=== PATIENT | female | born 1955 | race Hispanic/Latino ===

== ENCOUNTER 2017-12-31 03:55 | Emergency (ER) | payer BC, MEDICARE, OTHER ==
[2017-12-31] MEDS ORDERED: ACETAMINOPHEN 500 MG TAB ONE (04:31)
[2017-12-31] MEDS ORDERED: ONDANSETRON 4 MG/2 ML VIAL ONE (04:31)
[2017-12-31] MEDS ORDERED: KETOROLAC 30 MG/ML INJ ONE (04:31)
[2017-12-31 05:02] LABS: Absolute Lymphocytes (CBC) 2.5 K/uL (0.7-4.9); Absolute Monocytes 0.9 K/uL (0.1-1.3); Absolute Neutrophil 8.6 K/uL (1.8-8.0); Basophils % 0.5 % (0-1.3); Eosinophils % 2.2 % (0-4.4); Hematocrit 36.6 % (36.0-45.0); Lymphocytes % 20.1 % (15.3-44.8); MCH 28.3 pg (27.0-35.0); MPV 7.9 fL (7.6-11.3); Monocytes % 7.6 % (3.3-12.3); RBC Red Blood Cell Count 4.26 M/uL (3.86-4.86)
[2017-12-31 05:15] LABS: ALT/SGPT 27 U/L (12-78); AST/SGOT 23 U/L (15-37); Albumin 3.6 g/dL (3.4-5.0); Alkaline Phosphatase 90 U/L (45-117); BUN Blood Urea Nitrogen 17 mg/dL (7-18); Bicarbonate 24 mmol/L (21-32); Bilirubin Direct < 0.1 mg/dL (0-0.2); Bilirubin Total 0.4 mg/dL (0.2-1.0); Glucose Level 140 mg/dL (74-106); Lipase 91 U/L (73-393); Potassium 4.1 mmol/L (3.5-5.1); Protein, Total 8.1 g/dL (6.4-8.2); Sodium Level 137 mmol/L (136-145)
[2017-12-31 05:27] LABS: Urine Appearance CLEAR; Urine Bilirubin NEGATIVE (NEG); Urine Blood NEGATIVE (NEG); Urine Color YELLOW; Urine Glucose NEGATIVE (NEG); Urine Protein NEGATIVE (NEG); Urine Urobilinogen 0.2 mg/dL (0.2-1.0); Urine pH 5.5 (5.0-7.0)
[2017-12-31 05:28] LABS: Urine Bacteria <20 /HPF (<20); Urine Culture Reflex Order NOT NEEDED; Urine RBC NONE SEEN /HPF (NONE SEEN)
--- NOTE | 2017-12-31 06:49 | EDPHYS ---
Physician Documentation [facility] Name: Maria Esther Capone Age: 62 yrs Sex: Female : 1955 Arrival Date: 12/31/2017 Time: 03:55 Bed 6 Private MD: ED Physician Dpiak Hodges HPI: 12/31 05:01 This 62 yrs old Female presents to ER via EMS with complaints of left side low wa back pain. 05:01 The patient presents with pain that is acute, with no known mechanism of injury. The wa symptoms are located in the low back, L side. The pain does not radiate. The problem was sustained from unknown cause, states last she felt like this she had a kidney infection. Onset: The symptoms/episode began/occurred 4 day(s) ago. Modifying factors: The patient symptoms are alleviated by nothing, the patient symptoms are aggravated by movement, walking. Associated signs and symptoms: Pertinent positives: dysuria, urinary freq, Pertinent negatives: abdominal pain, chest pain, fever, headache, hematuria. Severity of symptoms: At their worst the symptoms were moderate, in the emergency department the symptoms are unchanged. The patient has experienced a previous episode. The patient has not recently seen a physician. Historical: - Allergies: 04:08 No Known Allergies; ea - PMHx: 04:08 Diabetes - IDDM; Hypertension; Hyperlipidemia; Heart attack in 2006; ea - PSHx: 04:08 Tubal ligation; ea - Immunization history:: Adult Immunizations up to date. - Social history:: Smoking status: Patient/guardian denies using tobacco. - Ebola Screening: : No symptoms or risks identified at this time. - Family history:: not pertinent. - Hospitalizations: : No recent hospitalization is reported. ROS: 05:03 Constitutional: Negative for fever, chills, and weight loss, Eyes: Negative for injury, wa pain, redness, and discharge, ENT: Negative for injury, pain, and discharge, Neck: Negative for injury, pain, and swelling, Cardiovascular: Negative for chest pain, palpitations, and edema, Respiratory: Negative for shortness of breath, cough, wheezing, and pleuritic chest pain, Abdomen/GI: Negative for abdominal pain, nausea, vomiting, diarrhea, and constipation, : Negative for injury, bleeding, discharge, and swelling, MS/Extremity: Negative for injury and deformity, Skin: Negative for injury, rash, and discoloration, Neuro: Negative for headache, weakness, numbness, tingling, and seizure. 05:03 Back: Positive for pain at rest, pain with movement, of the left low back and left mid back. 05:03 All other systems are negative. Exam: 05:04 Constitutional: This is a well developed, well nourished patient who is awake, alert, wa and in no acute distress. Head/Face: Normocephalic, atraumatic. Eyes: Pupils equal round and reactive to light, extra-ocular motions intact. Lids and lashes normal. Conjunctiva and sclera are non-icteric and not injected. Cornea within normal limits. Periorbital areas with no swelling, redness, or edema. ENT: Nares patent. No nasal discharge, no septal abnormalities noted. Tympanic membranes are normal and external auditory canals are clear. Oropharynx with no redness, swelling, or masses, exudates, or evidence of obstruction, uvula midline. Mucous membranes moist. Neck: Trachea midline, no thyromegaly or masses palpated, and no cervical lymphadenopathy. Supple, full range of motion without nuchal rigidity, or vertebral point tenderness. No Meningismus. Chest/axilla: Normal chest wall appearance and motion. Nontender with no deformity. No lesions are appreciated. Cardiovascular: Regular rate and rhythm with a normal S1 and S2. No gallops, murmurs, or rubs. Normal PMI, no JVD. No pulse deficits. Respiratory: Lungs have equal breath sounds bilaterally, clear to auscultation and percussion. No rales, rhonchi or wheezes noted. No increased work of breathing, no retractions or nasal flaring. Abdomen/GI: Soft, non-tender, with normal bowel sounds. No distension or tympany. No guarding or rebound. No evidence of tenderness throughout. Skin: Warm, dry with normal turgor. Normal color with no rashes, no lesions, and no evidence of cellulitis. MS/ Extremity: Pulses equal, no cyanosis. Neurovascular intact. Full, normal range of motion. Neuro: Awake and alert, GCS 15, oriented to person, place, time, and situation. Cranial nerves II-XII grossly intact. Motor strength 5/5 in all extremities. Sensory grossly intact. Cerebellar exam normal. Normal gait. Psych: Awake, alert, with orientation to person, place and time. Behavior, mood, and affect are within normal limits. 05:04 Back: pain, that is moderate, ROM is normal, normal spinal alignment noted, CVA tenderness, is absent, vertebral tenderness, is not appreciated, diffuse tenderness L lateral back to palpation. Vital Signs: 03:54 BP 122 / 76; Pulse 88; Resp 18; Temp 99.3(O); Pulse Ox 96% on R/A; Weight 53.07 kg; ea Height 4 ft. 11 in. (149.86 cm); Pain 10/10; 04:30 BP 158 / 70; Pulse 88; Resp 18 S; Pulse Ox 96% on R/A; ea 06:16 BP 114 / 71; Pulse 58; Resp 18; Pulse Ox 96% on R/A; ea 03:54 Body Mass Index 23.63 (53.07 kg, 149.86 cm) ea MDM: 04:07 Patient medically screened. nm 05:05 Differential diagnosis: strain, UTI, pyelo?. Data reviewed: vital signs, nurses notes, nm lab test result(s). 06:45 Test interpretation: by ED physician or midlevel provider: labs noted wnl. CT wa abd/pelvis: No acute process. Response to treatment: the patient's symptoms have markedly improved after treatment. 12/31 04:24 Order name: Basic Metabolic Panel; Complete Time: 06:12/31 04:24 Order name: CBC with Diff; Complete Time: 06:12/31 04:24 Order name: Creatinine for Radiology; Complete Time: 06:12/31 04:24 Order name: Hepatic Function; Complete Time: 06:12/31 04:24 Order name: Lipase; Complete Time: 06:01 12/31 04:24 Order name: IV Saline Lock; Complete Time: 05:22 12/31 04:24 Order name: Labs collected and sent; Complete Time: 05:22 12/31 04:24 Order name: Urine Dipstick-Ancillary (obtain specimen); Complete Time: 05:22 12/31 04:25 Order name: CT Abd/Pelvis - Without Cont 12/31 05:27 Order name: Urinalysis W/Microscopic; Complete Time: 06:00 EDMS Administered Medications: 04:30 Drug: TORadol 30 mg Route: IVP; Site: right forearm; ea 05:31 Follow up: Response: No adverse reaction; Pain is decreased ea 04:30 Drug: Zofran 2 mg Route: IVP; Site: right forearm; ea 05:32 Follow up: Response: No adverse reaction ea 05:32 Follow up: Response: Nausea is decreased ea 05:31 Drug: Tylenol 1000 mg Route: PO; ea 05:32 Follow up: Response: No adverse reaction ea Disposition: 12/31/17 06:48 Discharged to Home. Impression: Left low back pain. - Condition is Stable. - Discharge Instructions: Back Pain, Adult, [id number]. - Prescriptions for Valium 2 mg Oral Tablet - take 1 tablet by ORAL route At bedtime As needed; 5 tablet. - Medication Reconciliation Form, Thank You Letter, Antibiotic Education, Prescription Opioid Use form. - Follow up: Private Physician; When: 2 - 3 days; Reason: Recheck today's complaints. - Problem is new. - Symptoms have improved. - Notes: take tylenol for pain as needed. you may take valium at night for muscle relaxation as needed Signatures: Dispatcher [employer] EDME Marlene Romero RN RN Charity Ballesteros RN RN vanessa CallawayhDipak MD MD wa Corrections: (The following items were deleted from the chart) 05:27 04:25 UA MICROSCOPIC+U.LAB.BRZ ordered. [facility] EDMS 07:31 06:48 12/31/2017 06:48 Discharged to Home. Impression: Left low back pain. Condition is sv Stable. Forms are Medication Reconciliation Form, Thank You Letter, Antibiotic Education, Prescription Opioid Use. Follow up: Private Physician; When: 2 - 3 days; Reason: Recheck today's complaints. Problem is new. Symptoms have improved. wa
--- NOTE | 2017-12-31 06:49 | ER ---
Nurse's Notes [facility] Name: aMria Esther Capone Age: 62 yrs Sex: Female : 1955 Arrival Date: 12/31/2017 Time: 03:55 Bed 6 Private MD: Diagnosis: Left low back pain Presentation: 12/31 03:54 Presenting complaint: EMS states: Pt complaining of left lower back pain , patient ea reports pain started 4 days ago, and has progressively got worse. Transition of care: patient was not received from another setting of care. Onset of symptoms. Risk Assessment: Do you want to hurt yourself or someone else?. Initial Sepsis Screen: Does the patient meet any 2 criteria? No. Patient's initial sepsis screen is negative. Does the patient have a suspected source of infection? No. Patient's initial sepsis screen is negative. Care prior to arrival: None. 03:54 Method Of Arrival: EMS: [facility] ea 03:54 Acuity: ALTA 3 ea Triage Assessment: 03:54 General: Appears uncomfortable, Behavior is appropriate for age. Pain: Complains of ea pain in left low back and left mid back Pain does not radiate. Pain currently is 10 out of 10 on a pain scale. Quality of pain is described as aching, Pain began pain started 4 days ago and gradually got worse. EENT: No signs and/or symptoms were reported regarding the EENT system. Neuro: Level of Consciousness is awake, alert, obeys commands, Oriented to person, place, time, situation. Cardiovascular: Heart tones S1 S2 present Patient's skin is warm and dry. Respiratory: Airway is patent Respiratory effort is even, unlabored, Respiratory pattern is regular, symmetrical, Breath sounds are clear bilaterally. GI: Abdomen is non-distended, Bowel sounds present X 4 quads. : No signs and/or symptoms were reported regarding the genitourinary system. Derm: Skin is pink, warm \T\ dry. Historical: - Allergies: 04:08 No Known Allergies; ea - PMHx: 04:08 Diabetes - IDDM; Hypertension; Hyperlipidemia; Heart attack in 2006; ea - PSHx: 04:08 Tubal ligation; ea - Immunization history:: Adult Immunizations up to date. - Social history:: Smoking status: Patient/guardian denies using tobacco. - Ebola Screening: : No symptoms or risks identified at this time. - Family history:: not pertinent. - Hospitalizations: : No recent hospitalization is reported. Screenin:12 Abuse screen: Denies threats or abuse. Nutritional screening: No deficits noted. ea Tuberculosis screening: No symptoms or risk factors identified. Fall Risk None identified. Assessment: 04:30 Reassessment: Patient and/or family updated on plan of care and expected duration. Pain ea level reassessed. Patient is alert, oriented x 3, equal unlabored respirations, skin warm/dry/pink. 06:00 Reassessment: Pt resting with eyes closed respirations even and unlabored, chest ea expansions even and symmetrical. No s/s of pain or discomfort at this time. 06:57 Reassessment: Patient and/or family updated on plan of care and expected duration. Pain ea level reassessed. Patient is alert, oriented x 3, equal unlabored respirations, skin warm/dry/pink. Discharge instructions given to patient, verbalized the understanding of instruction. Vital Signs: 03:54 BP 122 / 76; Pulse 88; Resp 18; Temp 99.3(O); Pulse Ox 96% on R/A; Weight 53.07 kg; ea Height 4 ft. 11 in. (149.86 cm); Pain 10/10; 04:30 BP 158 / 70; Pulse 88; Resp 18 S; Pulse Ox 96% on R/A; ea 06:16 BP 114 / 71; Pulse 58; Resp 18; Pulse Ox 96% on R/A; ea 03:54 Body Mass Index 23.63 (53.07 kg, 149.86 cm) ea ED Course: 03:54 Patient has correct armband on for positive identification. Bed in low position. Call ea light in reach. Side rails up X2. 03:55 Patient arrived in ED. am2 03:58 Charity Kam, MIGUEL A is Primary Nurse. ea 04:06 Triage completed. ea 04:07 Dipak Hodges MD is Attending Physician. wa 04:13 Arm band placed on right wrist. ea 04:30 Inserted saline lock: 20 gauge in right forearm, using aseptic technique. Blood ea collected. 04:[address] via wheelchair. kw1 05:11 CT completed. Patient tolerated procedure well. Patient moved back from CT. kw1 05:14 CT Abd/Pelvis - Without Cont In Process Unspecified. EDIA 06:58 No provider procedures requiring assistance completed. IV discontinued, intact, ea bleeding controlled, No redness/swelling at site. Pressure dressing applied. Administered Medications: 04:30 Drug: TORadol 30 mg Route: IVP; Site: right forearm; ea 05:31 Follow up: Response: No adverse reaction; Pain is decreased ea 04:30 Drug: Zofran 2 mg Route: IVP; Site: right forearm; ea 05:32 Follow up: Response: No adverse reaction ea 05:32 Follow up: Response: Nausea is decreased ea 05:31 Drug: Tylenol 1000 mg Route: PO; ea 05:32 Follow up: Response: No adverse reaction ea Outcome: 06:48 Discharge ordered by . ok 06:58 Condition: improved 06:58 Discharge instructions given to patient, Instructed on discharge instructions, follow up and referral plans. medication usage, Demonstrated understanding of instructions, follow-up care, medications, Prescriptions given X 1. 07:31 Patient left the ED. sv Signatures: Dispatcher [employer] [facility] Marlene Romero, Heidy Roy RN, Elena, RN RN ea Appiah, William, MD MD wa Wilhelm, Kimberly kw1
[2017-12-31 07:35] VITALS: O2SAT 96
[2017-12-31 07:36] VITALS: BP 114/71
--- NOTE | 2017-12-31 10:20 | RAD REPORT ---
EXAM DESCRIPTION: CT - Abdomen Pelvis Wo Contrast - 12/31/2017 5:14 am CLINICAL HISTORY: Abdominal pain. L lower back pain COMPARISON: CTSTONE PROTOCOL dated 01/31/2015 TECHNIQUE: CT imaging of the abdomen and pelvis was performed without contrast. Solid organ, bowel a nd vascular assessment is limited due to lack of IV and oral contrast. All CT scans are performed using dose optimization technique as appropriate and may include automated exposure control or mA/KV adjustment according to patient size. FINDINGS: The lower lung khan are clear. The liver, spleen, pancreas, adrenal glands and left kidney are within normal limits for a limited no n-contrast examination.Punctate right renal calculus without hydronephrosis. No bowel obstruction, free air, free fluid or abscess. The appendix is normal. Prominent facet hypertrophy at L4-5 with anterolisthesis suspected. IMPRESSION: Punctate right renal calculus without hydronephrosis. Prominent facet hypertrophy with anterolisthesis in the lower lumbar spine. A limited non-contrast examination was performed as detailed.
== END 2017-12-31 07:31 | disposition home or self-care (01) ==
LOC: ER 03:55
DX: M54.5 Low back pain (principal); I10 Essential (primary) hypertension
CPT/HCPCS: 36415; 74176; 80048; 80076; 81001; 83690; 85025; 96374; 96375; 99284; J2405

== ENCOUNTER 2019-02-06 21:11 | Observation (INO) | payer MEDICARE ==
--- OUTSIDE RECORDS SUMMARY | 2019-02-06 21:13 | XMS REPORT ---
:1955 [facility] Address [address] [place] [address] [address] [place] [address] Care Team Providers Name Role Phone Unavailable Unavailable Unavailable Problems This patient has no known problems. Allergies, Adverse Reactions, Alerts This patient has no known allergies or adverse reactions. Medications This patient has no known medications.
[2019-02-06 23:10] LABS: Absolute Lymphocytes (CBC) 3.3 K/uL (0.7-4.9); Basophils % 1.1 % (0-1.3); Hematocrit 30.4 % (36.0-45.0); Lymphocytes % 43.3 % (15.3-44.8); MPV 8.8 fL (7.6-11.3); RBC Red Blood Cell Count 3.27 M/uL (3.86-4.86)
[2019-02-06 23:12] LABS: Protime INR 0.91
[2019-02-06 23:28] LABS: ALT/SGPT 26 U/L (12-78); AST/SGOT 20 U/L (15-37); Alkaline Phosphatase 68 U/L (45-117); BUN Blood Urea Nitrogen 28 mg/dL (7-18); Bicarbonate 27 mmol/L (21-32); Bilirubin Direct 0.1 mg/dL (0-0.2); Bilirubin Total 0.4 mg/dL (0.2-1.0); Glucose Level 102 mg/dL (74-106); Magnesium 2.4 mg/dL (1.8-2.4); NT PRO-BNP 492 pg/mL (<125); Potassium 4.2 mmol/L (3.5-5.1); Protein, Total 7.9 g/dL (6.4-8.2); Sodium Level 138 mmol/L (136-145); Troponin (Emerg Dept Use Only) < 0.02 ng/mL (0.0-0.045)
[2019-02-06] MEDS ORDERED: NITROGLYCERIN 0.4 MG/TAB SL ONE (23:48)
--- NOTE | 2019-02-07 00:03 | ER ---
Nurse's Notes [facility] Name: Maria Esther Capone Age: 63 yrs Sex: Female : 1955 Arrival Date: 02/06/2019 Time: 21:15 Bed 18 Private MD: Diagnosis: Hypertensive urgency;Chest pain Presentation: 02/06 21:44 Presenting complaint: Patient states: right shoulder pain, right shoulder blade pain ak1 with intermittent chest pressure for the past 5 days. pt denies N/V/D, pt denies SOB. Transition of care: patient was not received from another setting of care. Onset of symptoms is unknown. Risk Assessment: Do you want to hurt yourself or someone else? Patient reports no desire to harm self or others. Initial Sepsis Screen: Does the patient meet any 2 criteria? No. Patient's initial sepsis screen is negative. Does the patient have a suspected source of infection? No. Patient's initial sepsis screen is negative. Care prior to arrival: None. 21:44 Method Of Arrival: Ambulatory ak1 21:44 Acuity: ALTA 3 ak1 Triage Assessment: 21:46 General: Appears in no apparent distress. Behavior is calm, cooperative. ak1 Historical: - Allergies: 21:46 No Known Allergies; ak1 - Home Meds: 21:46 Metoprolol Tartrate Oral [Active]; Metformin Oral [Active]; pravastatin oral oral ak1 [Active]; aspirin 81 mg Oral TbEC 1 tab once daily [Active]; unknown Blood pressure pill [Active]; - PMHx: 21:46 Heart attack in 2006; Hyperlipidemia; Hypertension; Diabetes - NIDDM; ak1 - PSHx: 21:46 Tubal ligation; ak1 - Immunization history:: Adult Immunizations unknown. - Social history:: Smoking status: Patient/guardian denies using tobacco. - Ebola Screening: : No symptoms or risks identified at this time. Screenin:05 Abuse screen: Denies threats or abuse. Nutritional screening: No deficits noted. jb4 Tuberculosis screening: No symptoms or risk factors identified. Fall Risk IV access (20 points). Total Duffy Fall Scale indicates No Risk (0-24 pts). Assessment: 22:05 General: Appears in no apparent distress. comfortable, Behavior is calm, cooperative, jb4 appropriate for age. Pain: Complains of pain in chest Pain radiates to right scapular area Pain currently is 0 out of 10 on a pain scale. at worst was 8 out of 10 on a pain scale. Quality of pain is described as pressure, Pain began 5 days ago Is intermittent. Neuro: Level of Consciousness is awake, alert, obeys commands, Oriented to person, place, time, situation. Cardiovascular: Patient's skin is warm and dry. Rhythm is sinus rhythm. Respiratory: Airway is patent Respiratory effort is even, unlabored, Respiratory pattern is regular, symmetrical. GI: No deficits noted. No signs and/or symptoms were reported involving the gastrointestinal system. : No deficits noted. No signs and/or symptoms were reported regarding the genitourinary system. EENT: No deficits noted. No signs and/or symptoms were reported regarding the EENT system. Derm: Skin is intact, Skin is pink, warm \T\ dry. Musculoskeletal: Circulation, motion, and sensation intact. Range of motion: intact in all extremities. 23:00 Reassessment: Patient appears in no apparent distress at this time. Patient and/or jb4 family updated on plan of care and expected duration. Pain level reassessed. Patient is alert, oriented x 3, equal unlabored respirations, skin warm/dry/pink. 02/07 00:00 Reassessment: Patient appears in no apparent distress at this time. Patient and/or jb4 family updated on plan of care and expected duration. Pain level reassessed. Patient is alert, oriented x 3, equal unlabored respirations, skin warm/dry/pink. 00:20 Reassessment: Pt reports a decrease in chest discomfort after nitro administration. jb4 01:07 Reassessment: Called report to MIGUEL A Lanier. jb4 01:25 Reassessment: Patient appears in no apparent distress at this time. Patient and/or jb4 family updated on plan of care and expected duration. Pain level reassessed. Patient is alert, oriented x 3, equal unlabored respirations, skin warm/dry/pink. Pt transferred to room 412, via wheelchair. Vital Signs: 02/06 21:46 BP 219 / 66; Pulse 71; Resp 16; Temp 98.4; Pulse Ox 96% on R/A; Weight 52.16 kg (R); ak1 Height 4 ft. 11 in. (149.86 cm) (R); Pain 7/10; 22:45 BP 210 / 68; Pulse 56; Resp 18; Pulse Ox 98% on R/A; jb4 23:45 BP 161 / 73; Pulse 58; Resp 16; Pulse Ox 98% on R/A; jb4 08 00:45 BP 175 / 70; Pulse 60; Resp 18; Temp 98.9(O); Pulse Ox 98% on R/A; jb4 01:15 BP 160 / 76; Pulse 59; Resp 16; Pulse Ox 97% on R/A; jb4 08 21:46 Body Mass Index 23.23 (52.16 kg, 149.86 cm) ak1 ED Course: 02/06 21:15 Patient arrived in ED. ag3 21:45 Triage completed. ak1 21:46 Arm band placed on Patient placed in waiting room, Patient notified of wait time. ak1 22:05 Patient has correct armband on for positive identification. Placed in gown. Bed in low jb4 position. Call light in reach. Side rails up X 1. insurance claims adjuster on. Pulse ox on. NIBP on. 22:05 Initial lab(s) drawn, by or, sent to lab. Inserted saline lock: 20 gauge in right jb4 antecubital area, using aseptic technique. Blood collected. Patient maintains SpO2 saturation greater than 95% on room air. 22:12 Tigre Dorsey MD is Attending Physician. ps1 22:44 Tevin Patel, MIGUEL A is Primary Nurse. jb4 23:40 XRAY Chest (1 view) In Process Unspecified. EDMS 02/07 00:02 Chaitanya Lyle DO is Hospitalizing Provider. ps1 01:15 No provider procedures requiring assistance completed. Patient admitted, IV remains in jb4 place. Administered Medications: 02/06 23:54 Drug: Nitroglycerin 0.4 mg Route: Sublingual; jb4 02/07 00:15 Follow up: Response: Pain is decreased; Blood pressure is lowered jb4 Point of Care Testing: Blood Glucose: 02/06 22:05 Blood Glucose: 123 mg/dL; jb4 Ranges: Outcome: 08 00:02 Decision to Hospitalize by Provider. ps1 01:15 Admitted to Tele accompanied by nurse, via wheelchair, room 412, with chart, Report jb4 called to MIGUEL A Lanier 01:15 Condition: stable 01:15 Discharge instructions given to patient, family, Instructed on the need for admit, Demonstrated understanding of instructions. 01:40 Patient left the ED. jb4 Signatures: Dispatcher [employer] Nena Puente RN RN ak1 Tevin Patel RN RN jb4 Tigre Dorsey MD MD ps1 Darlene Tapia3
--- NOTE | 2019-02-07 00:04 | EDPHYS ---
Physician Documentation [facility] Name: Maria Esther Capone Age: 63 yrs Sex: Female : 1955 Arrival Date: 02/06/2019 Time: 21:15 Bed 18 Private MD: ED Physician Tigre Dorsey HPI: 02/06 23:56 This 63 yrs old Female presents to ER via Ambulatory with complaints of Chest ps1 Pressure, Shoulder Pain. 23:56 Patient states that her symptoms have gone on for 3-4 days. Hx of HTN, HLD, CHF, ps1 EF30-40, NIDDM with chest pressure tightness as well as right shoulder pain. Intermittent. No remitting factors. No diaphoresis. . Historical: - Allergies: 21:46 No Known Allergies; ak1 - Home Meds: 21:46 Metoprolol Tartrate Oral [Active]; Metformin Oral [Active]; pravastatin oral oral ak1 [Active]; aspirin 81 mg Oral TbEC 1 tab once daily [Active]; unknown Blood pressure pill [Active]; - PMHx: 21:46 Heart attack in 2006; Hyperlipidemia; Hypertension; Diabetes - NIDDM; ak1 - PSHx: 21:46 Tubal ligation; ak1 - Immunization history:: Adult Immunizations unknown. - Social history:: Smoking status: Patient/guardian denies using tobacco. - Ebola Screening: : No symptoms or risks identified at this time. ROS: 23:56 Constitutional: Negative for fever, chills, and weight loss, Eyes: Negative for injury, ps1 pain, redness, and discharge, ENT: Negative for injury, pain, and discharge, Respiratory: Negative for shortness of breath, cough, wheezing, and pleuritic chest pain, Abdomen/GI: Negative for abdominal pain, nausea, vomiting, diarrhea, and constipation, MS/Extremity: Negative for injury and deformity, Skin: Negative for injury, rash, and discoloration, Neuro: Negative for headache, weakness, numbness, tingling, and seizure. 23:56 Cardiovascular: Positive for chest pain. Exam: 23:56 Constitutional: This is a well developed, well nourished patient who is awake, alert, ps1 and in no acute distress. Head/Face: Normocephalic, atraumatic. Eyes: Pupils equal round and reactive to light, extra-ocular motions intact. Lids and lashes normal. Conjunctiva and sclera are non-icteric and not injected. Chest/axilla: Normal chest wall appearance and motion. Nontender with no deformity. No lesions are appreciated. Cardiovascular: Regular rate and rhythm. No gallops, murmurs, or rubs. Normal PMI, no JVD. No pulse deficits. Respiratory: Lungs have equal breath sounds bilaterally, clear to auscultation and percussion. No rales, rhonchi or wheezes noted. No increased work of breathing, no retractions or nasal flaring. Abdomen/GI: Soft, non-tender, with normal bowel sounds. No distension or tympany. No guarding or rebound. No evidence of tenderness throughout. Skin: Warm, dry with normal turgor. Normal color with no rashes, no lesions, and no evidence of cellulitis. MS/ Extremity: Pulses equal, no cyanosis. Neurovascular intact. Full, normal range of motion. Neuro: Awake and alert, GCS 15, oriented to person, place, time, and situation. Cranial nerves II-XII grossly intact. Sensory grossly intact. Vital Signs: 21:46 BP 219 / 66; Pulse 71; Resp 16; Temp 98.4; Pulse Ox 96% on R/A; Weight 52.16 kg (R); ak1 Height 4 ft. 11 in. (149.86 cm) (R); Pain 7/10; 22:45 BP 210 / 68; Pulse 56; Resp 18; Pulse Ox 98% on R/A; jb4 23:45 BP 161 / 73; Pulse 58; Resp 16; Pulse Ox 98% on R/A; jb4 02/07 00:45 BP 175 / 70; Pulse 60; Resp 18; Temp 98.9(O); Pulse Ox 98% on R/A; jb4 01:15 BP 160 / 76; Pulse 59; Resp 16; Pulse Ox 97% on R/A; jb4 02/06 21:46 Body Mass Index 23.23 (52.16 kg, 149.86 cm) ak MDM: 02/06 22:41 Patient medically screened. ps1 02/06 22:45 Order name: Basic Metabolic Panel jb4 02/06 22:45 Order name: CBC with Diff; Complete Time: 23:55 jb4 02/06 22:45 Order name: LFT's; Complete Time: 23:55 jb4 02/06 22:45 Order name: Magnesium; Complete Time: 23:55 jb4 02/06 22:45 Order name: NT PRO-BNP; Complete Time: 23:55 jb4 02/06 22:45 Order name: PT-INR; Complete Time: 23:55 jb4 02/06 22:45 Order name: Troponin (emerg Dept Use Only); Complete Time: 23:55 jb4 02/06 22:45 Order name: XRAY Chest (1 view) jb4 02/06 22:45 Order name: EKG; Complete Time: 22:46 jb4 02/06 22:45 Order name: Cardiac monitoring; Complete Time: 22:46 jb4 02/06 22:45 Order name: EKG - Nurse/Tech; Complete Time: 22:46 jb4 02/06 22:45 Order name: IV Saline Lock; Complete Time: 22:46 jb4 02/06 22:46 Order name: Basic Metabolic Panel; Complete Time: 23:55 EDNM 02/06 22:45 Order name: Labs collected and sent; Complete Time: 22:46 jb4 02/06 22:45 Order name: O2 Per Protocol; Complete Time: 22:47 jb4 02/06 22:45 Order name: O2 Sat Monitoring; Complete Time: 22:47 jb4 EC:54 Rate is 69 beats/min. Rhythm is regular. QRS [place] is Normal. [place] interval is normal. QRS ps1 interval is normal. QT interval is normal. Q waves are Old in leads II, III, aVF. T waves are Normal. No ST changes noted. Clinical impression: NSR w/ Non-specific ST/T Changes. Interpreted by me. Administered Medications: 23:54 Drug: Nitroglycerin 0.4 mg Route: Sublingual; 4 02/07 00:15 Follow up: Response: Pain is decreased; Blood pressure is lowered [facility] Point of Care Testing: Blood Glucose: 02/06 22:05 Blood Glucose: 123 mg/dL; [facility] Ranges: Critical Glucose Levels:Adult <50 mg/dl or >400 mg/dl <40 mg/dl or >180 mg/dl Disposition: 02/07/19 00:02 Hospitalization ordered by Chaitanya Lyle for Observation. Preliminary diagnosis are Hypertensive urgency, Chest pain. - Bed requested for Telemetry/MedSurg (observation). - Status is Observation. jb4 - Condition is Stable. - Problem is new. - Symptoms are unchanged. UTI on Admission? No Signatures: Dispatcher [employer] EDMS Theresa Werner, RN RN mw Nena Quintana, RN RN ak1 Tevin Patel, RN RN jb4 Tigre Dorsey MD MD ps1 Corrections: (The following items were deleted from the chart) 02/07 00:32 00:02 Hospitalization Ordered by Chaitanya Lyle DO for Observation. Preliminary mw diagnosis is Hypertensive urgency; Chest pain. Bed requested for Telemetry/MedSurg (observation). Status is Observation. Condition is Stable. Problem is new. Symptoms are unchanged. UTI on Admission? No. ps1 01:40 00:32 02/07/2019 00:02 Hospitalization Ordered by Chaitanya Lyle DO for Observation. jb4 Preliminary diagnosis is Hypertensive urgency; Chest pain. Bed requested for Telemetry/MedSurg (observation). Status is Observation. Condition is Stable. Problem is new. Symptoms are unchanged. UTI on Admission? No. mw
--- NOTE | 2019-02-07 00:38 | P.HP ---
Certification for Inpatient Patient admitted to: Observation With expected LOS: <2 Midnights Patient will require the following post-hospital care: None Practitioner: I am a practitioner with admitting privileges, knowledge of patient current condition, hospital course, and medical plan of care. Services: Services provided to patient in accordance with Admission requirements found in Title 42 Section 412.3 of the Code of Federal Regulations Patient History Date of Service: 02/07/19 Primary Care Provider: Dr. Gaspar; Cardiology-Dr. Berg Reason for admission: Chest pain History of Present Illness: 63-year-old female presented to the emergency room with chest pain. Patient with history of diabetes mellitus type 2 non insulin dependent, hypertension, hyperlipidemia and CAD with prior [place] in 2006 with 1 stent placed. Patient reported chest pain over the last 3 days. The chest pain was more of a pressure like sensation. It started between the shoulders and moved to the right shoulder blade. The pain would come and go. It would last for several min. It would occur at rest as well. It was associated with some palpitation. She denied any significant shortness of breath. No significant nausea or vomiting noted. She came to the ER for further evaluation. In the ER patient was hypertensive with a blood pressure of 219/66. Patient was given medication in the emergency room. This included nitroglycerin. Blood pressure improved. Blood pressure now in the 160 systolic. Patient without chest pain at this time. Initial cardiac enzymes unremarkable. BNP 492. White count 7.6, hemoglobin 10.2. Sodium 138, potassium 4.2, BUN of 28, creatinine 1.06 with a GFR 52. Glucose 102. Chest x-ray unremarkable. EKG showed no significant ST changes. Heart score calculated to 5. Patient was admitted for further evaluation and observation. In the ER when I evaluated the patient she appeared without any chest pain. Blood pressure improved. Daughter at bedside. She denies any tobacco or alcohol use. She reports seeing Cardiology-Dr. Berg in [place], [place], a couple months ago. She had a cardiac stress test which was unremarkable at that time. She also reported echocardiogram showing ejection fraction of around 40%. She also reports having Holter monitor which was unremarkable. Allergies Hydrocodone-Acetaminophen Allergy (Uncoded 02/01/15 02:32) vomiting No Known Allergies Allergy (Uncoded 12/31/17 07:35) Unknown Home medications list reviewed: Yes Home Medications: Gabapentin [Neurontin*] 600 mg PO TID 08/22/13 Glimepiride [Amaryl] 4 mg PO DAILY 08/22/13 Metoprolol Tartrate [Lopressor*] 50 mg PO BID 08/22/13 Pravastatin [Pravachol*] 40 mg PO BEDTIME 08/22/13 Amlodipine Besylate 10 mg PO DAILY 02/16/14 Ascorbic Acid [Vitamin C*] 1 tab PO DAILY 02/01/15 Aspirin [[place] Aspirin EC] 81 mg PO DAILY 02/01/15 Benzonatate [Tessalon Perle*] 200 mg PO TIDP PRN 02/01/15 Cholecalciferol (Vitamin D3) [Vitamin D 1000 Iu Tab*] 1 tab PO DAILY 02/01/15 Metformin HCl [Metformin ER Osmotic] 1 tab PO DAILY 02/01/15 Omeprazole [Prilosec] 20 mg PO DAILY 02/01/15 Tramadol HCl [Ultram] 1 tab PO Q6HP PRN 02/01/15 sulfaSALAzine [Sulfasalazine] 1 tab PO BID 02/01/15 Ciprofloxacin HCl [Cipro 500 MG Tablet] 500 mg PO BID #20 tablet 02/03/15 - Past Medical/Surgical History Diabetic: Yes -: CAD with prior stent 2006 -: Diabetes mellitus type 2, non insulin depended -: Hyperlipidemia -: Hypertension -: Tubal ligation Psychosocial/ Personal History: Patient is single. She lives at home. - Family History Family History: Reviewed- Non-Contributory - Social History Smoking Status: Never smoker Alcohol use: No CD- Drugs: No Caffeine use: No Place of Residence: Home Review of Systems General: As per HPI Eyes: Unremarkable ENT: Unremarkable Respiratory: Unremarkable Cardiovascular: Chest Pain, Palpitations, As per HPI Gastrointestinal: Unremarkable Genitourinary: Unremarkable Musculoskeletal: Unremarkable Integumentary: Unremarkable Neurological: Unremarkable Lymphatics: Unremarkable Physical Examination - Physical Exam General: Alert, In no apparent distress, Oriented x3, Cooperative HEENT: Atraumatic, Normocephalic, PERRLA, Mucous membr. moist/pink Neck: Supple, No Thyromegaly Respiratory: Clear to auscultation bilaterally, Normal air movement Cardiovascular: Normal pulses, Regular rate/rhythm Gastrointestinal: Normal bowel sounds, Soft and benign, Non-distended, No tenderness, No masses, No rebound, No guarding Musculoskeletal: No contractures, No erythema, No tenderness, No warmth Integumentary: No tenderness/swelling, No erythema, No warmth, No cyanosis Neurological: Normal speech, Normal strength at 5/5 x4 extr, Normal tone, Normal affect - Studies Laboratory Data (last 24 hrs) 02/06/19 22:05: PT 10.8, INR 0.91 02/06/19 22:05: WBC 7.6, Hgb 10.2 L, Hct 30.4 L, Plt Count 274 02/06/19 22:05: Sodium 138, Potassium 4.2, BUN 28 H, Creatinine 1.06, Glucose 102, Magnesium 2.4, Total Bilirubin 0.4, AST 20, ALT 26, Alkaline Phosphatase 68 Assessment and Plan - Plan Impression: Chest pain with history of CAD and prior stent in 2006 Hypertensive urgency Diabetes mellitus type 2, non insulin dependent Hyperlipidemia Anemia likely of chronic disease Plan: Chest pain with history of CAD and prior stent in 2006: Patient will be admitted for further evaluation and observation. Patient with multiple risk factors. Heart score calculated-5. Will monitor on telemetry. Will monitor cardiac enzymes. Will obtain echocardiogram to further assess. Patient started on DVT prophylaxis-Lovenox. Aspirin also initiated. Cardiology consulted for further recommendation. Will keep the patient NPO as the patient may require further cardiac evaluation. Will try to obtain records from her visor installer as she had a cardiac stress test and echocardiogram several months ago. She reported the cardiac stress test as unremarkable. Likely discharge within the next 24 hr if cleared by cardiology. Hypertensive urgency: Blood pressure improved. Will need to obtain home medication. Will start metoprolol and lisinopril at this time. Will provide IV medication if required. Diabetes mellitus type 2, non insulin dependent: Will continue with Accu-Cheks and sliding scale. Will hold metformin at this time. Hyperlipidemia: Will continue with statin medication. Will check fasting lipid panel in the morning. Anemia likely of chronic disease: Will obtain lab-iron and B12 levels in the morning. This can be further evaluated as an outpatient. Discharge Plan: Home Plan to discharge in: 24 Hours - Advance Directives Does patient have a Living Will: No Does patient have a Durable POA for Healthcare: No - Code Status/Comfort Care Code Status Assessed: Yes (Patient is full code) Time Spent Managing Pts Care (In Minutes): 55
[2019-02-07] MEDS ORDERED: HYDRALAZINE HCL 20 MG/ML VIAL IV PRN (01:31)
[2019-02-07] MEDS ORDERED: ONDANSETRON 4 MG/2 ML VIAL IV PRN (01:31)
[2019-02-07] MEDS ORDERED: ACETAMINOPHEN 500 MG TAB PO PRN (01:31)
[2019-02-07] MEDS ORDERED: NITROGLYCERIN 0.4 MG/TAB SL PRN (01:31)
[2019-02-07 01:46] VITALS: BMI 21.6
[2019-02-07] MEDS ORDERED: GABAPENTIN 100 MG CAP PO PRN (01:56)
[2019-02-07] MEDS ORDERED: HYDRALAZINE HCL 20 MG/ML VIAL ONE (01:57)
[2019-02-07] MEDS: TRAMADOL HCL 50 MG TAB PO PRN ×2 (02:28→08:19)
[2019-02-07] MEDS: HYDRALAZINE HCL 20 MG/ML VIAL IV PRN ×2 (02:28→12:11)
[2019-02-07 05:28] LABS: Urine Appearance CLEAR; Urine Bilirubin NEGATIVE (NEG); Urine Blood NEGATIVE (NEG); Urine Color YELLOW; Urine Glucose NEGATIVE (NEG); Urine Protein NEGATIVE (NEG); Urine Specific Gravity <=1.005 (1.005-1.030); Urine Urobilinogen 0.2 mg/dL (0.2-1.0); Urine pH 7.5 (5.0-7.0)
[2019-02-07 05:30] LABS: Urine Microscopic Reflex ORDER UMIC
[2019-02-07 05:56] LABS: Urine Culture Reflex Order REFLEXED
[2019-02-07 05:57] LABS: Urine Bacteria >50 /HPF (<20); Urine RBC <5 /HPF (NONE SEEN)
[2019-02-07] MEDS ORDERED: METOPROLOL TAR 25 MG TAB PO SCH ×2 (06:00)
[2019-02-07 06:33] LABS: CKMB Creatine Kinase MB 5.5 ng/mL (0.3-3.6); Creatine Phosphokinase 244 U/L (26-192); Ferritin 189.1 ng/mL (8-388); HDL Cholesterol 54 mg/dL (40-60); LDL Cholesterol, Calculated 138 (<130); Transferrin 242 mg/dL (200-360); Troponin I < 0.02 ng/mL (0.0-0.045)
[2019-02-07] MEDS: INSULIN -REGULAR HUMAN 50 UNIT/0.5 ML ML SQ SCH ×2 (07:30→11:30)
[2019-02-07] MEDS ORDERED: PNEUMOCOCCAL VACCINE 0.5 ML IMVAC ONE (08:00)
--- NOTE | 2019-02-07 08:44 | RAD REPORT ---
EXAM DESCRIPTION: Najma Single View02/06/2019 11:39 pm CLINICAL HISTORY: Chest pain COMPARISON: 2014 FINDINGS: The lungs appear clear of acute infiltrate. The heart is normal size IMPRESSION: No acute abnormalities displayed
[2019-02-07] MEDS ORDERED: LISINOPRIL 10 MG TAB PO SCH (09:00)
[2019-02-07] MEDS ORDERED: VITAMIN D 5,000 UNIT CAP PO SCH (09:00)
[2019-02-07] MEDS ORDERED: ASPIRIN EC 81 MG TAB PO SCH (09:00)
[2019-02-07] MEDS ORDERED: DOCOSAHEXANOIC AC/EPA 1000 MG PO SCH (09:00)
[2019-02-07] MEDS ORDERED: IRBESARTAN 150 MG TAB PO SCH (09:00)
[2019-02-07] MEDS ORDERED: HOME MED 1 EA UNK (Irbesartan [Avapro] 300 MG) PO SCH (09:00)
[2019-02-07] MEDS ORDERED: ENOXAPARIN 40 MG/0.4 ML SQ SCH (09:00)
[2019-02-07] MEDS ORDERED: MAGNESIUM OXIDE 400 MG TAB PO SCH (09:00)
[2019-02-07 12:03] VITALS: O2SAT 95
--- NOTE | 2019-02-07 12:26 | EKG ---
Test Date: 2019-02-06 Test Time: 21:54:08 Ground Intelligence Officer: MELISSA MEASUREMENT RESULTS: Intervals: Rate: 69 MI: 170 QRSD: 86 QT: 370 QTc: 396 [place]: P: 52 MI: 170 QRS: -9 T: 17 INTERPRETIVE STATEMENTS: Normal sinus rhythm Moderate voltage criteria for LVH, may be normal variant Inferior infarct, age undetermined Abnormal ECG Compared to ECG 01/31/2015 22:48:21 Left ventricular hypertrophy now present Ventricular premature complex(es) no longer present Myocardial infarct finding still present Electronically Signed On 02-07-19 12:25:07 CDT by Arturo Lynch
[2019-02-07 12:35] VITALS: BP 165/70; TEMP 97.7
--- NOTE | 2019-02-07 13:59 | CON ---
Date of Consultation: 02/07/[address] Sam's service on 02/07/2019. I saw the patient on 02/07/2019. Reason For Consultation: Atypical chest pain. History Of Present Illness: Ms. Capone is [address] Berg. She just recently had a negati ve stress test with him. She came in with mostly right shoulder pain and tightness that have been go ing on for about 3 to 4 days consistently. Denied any PND, orthopnea, pedal edema, palpitations, or syncope. She had some sharp chest pain and had palpitations in the past, but not recently. By the t kimi she came in, she has already ruled out for an AL. Her BNP was 492. Her hemoglobin was 10. Her troponin was negative. BNP was negative. She was hypertensive at 175/74. She is asymptomatic now. Echocardiogram is pending. Past Medical History: Includes hypertension, diabetes, dyslipidemia, coronary artery disease status post AL in 2006. Allergies: TO HYDROCODONE. Medications: Include aspirin, Avapro, metformin, metoprolol, and Pravachol. Review of Systems: Negative. Social History: Negative. Family History: Negative. Physical Examination: Vital Signs: Stable, afebrile, sinus rhythm. HEENT: Negative. Neck: Supple without any bruit, lymphadenopathy, JVD, or thyromegaly. Chest: Clear to auscultation and percussion. Cardiac: Revealed a regular rhythm and rate. No murmurs, gallops, or rubs. Abdomen: Benign. Extremities: Revealed no clubbing, cyanosis, or edema. Diagnostic Data: As stated earlier. Impression And Plan: 1.Hypertension. 2.Diabetes. 3.Dyslipidemia. 4.Coronary artery disease, status post AL in 2006. Negative recent stress test, negative troponin, and negative BNP. 5.Mild anemia. 6.Very atypical shoulder pain, definitely noncardiac in nature. I think this is musculoskeletal. I think if her echocardiogram is normal with her recent stress test by Dr. Berg, that was negative, we will feel comfortable with her going home and following up with Dr. Berg in the near future. HELEN/FRITZL Voice ID: [id number] Report ID: [id number]
[2019-02-07] MEDS ORDERED: ATORVASTATIN 40 MG TAB PO SCH (21:00)
== END 2019-02-07 12:55 | disposition home or self-care (01) ==
LOC: ER 21:11 → ERHOLD 02-07 00:36 → 4TH 02-07 01:08
PROVIDERS: ADMIT Family Medicine; ATTEND Family Medicine
DX: I10 Essential (primary) hypertension (principal); I25.10 Atherosclerotic heart disease of native coronary artery without angina pectoris; I25.2 Old myocardial infarction; E11.9 Type 2 diabetes mellitus without complications; E78.5 Hyperlipidemia, unspecified; D64.9 Anemia, unspecified; M25.519 Pain in unspecified shoulder; R94.31 Abnormal electrocardiogram [ECG] [EKG]; Z79.82 Long term (current) use of aspirin; Z79.84 Long term (current) use of oral hypoglycemic drugs; Z79.899 Other long term (current) drug therapy
CPT/HCPCS: 93005; 87088; 85025; 87086; 80048; 36415; 83735; 82550; 85610; 80061; 82962 ×3; 80076; 87077; 87186; 84484 ×2; 82553; 82728; 82607; 83540; 83880; 84466; 71045; 99285; J0360 ×2; J1650; J2405; G0378 ×2; 81003; 81015

== ENCOUNTER 2021-10-13 19:05 | Observation (INO) | payer OTHER ==
--- OUTSIDE RECORDS SUMMARY | 2021-10-13 19:08 | XMS REPORT | Continuity of Care Document ---
:1955 Author Organization [facility] t Address [address] [place] [address] Dr. Meng [address] [place] [address] Care Team Providers Name Role Phone Issac Olmstead DO Attending Clinician GALLO Attending Clinician Unavailable Gallo HERNANDEZ Attending Clinician Reji CASIANO Attending Clinician Unavailable George Gannon MD Attending Clinician George GANNON Attending Clinician Unavailable Cris LISA Attending Clinician Unavailable Doctor Unassigned, Name Attending Clinician Unavailable Payers Payer Name Policy Type Policy Number Effective Date Expiration Date Gabrielle cuello A[employer] MEDICARE [id number] 2018 2019 COMPLETE 00:00:00 00:00:00 Problems Condition Condition Condition Status Onset Resolution Last Treating Co mments Source Name Details Category Date Date Treatment Clinician Date 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-18 it y of eyes eyes 00:00: [place] 00 [facility] Long-term Long-term Disease Active Uni vers use of use of 2-18 ity of Plaquenil [place] [facility] 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[place] dry, [place], dry, 00 Medica l both eyes both eyes Bran ch Long-term Long-term Disease Active Uni vers use of use of 2-18 ity of Plaqu[place] Osteoarthr Osteoarthr Disease Active 2013-07 U nivers itis, itis, 1-20 ity of generalize generalize [place] 00 [facility] [place] 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 1-20 ity of 00:00: [place] 00 Medical Branch Aspirin Aspirin Disease Active 2013-07 Univers long-term long-term 1-20 ity of use use 00:00: [place] 00 Medical Branch Other Other Disease Active 2006-07 Univers acute and acute and 2-26 ity of subacute subacute 00:00: [place] form of form of 00 Medical ischemic ischemic Branch heart heart disease disease Essential Essential Disease Active 2006-07 Overview: Univers hypertensi hypertensi 2-26 ICD10 it y of on on 00:00: Diagnosis [place] 00 Term Medical [employer] Branch Utility Tobacco Tobacco Disease Active 2006-07 Univers use use 2-26 ity of disorder disorder 00:00: [place] 00 Medical [place] Allergies, Adverse Reactions, Alerts Allergy Allergy Status Severity Reaction(s) Onset Inactive Treating Comm ents Source Name Type Date Date Clinician HYDROCOD DRUG Active Rash Univers ONE INGREDI 1-13 ity of 00:00: [place] 00 Medical Branch Hydrocod Propensi Active Rash Univer s one ty to 1-13 ity of adverse 00:00: [place] reaction 00 Medical s Branch Social History Social Habit Start Date Stop Date Quantity Comments Source Exposure to Not sure [facility] SARS-CoV-2 (event) [facility] History of tobacco Cigarette Smoker University of use [facility] Cigarettes smoked 2015-01-07 2015-01-07 Univers ity of current (pack per 00:00:00 00:00:00 [facility] ) - Reported Branch Cigarette 2015-01-07 2015-01-07 University of pack-years 00:00:00 00:00:00 [facility] Alcohol intake 2015-01-07 2015-01-07 Current University of 00:00:00 00:00:00 non-drinker of [facility] alcohol Branch (finding) Alcohol Comment 2014-10-04 2014-10-04 quit 2006 Universit y of 00:00:00 00:00:00 [facility] Tobacco Comment 2014-10-04 2014-10-04 quit 2006 Universit y of 00:00:00 00:00:00 [facility] Sex [birth year] At [birth year] Universit y of 00:00:00 00:00:00 [facility] Smoking Status Start Date Stop Date Source Former smoker 2015-01-07 00:00:00 2015-01-07 00:00:00 [facility] Medications Ordered Filled Start Stop Current Ordering Indication Dosage Frequency Signature Comments Components Source Medication Medication Date Date Medication? Clinician (SIG) Name Name vitamin C Yes [id number] 1000mg Take 1,000 Univers with vanessa 1-04 mg by ity of hips 21:04: mouth [place] (VITAMIN C) 34 daily. Medica l 1,000 mg Branch tablet omega-3 Yes [id number] 1g Take 1 g Un alvaro fatty 1-04 by mouth 3 ity of acids-vitam 21:04: (three) [place] in E (FISH 34 times Medical OIL) 1,000 daily. Branch mg capsule vitamin C Yes [id number] 1000mg Take 1,000 Univers with vanessa 1-04 mg by ity of hips 21:04: mouth [place] (VITAMIN C) 34 daily. Medica l 1,000 mg Branch tablet omega-3 Yes [id number] 1g Take 1 g Un alvaro fatty 1-04 by mouth 3 ity of acids-vitam 21:04: (three) [place] E (FISH 34 times Medical OIL) 1,000 daily. Branch mg capsule vitamin C Yes [id number] 1000mg Take 1,000 Univers with vanessa 1-04 mg by ity of hips 21:04: mouth [place] (VITAMIN C) 34 daily. Medica l 1,000 mg Branch tablet omega-3 Yes [id number] 1g Take 1 g Un alvaro fatty 1-04 by mouth 3 ity of acids-vitam 21:04: (three) [place] E (FISH 34 times Medical OIL) 1,000 daily. Branch mg capsule vitamin C Yes [id number] 1000mg Take 1,000 Univers with vanessa 1-04 mg by ity of hips 21:04: mouth [place] (VITAMIN C) 34 daily. Medica l 1,000 mg Branch tablet omega-3 Yes [id number] 1g Take 1 g Un alvaro fatty 1-04 by mouth 3 ity of acids-vitam 21:04: (three) [place] E (FISH 34 times Medical OIL) 1,000 daily. Branch mg capsule vitamin C Yes [id number] 1000mg Take 1,000 Univers with vanessa 1-04 mg by ity of hips 21:04: mouth [place] (VITAMIN C) 34 daily. Medica l 1,000 mg Branch tablet omega-3 Yes [id number] 1g Take 1 g Un alvaro fatty 1-04 by mouth 3 ity of acids-vitam 21:04: (three) [place] E (FISH 34 times Medical OIL) 1,000 daily. Branch mg capsule AMLODIPINE Yes [id number] Take by Univers BESYLATE 1-04 mouth. ity of (AMLODIPINE 21:02: [place] ORAL) Medical Branch aspirin 81 Yes [id number] 81mg Take 81 mg Univers mg chewable 1-04 by mouth ity of tablet 21:02: daily. [address] Branch CALCIUM Yes [id number] 1000U Take 1,000 Univers CARBONATE/V 1-04 Units by ity of ITAMIN D3 21:02: mouth [place] (VITAMIN 36 daily. Medical D-3 ORAL) Branch AMLODIPINE Yes [id number] Take by Univers BESYLATE 1-04 mouth. ity of (AMLODIPINE 21:02: [place] ORAL) Medical Branch aspirin 81 Yes [id number] 81mg Take 81 mg Univers mg chewable 1-04 by mouth ity of tablet 21:02: daily. [place] [address] Medical Branch CALCIUM Yes [id number] 1000U Take 1,000 Univers CARBONATE/V 1-04 Units by ity of ITAMIN D3 21:02: mouth [place] (VITAMIN 36 daily. Medical D-3 ORAL) Branch AMLODIPINE Yes [id number] Take by Univers BESYLATE 1-04 mouth. ity of (AMLODIPINE 21:02: [place] ORAL) Medical Branch aspirin 81 Yes [id number] 81mg Take 81 mg Univers mg chewable 1-04 by mouth ity of tablet 21:02: daily. [address] CALCIUM Yes [id number] 1000U Take 1,000 Univers CARBONATE/V 1-04 Units by ity of ITAMIN D3 21:02: mouth [place] (VITAMIN 36 daily. Medical D-3 ORAL) Branch AMLODIPINE Yes [id number] Take by Univers BESYLATE 1-04 mouth. ity of (AMLODIPINE 21:02: [place] ORAL) Medical Branch aspirin 81 Yes [id number] 81mg Take 81 mg Univers mg chewable 1-04 by mouth ity of tablet 21:02: daily. [place] [address] Medical Branch CALCIUM Yes [id number] 1000U Take 1,000 Univers CARBONATE/V 1-04 Units by ity of ITAMIN D3 21:02: mouth [place] (VITAMIN 36 daily. Medical D-3 ORAL) Branch AMLODIPINE Yes [id number] Take by Univers BESYLATE 1-04 mouth. ity of (AMLODIPINE 21:02: [place] ORAL) Medical Branch aspirin 81 Yes [id number] 81mg Take 81 mg Univers mg chewable 1-04 by mouth ity of tablet 21:02: daily. [place] [address] Medical Branch CALCIUM Yes [id number] 1000U Take 1,000 Univers CARBONATE/V 1-04 Units by ity of ITAMIN D3 21:02: mouth [place] (VITAMIN 36 daily. Medical D-3 ORAL) Branch tiZANidine 2019-07 Yes Univers 4 mg 2-23 ity of capsule 00:00: [place] [address] Medical Branch tiZANidine 2019-07 Yes Univers 4 mg 2-23 ity of capsule 00:00: [place] [address] Medical Branch tiZANidine 2019-07 Yes Univers 4 mg 2-23 ity of capsule 00:00: [place] [address] Medical Branch tiZANidine 2019- Yes Univers 4 mg 2-23 ity of capsule 00:00: [place] [address] Medical Branch leflunomide 2018-07 Yes 1{tbl} Take 1 Un alvaro 20 mg 1-15 tablet by ity of tablet 00:00: mouth. [place] [address] Medical Branch leflunomide 2018-07 Yes 1{tbl} Take 1 Un alvaro 20 mg 1-15 tablet by ity of tablet 00:00: mouth. [place] [address] Medical [place] leflunomide 2018-07 Yes 1{tbl} Take 1 Un alvaro 20 mg 1-15 tablet by ity of tablet 00:00: mouth. [place] [address] Medical [place] leflunomide 2018-07 Yes 1{tbl} Take 1 Un alvaro 20 mg 1-15 tablet by ity of tablet 00:00: mouth. [place] 00 Medical Branch naproxen 2018-0 Yes [id number] 500mg Take 1 U nivers (NAPROSYN) 4-18 tablet by ity of 500 mg 00:00: mouth 2 [place] tablet 00 (two) Medical times Branch daily with meals. naproxen Yes [id number] 500mg Take 1 U nivers (NAPROSYN) 4-18 tablet by ity of 500 mg 00:00: mouth 2 [place] tablet 00 (two) Medical times Branch daily with meals. naproxen Yes [id number] 500mg Take 1 U nivers (NAPROSYN) 4-18 tablet by ity of 500 mg 00:00: mouth 2 [place] tablet 00 (two) Medical times Branch daily with meals. naproxen Yes [id number] 500mg Take 1 U nivers (NAPROSYN) 4-18 tablet by ity of 500 mg 00:00: mouth 2 [place] tablet 00 (two) Medical times Branch daily with meals. naproxen Yes [id number] 500mg Take 1 U nivers (NAPROSYN) 4-18 tablet by ity of 500 mg 00:00: mouth 2 [place] tablet 00 (two) Medical times Branch daily with meals. naproxen Yes [id number] 500mg Take 1 U nivers (NAPROSYN) 4-18 tablet by ity of 500 mg 00:00: mouth 2 [place] tablet 00 (two) Medical times Branch daily with meals. AMLODIPINE Yes [id number] Take by Univers BESYLATE 3-24 mouth. ity of (AMLODIPINE 16:39: [place] ORAL) 49 Medical Branch aspirin 81 2015-0 Yes [id number] 81mg Take 81 mg Univers mg chewable 3-24 by mouth ity of tablet 16:39: daily. [place] [address] Medical Branch CALCIUM 2015-0 Yes [id number] 1000U Take 1,000 Univers CARBONATE/V 3-24 Units by ity of ITAMIN D3 16:39: mouth [place] (VITAMIN 49 daily. Medical D-3 ORAL) Branch sulfaSALAzi Yes 500mg Take 1 Tab Univers ne 3-24 by mouth 2 ity of (AZULFIDINE 00:00: (two) [place] ) 500 mg EC 00 times Medical tablet daily. Branch traMADOL 2016-0 Yes 50mg Take 1 Tab Uni vers (ULTRAM) 50 3-24 by mouth ity of mg tablet 00:00: every 6 [place] 00 (six) Medical hours as Branch needed for Pain (scale 4-6). sulfaSALAzi 2016-0 Yes 500mg Take 1 Tab Univers ne 3-24 by mouth 2 ity of (AZULFIDINE 00:00: () ) 500 mg EC 00 times Medical tablet daily. Branch traMADOL 2016-0 Yes 50mg Take 1 Tab Uni vers (ULTRAM) 50 3-24 by mouth ity of mg tablet 00:00: every 6 [place] 00 (six) Medical hours as Branch needed for Pain (scale 4-6). sulfaSALAzi 2016-0 Yes 500mg Take 1 Tab Univers ne 3-24 by mouth 2 ity of (AZULFIDINE 00:00: () ) 500 mg EC 00 times Medical tablet daily. Branch traMADOL 2016-0 Yes 50mg Take 1 Tab Uni vers (ULTRAM) 50 3-24 by mouth ity of mg tablet 00:00: every 6 00 (six) Medical hours as Branch needed for Pain (scale 4-6). sulfaSALAzi 2016-0 Yes 500mg Take 1 Tab Univers ne 3-24 by mouth 2 ity of (AZULFIDINE 00:00: () ) 500 mg EC 00 times Medical tablet daily. Branch traMADOL 2016-0 Yes 50mg Take 1 Tab Uni vers (ULTRAM) 50 3-24 by mouth ity of mg tablet 00:00: every 6 00 (six) Medical hours as Branch needed for Pain (scale 4-6). sulfaSALAzi 2016-0 Yes 500mg Take 1 Tab Univers ne 3-24 by mouth 2 ity of (AZULFIDINE 00:00: () ) 500 mg EC 00 times Medical tablet daily. Branch traMADOL 2016-0 Yes 50mg Take 1 Tab Uni vers (ULTRAM) 50 3-24 by mouth ity of mg tablet 00:00: every 6 [place] 00 (six) Medical hours as Branch needed for Pain (scale 4-6). sulfaSALAzi 2016-0 Yes 500mg Take 1 Tab Univers ne 3-24 by mouth 2 ity of (AZULFIDINE 00:00: () ) 500 mg EC 00 times Medical tablet daily. Branch traMADOL Yes 50mg Take 1 Tab Uni vers (ULTRAM) 50 3-24 by mouth ity of mg tablet 00:00: every 6 [place] 00 (six) Medical hours as Branch needed for Pain (scale 4-6). acetaminoph Yes 1{tbl} Take 1 Tab Univers en-codeine 8-17 by mouth ity o f (TYLENOL-CO 00:00: every 6 [place] DEINE #3) 00 (six) Medical 300-30 mg hours as Branch tablet needed for Pain (scale 4-6) or Pain (scale 7-10). acetaminoph Yes 1{tbl} Take 1 Tab Univers en-codeine 8-17 by mouth ity o f (TYLENOL-CO 00:00: every 6 [place] DEINE #3) 00 (six) Medical 300-30 mg hours as Branch tablet needed for Pain (scale 4-6) or Pain (scale 7-10). acetaminoph Yes 1{tbl} Take 1 Tab Univers en-codeine 8-17 by mouth ity o f (TYLENOL-CO 00:00: every 6 [place] DEINE #3) 00 (six) Medical 300-30 mg hours as Branch tablet needed for Pain (scale 4-6) or Pain (scale 7-10). acetaminoph Yes 1{tbl} Take 1 Tab Univers en-codeine 8-17 by mouth ity o f (TYLENOL-CO 00:00: every 6 [place] DEINE #3) 00 (six) Medical 300-30 mg hours as Branch tablet needed for Pain (scale 4-6) or Pain (scale 7-10). acetaminoph Yes 1{tbl} Take 1 Tab Univers en-codeine 8-17 by mouth ity o f (TYLENOL-CO 00:00: every 6 [place] DEINE #3) 00 (six) Medical 300-30 mg hours as Branch tablet needed for Pain (scale 4-6) or Pain (scale 7-10). acetaminoph Yes 1{tbl} Take 1 Tab Univers en-codeine 8-17 by mouth ity o f (TYLENOL-CO 00:00: every 6 [place] DEINE #3) 00 (six) Medical 300-30 mg hours as Branch tablet needed for Pain (scale 4-6) or Pain (scale 7-10). glimepiride Yes [id number] 4mg Take 1 Tab Univers (AMARYL) 4 7-03 by mouth ity o f mg tablet 00:00: daily with [place] 00 breakfast. Medical Branch metoprolol Yes [id number] 50mg Take 1 Tab Univers tartrate 7-03 by mouth 2 ity o f (LOPRESSOR) 00:00: (two) [place] 50 mg 00 times Medical tablet daily. Branch glimepiride Yes [id number] 4mg Take 1 Tab Univers (AMARYL) 4 7-03 by mouth ity o f mg tablet 00:00: daily with [place] 00 breakfast. Medical Branch metoprolol Yes [id number] 50mg Take 1 Tab Univers tartrate 7-03 by mouth 2 ity o f (LOPRESSOR) 00:00: (two) [place] 50 mg 00 times Medical tablet daily. Branch glimepiride Yes [id number] 4mg Take 1 Tab Univers (AMARYL) 4 7-03 by mouth ity o f mg tablet 00:00: daily with [place] 00 breakfast. Medical Branch metoprolol Yes [id number] 50mg Take 1 Tab Univers tartrate 7-03 by mouth 2 ity o f (LOPRESSOR) 00:00: (two) [place] 50 mg 00 times Medical tablet daily. Branch glimepiride Yes [id number] 4mg Take 1 Tab Univers (AMARYL) 4 7-03 by mouth ity o f mg tablet 00:00: daily with [place] 00 breakfast. Medical Branch metoprolol Yes [id number] 50mg Take 1 Tab Univers tartrate 7-03 by mouth 2 ity o f (LOPRESSOR) 00:00: (two) [place] 50 mg 00 times Medical tablet daily. Branch glimepiride Yes [id number] 4mg Take 1 Tab Univers (AMARYL) 4 7-03 by mouth ity o f mg tablet 00:00: daily with [place] 00 breakfast. Medical Branch metoprolol Yes [id number] 50mg Take 1 Tab Univers tartrate 7-03 by mouth 2 ity o f (LOPRESSOR) 00:00: (two) [place] 50 mg 00 times Medical tablet daily. Branch glimepiride 2014- Yes [id number] 4mg Take 1 Tab Univers (AMARYL) 4 7-03 by mouth ity o f mg tablet 00:00: daily with [place] 00 breakfast. Medical Branch metoprolol Yes [id number] 50mg Take 1 Tab Univers tartrate 7-03 by mouth 2 ity o f (LOPRESSOR) 00:00: (two) [place] 50 mg 00 times Medical tablet daily. Branch gabapentin Yes 600mg Take 1 Tab Univers (NEURONTIN) 6-18 by mouth 3 it y of 600 mg 00:00: (three) [place] tablet 00 times Medical daily. Branch gabapentin Yes 600mg Take 1 Tab Univers (NEURONTIN) 6-18 by mouth 3 it y of 600 mg 00:00: (three) [place] tablet 00 times Medical daily. Branch gabapentin Yes 600mg Take 1 Tab Univers (NEURONTIN) 6-18 by mouth 3 it y of 600 mg 00:00: (three) [place] tablet 00 times Medical daily. Branch gabapentin Yes 600mg Take 1 Tab Univers (NEURONTIN) 6-18 by mouth 3 it y of 600 mg 00:00: (three) [place] tablet 00 times Medical daily. Branch gabapentin Yes 600mg Take 1 Tab Univers (NEURONTIN) 6-18 by mouth 3 it y of 600 mg 00:00: (three) [place] tablet 00 times Medical daily. Branch gabapentin Yes 600mg Take 1 Tab Univers (NEURONTIN) 6-18 by mouth 3 it y of 600 mg 00:00: (three) [place] tablet 00 times Medical daily. Branch predniSONE Yes 5mg Take 5 mg Un [place] (DELTASONE) 5-11 by mouth ity of 5 mg tablet 18:13: daily. [address] predniSONE 0 Yes 5mg Take 5 mg [place] (DELTASONE) 5-11 by mouth ity of 5 mg tablet 18:13: daily. [address] predniSONE 0 Yes 5mg Take 5 mg [place] (DELTASONE) 5-11 by mouth ity of 5 mg tablet 18:13: daily. [address] predniSONE 0 Yes 5mg Take 5 mg [place] (DELTASONE) 5-11 by mouth ity of 5 mg tablet 18:13: daily. [address] predniSONE Yes 5mg Take 5 mg [place] (DELTASONE) 5-11 by mouth ity of 5 mg tablet 18:13: daily. [address] predniSONE Yes 5mg Take 5 mg Un [place] (DELTASONE) 5-11 by mouth ity of 5 mg tablet 18:13: daily. [address] omega-3 Yes [id number] 1g Take 1 g Un [place] fatty 5-01 by mouth 3 ity of acids-vitam 17:17: (three) [place] E (FISH 22 times Medical OIL) 1,000 daily. Branch mg capsule vitamin C Yes [id number] 1000mg Take 1,000 Univers with vanessa 5-01 mg by ity of hips 17:17: mouth [place] (VITAMIN C) 10 daily. Medica l 1,000 mg Branch tablet metformin Yes 500mg Take 1 Tab U nivers ER 4-02 by mouth ity of (GLUCOPHAGE 00:00: daily with [place] -XR) 500 mg 00 breakfast. Me dical 24 hr Branch tablet metformin Yes 500mg Take 1 Tab U nivers ER 4-02 by mouth ity of (GLUCOPHAGE 00:00: daily with [place] -XR) 500 mg 00 breakfast. Me dical 24 hr Branch tablet metformin Yes 500mg Take 1 Tab U nivers ER 4-02 by mouth ity of (GLUCOPHAGE 00:00: daily with [place] -XR) 500 mg 00 breakfast. Me dical 24 hr Branch tablet metformin Yes 500mg Take 1 Tab U nivers ER 4-02 by mouth ity of (GLUCOPHAGE 00:00: daily with [place] -XR) 500 mg 00 breakfast. Me dical 24 hr Branch tablet metformin Yes 500mg Take 1 Tab U nivers ER 4-02 by mouth ity of (GLUCOPHAGE 00:00: daily with [place] -XR) 500 mg 00 breakfast. Me dical 24 hr Branch tablet metformin Yes 500mg Take 1 Tab U nivers ER 4-02 by mouth ity of (GLUCOPHAGE 00:00: daily with [place] -XR) 500 mg 00 breakfast. Me dical 24 hr Branch tablet foLIC acid 2013-07 Yes 1mg Take 1 Tab U nivers (FOLATE) 1 1-24 by mouth ity o f mg tablet 00:00: daily. [facility] foLIC acid 2013-07 Yes 1mg Take 1 Tab U nivers (FOLATE) 1 1-24 by mouth ity o f mg tablet 00:00: daily. [facility] foLIC acid 2013-07 Yes 1mg Take 1 Tab U nivers (FOLATE) 1 1-24 by mouth ity o f mg tablet 00:00: daily. [facility] foLIC acid 2013-07 Yes 1mg Take 1 Tab U nivers (FOLATE) 1 1-24 by mouth ity o f mg tablet 00:00: daily. [facility] foLIC acid 2013-07 Yes 1mg Take 1 Tab U nivers (FOLATE) 1 1-24 by mouth ity o f mg tablet 00:00: daily. [place] [facility] foLIC acid 2013-07 Yes 1mg Take 1 Tab U nivers (FOLATE) 1 1-24 by mouth ity o f mg tablet 00:00: daily. [place] [facility] PRAVASTATIN 2006-07 Yes 1 Tab Oral Univers 40 MG ORAL 2-28 DAILY ity of TAB 00:00: [facility] NITROGLYCER 2006-07 Yes 1 Tab SL [place] IN 0.4 MG 2-28 Q5MIN PRN ity o f SL SUBL 00:00: chest pain [place] 00 [facility] PRAVASTATIN 2006-07 Yes 1 Tab Oral Univers 40 MG ORAL 2-28 DAILY ity of TAB 00:00: [facility] NITROGLYCER 2006-07 Yes 1 Tab SL Un alvar[place] IN 0.4 MG 2-28 Q5MIN PRN ity o f SL SUBL 00:00: chest pain [place] 00 [facility] PRAVASTATIN 2006-07 Yes 1 Tab Oral Univers 40 MG ORAL 2-28 DAILY ity of TAB 00:00: [facility] NITROGLYCER 2006-07 Yes 1 Tab SL Un alvar[place] IN 0.4 MG 2-28 Q5MIN PRN ity o f SL SUBL 00:00: chest pain [place] 00 [facility] PRAVASTATIN 2006-07 Yes 1 Tab Oral Univers 40 MG ORAL 2-28 DAILY ity of TAB 00:00: [facility] NITROGLYCER 2006-07 Yes 1 Tab SL Un alvar[place] IN 0.4 MG 2-28 Q5MIN PRN ity o f SL SUBL 00:00: chest pain [place] 00 [place] PRAVASTATIN 2006-07 Yes 1 Tab Oral Univers 40 MG ORAL 2-28 DAILY ity of TAB 00:00: [place] 00 Medical Branch NITROGLYCER 2006-07 Yes 1 Tab SL Un alvaro IN 0.4 MG 2-28 Q5MIN PRN ity o f SL SUBL 00:00: chest pain [place] PRAVASTATIN 2006-07 Yes 1 Tab Oral Univers 40 MG ORAL 2-28 DAILY ity of TAB 00:00: [place] 00 Medical Branch NITROGLYCER 2006-07 Yes 1 Tab SL Un alvar[place] IN 0.4 MG 2-28 Q5MIN PRN ity o f SL SUBL 00:00: chest pain [place] 00 [place] Vital Signs Vital Name Observation Time Observation Value Comments Source Systolic blood 2020-07-08 21:07:00 164 mm[facility]Hg[facility] 2020-07-08 21:07:00 75 [facility] 2020-07-08 21:07:00 64 /min [facility] Body height 2020-07-08 21:00:00 149.9 cm [facility] Body weight 2020-07-08 21:00:00 54.976 kg [facility] BMI 2020-07-08 21:00:00 24.48 kg/m2 [facility] Procedures Procedure Date / Time Performing Clinician Source Performed AUTHORIZATION FOR 2019-02-06 05:01:00 Doctor Unassigned, No Univ [facility] RELEASE OF PHI Name [facility] Encounters Start End Encounter Admission Attending Care Care Encounter Source Date/Time Date/Time Type Type Clinicians Facility Department ID 2020-09-06 2020-09-06 Patient Ishan [facility] [id number] Univers 00:00:00 00:00:00 Outreach Iván PRIMARY [id number] i ty of Issac [facility] [id number] Jeffery ROSE [id number] Ut dical 388 Branch 2020-08-12 2020-08-12 Outpatient R GALLO [facility] [id number] Univers 13:10:00 13:10:00 NIRALI [id number] ity [facility] 2020-08-12 2020-08-12 Outpatient R GALLO [facility] [id number] Univers 13:10:00 13:10:00 NIRALI [facility] 2020-08-08 2020-08-08 [facility] [id number] Univers 00:00:00 00:00:00 Nirali SPECIALTY [id number] ity of CARE [id number] [facility] AT [phone] Ut dical VICTORY 198 [facility] 2020-07-16 2020-07-16 Outpatient Yany CASIANO [facility] [id number] Univers 14:15:00 14:15:00 LADY [id number] [facility] 2020-07-16 2020-07-16 [facility] [id number] Univers 14:15:00 14:15:00 LADY [facility] 2020-07-08 2020-07-08 Office [facility] [id number] Univers 14:49:14 15:40:00 Visit Manpreet Guadalupe [id number] it y of Surgical [id number] [place] Special [id number] Ut joanne es 198 [facility] 2020-07-08 2020-07-08 Out[facility] [id number] Univers 15:15:00 15:15:00 MANPREET [id number] [facility] 2020-07-08 2020-07-08 Outpatient R [facility] [id number] Univers 15:15:00 15:15:00 MANPREET [facility] 2020-06-24 2020-06-24 [facility]phone [facility] [id number] Univers 00:00:00 00:00:00 [facility] [id number] it y of [place] [id number] [place] [facility] [phone] [address] ([facility]) 2019-02-06 2019-02-06 Orders Doctor NIRALI [id number] Univers 00:00:00 00:00:00 Only Unassigned, [place] [id number] ity of [place] [facility] [id number] [place] as [phone] [facility] 009 Branch Results This patient has no known results.
--- NOTE | 2021-10-13 22:07 | RAD REPORT ---
EXAM DESCRIPTION: RAD - Chest Single View - 10/13/2021 10:01 pm CLINICAL HISTORY: Chest pain;SOB Chest pain. COMPARISON: Chest Single View dated 02/06/2019; CHEST SINGLE VIEW dated 01/31/2015; CHEST SINGLE VIEW d ated 02/16/2014; CHEST SINGLE VIEW dated 08/22/2013 FINDINGS: Portable technique limits examination quality. The lungs are grossly clear. The heart is normal in size. No displaced fractures. IMPRESSION: No acute intrathoracic process suspected.
[2021-10-13] MEDS ORDERED: ONDANSETRON 4 MG/2 ML VIAL ONE (22:26)
[2021-10-13] MEDS ORDERED: ASPIRIN EC 81 MG TAB PO ONE (22:26)
[2021-10-13] MEDS ORDERED: MORPHINE 2 MG/ML SYR ONE (22:26)
[2021-10-13] MEDS ORDERED: ASPIRIN 81 MG CHEWABLE TABLET ONE (22:27)
[2021-10-13 23:29] LABS: Absolute Lymphocytes (CBC) 3.2 K/uL (0.7-4.9); Hematocrit 34.7 % (36.0-45.0); Lymphocytes % 48.8 % (15.3-44.8); MPV 8.2 fL (7.6-11.3); RBC Red Blood Cell Count 3.85 M/uL (3.86-4.86)
[2021-10-13 23:32] LABS: Protime INR 0.91
[2021-10-13 23:51] LABS: ALT/SGPT 76 U/L (12-78); AST/SGOT 38 U/L (15-37); Albumin 3.9 g/dL (3.4-5.0); Alkaline Phosphatase 102 U/L (45-117); BUN Blood Urea Nitrogen 34 mg/dL (7-18); Bicarbonate 25 mmol/L (21-32); Bilirubin Total 0.6 mg/dL (0.2-1.0); Glucose Level 121 mg/dL (74-106); Magnesium 2.1 mg/dL (1.8-2.4); NT PRO-BNP 243 pg/mL (<125); Potassium 3.9 mmol/L (3.5-5.1); Protein, Total 7.3 g/dL (6.4-8.2); Sodium Level 139 mmol/L (136-145); Troponin High Sensitivity 7.9 pg/mL (<58.9)
[2021-10-13 23:52] LABS: Bilirubin Direct < 0.1 mg/dL (0-0.2)
--- NOTE | 2021-10-14 00:08 | ER ---
Nurse's Notes [facility] Name: Maria Esther Capone Age: 66 yrs Sex: Female : 1955 Arrival Date: 10/13/2021 Time: 19:09 Bed 6 Private MD: Diagnosis: Chest pain, unspecified Presentation: 10/13 19:46 Chief complaint: Patient states: C/O chest pressure and SOB since about noon, states it ll3 radiates towards her back. Coronavirus screen: At this time, the client does not indicate any symptoms associated with coronavirus-19. Ebola Screen: No symptoms or risks identified at this time. Initial Sepsis Screen: Does the patient meet any 2 criteria? No. Patient's initial sepsis screen is negative. Does the patient have a suspected source of infection? No. Patient's initial sepsis screen is negative. Risk Assessment: Do you want to hurt yourself or someone else? Patient reports no desire to harm self or others. Onset of symptoms was October 13, 2021 at 12:00. 19:46 Method Of Arrival: Ambulatory ll3 19:46 Acuity: ALTA 2 ll3 Triage Assessment: 19:48 General: Appears comfortable, Behavior is calm, cooperative. Pain: Complains of pain in ll3 mid-sternal area Pain radiates to back Pain currently is 8 out of 10 on a pain scale. Quality of pain is described as pressure, Pain began 1200 Is continuous. Cardiovascular: Reports chest pain. Respiratory: Reports shortness of breath Respiratory effort is even, unlabored, Respiratory pattern is regular, symmetrical, Onset: The symptoms/episode began/occurred 1200, the patient has moderate shortness of breath. Derm: Skin is pink, warm \\T\\ dry. Historical: - Allergies: 19:48 No Known Allergies; ll3 - Home Meds: 19:48 aspirin 81 mg Oral TbEC 1 tab once daily [Active]; Metformin Oral [Active]; Metoprolol ll3 Tartrate Oral [Active]; pravastatin Oral [Active]; - PMHx: 19:48 Diabetes - NIDDM; Heart attack in 2006; Hyperlipidemia; Hypertension; Rheumatoid ll3 arthritis; - PSHx: 19:48 None; ll3 - Immunization history:: Client reports receiving the 2nd dose of the Covid vaccine. - Social history:: Smoking status: Patient denies any tobacco usage or history of. Screenin:30 Abuse screen: Denies threats or abuse. Nutritional screening: No deficits noted. al4 Tuberculosis screening: No symptoms or risk factors identified. 23:00 Fall Risk No fall in past 12 months (0 pts). IV access (20 points). Ambulatory Aid- al4 None/Bed Rest/Nurse Assist (0 pts). Gait- Normal/Bed Rest/Wheelchair (0 pts) Mental Status- Oriented to own ability (0 pts). Total Duffy Fall Scale indicates No Risk (0-24 pts). Assessment: 22:27 General: Appears in no apparent distress. comfortable, Behavior is calm, cooperative, al4 patient c/o chest pressure. when asked what patients pain level is, patient states "its not pain, its pressure". Pain: Denies pain. Neuro: Level of Consciousness is awake, alert, obeys commands, Oriented to person, place, time, situation, Speech is normal. Cardiovascular: Capillary refill < 3 seconds Patient's skin is warm and dry. Rhythm is regular. Cardiovascular: Chest pain quality is pressure. Respiratory: Airway is patent Respiratory effort is unlabored, Respiratory pattern is regular, Breath sounds are clear bilaterally. 23:30 Reassessment: Patient and/or family updated on plan of care and expected duration. Pain al4 level reassessed. Patient is alert, oriented x 3, equal unlabored respirations, skin warm/dry/pink. 10/14 00:48 Reassessment: Patient and/or family updated on plan of care and expected duration. Pain al4 level reassessed. Patient is alert, oriented x 3, equal unlabored respirations, skin warm/dry/pink. 02:30 Reassessment: Patient and/or family updated on plan of care and expected duration. Pain al4 level reassessed. Patient is alert, oriented x 3, equal unlabored respirations, skin warm/dry/pink. Vital Signs: 10/13 19:46 BP 192 / 71; Pulse 69; Temp 98.2(TE); Pulse Ox 98% on R/A; Weight 57.61 kg (R); Height ll3 4 ft. 11 in. (149.86 cm) (R); Pain 8/10; 22:29 BP 192 / 62; Pulse 63; Resp 16 S; Pulse Ox 98% on R/A; Pain 0/10; al4 23:00 BP 183 / 63; Pulse 59; Resp 17 S; Pulse Ox 96% on R/A; al4 23:30 BP 173 / 61; Pulse 60; Resp 17; Pulse Ox 96% on R/A; al4 10/14 00:48 BP 190 / 68; Pulse 57; Resp 17 S; Pulse Ox 98% on R/A; al4 01:30 BP 186 / 62; Pulse 51; Resp 17 S; Pulse Ox 97% on R/A; al4 02:00 BP 166 / 59; Pulse 53; Resp 21 S; Pulse Ox 95% on R/A; al4 10/13 19:46 Body Mass Index 25.65 (57.61 kg, 149.86 cm) ll3 ED Course: 10/13 19:09 Patient arrived in ED. bp1 19:48 Triage completed. ll3 19:48 Arm band placed on left wrist. ll3 21:05 Devendra Villarreal MD is Attending Physician. 7 22:02 XRAY Chest (1 view) In Process Unspecified. EDMS 22:30 Patient has correct armband on for positive identification. Side rails up X2. al4 22:30 Missed attempt(s): 20 gauge in right forearm. Bleeding controlled, band aid applied, al4 catheter tip intact. 22:31 Azam Roe is Primary Nurse. al4 23:23 Inserted saline lock: 22 gauge in left forearm, using aseptic technique. Blood lp1 collected. 23:37 COVID-19 SARS RT PCR (Document "Date of Onset" if Symptomatic) Sent. al4 10/14 00:07 Nando Reid MD is Hospitalizing Provider. [facility] 02:30 No provider procedures requiring assistance completed. Patient admitted, IV remains in al4 place. Administered Medications: 10/13 22:27 Drug: Aspirin Chewable Tablet 324 mg Route: PO; al4 10/14 00:49 Follow up: Response: No adverse reaction al4 10/13 23:32 Drug: morphine 2 mg Route: IVP; Site: left forearm; al4 10/14 00:48 Follow up: Response: No adverse reaction; RASS: Alert and Calm (0) al4 10/13 23:32 Drug: Zofran (Ondansetron) 4 mg Route: IVP; Site: left forearm; al4 10/14 00:48 Follow up: Response: No adverse reaction al4 00:48 Drug: Metoprolol TARTRATE 50 mg Route: PO; al4 01:45 Follow up: Response: No adverse reaction al4 00:48 Drug: Atorvastatin 40 mg Route: PO; al4 01:45 Follow up: Response: No adverse reaction al4 Outcome: 00:07 Decision to Hospitalize by Provider. 7 02:30 Admitted to ER Hold. Please see [facility] for further documentation. al4 02:30 Condition: stable 02:30 Instructed on the need for admit, Demonstrated understanding of instructions. 10:46 Patient left the ED. ss Signatures: Dispatcher [employer] EDMS Lola Vanessa RN RN Vesta Meneses RN RN 1 Saundra Puri Maurice, MD MD 7 Deion Levy RN RN 3 Azam Roe al4 Corrections: (The following items were deleted from the chart) 10/13 22:30 22:30 Fall Risk al4 al4 23:32 23:31 Zofran (Ondansetron) 4 mg IVP in left antecubital al4 al4 23:32 23:31 morphine 2 mg IVP in left antecubital al4 al4 10/14 03:00 10/13 22:27 Respiratory: Airway is patent Respiratory effort is unlabored, Respiratory al4 pattern is regular, al4 10/14 05:45 10/13 22:27 General: Appears in no apparent distress. comfortable, Behavior is calm, al4 cooperative, al4
--- NOTE | 2021-10-14 00:08 | EDPHYS ---
Physician Documentation [facility] Name: Maria Esther Capone Age: 66 yrs Sex: Female : 1955 Arrival Date: 10/13/2021 Time: 19:09 Bed 6 Private MD: ED Physician Devendra Villarreal HPI: 10/13 21:22 This 66 yrs old Female presents to ER via Ambulatory with complaints of mh7 Breathing Difficulty, Chest Pressure. 21:22 The patient or guardian reports chest pain that is located primarily in the substernal mh7 area. Onset: today, at 12:00. The pain does not radiate. Associated signs and symptoms: Pertinent positives: shortness of breath, Pertinent negatives: abdominal pain, cough, diaphoresis, dizziness, headache, lower extremity pain, lower extremity swelling, lightheadedness, nausea, near syncope, palpitations, recent travel, syncope, vomiting. The chest pain is described as a pressure. Duration: The patient or guardian reports multiple episodes, that are intermittent, that wax and wane, with no pattern. Modifying factors: The symptoms are alleviated by nothing. the symptoms are aggravated by activity, exertion. Severity of pain: At its worst the pain was moderate today, in the emergency department the pain is unchanged. Historical: - Allergies: 19:48 No Known Allergies; ll3 - Home Meds: 19:48 aspirin 81 mg Oral TbEC 1 tab once daily [Active]; Metformin Oral [Active]; Metoprolol ll3 Tartrate Oral [Active]; pravastatin Oral [Active]; - PMHx: 19:48 Diabetes - NIDDM; Heart attack in 2006; Hyperlipidemia; Hypertension; Rheumatoid ll3 arthritis; - PSHx: 19:48 None; ll3 - Immunization history:: Client reports receiving the 2nd dose of the Covid vaccine. - Social history:: Smoking status: Patient denies any tobacco usage or history of. ROS: 21:22 Constitutional: Negative for fever, chills, and weight loss, Eyes: Negative for injury, mh7 pain, redness, and discharge, ENT: Negative for injury, pain, and discharge, Neck: Negative for injury, pain, and swelling, Abdomen/GI: Negative for abdominal pain, nausea, vomiting, diarrhea, and constipation, Back: Negative for injury and pain, : Negative for injury, bleeding, discharge, and swelling, MS/Extremity: Negative for injury and deformity, Skin: Negative for injury, rash, and discoloration, Neuro: Negative for headache, weakness, numbness, tingling, and seizure, Psych: Negative for depression, anxiety, suicide ideation, homicidal ideation, and hallucinations, Allergy/Immunology: Negative for hives, rash, and allergies, Endocrine: Negative for neck swelling, polydipsia, polyuria, polyphagia, and marked weight changes, Hematologic/Lymphatic: Negative for swollen nodes, abnormal bleeding, and unusual bruising. Exam: 21:22 Head/Face: Normocephalic, atraumatic. Eyes: Pupils equal round and reactive to light, mh7 extra-ocular motions intact. Lids and lashes normal. Conjunctiva and sclera are non-icteric and not injected. Cornea within normal limits. Periorbital areas with no swelling, redness, or edema. Neck: Trachea midline, no thyromegaly or masses palpated, and no cervical lymphadenopathy. Supple, full range of motion without nuchal rigidity, or vertebral point tenderness. No Meningismus. Chest/axilla: Normal chest wall appearance and motion. Nontender with no deformity. No lesions are appreciated. Cardiovascular: Regular rate and rhythm with a normal S1 and S2. No gallops, murmurs, or rubs. Normal PMI, no JVD. No pulse deficits. Respiratory: Lungs have equal breath sounds bilaterally, clear to auscultation and percussion. No rales, rhonchi or wheezes noted. No increased work of breathing, no retractions or nasal flaring. Abdomen/GI: Soft, non-tender, with normal bowel sounds. No distension or tympany. No guarding or rebound. No evidence of tenderness throughout. Back: No spinal tenderness. No costovertebral tenderness. Full range of motion. Skin: Warm, dry with normal turgor. Normal color with no rashes, no lesions, and no evidence of cellulitis. MS/ Extremity: Pulses equal, no cyanosis. Neurovascular intact. Full, normal range of motion. Neuro: Awake and alert, GCS 15, oriented to person, place, time, and situation. Cranial nerves II-XII grossly intact. Motor strength 5/5 in all extremities. Sensory grossly intact. Cerebellar exam normal. Normal gait. Psych: Awake, alert, with orientation to person, place and time. Behavior, mood, and affect are within normal limits. 21:22 Constitutional: The patient appears in no acute distress, alert, awake, uncomfortable. Vital Signs: 19:46 BP 192 / 71; Pulse 69; Temp 98.2(TE); Pulse Ox 98% on R/A; Weight 57.61 kg (R); Height ll3 4 ft. 11 in. (149.86 cm) (R); Pain 8/10; 22:29 BP 192 / 62; Pulse 63; Resp 16 S; Pulse Ox 98% on R/A; Pain 0/10; al4 23:00 BP 183 / 63; Pulse 59; Resp 17 S; Pulse Ox 96% on R/A; al4 23:30 BP 173 / 61; Pulse 60; Resp 17; Pulse Ox 96% on R/A; al4 10/14 00:48 BP 190 / 68; Pulse 57; Resp 17 S; Pulse Ox 98% on R/A; al4 01:30 BP 186 / 62; Pulse 51; Resp 17 S; Pulse Ox 97% on R/A; al4 02:00 BP 166 / 59; Pulse 53; Resp 21 S; Pulse Ox 95% on R/A; al4 10/13 19:46 Body Mass Index 25.65 (57.61 kg, 149.86 cm) ll3 MDM: 00:03 Differential diagnosis: abnormal EKG, acute myocardial infarction, acute pericarditis, mh7 anxiety, coronary artery disease chest wall pain, congestive heart failure costochondritis, esophagitis, gastritis, gastroesophageal reflux disease (GERD), pericarditis, pleurisy, pneumonia, pneumothorax. HEART Score: History: Moderately Suspicious (1), ECG: Non specific repolarization disturbance / LBTB / PM (1), Age: > or = 65 years (2), Risk Factors: > or = 3 Risk factors for atherosclerotic disease (2), [Hypercholesterolemia] [Hypertension] [DM] Troponin: < or = 1 x Normal Limit (0), Total Score = 6. The patient was given aspirin in the Emergency Department. Data reviewed: vital signs, nurses notes, old medical records, lab test result(s), cardiac enzymes, CBC, electrolytes, EKG, radiologic studies, plain films. Data interpreted: Pulse oximetry: on room air is 96 %. Interpretation: normal. Counseling: I had a detailed discussion with the patient and/or guardian regarding: the historical points, exam findings, and any diagnostic results supporting the discharge/admit diagnosis, the presence of at least one elevated blood pressure reading (>120/80) during this emergency department visit, lab results, radiology results, the need for further work-up and treatment in the hospital. Response to treatment: the patient's symptoms have mildly improved after treatment. 00:07 Patient medically screened. [facility] 10/13 21:15 Order name: Basic Metabolic Panel; Complete Time: 23:56 [facility] 10/13 21:15 Order name: CBC with Diff; Complete Time: 23:39 [facility] 10/13 21:15 Order name: LFT's; Complete Time: 23:56 [facility] 10/13 21:15 Order name: Magnesium; Complete Time: 23:56 [facility] 10/13 21:15 Order name: NT PRO-BNP; Complete Time: 23:56 [facility] 10/13 21:15 Order name: PT-INR; Complete Time: 23:39 [facility] 10/13 21:15 Order name: Troponin HS; Complete Time: 23:56 [facility] 10/13 22:59 Order name: COVID-19 SARS RT PCR (Document "Date of Onset" if Symptomatic) la1 10/14 04:05 Order name: CBC with Automated Diff [facility] 10/14 04:17 Order name: Comprehensive Metabolic Panel [facility] 10/14 04:17 Order name: Troponin High Sensitivity [facility] 10/14 04:17 Order name: Lipid Profile [facility] 10/14 04:17 Order name: T4 Free [facility] 10/14 04:17 Order name: Thyroid Stimulating Hormone [facility] 10/13 21:15 Order name: XRAY Chest (1 view); Complete Time: 22:27 [facility] 10/13 21:15 Order name: EKG; Complete Time: 21:16 [facility] 10/13 21:15 Order name: Cardiac monitoring; Complete Time: 22:20 [facility] 10/13 21:15 Order name: EKG - Nurse/Tech; Complete Time: 22:20 [facility] 10/13 21:15 Order name: IV Saline Lock; Complete Time: 23:37 [facility] 10/13 21:15 Order name: Labs collected and sent; Complete Time: 23:37 [facility] 10/13 21:15 Order name: O2 Per Protocol; Complete Time: 22:20 7 10/13 21:15 Order name: O2 Sat Monitoring; Complete Time: 22:20 7 10/14 08:00 Order name: Glucose, Ancillary Testing EDMS Administered Medications: 10/13 22:27 Drug: Aspirin Chewable Tablet 324 mg Route: PO; al4 10/14 00:49 Follow up: Response: No adverse reaction ky4 10/13 23:32 Drug: morphine 2 mg Route: IVP; Site: left forearm; al4 10/14 00:48 Follow up: Response: No adverse reaction; RASS: Alert and Calm (0) ky4 10/13 23:32 Drug: Zofran (Ondansetron) 4 mg Route: IVP; Site: left forearm; al4 10/14 00:48 Follow up: Response: No adverse reaction al4 00:48 Drug: Metoprolol TARTRATE 50 mg Route: PO; al4 01:45 Follow up: Response: No adverse reaction al4 00:48 Drug: Atorvastatin 40 mg Route: PO; al4 01:45 Follow up: Response: No adverse reaction al4 Disposition Summary: 10/14/21 00:07 Hospitalization Ordered Hospitalization Status: Observation [facility] Provider: Nando Reid [facility] Condition: Stable [facility] Problem: new [facility] Symptoms: have improved [facility] Bed/Room Type: Standard [facility] Location: [facility] ER HOLD(10/14/21 00:34) Room Assignment: ERHOLD-(10/14/21 00:34) Diagnosis - Chest pain, unspecified [facility] Forms: - Medication Reconciliation Form [facility] - SBAR form [facility] Signatures: Dispatcher [employer] EDMS Theresa Werner RN RN mw Phoenix Olivas, SEAM CHECKER-C SEAM CHECKER-Cla1 Devendra Villarreal MD MD 7 Deion Levy RN RN 3 Azam Roe al4 Corrections: (The following items were deleted from the chart) 00:34 00:07 Telemetry/MedSurg (observation) [facility] 00:34 00:07 [facility] mw
--- NOTE | 2021-10-14 00:27 | P.HP ---
Certification for Inpatient Patient admitted to: Observation With expected LOS: <2 Midnights Patient will require the following post-hospital care: None Practitioner: I am a practitioner with admitting privileges, knowledge of patient current condition, hospital course, and medical plan of care. Services: Services provided to patient in accordance with Admission requirements found in Title 42 Section 412.3 of the Code of Federal Regulations Patient History Date of Service: 10/14/21 Reason for admission: Chest pain History of Present Illness: 66-year-old female with history of CAD, hypertension, hyperlipidemia, diabetes mellitus type [id number] presents emergency department for chest pain. Patient reports pain began around noon today described as pressure- like associated with mild shortness of breath is worse with exertion. Last heart catheterization was 2006 with 1 stent placement reports she think she had a stress test approximately 2 years ago that was normal with her environmental remediation consultant but no further work-up since then. Initial troponin negative EKG without ST elevation chest x-ray unremarkable. ED provider wishes to admit her observation for ACS rule out. Allergies hydrocodone Allergy (Verified 02/07/19 01:47) Nausea/Vomiting Home Medications: Metoprolol Tartrate [Lopressor*] 50 mg PO BID 08/22/13 Pravastatin [Pravachol*] 40 mg PO BEDTIME 08/22/13 Aspirin [[place] Aspirin EC] 81 mg PO DAILY 02/01/15 Metformin HCl [Metformin ER Osmotic] 1 tab PO DAILY 02/01/15 Cholecalciferol (Vitamin D3) [Vitamin D3] 5,000 unit PO DAILY 02/07/19 Irbesartan [Avapro] 300 mg PO DAILY 02/07/19 Magnesium Oxide [Magnesium] 500 mg PO DAILY 02/07/19 [place]-3S/Dha/Epa/Fish Oil [Fish Oil 1,000 mg Softgel] 1 each PO DAILY 02/07/19 - Past Medical/Surgical History Diabetic: Yes -: CAD with prior stent 2006 -: Diabetes mellitus type 2, non insulin depended -: Hyperlipidemia -: Hypertension -: CAD -: Tubal ligation Psychosocial/ Personal History: Patient is single. She lives at home. - Family History Brother -: Cancer Mother -: Cancer - Social History Smoking Status: Never smoker Alcohol use: No CD- Drugs: No Caffeine use: No Place of Residence: Home Review of Systems 10-point ROS is otherwise unremarkable Respiratory: Shortness of Breath, SOB with Excertion Cardiovascular: Chest Pain Physical Examination - Physical Exam General: Alert, In no apparent distress, Oriented x3 HEENT: Atraumatic, PERRLA, Mucous membr. moist/pink, EOMI, Sclerae nonicteric Neck: Supple, 2+ carotid pulse no bruit, No LAD, Without JVD or thyroid abnormality Respiratory: Clear to auscultation bilaterally, Normal air movement Cardiovascular: Regular rate/rhythm, Normal S1 S2 Gastrointestinal: Normal bowel sounds, No tenderness Musculoskeletal: No tenderness Integumentary: No rashes Neurological: Normal gait, Normal speech, Normal strength at 5/5 x4 extr, Normal tone, Normal affect Lymphatics: No axilla or inguinal lymphadenopathy - Studies Laboratory Data (last 24 hrs) 10/13/21 23:19: PT 10.0, INR 0.91 10/13/21 23:19: WBC 6.6, Hgb 11.9 L, Hct 34.7 L, Plt Count 192 10/13/21 23:19: Sodium 139, Potassium 3.9, BUN 34 H, Creatinine 1.27, Glucose 121 H, Magnesium 2.1, Total Bilirubin 0.6, AST 38 H, ALT 76, Alkaline Phosphatase 102 Assessment and Plan - Plan Assessment: Chest pain rule out ACShistory of CAD diabetes mellitus type [id number] Hypertension hyperlipidemia Plan: Chest pain rule out ACShistory of CAD: Trend troponins, cardiology consult in place, monitor on tele. continue beta cyn,ASA, statin. diabetes mellitus type [id number]: ACHS accuchecks, RISS Hypertension: Continue home meds. hyperlipidemia: Continue home meds DVT PPX: Lovenox Code status: Full Discharge Plan: Home Plan to discharge in: 24 Hours - Advance Directives Does patient have a Living Will: No Does patient have a Durable POA for Healthcare: No - Code Status/Comfort Care Code Status Assessed: Yes (Full code) Critical Care: No Time Spent Managing Pts Care (In Minutes): 55
[2021-10-14] MEDS ORDERED: METOPROLOL TAR 50 MG TAB ONE ×2 (00:44→08:27)
[2021-10-14] MEDS ORDERED: ATORVASTATIN 20 MG TAB ONE ×2 (00:45→00:48)
[2021-10-14] MEDS ORDERED: D50W 25 GM/50 ML SYRINGE IV PRN (02:30)
[2021-10-14] MEDS ORDERED: GLUCAGON 1 MG/VIAL IM PRN (02:30)
[2021-10-14 03:27] VITALS: BMI 25.6
[2021-10-14 03:57] LABS: Absolute Lymphocytes (CBC) 3.3 K/uL (0.7-4.9); Hematocrit 33.4 % (36.0-45.0); Lymphocytes % 51.3 % (15.3-44.8); RBC Red Blood Cell Count 3.72 M/uL (3.86-4.86)
[2021-10-14 04:17] LABS: Albumin 3.8 g/dL (3.4-5.0); Bilirubin Total 0.6 mg/dL (0.2-1.0); Potassium 3.8 mmol/L (3.5-5.1); Protein, Total 7.2 g/dL (6.4-8.2); Thyroid Stimulating Hormone 1.73 uIU/mL (0.360-3.740); Troponin High Sensitivity 9.5 pg/mL (<58.9)
[2021-10-14] MEDS ORDERED: ONDANSETRON 4 MG/2 ML VIAL IV PRN (04:30)
[2021-10-14] MEDS ORDERED: MORPHINE 2 MG/ML SYR IV PRN (04:30)
[2021-10-14 06:25] VITALS: TEMP 98.6
[2021-10-14] MEDS ORDERED: INSULIN -REGULAR HUMAN 50 UNIT/0.5 ML ML SQ SCH (07:30)
[2021-10-14 08:13] VITALS: BP 137/56
[2021-10-14] MEDS ORDERED: ASPIRIN EC 81 MG TAB PO ONE (08:27)
[2021-10-14] MEDS ORDERED: ENOXAPARIN 30 MG/0.3 ML SQ ONE (08:27)
[2021-10-14] MEDS ORDERED: ASPIRIN EC 81 MG TAB PO SCH (09:00)
[2021-10-14] MEDS ORDERED: ENOXAPARIN 30 MG/0.3 ML SQ SCH (09:00)
[2021-10-14] MEDS ORDERED: METOPROLOL TAR 50 MG TAB PO SCH (09:00)
--- NOTE | 2021-10-14 09:36 | P.DS ---
Admission Date: 10/14/21 Discharge Date: 10/14/21 Disposition: ROUTINE DISCHARGE Discharge Condition: GOOD Reason for Admission: Chest pain Consultations: Cardiology Brief History of Present Illness: 66-year-old female with history of CAD, hypertension, hyperlipidemia, diabetes mellitus type [id number] presents emergency department for chest pain. Patient reports pain began around noon today described as pressure- like associated with mild shortness of breath is worse with exertion. Last heart catheterization was 2006 with 1 stent placement reports she think she had a stress test approximately 2 years ago that was normal with her beader tender but no further work-up since then. Initial troponin negative EKG without ST elevation chest x-ray unremarkable. ED provider wishes to admit her observation for ACS rule out. Hospital Course: She was evaluated for possible ACS with troponin trend that showed no significant normality. Imaging studies and labs also had no valvular concerning. Cardiology evaluated patient and was not concerned about any imminent issues. She will follow up with cardiology as scheduled outpatient for outpatient stress test. She is to continue aspirin therapy and continue statin therapy on outpatient. Vital Signs/Physical Exam: Temp Pulse Resp BP Pulse Ox 98.6 F 64 17 137/56 L 98 10/14/21 06:24 10/14/21 08:45 10/14/21 08:00 10/14/21 08:45 10/14/21 08:00 General: Alert, Oriented x3 HEENT: Atraumatic, Normocephalic Neck: Supple Respiratory: Normal air movement Cardiovascular: Regular rate/rhythm, Normal S1 S2 Gastrointestinal: Soft and benign Musculoskeletal: No swelling Integumentary: No significant lesion Neurological: Normal speech, Normal strength at 5/5 x4 extr Laboratory Data at Discharge: WBC 6.5 K/uL (4.3-10.9) 10/14/21 03:35 Hgb 11.4 g/dL (12.0-15.0) L 10/14/21 03:35 Hct 33.4 % (36.0-45.0) L 10/14/21 03:35 Plt Count 195 K/uL (152-406) 10/14/21 03:35 PT 10.0 SECONDS (9.5-12.5) 10/13/21 23:19 INR 0.91 10/13/21 23:19 Sodium 138 mmol/L (136-145) 10/14/21 03:25 Potassium 3.8 mmol/L (3.5-5.1) 10/14/21 03:25 BUN 31 mg/dL (7-18) H 10/14/21 03:25 Creatinine 1.16 mg/dL (0.55-1.3) 10/14/21 03:25 Glucose 125 mg/dL (74-106) H 10/14/21 03:25 Magnesium 2.1 mg/dL (1.8-2.4) 10/13/21 23:19 Total Bilirubin 0.6 mg/dL (0.2-1.0) 10/14/21 03:25 AST 31 U/L (15-37) 10/14/21 03:25 ALT 68 U/L (12-78) 10/14/21 03:25 Alkaline Phosphatase 79 U/L (45-117) 10/14/21 03:25 Triglycerides 278 mg/dL (<150) H 10/14/21 03:25 Cholesterol 248 mg/dL (<200) H 10/14/21 03:25 HDL Cholesterol 33 mg/dL (40-60) L 10/14/21 03:25 Cholesterol/HDL Ratio 7.52 10/14/21 03:25 Home Medications: Metoprolol Tartrate [Lopressor*] 50 mg PO BID 08/22/13 Pravastatin [Pravachol*] 40 mg PO BEDTIME 08/22/13 Metformin HCl [Metformin ER Osmotic] 1 tab PO DAILY 02/01/15 Irbesartan [Avapro] 300 mg PO DAILY 02/07/19 Doxazosin [Cardura*] 1 mg PO BEDTIME 10/14/21 Diet: AHA Followup: NONE,NONE [Primary Care Provider] -
--- NOTE | 2021-10-14 10:03 | CON ---
Date of Consultation: 10/14/2021 Reason For Consultation: Chest pressure and shortness of breath. History Of Present Illness: Ms. Capone is 66. Had a stent in 2006. Has diabetes, hypertension, dys lipidemia, rheumatoid arthritis. Normally sees Dr. Berg and Dr. Gaspar. She has not seen both o f them for a while. She has been taking her medication. She is supposed to develop chest pressure a nd shortness of breath yesterday that lasted all day long without any exertion, nausea, vomiting, honorio phoresis, PND, orthopnea, pedal edema, palpitation, or syncope. Her EKG was unremarkable. Chest x-r ay was negative. Troponin was negative. BNP was negative. She had a cholesterol of 248, triglyceri de was 278. Her LDL was 150. She is pain-free and is not short of breath anymore now. Past Medical History: As stated above. Allergies: SHE IS ALLERGIC TO HYDROCODONE. Review of Systems: Negative. Social History: Negative. Family History: Negative. Medications: Include irbesartan, Cardura, metformin, metoprolol, and Pravachol. Physical Examination: Vital Signs: Blood pressure was 159/73, sinus rhythm. General: No acute distress. HEENT: Negative. Neck: Supple with no bruit. Chest: Clear. Cardiac: Revealed a regular rhythm and rate. No murmurs, gallops, or rubs. Abdomen: Benign. Extremities: Revealed no clubbing, cyanosis, or edema. Diagnostic Data: As stated earlier. Impression And Plan: Shortness of breath and chest pressure that lasted all day and yet despite that she had a negative x-ray, negative troponin, negative EKG. Certainly, this could be cardiac, but it could also be gastroesophageal reflux disease. The patient unfortunately has coronary artery diseas e with stent, diabetes, hypertension, dyslipidemia, rheumatoid arthritis, and she is high risk for co ronary artery disease, but she is very noncompliant and has not seen Dr. Berg or Dr. Gaspar for q uite sometime. I am comfortable with her going home, consider adding a proton pump inhibitor. I randall l make arrangements for her to have an outpatient Lexiscan or MPI in the near future. HELEN/MODL Voice ID: [id number] Report ID: [id number]
[2021-10-14 15:05] VITALS: O2SAT 95
[2021-10-14] MEDS ORDERED: ATORVASTATIN 10 MG TAB PO SCH (21:00)
--- NOTE | 2021-10-15 07:13 | ECHO ---
HEIGHT: 4 ft 11 in WEIGHT: 127 lb 0 oz DATE OF STUDY: 10/14/[address]: Arturo Lynch MD 2-DIMENSIONAL: YES M.MODE: YES DOPPLER: YES COLOR FLOW: YES TDS: NO PORTABLE: YES DEFINITY: NO BUBBLE STUDY: NO DIAGNOSIS: CHEST PAIN CARDIAC HISTORY: CATHERIZATION:YES SURGERY: NO PROSTHETIC VALVE: NO PACEMAKER: NO MEASUREMENTS (cm) DIASTOLIC (NORMALS) SYSTOLIC (NORMALS) IVSd 0.9 (0.6-1.2) LA Diam 3.1 (1.9-4.0) LVEF 52% LVIDd 3.7 (3.5-5.7) LVIDs 2.7 (2.0-3.5) %FS 26% LVPWd 0.9 (0.6-1.2) Ao Diam 2.3 (2.0-3.7) 2 DIMENSIONAL ASSESSMENT: RIGHT ATRIUM: NORMAL LEFT ATRIUM: NORMAL RIGHT VENTRICLE: NORMAL LEFT VENTRICLE: NORMAL TRICUSPID VALVE: NORMAL MITRAL VALVE: NORMAL PULMONIC VALVE: NORMAL AORTIC VALVE: NORMAL PERICARDIAL EFFUSION: NONE AORTIC ROOT: NORMAL LEFT VENTRICULAR WALL MOTION: NORMAL DOPPLER/COLOR FLOW: NORMAL COMMENTS: NORMAL 2D ECHOCARDIOGRAM WITH DOPPLER. NO WALL MOTION ABNORMALITY. NO EFFUSION. 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
--- NOTE | 2021-10-15 11:03 | EKG ---
Test Date: 2021-10-13 Test Time: 19:56:59 Appliance Adjuster: LL MEASUREMENT RESULTS: Intervals: Rate: 74 TX: 172 QRSD: 88 QT: 372 QTc: 412 [place]: P: 45 TX: 172 QRS: -6 T: 26 INTERPRETIVE STATEMENTS: Normal sinus rhythm Minimal voltage criteria for LVH, may be normal variant Inferior infarct, age undetermined Abnormal ECG Compared to ECG 02/06/2019 21:54:08 No significant changes Electronically Signed On 10-15-21 10:57:58 CDT by Arturo Lynch
== END 2021-10-14 10:47 | disposition home or self-care (01) ==
LOC: ER 19:05 → ERHOLD 10-14 01:11
PROVIDERS: ADMIT Internal Medicine Nephrology; ATTEND Internal Medicine Nephrology
DX: R07.9 Chest pain, unspecified (principal); I25.10 Atherosclerotic heart disease of native coronary artery without angina pectoris; I10 Essential (primary) hypertension; E11.9 Type 2 diabetes mellitus without complications; R06.02 Shortness of breath; I25.2 Old myocardial infarction; E78.5 Hyperlipidemia, unspecified; M06.9 Rheumatoid arthritis, unspecified; Z91.19 Patient's noncompliance with other medical treatment and regimen; Z95.5 Presence of coronary angioplasty implant and graft; Z88.5 Allergy status to narcotic agent; Z79.82 Long term (current) use of aspirin; Z79.84 Long term (current) use of oral hypoglycemic drugs; Z79.899 Other long term (current) drug therapy; Z20.822 Contact with and (suspected) exposure to COVID-19; Z80.9 Family history of malignant neoplasm, unspecified
CPT/HCPCS: 93005; 93306; 85025 ×2; 80048; 36415; 83735; 85610; 80061; 82947; 80076; 84443; 84484 ×2; 84439; 80053; 83880; 71045; U0003; J1650; J2270; J2405; 96374; 96375; 99285; G0378

== ENCOUNTER 2022-12-04 10:38 | Emergency (ER) | payer OTHER ==
--- OUTSIDE RECORDS SUMMARY | 2022-12-04 10:43 | XMS REPORT | Continuity of Care Document ---
:1955 Author Organization [facility] t Address [address] [facility] [address] [place] [address] Care Team Providers Name Role Phone Cassidy Gloria Attending Clinician Unavailable Iván Olmstead DO Attending Clinician NIRALI SEWELL Attending Clinician Unavailable Nirali Sewell MD Attending Clinician LADY CASIANO Attending Clinician Unavailable Manpreet Gannon MD Attending Clinician MANPREET GANNON Attending Clinician Unavailable Wilder Lynch PT Attending Clinician Unavailable Doctor Unassigned, [place] Attending Clinician Unavailable Payers Payer Name Policy Type Policy Number Effective Date Expiration Date Gabrielle cuello AARP MEDICARE [id number] 2018 2019 COMPLETE 00:00:00 00:00:00 Problems Condition Condition Condition Status Onset Resolution Last Treating Co mments Source Name Details Category Date Date Treatment Clinician Date 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-18 it y of eyes eyes 00:00: [address] Long-term Long-term Disease Active Uni vers use of use of 2-18 ity of Plaquenil Plaquenil 00:00: [address] Age-relate Age-relate Disease Active U nivers d macular d macular 2-18 ity of [...] Branch 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 1-20 ity of 00:00: [place] [...] on 00:00: Diagnosis [place] 00 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 Tobacco Tobacco Disease Active 2006-07 Univers use use 2-26 ity of disorder disorder 00:00: [place] 00 Medical Branch Rheumatoid Rheumatoid Problem C ommon arthritis arthritis Spir it - [facility] Hypertensi HTN Problem Commo n on (hypertens Spirit ion) - [facility] [id number] Type 2 Problem Common diabetes Spirit mellitus - [facility] with other [facility] kidney Medical complicati Center on Coronary CAD Problem Common artery (coronary Spirit disease artery - [facility] disease) [facility] Mixed Hyperlipem Problem Commo n hyperlipid ia, mixed Spi rit emia - [facility] Stented Stented Problem Common coronary coronary Spirit artery artery - [facility] Allergies, Adverse Reactions, Alerts Allergy Allergy Status Severity Reaction(s) Onset Inactive Treating Comm ents Source Name Type Date Date Clinician HYDROCOD DRUG Active Rash Univers ONE INGREDI 1-13 ity of 00:00: [place] 00 Medical Branch Hydrocod Propensi Active Rash Univer s one ty to 1-13 ity of adverse 00:00: [place] reaction 00 Medical s Branch hydrocod hydrocod Active vomiting Comm on one one Spirit - [facility] Social History Social Habit Start Date Stop Date Quantity Comments Source History of Tobacco Common Spirit - Use [facility] Sex Assigned At Common Sp shawn - [facility] Exposure to Not sure University of SARS-CoV-2 (event) [facility] Cigarettes smoked 2015-01-07 2015-01-07 Univers ity of current (pack per 00:00:00 00:00:00 ) - Reported Branch Cigarette 2015-01-07 2015-01-07 University of pack-years 00:00:00 00:00:00 [facility] Alcohol intake 2015-01-07 2015-01-07 Current University of 00:00:00 00:00:00 non-drinker of [facility] alcohol [place] (finding) Alcohol Comment 2014-10-04 2014-10-04 quit 2007 Universit y of 00:00:00 00:00:00 [facility] Tobacco Comment 2014-10-04 2014-10-04 quit 2006 Universit y of 00:00:00 00:00:00 [facility] Smoking Status Start Date Stop Date Source Former Smoker 2022-06-30 00:00:00 2022-06-30 00:00:[facility] Medications Ordered Filled Start Stop Current Ordering Indication Dosage Frequency Signature Comments Components Source Medication Medication Date Date Medication? Clinician (SIG) Name Name Laxmi Hair 2021-07 No 40mg Common (Triamcinol (Triamcinol 2-27 S pirit one) one) 00:00: - [facility] metFORMIN metFORMIN No 1{table QD metFORMIN HCl ER 500 HCl ER 500 4-20 t_with_ HCl ER 500 MG MG 00:00: evening MG 00 _meal} vitamin C Yes [id number] 1000mg Take 1,000 Univers with vanessa 1-04 mg by ity of hips 21:04: mouth [place] (VITAMIN C) 34 daily. Medica l 1,000 mg Branch tablet omega-3 Yes [id number] 1g Take 1 g Un alvaro fatty 1-04 by mouth 3 ity of acids-vitam 21:04: (three) [place] in [place] (FISH 34 times Medical OIL) 1,000 daily. Branch mg capsule vitamin C Yes [id number] 1000mg Take 1,000 Univers with vanessa 1-04 mg by ity of hips 21:04: mouth [place] (VITAMIN C) 34 daily. Medica l 1,000 mg Branch tablet omega-3 Yes [id number] 1g Take 1 g Un [place]var[place] fatty 1-04 by mouth 3 ity of acids-vitam 21:04: (three) [place] (FISH 34 times Medical OIL) 1,000 daily. Branch mg capsule vitamin C Yes [id number] 1000mg Take 1,000 Univers with vanessa 1-04 mg by ity of hips 21:04: mouth [place] (VITAMIN C) 34 daily. Medica l 1,000 mg Branch tablet omega-3 Yes [id number] 1g Take 1 g Un [place]var[place] fatty 1-04 by mouth 3 ity of acids-vitam 21:04: (three) [place] (FISH 34 times Medical OIL) 1,000 daily. Branch mg capsule vitamin C Yes [id number] 1000mg Take 1,000 Univers with vanessa 1-04 mg by ity of hips 21:04: mouth [place] (VITAMIN C) 34 daily. Medica l 1,000 mg Branch tablet omega-3 Yes [id number] 1g Take 1 g Un alvaro fatty 1-04 by mouth 3 ity of acids-vitam 21:04: (three) [place] (FISH 34 times Medical OIL) 1,000 daily. Branch mg capsule vitamin C Yes [id number] 1000mg Take 1,000 Univers with vanessa 1-04 mg by ity of hips 21:04: mouth [place] (VITAMIN C) 34 daily. Medica l 1,000 mg Branch tablet omega-3 Yes [id number] 1g Take 1 g Un [place] fatty 1-04 by mouth 3 ity of acids-vitam 21:04: (three) [place] E (FISH 34 times Medical OIL) 1,000 daily. Branch mg capsule AMLODIPINE Yes [id number] Take by Univers BESYLATE 1-04 mouth. ity of (AMLODIPINE 21:02: [place] ORAL) 36 Medical Branch aspirin 81 0 Yes [id number] 81mg Take 81 mg Univers mg chewable 1-04 by mouth ity of tablet 21:02: daily. [place] [address] Medical Branch CALCIUM Yes [id number] 1000U Take 1,000 Univers CARBONATE/V 1-04 Units by ity of ITAMIN D3 21:02: mouth [place] (VITAMIN 36 daily. Medical D-3 ORAL) Branch AMLODIPINE 0 Yes [id number] Take by Univers BESYLATE 1-04 mouth. ity of (AMLODIPINE 21:02: [place] ORAL) Medical Branch aspirin 81 0 Yes [id number] 81mg Take 81 mg Univers mg chewable 1-04 by mouth ity of tablet 21:02: daily. [place] [address] Medical Branch CALCIUM Yes [id number] 1000U Take 1,000 Univers CARBONATE/V 1-04 Units by ity of ITAMIN D3 21:02: mouth [place] (VITAMIN 36 daily. Medical D-3 ORAL) Branch AMLODIPINE Yes [id number] Take by Univers BESYLATE 1-04 mouth. ity of (AMLODIPINE 21:02: [place] ORAL) Medical Branch aspirin 81 Yes [id number] 81mg Take 81 mg Univers mg chewable 1-04 by mouth ity of tablet 21:02: daily. [place] [address] Medical Branch CALCIUM Yes [id number] 1000U Take 1,000 Univers CARBONATE/V 1-04 Units by ity of ITAMIN D3 21:02: mouth [place] (VITAMIN 36 daily. Medical D-3 ORAL) Branch AMLODIPINE Yes [id number] Take by Univers BESYLATE 1-04 mouth. ity of (AMLODIPINE 21:02: [place] ORAL) Medical Branch aspirin 81 0 Yes [id number] 81mg Take 81 mg Univers mg chewable 1-04 by mouth ity of tablet 21:02: daily. [place] [address] Medical Branch CALCIUM Yes [id number] 1000U Take 1,000 Univers CARBONATE/V 1-04 Units by ity of ITAMIN D3 21:02: mouth [place] (VITAMIN 36 daily. Medical D-3 ORAL) Branch AMLODIPINE Yes [id number] Take by Univers BESYLATE 1-04 mouth. ity of (AMLODIPINE 21:02: [place] ORAL) Medical Branch aspirin 81 Yes [id number] 81mg Take 81 mg Univers mg chewable 1-04 by mouth ity of tablet 21:02: daily. [place] 36 [facility] Branch CALCIUM 2020-0 Yes [id number] 1000U Take 1,000 Univers CARBONATE/V 1-04 Units by ity of ITAMIN D3 21:02: mouth [place] (VITAMIN 36 daily. Medical D-3 ORAL) Branch tiZANidine 2019-07 Yes Univers 4 mg 2-23 ity of capsule 00:00: [place] Medical Branch tiZANidine 2019-07 Yes Univers 4 mg 2-23 ity of capsule 00:00: [place] Medical Branch tiZANidine 2019-07 Yes Univers 4 mg 2-23 ity of capsule 00:00: [place] Medical Branch tiZANidine 2019-07 Yes Univers 4 mg 2-23 ity of capsule 00:00: [address] Branch leflunomide 2018-07 Yes 1{tbl} Take 1 Un alvaro 20 mg 1-15 tablet by ity of tablet 00:00: mouth. [place] [facility] Branch leflunomide 2018-07 Yes 1{tbl} Take 1 Un [place]var[place] 20 mg 1-15 tablet by ity of tablet 00:00: mouth. [place] [facility] Branch leflunomide 2018-07 Yes 1{tbl} Take 1 Un [place] 20 mg 1-15 tablet by ity of tablet 00:00: mouth. [place] [facility] Branch leflunomide 2018-07 Yes 1{tbl} Take 1 Un [place] 20 mg 1-15 tablet by ity of tablet 00:00: mouth. [address] Branch naproxen Yes [id number] 500mg Take 1 U nivers (NAPROSYN) 4-18 tablet by ity of 500 mg 00:00: mouth 2 [place] tablet 00 (two) Medical times Branch daily with meals. naproxen Yes [id number] 500mg Take 1 U nivers (NAPROSYN) 4-18 tablet by ity of 500 mg 00:00: mouth 2 [place] tablet 00 (two) Medical times Branch daily with meals. naproxen Yes [id number] 500mg Take 1 U nivers (NAPROSYN) 4-18 tablet by ity of 500 mg 00:00: mouth 2 [place] tablet 00 (two) Medical times Branch daily with meals. naproxen Yes [id number] 500mg Take 1 U nivers (NAPROSYN) 4-18 tablet by ity of 500 mg 00:00: mouth 2 [place] tablet 00 (two) Medical times Branch daily with meals. naproxen Yes [id number] 500mg Take 1 U nivers (NAPROSYN) 4-18 tablet by ity of 500 mg 00:00: mouth 2 [place] tablet 00 (two) Medical times Branch daily with meals. naproxen Yes [id number] 500mg Take 1 U nivers (NAPROSYN) 4-18 tablet by ity of 500 mg 00:00: mouth 2 [place] tablet 00 (two) Medical times Branch daily with meals. AMLODIPINE Yes [id number] Take by Univers BESYLATE 3-24 mouth. ity of (AMLODIPINE 16:39: [place] ORAL) 49 Medical Branch aspirin 81 Yes [id number] 81mg Take 81 mg Univers mg chewable 3-24 by mouth ity of tablet 16:39: daily. [place] [address] Medical Branch CALCIUM 0 Yes [id number] 1000U Take 1,000 Univers CARBONATE/V 3-24 Units by ity of ITAMIN D3 16:39: mouth [place] (VITAMIN 49 daily. Medical D-3 ORAL) Branch sulfaSALAzi Yes 500mg Take 1 Tab Univers ne 3-24 by mouth 2 ity of (AZULFIDINE 00:00: () ) 500 mg EC 00 times Medical tablet daily. Branch traMADOL 0 Yes 50mg Take 1 Tab Uni vers (ULTRAM) 50 3-24 by mouth ity of mg tablet 00:00: every 6 [place] 00 (six) Medical hours as Branch needed for Pain (scale 4-6). sulfaSALAzi 0 Yes 500mg Take 1 Tab Univers ne 3-24 by mouth 2 ity of (AZULFIDINE 00:00: () ) 500 mg EC 00 times Medical tablet daily. Branch traMADOL 0 Yes 50mg Take 1 Tab Uni vers (ULTRAM) 50 3-24 by mouth ity of mg tablet 00:00: every 6 [place] 00 (six) Medical hours as Branch needed for Pain (scale 4-6). sulfaSALAzi 0 Yes 500mg Take 1 Tab Univers ne [...] ity of mg tablet 00:00: every 6 [place] 00 (six) Medical hours as Branch needed for Pain (scale 4-6). acetaminoph 2014-0 Yes 1{tbl} Take 1 Tab Univers en-codeine 8-17 by mouth ity o f (TYLENOL-CO 00:00: every 6 [place] as DEINE #3) 00 (six) Medical 300-30 mg hours as Branch tablet needed for Pain (scale 4-6) or Pain (scale 7-10). acetaminoph 2015-0 Yes 1{tbl} Take 1 Tab Univers en-codeine [...] 4-6) or Pain (scale 7-10). glimepiride Yes [id number] 4mg Take 1 Tab Univers (AMARYL) 4 7-03 by mouth ity o f mg tablet 00:00: daily with [place] 00 breakfast. Medical Branch metoprolol Yes [id number] 50mg Take 1 Tab Univers tartrate 7-03 by mouth 2 ity o f (LOPRESSOR) 00:00: (two) [place] 50 mg 00 times Medical tablet daily. Branch glimepiride Yes [id number] 4mg Take 1 Tab Univers (AMARYL) 4 7-03 by mouth ity o f mg tablet 00:00: daily with [place] 00 breakfast. Medical Branch metoprolol Yes [id number] 50mg Take 1 Tab Univers tartrate 7-03 by mouth 2 ity o f (LOPRESSOR) 00:00: (two) [place] 50 mg 00 times Medical tablet daily. Branch glimepiride Yes [id number] 4mg Take 1 Tab Univers (AMARYL) 4 7-03 by mouth ity o f mg tablet 00:00: daily with [place] 00 breakfast. Medical Branch metoprolol Yes [id number] 50mg Take 1 Tab Univers tartrate 7-03 by mouth 2 ity o f (LOPRESSOR) 00:00: (two) [place] 50 mg 00 times Medical tablet daily. Branch glimepiride Yes [id number] 4mg Take 1 Tab Univers (AMARYL) 4 7-03 by mouth ity o f mg tablet 00:00: daily with [place] 00 breakfast. Medical Branch metoprolol Yes [id number] 50mg Take 1 Tab Univers tartrate 7-03 by mouth 2 ity o f (LOPRESSOR) 00:00: (two) [place] 50 mg 00 times Medical tablet daily. Branch glimepiride Yes [id number] 4mg Take 1 Tab Univers (AMARYL) 4 7-03 by mouth ity o f mg tablet 00:00: daily with [place] 00 breakfast. Medical Branch metoprolol Yes [id number] 50mg Take 1 Tab Univers tartrate 7-03 by mouth 2 ity o f (LOPRESSOR) 00:00: (two) [place] 50 mg 00 times Medical tablet daily. Branch glimepiride Yes [id number] 4mg Take 1 Tab Univers (AMARYL) 4 7-03 by mouth ity o f mg tablet 00:00: daily with [place] 00 breakfast. Medical Branch metoprolol Yes [id number] 50mg Take 1 Tab Univers tartrate 7-03 [...] (three) [place] tablet 00 times Medical daily. [place] gabapentin Yes 600mg Take 1 Tab Univers (NEURONTIN) 6-18 by mouth 3 it y of 600 mg 00:00: (three) [place] tablet 00 times Medical daily. [place] gabapentin Yes 600mg Take 1 Tab Univers (NEURONTIN) 6-18 by mouth 3 it y of 600 mg 00:00: (three) [place] tablet 00 times Medical daily. [place] gabapentin Yes 600mg Take 1 Tab Univers (NEURONTIN) 6-18 by mouth 3 it y of 600 mg 00:00: (three) [place] tablet 00 times Medical daily. [place] predniSONE Yes 5mg Take 5 mg [place] (DELTASONE) 5-11 by mouth ity of 5 mg tablet 18:13: daily. [address] predniSONE Yes 5mg Take 5 mg [place] (DELTASONE) 5-11 by mouth ity of 5 mg tablet 18:13: daily. [address] predniSONE Yes 5mg Take 5 mg [place] (DELTASONE) 5-11 by mouth ity of 5 mg tablet 18:13: daily. [address] predniSONE Yes 5mg Take 5 mg [place] (DELTASONE) 5-11 by mouth ity of 5 mg tablet 18:13: daily. [address] predniSONE Yes 5mg Take 5 mg [place] (DELTASONE) 5-11 by mouth ity of 5 mg tablet 18:13: daily. [address] predniSONE Yes 5mg Take 5 mg [place] (DELTASONE) 5-11 by mouth ity of 5 mg tablet 18:13: daily. [address] omega-3 Yes [id number] 1g Take 1 g [place] fatty 5-01 by mouth 3 ity of acids-vitam 17:17: (three) [place] in E (FISH 22 times Medical OIL) 1,000 daily. [place] mg capsule vitamin C Yes [id number] 1000mg Take 1,000 Univers with vanessa 5-01 [...] ity o f mg tablet 00:00: daily. [facility] foLIC acid 2013-07 Yes 1mg Take 1 Tab U nivers (FOLATE) 1 1-24 by mouth ity o f mg tablet 00:00: daily. [facility] foLIC acid 2013-07 Yes 1mg Take 1 Tab U nivers (FOLATE) 1 1-24 by mouth ity o f mg tablet 00:00: daily. [facility] foLIC acid 2013-07 Yes 1mg Take 1 Tab U nivers (FOLATE) 1 1-24 by mouth ity o f mg tablet 00:00: daily. [facility] foLIC acid 2013-07 Yes 1mg Take 1 Tab U nivers (FOLATE) 1 1-24 by mouth ity o f mg tablet 00:00: daily. [facility] foLIC acid 2013-07 Yes 1mg Take 1 Tab U nivers (FOLATE) 1 1-24 by mouth ity o f mg tablet 00:00: daily. [facility] PRAVASTATIN 2006-07 Yes 1 Tab Oral Univers 40 MG ORAL 2-28 DAILY ity of TAB 00:00: 00 [facility] Branch NITROGLYCER 2006-07 Yes 1 Tab SL [place] IN 0.4 MG 2-28 Q5MIN PRN ity o f SL SUBL 00:00: chest pain [place] [facility] PRAVASTATIN 2006-07 Yes 1 Tab Oral Univers 40 MG ORAL 2-28 DAILY ity of TAB 00:00: [place] [facility] Branch NITROGLYCER 2006-07 Yes 1 Tab SL [place] IN 0.4 MG 2-28 Q5MIN PRN ity o f SL SUBL 00:00: chest pain [place] 00 [facility] PRAVASTATIN 2006-07 Yes 1 Tab Oral Univers 40 MG ORAL 2-28 DAILY ity of TAB 00:00: [facility] Branch NITROGLYCER 2006-07 Yes 1 Tab SL [place] IN 0.4 MG 2-28 Q5MIN PRN ity o f SL SUBL 00:00: chest pain [place] 00 [facility] PRAVASTATIN 2006-07 Yes 1 Tab Oral Univers 40 MG ORAL 2-28 DAILY ity of TAB 00:00: [facility] Branch NITROGLYCER 2006-07 Yes 1 Tab SL [place] IN 0.4 MG 2-28 Q5MIN PRN ity o f SL SUBL 00:00: chest pain [place] 00 Medical Branch PRAVASTATIN 2006-07 Yes 1 Tab Oral Univers 40 MG ORAL 2-28 DAILY ity of TAB 00:00: [facility] Branch NITROGLYCER 2006-07 Yes 1 Tab SL [place] IN 0.4 MG 2-28 Q5MIN PRN ity o f SL SUBL 00:00: chest pain [place] 00 Medical Branch PRAVASTATIN 2006-07 Yes 1 Tab Oral Univers 40 MG ORAL 2-28 DAILY ity of TAB 00:00: [facility] Branch NITROGLYCER 2006-07 Yes 1 Tab SL [place] IN 0.4 MG 2-28 Q5MIN PRN ity o f SL SUBL 00:00: chest pain [place] 00 Medical Branch Metoprolol Metoprolol No 1{table BID Metoprolol Tartrate 50 Tartrate 50 t_with_ Tartrate MG MG food} 50 MG metFORMIN metFORMIN No BID metFORMIN HCl ER 750 HCl ER 750 HCl ER 750 MG MG MG Doxazosin Doxazosin No QD Doxazosin Mesylate 2 Mesylate 2 Mesylate 2 MG MG MG Irbesartan Irbesartan No 1{table QD Irbesartan 300 MG 300 MG t} 300 MG metFORMIN metFORMIN No 1{table QD metFORMIN HCl ER 500 HCl ER 500 t_with_ HCl ER 500 MG MG evening MG _meal} Pravastatin Pravastatin No 1{table QD Pravastati Sodium 40 Sodium 40 t} n Sodium MG MG 40 MG tiZANidine tiZANidine No 1{table TID tiZANidine HCl 4 MG HCl 4 MG t_as_ne HCl 4 MG eded} Fish Oil Fish Oil No Fish Oil [place] 200 [place] 200 No [place] MG/1.14ML MG/1.14ML 200 MG/1.14ML Metoprolol Metoprolol No 1{table BID Metoprolol Tartrate 50 Tartrate 50 t_with_ Tartrate MG MG food} 50 MG metFORMIN metFORMIN No BID metFORMIN HCl ER 750 HCl ER 750 HCl ER 750 MG MG MG Doxazosin Doxazosin No QD Doxazosin Mesylate 2 Mesylate 2 Mesylate 2 MG MG MG Irbesartan Irbesartan No 1{table QD Irbesartan 300 MG 300 MG t} 300 MG metFORMIN metFORMIN No 1{table QD metFORMIN HCl ER 500 HCl ER 500 t_with_ HCl ER 500 MG MG evening MG _meal} Pravastatin Pravastatin No 1{table QD Pravastati Sodium 40 Sodium 40 t} n Sodium MG MG 40 MG tiZANidine tiZANidine No 1{table TID tiZANidine HCl 4 MG HCl 4 MG t_as_ne HCl 4 MG eded} Fish Oil Fish Oil No Fish Oil tiZANidine tiZANidine No 1{table TID tiZANidine HCl 4 MG HCl 4 MG t_as_ne HCl 4 MG eded} [place] 200 [place] 200 No [place] MG/1.14ML MG/1.14ML 200 MG/1.14ML Irbesartan Irbesartan No 1{table QD Irbesartan 300 MG 300 MG t} 300 MG metFORMIN metFORMIN No 1{table QD metFORMIN HCl ER 500 HCl ER 500 t_with_ HCl ER 500 MG MG evening MG _meal} Doxazosin Doxazosin No QD Doxazosin Mesylate 2 Mesylate 2 Mesylate 2 MG MG MG metFORMIN metFORMIN No BID metFORMIN HCl ER 750 HCl ER 750 HCl ER 750 MG MG MG metFORMIN metFORMIN No BID metFORMIN HCl ER 750 HCl ER 750 HCl ER 750 MG MG MG Pravastatin Pravastatin No 1{table QD Pravastati Sodium 40 Sodium 40 t} n Sodium MG MG 40 MG Fish Oil Fish Oil No Fish Oil Metoprolol Metoprolol No 1{table BID Metoprolol Tartrate 50 Tartrate 50 t_with_ Tartrate MG MG food} 50 MG tiZANidine tiZANidine No 1{table TID tiZANidine HCl 4 MG HCl 4 MG t_as_ne HCl 4 MG eded} [place] 200 [place] 200 No [place] MG/1.14ML MG/1.14ML 200 MG/1.14ML Irbesartan Irbesartan No 1{table QD Irbesartan 300 MG 300 MG t} 300 MG metFORMIN metFORMIN No 1{table QD metFORMIN HCl ER 500 HCl ER 500 t_with_ HCl ER 500 MG MG evening MG _meal} Doxazosin Doxazosin No QD Doxazosin Mesylate 2 Mesylate 2 Mesylate 2 MG MG MG metFORMIN metFORMIN No BID metFORMIN HCl ER 750 HCl ER 750 HCl ER 750 MG MG MG metFORMIN metFORMIN No BID metFORMIN HCl ER 750 HCl ER 750 HCl ER 750 MG MG MG Pravastatin Pravastatin No 1{table QD Pravastati Sodium 40 Sodium 40 t} n Sodium MG MG 40 MG Fish Oil Fish Oil No Fish Oil Metoprolol Metoprolol No 1{table BID Metoprolol Tartrate 50 Tartrate 50 t_with_ Tartrate MG MG food} 50 MG Fish Oil Fish Oil No Fish Oil Irbesartan Irbesartan No 1{table QD Irbesartan 300 MG 300 MG t} 300 MG Doxazosin Doxazosin No QD Doxazosin Mesylate 2 Mesylate 2 Mesylate 2 MG MG MG tiZANidine tiZANidine No 1{table TID tiZANidine HCl 4 MG HCl 4 MG t_as_ne HCl 4 MG eded} Pravastatin Pravastatin No 1{table QD Pravastati Sodium 40 Sodium 40 t} n Sodium MG MG 40 MG [place] 200 [place] 200 No [place] MG/1.14ML MG/1.14ML 200 MG/1.14ML metFORMIN metFORMIN No metFORMIN HCl ER 750 HCl ER 750 HCl ER 750 MG MG MG Aspirin 81 Aspirin 81 No 1{table QD Aspirin 81 MG MG t} MG Vitamin D Vitamin D No Vitamin D Metoprolol Metoprolol No 1{table BID Metoprolol Tartrate Tartrate t_with_ Tartrate 100 MG 100 MG food} 100 MG metFORMIN metFORMIN No metFORMIN HCl ER 750 HCl ER 750 HCl ER 750 MG MG MG Vitamin D Vitamin D No Vitamin D Aspirin 81 Aspirin 81 No 1{table QD Aspirin 81 MG MG t} MG Pravastatin Pravastatin No 1{table QD Pravastati Sodium 40 Sodium 40 t} n Sodium MG MG 40 MG Metoprolol Metoprolol No 1{table BID Metoprolol Tartrate Tartrate t_with_ Tartrate 100 MG 100 MG food} 100 MG tiZANidine tiZANidine No 1{table TID tiZANidine HCl 4 MG HCl 4 MG t_as_ne HCl 4 MG eded} Doxazosin Doxazosin No QD Doxazosin Mesylate 2 Mesylate 2 Mesylate 2 MG MG MG Fish Oil Fish Oil No Fish Oil [place] 200 [place] 200 No [place] MG/1.14ML MG/1.14ML 200 MG/1.14ML Irbesartan Irbesartan No 1{table QD Irbesartan 300 MG 300 MG t} 300 MG tiZANidine tiZANidine No 1{table TID tiZANidine HCl 4 MG HCl 4 MG t_as_ne HCl 4 MG eded} [place] 200 [place] 200 No [place] MG/1.14ML MG/1.14ML 200 MG/1.14ML Irbesartan Irbesartan No 1{table QD Irbesartan 300 MG 300 MG t} 300 MG metFORMIN metFORMIN No 1{table QD metFORMIN HCl ER 500 HCl ER 500 t_with_ HCl ER 500 MG MG evening MG _meal} Doxazosin Doxazosin No QD Doxazosin Mesylate 2 Mesylate 2 Mesylate 2 MG MG MG metFORMIN metFORMIN No BID metFORMIN HCl ER 750 HCl ER 750 HCl ER 750 MG MG MG metFORMIN metFORMIN No BID metFORMIN HCl ER 750 HCl ER 750 HCl ER 750 MG MG MG Pravastatin Pravastatin No 1{table QD Pravastati Sodium 40 Sodium 40 t} n Sodium MG MG 40 MG Fish Oil Fish Oil No Fish Oil Metoprolol Metoprolol No 1{table BID Metoprolol Tartrate 50 Tartrate 50 t_with_ Tartrate MG MG food} 50 MG Metoprolol Metoprolol No 1{table BID Metoprolol Tartrate 50 Tartrate 50 t_with_ Tartrate MG MG food} 50 MG Fish Oil Fish Oil No Fish Oil [place] 200 [place] 200 No [place] MG/1.14ML MG/1.14ML 200 MG/1.14ML Doxazosin Doxazosin No QD Doxazosin Mesylate 2 Mesylate 2 Mesylate 2 MG MG MG Pravastatin Pravastatin No 1{table QD Pravastati Sodium 40 Sodium 40 t} n Sodium MG MG 40 MG tiZANidine tiZANidine No 1{table TID tiZANidine HCl 4 MG HCl 4 MG t_as_ne HCl 4 MG eded} metFORMIN metFORMIN No 1{table QD metFORMIN HCl ER 500 HCl ER 500 t_with_ HCl ER 500 MG MG evening MG _meal} Irbesartan Irbesartan No 1{table QD Irbesartan 300 MG 300 MG t} 300 MG metFORMIN metFORMIN No 1{table QD metFORMIN HCl ER 500 HCl ER 500 t_with_ HCl ER 500 MG MG evening MG _meal} Metoprolol Metoprolol No 1{table BID Metoprolol Tartrate 50 Tartrate 50 t_with_ Tartrate MG MG food} 50 MG Fish Oil Fish Oil No Fish Oil metFORMIN metFORMIN No BID metFORMIN HCl ER 750 HCl ER 750 HCl ER 750 MG MG MG Pravastatin Pravastatin No 1{table QD Pravastati Sodium 40 Sodium 40 t} n Sodium MG MG 40 MG Doxazosin Doxazosin No QD Doxazosin Mesylate 2 Mesylate 2 Mesylate 2 MG MG MG tiZANidine tiZANidine No 1{table TID tiZANidine HCl 4 MG HCl 4 MG t_as_ne HCl 4 MG eded} Irbesartan Irbesartan No 1{table QD Irbesartan 300 MG 300 MG t} 300 MG [place] 200 [place] 200 No [place] MG/1.14ML MG/1.14ML 200 MG/1.14ML [place] 200 [place] 200 No [place] MG/1.14ML MG/1.14ML 200 MG/1.14ML Irbesartan Irbesartan No 1{table QD Irbesartan 300 MG 300 MG t} 300 MG metFORMIN metFORMIN No BID metFORMIN HCl ER 750 HCl ER 750 HCl ER 750 MG MG MG Doxazosin Doxazosin No QD Doxazosin Mesylate 2 Mesylate 2 Mesylate 2 MG MG MG Metoprolol Metoprolol No 1{table BID Metoprolol Tartrate 50 Tartrate 50 t_with_ Tartrate MG MG food} 50 MG metFORMIN metFORMIN No 1{table QD metFORMIN HCl ER 500 HCl ER 500 t_with_ HCl ER 500 MG MG evening MG _meal} Pravastatin Pravastatin No 1{table QD Pravastati Sodium 40 Sodium 40 t} n Sodium MG MG 40 MG tiZANidine tiZANidine No 1{table TID tiZANidine HCl 4 MG HCl 4 MG t_as_ne HCl 4 MG eded} Fish Oil Fish Oil No Fish Oil Kevzara 200 Kevzara 200 No Kevzara MG/1.14ML MG/1.14ML 200 MG/1.14ML Irbesartan Irbesartan No 1{table QD Irbesartan 300 MG 300 MG t} 300 MG metFORMIN metFORMIN No BID metFORMIN HCl ER 750 HCl ER 750 HCl ER 750 MG MG MG Doxazosin Doxazosin No QD Doxazosin Mesylate 2 Mesylate 2 Mesylate 2 MG MG MG Metoprolol Metoprolol No 1{table BID Metoprolol Tartrate 50 Tartrate 50 t_with_ Tartrate MG MG food} 50 MG metFORMIN metFORMIN No 1{table QD metFORMIN HCl ER 500 HCl ER 500 t_with_ HCl ER 500 MG MG evening MG _meal} Pravastatin Pravastatin No 1{table QD Pravastati Sodium 40 Sodium 40 t} n Sodium MG MG 40 MG tiZANidine tiZANidine No 1{table TID tiZANidine HCl 4 MG HCl 4 MG t_as_ne HCl 4 MG eded} Fish Oil Fish Oil No Fish Oil Kevzara 200 Kevzara 200 No Kevzara MG/1.14ML MG/1.14ML 200 MG/1.14ML Immunizations Ordered Immunization Filled Immunization Date Status Commen ts Source Name Name FLUZONE HIGH DOSE FLUZONE HIGH DOSE 2022-06-16 Completed [facility] OVER 65 OVER 65 14:05:00 [facility] FLUZONE HIGH DOSE FLUZONE HIGH DOSE 2022-06-16 Completed [facility] OVER 65 OVER 65 14:05:00 [facility] Vital Signs Vital Name Observation Time Observation Value Comments Source height 2022-06-30 13:00:00 59.00 [in_i] [facility] 2022-[facility]-30 13:00:00 124.7 [lb_av] Common [facility] temperature 2022-06-30 13:00:00 98.1 [degF] Common [facility] bmi 2022-06-30 13:00:00 25.18 kg/m2 [facility] 2022-06-30 13:00:00 98 % Common [facility] respiratory rate 2022-06-30 13:00:00 16 /min Comm on [facility] blood pressure 2022-06-30 13:00:00 140 mm[Hg] Common [facility] - systolic [facility] blood pressure 2022-06-30 13:00:00 75 mm[Hg] [facility] - diastolic [facility] height 2022-06-16 13:00:00 59.00 [in_i] Common S [facility] weight 2022-06-16 13:00:00 124.5 [lb_av] [facility] temperature 2022-06-16 13:00:00 98.2 [degF] Common S [facility] bmi 2022-06-16 13:00:00 25.14 kg/m2 Common [facility] oximetry 2022-06-16 13:00:00 99 % Common [facility] respiratory rate 2022-06-16 13:00:00 16 /min Comm on [facility] blood pressure 2022-06-16 13:00:00 147 mm[Hg] [facility] - systolic [facility] blood pressure 2022-06-16 13:00:00 75 mm[Hg] [facility] - diastolic [facility] height 2021-11-12 11:30:00 59.00 [in_i] Common S pirit [facility] weight 2021-11-12 11:30:00 139.7 [lb_av] Common [facility] - [facility] temperature 2021-11-12 11:30:00 98.7 [degF] Common S pirit [facility] bmi 2021-11-12 11:30:00 28.21 kg/m2 Common [facility] oximetry 2021-11-12 11:30:00 96 % Common S pirit [facility] respiratory rate 2021-11-12 11:30:00 16 /min Comm on [facility] blood pressure 2021-11-12 11:30:00 140 mm[Hg] Common [facility] - systolic [facility] blood pressure 2021-11-12 11:30:00 72 mm[Hg] [facility] - [facility] height 2021-11-12 11:00:00 59.00 [in_i] Common [facility] weight 2021-11-12 11:00:00 139.7 [lb_av] [facility] temperature 2021-11-12 11:00:00 98.7 [degF] Common S [facility] bmi 2021-11-12 11:00:00 28.21 kg/m2 Common [facility] oximetry 2021-11-12 11:00:00 96 % Common [facility] respiratory rate 2021-11-12 11:00:00 16 /min Comm on [facility] blood pressure 2021-11-12 11:00:00 140 mm[Hg] Common [facility] - systolic [facility] blood pressure 2021-11-12 11:00:00 72 mm[Hg] [facility] height 2021-10-22 10:00:00 59.00 [in_i] Common [facility] weight 2021-10-22 10:00:00 127.1 [lb_av] [facility] temperature 2021-10-22 10:00:00 97.0 [degF] Common S pirit [facility] bmi 2021-10-22 10:00:00 25.67 kg/m2 Common [facility] - [facility] oximetry 2021-10-22 10:00:00 95 % Common S [facility] respiratory rate 2021-10-22 10:00:00 16 /min Comm on [facility] blood pressure 2021-10-22 10:00:00 141 mm[Hg] Common [facility] - systolic [facility] blood pressure 2021-10-22 10:00:00 79 mm[Hg] Common [facility] - diastolic [facility] Systolic blood 2020-07-08 21:07:00 164 mm[Hg] [email or web address] Diastolic blood 2020-07-08 21:07:00 75 mm[Hg] [email or web address] Heart rate 2020-07-08 21:07:00 64 /min [facility] Body height 2020-07-08 21:00:00 149.9 cm [facility] Body weight 2020-07-08 21:00:00 54.976 kg [facility] BMI 2020-07-08 21:00:00 24.48 kg/m2 [facility] Procedures Procedure Date / Time Performing Clinician Source Performed AUTHORIZATION FOR 2019-02-06 05:01:00 Doctor Unassigned, No [facility] RELEASE OF PHI Name [facility] Branch Encounters Start End Encounter Admission Attending Care Care Encounter Source Date/Time Date/Time Type Type Clinicians Facility Department ID 2022-06-30 Outpatient BenjaminARI [facility] [id number] Common 07:26:00 Av[facility] 2022-06-18 Outpatient [facility] [id number] Common 14:57:01 [facility]nee [facility] 2022-06-12 Outpatient Benjamin [facility] [id number] Common 10:16:03 Avnee [facility] 2022-01-06 Outpatient [facility] [id number] Common 16:40:01 Avnee [facility] 2021-12-05 Outpatient Benjamin, STLMLC STLMLC [id number] Common 15:02:02 Avnee [facility] 2021-11-17 Outpatient Benjamin, STLMLC STLMLC [id number] Common 09:25:09 Avnee [facility] 2021-11-11 Outpatient Benjamin, STLMLC STLMLC [id number] Common 13:25:02 Avnee [facility] 2021-11-06 Outpatient Benjamin, STLMLC STLMLC [id number] Common 10:00:03 Avnee [facility] 2021-10-22 Outpatient Benjamin, STLMLC STLMLC [id number] Common 16:34:02 Avnee [facility] 2022-06-30 2022-06-30 OFFICE STLMLC STLMLC [id number] Co mmon 00:00:00 00:00:00 VISIT [facility] PT - CHI LEVEL 4 [facility] 2022-06-16 2022-06-16 OFFICE STLMLC STLMLC [id number] Co mmon 00:00:00 00:00:00 VISIT [facility] PT - CHI LEVEL 4 [facility] 2022-02-26 2022-02-26 (TEL) STLMLC STLMLC [id number] Co mmon 00:00:00 00:00:00 [facility] 2022-02-20 2022-02-20 OL DIG E/M STLMLC STLMLC [id number] Common 00:00:00 00:00:00 [facility] 11-20 Spir it MIN [facility] 2022-01-06 2022-01-06 (TEL) STLMLC STLMLC [id number] Co mmon 00:00:00 00:00:00 [facility] 2021-11-25 2021-11-25 (TEL) STLMLC STLMLC [id number] Co mmon 00:00:00 00:00:00 [facility] 2021-11-12 2021-11-12 OFFICE STLC STLC [id number] Co mmon 00:00:00 00:00:00 [facility] PT - CHI LEVEL 4 [facility] 2021-11-12 2021-11-12 SUB ANNUAL STLMLC STLC [id number] Common 00:00:00 00:00:00 [facility] WELLNESS - CHI VISIT [facility] 2021-11-06 2021-11-06 (TEL) STLMLC STLC [id number] Co mmon 00:00:00 00:00:00 Spirit - CHI [facility] 2021-10-22 2021-10-22 OFFICE STLC STLC [id number] Co mmon 00:00:00 00:00:00 VISIT LITTLE Saucedo it PT LEVEL 4 - CHI [facility] 2020-09-06 2020-09-06 Patient IshanRUST [id number] Univers 00:00:00 00:00:00 [facility] [id number] i ty [facility] [id number] [facility] [place] [phone] [place] [address] [place] [address] 2020-08-12 2020-08-12 Outpatient Yany SEWELL [facility] [id number] Univers 13:10:00 13:10:00 NIRALI gilliam [facility] 2020-08-08 2020-08-08 Rojas SewellRUST [id number] Univers 00:00:00 00:00:00 Nirali MCDONALD [id number] ity of CARE [id number] [facility] CENTER AT [phone] [place] [address] 2020-07-16 2020-07-16 Outpatient Yany CASIANO [facility] [id number] Univers 14:15:00 14:15:00 LADY gilliam [facility] 2020-07-08 2020-07-08 Office VirginiaRUST [id number] Univers 14:49:14 15:40:00 Visit Manpreet Guadalupe [id number] it y of Surgical [id number] Filipe as Specialti [phone] [place] dical es [address] [place] 2020-07-08 2020-07-08 Outpatient R [place], [facility] [id number] Univers 15:15:00 15:15:00 MANPREET ity of [facility] 2020-06-24 2020-06-24 Telephone Cris [facility] [id number] Univers 00:00:00 00:00:00 [facility] [id number] it y of [place] [id number] [place] [facility] [phone] [address] ([facility]) 2019-02-06 2019-02-06 Orders Doctor NIRALI [id number] Univers 00:00:00 00:00:00 Only Unassigned, ADELAIDE [id number] ity of [place] [facility] [id number] Filipe as [phone] [facility] [address] Results This patient has no known results.
[2022-12-04 11:10] LABS: Absolute Lymphocytes (CBC) 0.8 K/uL (0.7-4.9); Lymphocytes % 5.4 % (15.3-44.8); MPV 7.6 fL (7.6-11.3); RBC Red Blood Cell Count 3.41 M/uL (3.86-4.86)
[2022-12-04] MEDS ORDERED: NA CHLORIDE 0.9% 500 ML ONE (11:13)
[2022-12-04] MEDS ORDERED: CYCLOBENZAPRINE 10 MG TAB ONE (11:13)
[2022-12-04] MEDS ORDERED: METHYLPREDNISOLONE 125 MG INJ ONE (11:13)
[2022-12-04 11:28] LABS: Albumin 3.3 g/dL (3.4-5.0); Bilirubin Total 0.5 mg/dL (0.2-1.0); Protein, Total 7.2 g/dL (6.4-8.2)
--- NOTE | 2022-12-04 12:28 | ER ---
Nurse's Notes [facility] Name: Maria Esther Capone Age: 67 yrs Sex: Female : 1955 Arrival Date: 12/04/2022 Time: 10:38 Bed 17 Private MD: Diagnosis: Pain in joint Presentation: 12/04 10:54 Chief complaint: Patient states: RA flare up that began last week. Saw dater assembler ss yesterday and was prescribed tramadol, but that is not helping. Pain became worse yesterday. Coronavirus screen: Client denies travel out of the [place] in the last 14 days. Ebola Screen: Patient denies exposure to infectious person. Patient denies travel to an Ebola-affected area in the 21 days before illness onset. Initial Sepsis Screen: Does the patient meet any 2 criteria? No. Patient's initial sepsis screen is negative. Does the patient have a suspected source of infection? No. Patient's initial sepsis screen is negative. Risk Assessment: Do you want to hurt yourself or someone else? Patient reports no desire to harm self or others. Onset of symptoms was November 27, 2022. 10:54 Method Of Arrival: Wheelchair ss 10:54 Acuity: ALTA 3 ss Triage Assessment: 12:59 General: Appears in no apparent distress. comfortable, Behavior is calm, cooperative. db Historical: - Allergies: 10:55 Codeine; ss - PMHx: 10:55 Heart attack in 2006; Hyperlipidemia; Hypertension; Rheumatoid Arthritis; Diabetes ss mellitus; - Immunization history:: Adult Immunizations unknown. - Social history:: Smoking status: Patient reports the use of cigarette tobacco products, Patient denies any tobacco usage or history of. Screenin:13 [facility] ED Fall Risk Assessment (Adult) History of falling in the last 3 months, db including since admission No falls in past 3 months (0 pts) Confusion or Disorientation No (0 pts) Intoxicated or Sedated No (0 pts) Impaired Gait Yes (1 pt) Mobility Assist Device Used Yes (1 pt) Altered Elimination No (0 pt) Score/Fall Risk Level 0 - 2 = Low Risk Oriented to surroundings, Maintained a safe environment. Abuse screen: Denies threats or abuse. Denies injuries from another. Nutritional screening: No deficits noted. Tuberculosis screening: No symptoms or risk factors identified. Assessment: 11:05 Reassessment: Patient appears in no apparent distress at this time. Patient and/or db family updated on plan of care and expected duration. Pain level reassessed. Patient is alert, oriented x 3, equal unlabored respirations, skin warm/dry/pink. patient with pain in fingers from rheumatoid arthitis x 3 days. States went to doctor and pain not better. General: Appears in no apparent distress. comfortable, Behavior is calm, cooperative. Pain: Complains of pain in right hand and left hand. Neuro: Level of Consciousness is awake, alert, obeys commands, Oriented to person, place, time, situation. 12:30 Reassessment: Patient appears in no apparent distress at this time. Patient and/or db family updated on plan of care and expected duration. Pain level reassessed. Patient is alert, oriented x 3, equal unlabored respirations, skin warm/dry/pink. General: Appears in no apparent distress. comfortable, Behavior is calm, cooperative. Vital Signs: 10:54 BP 133 / 65; Pulse 103; Resp 16; Temp 98.8(O); Pulse Ox 97% on R/A; ss 10:56 Weight 53.98 kg; Height 4 ft. 11 in. ; Pain 9/10; ss 12:30 BP 132 / 68; Pulse 86; Resp 18; Pulse Ox 96% ; db 10:56 Body Mass Index 24.03 (53.98 kg, 149.86 cm) ss 10:56 Pain Scale: Adult ss ED Course: 10:41 Patient arrived in ED. im 10:41 Jose Angel Trivedi MD is Attending Physician. bs3 10:55 Triage completed. ss 10:55 Arm band placed on right wrist. ss 10:56 Delores Nguyen, MIGUEL A is Primary Nurse. db 11:02 Inserted saline lock: 20 gauge in right antecubital area, using aseptic technique. db Blood collected. 12:59 Patient has correct armband on for positive identification. Bed in low position. Call db light in reach. Side rails up X 1. Pulse ox on. NIBP on. 12:59 No provider procedures requiring assistance completed. IV discontinued, intact, db bleeding controlled, No redness/swelling at site. Administered Medications: 11:08 Drug: Cyclobenzaprine PO 10 mg Route: PO; db 12:58 Follow up: Response: No adverse reaction db 11:08 Drug: NS 0.9% IV 500 ml Route: IV; Rate: bolus; Site: right antecubital; db 12:58 Follow up: Response: No adverse reaction; IV Status: Completed infusion; IV Intake: db 1000ml 11:10 Drug: MethylPrednisoLONE IVP 125 mg Route: IVP; Site: right antecubital; db 12:58 Follow up: Response: No adverse reaction db Medication: 12:59 VIS not applicable for this client. db Intake: 12:58 IV: 1000ml; Total: 1000ml. db Outcome: 12:27 Discharge ordered by bs3 12:59 Discharged to home ambulatory. db 12:59 Condition: stable 12:59 Discharge instructions given to patient, Instructed on discharge instructions, follow up and referral plans. Prescriptions given X 1. 13:01 Patient left the ED. db Signatures: Lola Vanessa, RN RN ss Jose Angel Trivedi MD MD bs3 Delores Nguyen RN RN db Deedee Castillo Corrections: (The following items were deleted from the chart) 10:56 10:55 PMHx: Diabetes - IDDM; ss ss
--- NOTE | 2022-12-04 12:28 | EDPHYS ---
Physician Documentation [facility] Name: Maria Esther Capone Age: 67 yrs Sex: Female : 1955 Arrival Date: 12/04/2022 Time: 10:38 Bed 17 Private MD: ED Physician Jose Angel Trivedi HPI: 12/04 10:55 This 67 yrs old Female presents to ER via Wheelchair with complaints of Pain bs3 All Over. 10:55 67-year-old female history of diabetes, RA . bs3 12:05 Patient with hypertension hyperlipidemia rheumatoid arthritis previously on bs3 immunosuppressive now only on prednisone due to abnormal LFTs presents with pain all over started several days ago saw her rheumatology group yesterday who increased her prednisone dose but she presents with persistent pain denies fevers chills chest pain shortness of breath or anything else bothering her pain worse with movement better with rest. Historical: - Allergies: 10:55 Codeine; ss - PMHx: 10:55 Heart attack in 2006; Hyperlipidemia; Hypertension; Rheumatoid Arthritis; Diabetes ss mellitus; - Immunization history:: Adult Immunizations unknown. - Social history:: Smoking status: Patient reports the use of cigarette tobacco products, Patient denies any tobacco usage or history of. ROS: 12:05 Constitutional: Negative for fever, chills bs3 12:05 All other systems are negative. Exam: 12:05 Constitutional: This is a well developed, well nourished patient who is awake, alert, bs3 and in no acute distress. Head/Face: Normocephalic, atraumatic. Eyes: Pupils equal round and reactive to light, extra-ocular motions intact. Lids and lashes normal. ENT: mmm, no posterior phyarngeal erythema Neck: Trachea midline, no thyromegaly, no neck stiffness Chest/axilla: Normal chest wall appearance and motion. Nontender with no deformity. No lesions are appreciated. Cardiovascular: Regular rate and rhythm with a normal S1 and S2. symmetric pulses in upper extremities Respiratory: Lungs have equal breath sounds bilaterally, clear to auscultation, no respiratory distress MS/ Extremity: Pulses equal, no cyanosis. Neurovascular intact. Full, normal range of motion. Multiple joints have multiple nodules, no fiocal swelling or tenderness Neuro: Awake and alert, GCS 15, oriented to person, place, time, and situation. Cranial nerves II-XII grossly intact. Motor strength 5/5 in all extremities. Sensory grossly intact. Psych: Awake, alert, with orientation to person, place and time. Behavior, mood, and affect are within normal limits. Vital Signs: 10:54 BP 133 / 65; Pulse 103; Resp 16; Temp 98.8(O); Pulse Ox 97% on R/A; ss 10:56 Weight 53.98 kg; Height 4 ft. 11 in. ; Pain 9/10; ss 12:30 BP 132 / 68; Pulse 86; Resp 18; Pulse Ox 96% ; db 10:56 Body Mass Index 24.03 (53.98 kg, 149.86 cm) ss 10:56 Pain Scale: Adult ss MDM: 10:41 Patient medically screened. bs3 12:05 Data reviewed: vital signs, nurses notes, EMS record. ED course: Patient with diffuse bs3 pain related to her rheumatoid arthritis we will check LFTs will evaluate for electrolyte abnormality as she feels like she has cramping will reassess I paged her doctor and I am waiting a callback advised outpatient follow-up for further management her LFTs are normal she could likely benefit from some immunomodulators. 12:26 ED course: pt reassessed, feeling better, labs notable for normal cmp, advised bs3 outpatient f/u with rheum to discuss further tx. 12/04 10:52 Order name: CBC with Diff; Complete Time: 11:46 bs3 12/04 10:52 Order name: Comprehensive Metabolic Panel; Complete Time: 11:46 bs3 Administered Medications: 11:08 Drug: Cyclobenzaprine PO 10 mg Route: PO; db 12:58 Follow up: Response: No adverse reaction db 11:08 Drug: NS 0.9% IV 500 ml Route: IV; Rate: bolus; Site: right antecubital; db 12:58 Follow up: Response: No adverse reaction; IV Status: Completed infusion; IV Intake: db 1000ml 11:10 Drug: MethylPrednisoLONE IVP 125 mg Route: IVP; Site: right antecubital; db 12:58 Follow up: Response: No adverse reaction db Disposition Summary: 12/04/22 12:27 Discharge Ordered Location: Home bs3 Problem: new bs3 Symptoms: have improved bs3 Condition: Stable bs3 Diagnosis - Pain in joint bs3 Followup: bs3 - With: Private Physician - When: 2 - 3 days - Reason: Re-evaluation by your physician Discharge Instructions: - Discharge Summary Sheet bs3 - Joint Pain, [id number] bs3 Forms: - Medication Reconciliation Form bs3 - Thank You Letter bs3 - Antibiotic Education bs3 - Prescription Opioid Use bs3 - Family Work Release mb9 Prescriptions: - Cyclobenzaprine 10 mg Oral Tablet - take 1 tablet by ORAL route every 8 hours As needed; 15 tablet; Refills: 0, bs3 Product Selection Permitted Signatures: Dispatcher [employer] EDLola Lane RN RN ss Jose Angel Trivedi MD MD bs3 Delores Nguyen RN RN db Corrections: (The following items were deleted from the chart) 10:56 10:55 PMHx: Diabetes - IDDM; ss
[2022-12-04 13:17] VITALS: TEMP 98.8
[2022-12-04 13:20] VITALS: BP 132/68; O2SAT 96
== END 2022-12-04 13:01 | disposition home or self-care (01) ==
LOC: ER 10:38
DX: M25.50 Pain in unspecified joint (principal); M06.9 Rheumatoid arthritis, unspecified; I10 Essential (primary) hypertension; Z88.5 Allergy status to narcotic agent; Z72.0 Tobacco use
CPT/HCPCS: 96361; 85025; 36415; 80053; 96374; 99284; J2930; J7040

== ENCOUNTER 2023-05-04 21:39 | Inpatient (IN) | payer OTHER ==
--- OUTSIDE RECORDS SUMMARY | 2023-05-04 21:43 | XMS REPORT | Continuity of Care Document ---
:1955 Author Organization [facility] t Address [address] [facility] [address] [place] [address] Care Team Providers Name Role Phone Cassidy Gloria Attending Clinician Unavailable Iván Olmstead DO Attending Clinician NIRALI HOLDER Attending Clinician Unavailable Nirali Holder MD Attending Clinician LADY CASIANO Attending Clinician Unavailable Manpreet Coleman MD Attending Clinician MANPREET COLEMAN Attending Clinician Unavailable Wilder Lynch PT Attending Clinician Unavailable Doctor Unassigned, [place] Attending Clinician Unavailable Payers Payer Name Policy Type Policy Number Effective Date Expiration Date Gabrielle cuello AARP MEDICARE [id number] 2018 2019 COMPLETE 00:00:00 00:00:00 Problems Condition Condition Condition Status Onset Resolution Last Treating Co mments Source Name Details Category Date Date Treatment Clinician Date 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-18 it y of eyes eyes 00:00: [address] Long-term Long-term Disease Active Uni vers use of use of 2-18 ity of Plaquenil Plaquenil 00:00: [address] Age-relate Age-relate Disease Active U nivers [...] on 00:00: Diagnosis [place] 00 Term 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 with other [facility] kidney Medical complicati Center on Coronary CAD Problem Common artery (coronary Spirit disease artery - CHI disease) [facility] Mixed Hyperlipem Problem Commo n hyperlipid ia, mixed Spi rit emia - [facility] Stented Stented Problem Common coronary coronary Spirit artery artery - [facility] Allergies, Adverse Reactions, Alerts Allergy Allergy Status Severity Reaction(s) Onset Inactive Treating Comm ents Source Name Type Date Date Clinician HYDROCOD DRUG Active Rash Univers ONE INGREDI 1-13 ity of 00:00: [place] 00 Medical Branch Hydrocod Propensi Active Rash Univer s one ty to -13 ity of adverse 00:00: [place] reaction 00 Medical s Branch hydrocod hydrocod Active vomiting Comm on one one Spirit - [facility] Social History Social Habit Start Date Stop Date Quantity Comments Source Exposure to Not sure University of SARS-CoV-2 (event) [facility] History of Tobacco Common Spirit - Use [facility] Sex Assigned At Common Sp shawn - [facility] Cigarettes smoked 2015-01-07 2015-01-07 Univers ity of current (pack per 00:00:00 00:00:00 ) - Reported Branch Cigarette 2015-01-07 2015-01-07 University of pack-years 00:00:00 00:00:00 [facility] Alcohol intake 2015-01-07 2015-01-07 Current University of 00:00:00 00:00:00 non-drinker of [facility] alcohol [place] (finding) Alcohol Comment 2014-10-04 2014-10-04 quit 2007 Universit y of 00:00:00 00:00:00 [facility] Tobacco Comment 2014-10-04 2014-10-04 quit 2007 Universit y of 00:00:00 00:00:00 [facility] Smoking Status Start Date Stop Date Source Former Smoker 2022-06-30 00:00:00 2022-06-30 00:00:00 [facility] pirit [facility] Medications Ordered Filled Start Stop Current Ordering Indication Dosage Frequency Signature Comments Components Source Medication Medication Date Date Medication? Clinician (SIG) Name Name Laxmi Hair 2021-07 No 40mg Common (Triamcinol (Triamcinol 2-27 S pirit one) one) 00:00: - [facility] metFORMIN metFORMIN No 1{table QD metFORMIN HCl ER 500 HCl ER 500 4-20 t_with_ HCl ER 500 MG MG 00:00: evening MG 00 _meal} vitamin C Yes [id number] 1000mg Take 1,000 Univers with vanessa 1-04 mg by ity of hips 21:04: mouth [place] (VITAMIN C) 34 daily. Medica l 1,000 mg Branch tablet omega-3 Yes [id number] 1g Take 1 g Un alvaro fatty 1-04 by mouth 3 ity of acids-vitam 21:04: (three) [place] in E (FISH 34 times Medical OIL) 1,000 daily. Branch mg capsule vitamin C Yes [id number] 1000mg Take 1,000 Univers with vanessa 1-04 mg by ity of hips 21:04: mouth [place] (VITAMIN C) 34 daily. Medica l 1,000 mg Branch tablet omega-3 Yes [id number] 1g Take 1 g Un alvaro fatty 1-04 by mouth 3 ity of acids-vitam 21:04: (three) [place] in E (FISH 34 times Medical OIL) 1,000 daily. Branch mg capsule vitamin C Yes [id number] 1000mg Take 1,000 Univers with vanessa 1-04 mg by ity of hips 21:04: mouth [place] (VITAMIN C) 34 daily. Medica l 1,000 mg Branch tablet omega-3 Yes [id number] 1g Take 1 g Un alvaro fatty 1-04 by mouth 3 ity of acids-vitam 21:04: (three) [place] in E (FISH 34 times Medical OIL) 1,000 daily. Branch mg capsule vitamin C Yes [id number] 1000mg Take 1,000 Univers with vanessa 1-04 mg by ity of hips 21:04: mouth [place] (VITAMIN C) 34 daily. Medica l 1,000 mg Branch tablet omega-3 Yes [id number] 1g Take 1 g Un alvaro fatty 1-04 by mouth 3 ity of acids-vitam 21:04: (three) [place] in E (FISH 34 times Medical OIL) 1,000 daily. Branch mg capsule vitamin C Yes [id number] 1000mg Take 1,000 Univers with vanessa 1-04 mg by ity of hips 21:04: mouth [place] (VITAMIN C) 34 daily. Medica l 1,000 mg Branch tablet omega-3 Yes [id number] 1g Take 1 g Un alvaro fatty 1-04 by mouth 3 ity of acids-vitam 21:04: (three) [place] in E (FISH 34 times Medical OIL) 1,000 daily. Branch mg capsule AMLODIPINE Yes [id number] Take by Univers BESYLATE 1-04 mouth. ity of (AMLODIPINE 21:02: [place] ORAL) 36 Medical Branch aspirin 81 Yes [id number] 81mg Take 81 mg Univers mg chewable 1-04 by mouth ity of tablet 21:02: daily. [place] [address] Medical Branch CALCIUM Yes [id number] 1000U Take 1,000 Univers CARBONATE/V 1-04 Units by ity of ITAMIN D3 21:02: mouth [place] (VITAMIN 36 daily. Medical D-3 ORAL) Branch AMLODIPINE Yes [id number] Take by Univers BESYLATE 1-04 mouth. ity of (AMLODIPINE 21:02: [place] ORAL) Medical Branch aspirin 81 0 Yes [id number] 81mg Take 81 mg Univers mg chewable 1-04 by mouth ity of tablet 21:02: daily. [place] [address] Medical Branch CALCIUM Yes [id number] 1000U Take 1,000 Univers CARBONATE/V 1-04 Units by ity of ITAMIN D3 21:02: mouth [place] (VITAMIN 36 daily. Medical D-3 ORAL) Branch AMLODIPINE Yes [id number] Take by Univers BESYLATE 1-04 mouth. ity of (AMLODIPINE 21:02: [place] ORAL) Medical Branch aspirin 81 Yes [id number] 81mg Take 81 mg Univers mg chewable 1-04 by mouth ity of tablet 21:02: daily. [place] [address] Medical Branch CALCIUM Yes [id number] 1000U Take 1,000 Univers CARBONATE/V 1-04 Units by ity of ITAMIN D3 21:02: mouth [place] (VITAMIN 36 daily. Medical D-3 ORAL) Branch AMLODIPINE Yes [id number] Take by Univers BESYLATE 1-04 mouth. ity of (AMLODIPINE 21:02: [place] ORAL) Medical Branch aspirin 81 0 Yes [id number] 81mg Take 81 mg Univers mg chewable 1-04 by mouth ity of tablet 21:02: daily. [place] [address] Medical Branch CALCIUM Yes [id number] 1000U Take 1,000 Univers CARBONATE/V 1-04 Units by ity of ITAMIN D3 21:02: mouth [place] (VITAMIN 36 daily. Medical D-3 ORAL) Branch AMLODIPINE Yes [id number] Take by Univers BESYLATE 1-04 mouth. ity of (AMLODIPINE 21:02: [place] ORAL) Medical Branch aspirin 81 0 Yes [id number] 81mg Take 81 mg Univers mg chewable 1-04 by mouth ity of tablet 21:02: daily. [address] Branch CALCIUM 2020-0 Yes [id number] 1000U Take 1,000 Univers CARBONATE/V 1-04 Units by ity of ITAMIN D3 21:02: mouth [place] (VITAMIN 36 daily. Medical D-3 ORAL) Branch tiZANidine 2019-07 Yes Univers 4 mg 2-23 ity of capsule 00:00: [place] [facility] tiZANidine 2019-07 Yes Univers 4 mg 2-23 ity of capsule 00:00: [place] [facility] tiZANidine 2019-07 Yes Univers 4 mg 2-23 ity of capsule 00:00: [place] [facility] tiZANidine 2019-07 Yes Univers 4 mg 2-23 ity of capsule 00:00: [address] Branch leflunomide 2018-07 Yes 1{tbl} Take 1 Un alvaro 20 mg 1-15 tablet by ity of tablet 00:00: mouth. [place] [facility] Branch leflunomide 2018-07 Yes 1{tbl} Take 1 Un alvaro 20 mg 1-15 tablet by ity of tablet 00:00: mouth. [place] [facility] leflunomide 2018-07 Yes 1{tbl} Take 1 Un alvaro 20 mg 1-15 tablet by ity of tablet 00:00: mouth. [place] [facility] Branch leflunomide 2018-07 Yes 1{tbl} Take 1 Un alvaro 20 mg 1-15 tablet by ity of tablet 00:00: mouth. [address] Branch naproxen Yes [id number] 500mg Take 1 U nivers (NAPROSYN) 4-18 tablet by ity of 500 mg 00:00: mouth 2 [place] tablet 00 (two) Medical times Branch daily with meals. naproxen Yes [id number] 500mg Take 1 U nivers (NAPROSYN) 4-18 tablet by ity of 500 mg 00:00: mouth 2 [place] tablet 00 ([facility]) Medical times Branch daily with meals. naproxen Yes [id number] 500mg Take 1 U nivers (NAPROSYN) 4-18 tablet by ity of 500 mg 00:00: mouth 2 [place] tablet 00 (two) Medical times Branch daily with meals. naproxen Yes [id number] 500mg Take 1 U nivers (NAPROSYN) 4-18 tablet by ity of 500 mg 00:00: mouth 2 [place] tablet 00 (two) Medical times Branch daily with meals. naproxen Yes [id number] 500mg Take 1 U nivers (NAPROSYN) 4-18 tablet by ity of 500 mg 00:00: mouth 2 [place] tablet 00 (two) Medical times Branch daily with meals. naproxen Yes [id number] 500mg Take 1 U nivers (NAPROSYN) 4-18 tablet by ity of 500 mg 00:00: mouth 2 [place] tablet 00 (two) Medical times Branch daily with meals. AMLODIPINE Yes [id number] Take by Univers BESYLATE 3-24 mouth. ity of (AMLODIPINE 16:39: [place] ORAL) 49 Medical Branch aspirin 81 Yes [id number] 81mg Take 81 mg Univers mg chewable 3-24 by mouth ity of tablet 16:39: daily. [place] [address] Medical Branch CALCIUM 0 Yes [id number] 1000U Take 1,000 Univers CARBONATE/V 3-24 Units [...] ity of mg tablet 00:00: every 6 [place] 00 (six) Medical hours as Branch needed for Pain (scale 4-6). sulfaSALAzi 0 Yes 500mg Take 1 Tab Univers ne 3-24 by mouth 2 ity of (AZULFIDINE 00:00: () [place] ) 500 mg EC 00 times Medical tablet daily. Branch traMADOL 0 Yes 50mg Take 1 Tab Uni vers (ULTRAM) 50 3-24 by mouth ity of mg tablet 00:00: every 6 [place] 00 (six) Medical hours as Branch needed for Pain (scale 4-6). sulfaSALAzi 0 Yes 500mg Take 1 Tab Univers ne 3-24 by mouth 2 ity of (AZULFIDINE 00:00: () [place] ) 500 mg EC 00 times Medical [...] ity of mg tablet 00:00: every 6 [place] 00 (six) Medical hours as Branch needed for Pain (scale 4-6). acetaminoph 2015-0 Yes 1{tbl} Take 1 Tab [...] 4-6) or Pain (scale 7-10). glimepiride Yes [id number] 4mg Take 1 Tab Univers (AMARYL) 4 7-03 by mouth ity o f mg tablet 00:00: daily with [place] 00 breakfast. Medical Branch metoprolol Yes [id number] 50mg Take 1 Tab Univers tartrate 7-03 by mouth 2 ity o f (LOPRESSOR) 00:00: (two) [place] 50 mg 00 times Medical tablet daily. Branch glimepiride Yes [id number] 4mg Take 1 Tab Univers (AMARYL) 4 7-03 by mouth ity o f mg tablet 00:00: daily with [place] 00 breakfast. Medical Branch metoprolol Yes [id number] 50mg Take 1 Tab Univers tartrate 7-03 by mouth 2 ity o f (LOPRESSOR) 00:00: (two) [place] 50 mg 00 times Medical tablet daily. Branch glimepiride Yes [id number] 4mg Take 1 Tab Univers (AMARYL) 4 7-03 by mouth ity o f mg tablet 00:00: daily with [place] 00 breakfast. Medical Branch metoprolol Yes [id number] 50mg Take 1 Tab Univers tartrate 7-03 by mouth 2 ity o f (LOPRESSOR) 00:00: (two) [place] 50 mg 00 times Medical tablet daily. Branch glimepiride Yes [id number] 4mg Take 1 Tab Univers (AMARYL) 4 7-03 by mouth ity o f mg tablet 00:00: daily with [place] 00 breakfast. Medical Branch metoprolol Yes [id number] 50mg Take 1 Tab Univers tartrate 7-03 by mouth 2 ity o f (LOPRESSOR) 00:00: (two) [place] 50 mg 00 times Medical tablet daily. Branch glimepiride Yes [id number] 4mg Take 1 Tab Univers (AMARYL) 4 7-03 by mouth ity o f mg tablet 00:00: daily with [place] 00 breakfast. Medical Branch metoprolol Yes [id number] 50mg Take 1 Tab Univers tartrate 7-03 by mouth 2 ity o f (LOPRESSOR) 00:00: (two) [place] 50 mg 00 times Medical tablet daily. Branch glimepiride Yes [id number] 4mg Take 1 Tab Univers (AMARYL) 4 7-03 by mouth ity o f mg tablet 00:00: daily with [place] 00 breakfast. Medical Branch metoprolol Yes [id number] 50mg Take 1 Tab Univers tartrate 7-03 [...] (three) [place] tablet 00 times Medical daily. [place] gabapentin Yes 600mg Take 1 Tab Univers (NEURONTIN) 6-18 by mouth 3 it y of 600 mg 00:00: (three) [place] tablet 00 times Medical daily. [place] gabapentin Yes 600mg Take 1 Tab Univers (NEURONTIN) 6-18 by mouth 3 it y of 600 mg 00:00: (three) [place] tablet 00 times Medical daily. [place] gabapentin Yes 600mg Take 1 Tab Univers (NEURONTIN) 6-18 by mouth 3 it y of 600 mg 00:00: (three) [place] tablet 00 times Medical daily. [place] predniSONE Yes 5mg Take 5 mg Un alvaro (DELTASONE) 5-11 by mouth ity of 5 mg tablet 18:13: daily. [address] predniSONE Yes 5mg Take 5 mg Un alvaro (DELTASONE) 5-11 by mouth ity of 5 mg tablet 18:13: daily. [address] predniSONE Yes 5mg Take 5 mg Un alvaro (DELTASONE) 5-11 by mouth ity of 5 mg tablet 18:13: daily. [address] predniSONE Yes 5mg Take 5 mg Un alvaro (DELTASONE) 5-11 by mouth ity of 5 mg tablet 18:13: daily. [address] predniSONE Yes 5mg Take 5 mg Un alvaro (DELTASONE) 5-11 by mouth ity of 5 mg tablet 18:13: daily. [address] predniSONE Yes 5mg Take 5 mg Un alvaro (DELTASONE) 5-11 by mouth ity of 5 mg tablet 18:13: daily. [address] omega-3 Yes [id number] 1g Take 1 g Un alvaro fatty 5-01 by mouth 3 ity of acids-vitam 17:17: (three) [place] in E (FISH 22 times Medical OIL) 1,000 daily. [place] mg capsule vitamin C Yes [id number] 1000mg Take 1,000 Univers with vanessa 5-01 [...] ity o f mg tablet 00:00: daily. [place] [facility] foLIC acid 2013-07 Yes 1mg Take 1 Tab U nivers (FOLATE) 1 1-24 by mouth ity o f mg tablet 00:00: daily. [facility] foLIC acid 2013-07 Yes 1mg Take 1 Tab U nivers (FOLATE) 1 1-24 by mouth ity o f mg tablet 00:00: daily. [facility] foLIC acid 2013-07 Yes 1mg Take 1 Tab U nivers (FOLATE) 1 1-24 by mouth ity o f mg tablet 00:00: daily. [place] [facility] foLIC acid 2013-07 Yes 1mg Take 1 Tab U nivers (FOLATE) 1 1-24 by mouth ity o f mg tablet 00:00: daily. [facility] foLIC acid 2013-07 Yes 1mg Take 1 Tab U nivers (FOLATE) 1 1-24 by mouth ity o f mg tablet 00:00: daily. [facility] PRAVASTATIN 2006-07 Yes 1 Tab Oral Univers 40 MG ORAL 2-28 DAILY ity of TAB 00:00: 00 [facility] NITROGLYCER 2006-07 Yes 1 Tab SL Un alvaro IN 0.4 MG 2-28 Q5MIN PRN ity o f SL SUBL 00:00: chest pain [place] [facility] PRAVASTATIN 2006-07 Yes 1 Tab Oral Univers 40 MG ORAL 2-28 DAILY ity of TAB 00:00: [place] [facility] NITROGLYCER 2006-07 Yes 1 Tab SL Un alvaro IN 0.4 MG 2-28 Q5MIN PRN ity o f SL SUBL 00:00: chest pain [place] 00 [facility] PRAVASTATIN 2006-07 Yes 1 Tab Oral Univers 40 MG ORAL 2-28 DAILY ity of TAB 00:00: [facility] NITROGLYCER 2006-07 Yes 1 Tab SL Un alvaro IN 0.4 MG 2-28 Q5MIN PRN ity o f SL SUBL 00:00: chest pain [place] 00 [facility] PRAVASTATIN 2006-07 Yes 1 Tab Oral Univers 40 MG ORAL 2-28 DAILY ity of TAB 00:00: [facility] NITROGLYCER 2006-07 Yes 1 Tab SL Un alvaro IN 0.4 MG 2-28 Q5MIN PRN ity o f SL SUBL 00:00: chest [place] 00 [place] PRAVASTATIN 2006-07 Yes 1 Tab Oral Univers 40 MG ORAL 2-28 DAILY ity of TAB 00:00: [facility] NITROGLYCER 2006-07 Yes 1 Tab SL Un alvaro IN 0.4 MG 2-28 Q5MIN PRN ity o f SL SUBL 00:00: chest [place] PRAVASTATIN 2006-07 Yes 1 Tab Oral Univers 40 MG ORAL 2-28 DAILY ity of TAB 00:00: [facility] NITROGLYCER 2006-07 Yes 1 Tab SL Un alvar[place] IN 0.4 MG 2-28 Q5MIN PRN ity o f SL SUBL 00:00: chest pain [place] 00 [place] Irbesartan Irbesartan No 1{table QD Irbesartan 300 [...] 200 No [place] MG/1.14ML MG/1.14ML 200 MG/1.14ML Vital Signs Vital Name Observation Time Observation Value Comments Source height 2022-06-30 13:00:00 59.00 [in_i] [facility] weight 2022-06-30 13:00:00 124.7 [lb_av] [facility] temperature 2022-06-30 13:00:00 98.1 [degF] [facility] bmi 2022-06-30 13:00:00 25.18 kg/m2 Common S pirit [facility] oximetry 2022-06-30 13:00:00 98 % Common S pirit [facility] respiratory rate 2022-06-30 13:00:00 16 /min Comm on [facility] blood pressure 2022-06-30 13:00:00 140 mm[Hg] [facility] - systolic [facility] blood pressure 2022-06-30 13:00:00 75 mm[Hg] [facility] Spirit - diastolic [facility] height 2022-06-16 13:00:00 59.00 [in_i] [facility] weight 2022-06-16 13:00:00 124.5 [lb_av] [facility] temperature 2022-06-16 13:00:00 98.2 [degF] [facility] bmi 2022-06-16 13:00:00 25.14 kg/m2 Common S pirit [facility] oximetry 2022-06-16 13:00:00 99 % Common S [facility] respiratory rate 2022-06-16 13:00:00 16 /min Comm on [facility] blood pressure 2022-06-16 13:00:00 147 mm[Hg] [facility] - systolic [facility] blood pressure 2022-06-16 13:00:00 75 mm[Hg] Common Spirit - diastolic [facility] height 2021-11-12 11:30:00 59.00 [in_i] Common S pirit [facility] weight 2021-11-12 11:30:00 139.7 [lb_av] [facility] temperature 2021-11-12 11:30:00 98.7 [degF] Common S pirit [facility] bmi 2021-11-12 11:30:00 28.21 kg/m2 Common S pirit [facility] oximetry 2021-11-12 11:30:00 96 % Common S [facility] respiratory rate 2021-11-12 11:30:00 16 /min Comm on [facility] blood pressure 2021-11-12 11:30:00 140 mm[Hg] [facility] - systolic [facility] blood pressure 2021-11-12 11:30:00 72 mm[Hg] [facility] - diastolic [facility] height 2021-11-12 11:00:00 59.00 [in_i] Common [facility] weight 2021-11-12 11:00:00 139.7 [lb_av] [facility] temperature 2021-11-12 11:00:00 98.7 [degF] Common [facility] bmi 2021-11-12 11:00:00 28.21 kg/m2 [facility] oximetry 2021-11-12 11:00:00 96 % Common [facility] respiratory rate 2021-11-12 11:00:00 16 /min Comm on [facility] blood pressure 2021-11-12 11:00:00 140 mm[Hg] [facility] - systolic [facility] blood pressure 2021-11-12 11:00:00 72 mm[Hg] [facility] - diastolic [facility] height 2021-10-22 10:00:00 59.00 [in_i] Common [facility] weight 2021-10-22 10:00:00 127.1 [lb_av] Common [facility] temperature 2021-10-22 10:00:00 97.0 [degF] Common [facility] bmi 2021-10-22 10:00:00 25.67 kg/m2 [facility] oximetry 2021-10-22 10:00:00 95 % [facility] respiratory rate 2021-10-22 10:00:00 16 /min Comm on [facility] blood pressure 2021-10-22 10:00:00 141 mm[Hg] [facility] - systolic [facility] blood pressure 2021-10-22 10:00:00 79 mm[Hg] [facility] - diastolic [facility] Systolic blood 2020-07-08 21:07:00 164 mm[Hg] Univer sity of pressure [facility] Diastolic blood 2020-07-08 21:07:00 75 mm[Hg] Unive rsity of [facility] Heart rate 2020-07-08 21:07:00 64 /min [facility] Body height 2020-07-08 21:00:00 149.9 cm [facility] Body weight 2020-07-08 21:00:00 54.976 kg [facility] BMI 2020-07-08 21:00:00 24.48 kg/m2 [facility] Procedures Procedure Date / Time Performing Clinician Source Performed AUTHORIZATION FOR 2019-02-06 05:01:00 Doctor Unassigned, No Univ [facility] RELEASE OF PHI [facility] Branch Encounters Start End Encounter Admission Attending Care Care Encounter Source Date/Time Date/Time Type Type Clinicians Facility Department ID 2022-12-24 Outpatient Benjamin, STLMLC STLC [id number] Common 08:14:01 [place] 10[address] [facility] 2022-12-15 Outpatient Benjamin, STLMLC STLC [id number] Common 15:58:01 Avnee 39822 [facility] 2022-06-30 Outpatient Benjamin, STLMLC STLMLC [id number] Common 07:26:00 [place] 70995 [facility] 2022-06-18 Outpatient Benjamin, STLMLC STLMLC [id number] Common 14:57:01 [place] 47518 [facility] 2022-06-12 Outpatient Benjamin, STLMLC STLMLC [id number] Common 10:16:03 Avnee 61468 [facility] 2022-01-06 Outpatient Benjamin, STLMLC STLMLC [id number] Common 16:40:01 Avnee [facility] 2021-12-05 Outpatient Benjamin, STLMLC STLMLC [id number] Common 15:02:02 Avnee [facility] 2021-11-17 Outpatient Benjamin, STLMLC STLMLC [id number] Common 09:25:09 Avnee [facility] 2021-11-11 Outpatient Benjamin, STLMLC STLMLC [id number] Common 13:25:02 Avnee [facility] 2021-11-06 Outpatient Benjamin, STLMLC STLMLC [id number] Common 10:00:03 Avnee [facility] 2021-10-22 Outpatient Benjamin, STLMLC STLMLC [id number] Common 16:34:02 Avnee [facility] 2022-06-30 2022-06-30 OFFICE STLMLC STLMLC [id number] Co mmon 00:00:00 00:00:00 VISIT [facility] PT - CHI LEVEL 4 [facility] 2022-06-16 2022-06-16 OFFICE STLMLC STLMLC [id number] Co mmon 00:00:00 00:00:00 VISIT [facility] PT - CHI LEVEL 4 [facility] 2022-02-26 2022-02-26 (TEL) STLMLC STLMLC [id number] Co mmon 00:00:00 00:00:00 [facility] 2022-02-20 2022-02-20 OL DIG E/M STLMLC STLMLC [id number] Common 00:00:00 00:00:00 C 11-20 Spir it MIN [facility] 2022-01-06 2022-01-06 (TEL) STLMLC STLMLC [id number] Co mmon 00:00:00 00:00:00 [facility] 2021-11-25 2021-11-25 (TEL) STLMLC STLMLC [id number] Co mmon 00:00:00 00:00:00 [facility] 2021-11-12 2021-11-12 [facility] [id number] Co mmon 00:00:00 00:00:00 VISIT Spirit ESTAB PT - CHI LEVEL 4 [facility] 2021-11-12 2021-11-12 SUB [facility]AL [facility] [id number] Common 00:00:00 00:00:00 MCR Spirit WELLNESS - CHI VISIT [facility] 2021-11-06 2021-11-06 (TEL) [facility] ST[facility] [id number] Co mmon 00:00:00 00:00:00 Spirit - CHI [facility] 2021-10-22 2021-10-22 [facility] [id number] Co mmon 00:00:00 00:00:00 VISIT LITTLE Saucedo it PT LEVEL 4 - [facility] 2020-09-06 2020-09-06 [facility] [id number] Univers 00:00:00 00:00:00 [facility] [id number] i rehana [facility] [id number] Jeffery hanson [place] [phone] Ok dical [facility] Branch 2020-08-12 2020-08-12 Outpatient Yany HOLDER [facility] [id number] Univers 13:10:00 13:10:00 NIRALI gilliam [facility] 2020-08-08 2020-08-08 [facility] [id number] Univers 00:00:00 00:00:00 Nirali MCDONALD [id number] ity of CARE [id number] [place] [id number] Ok dical [address] 2020-07-16 2020-07-16 Outpatient R [place] [facility] [id number] Univers 14:15:00 14:15:00 LADY gilliam [facility] 2020-07-08 2020-07-08 [facility] [id number] Univers 14:49:14 15:40:00 Visit Manpreet Vazquez [facility] [id number] it y of Surgical [id number] Filipe as Specialti [id number] Ok dical es [address] [place] 2020-07-08 2020-07-08 Outpatient R [place], [facility] [id number] Univers 15:15:00 15:15:00 MANPREET ity of [facility] 2020-06-24 2020-06-24 Telephone Cris [facility] [id number] Univers 00:00:00 00:00:00 [facility] [id number] it y of [facility] [id number] [place] [facility] [phone] [address] ([facility]) 2019-02-06 2019-02-06 Orders Doctor NIRALI [id number] Univers 00:00:00 00:00:00 Only Unassigned, [place] [id number] ity of [place] [facility] [id number] Filipe as [phone] [facility] [address] Results This patient has no known results.
[2023-05-05] LABS: Protime INR 0.86
[2023-05-05 00:02] LABS: Absolute Lymphocytes (CBC) 2.7 K/uL (0.7-4.9); Hematocrit 34.9 % (36.0-45.0); Lymphocytes % 29.8 % (15.3-44.8); MCV 89.9 fL (80-100); MPV 7.5 fL (7.6-11.3); Platelets 259 thou/uL (152-406); RBC Red Blood Cell Count 3.88 M/uL (3.86-4.86)
[2023-05-05 00:25] LABS: Albumin 3.9 g/dL (3.4-5.0); Bilirubin Direct 0.1 mg/dL (0-0.2); Bilirubin Indirect, Calculated 0.4 mg/dL (0.2-0.8); Bilirubin Total 0.5 mg/dL (0.2-1.0); Magnesium 1.8 mg/dL (1.6-2.4); Potassium 4.3 mEq/L (3.5-5.1); Protein, Total 7.5 g/dL (6.4-8.2); Troponin High Sensitivity 7.6 pg/mL (<58.9)
--- NOTE | 2023-05-05 02:18 | EDPHYS ---
Physician Documentation [facility] Name: Maria Esther Capone Age: 67 yrs Sex: Female : 1955 Arrival Date: 05/04/2023 Time: 21:39 Bed 6 Private MD: ED Physician Yoni Jin HPI: 05/04 22:45 This 67 yrs old Female presents to ER via Ambulatory with complaints of Chest cp Pressure, Shortness Of Breath. 22:45 The patient or guardian reports chest pain that is located primarily in the anterior cp chest wall. 22:45 Onset: 1 week(s) ago. cp 22:45 The pain does not radiate. Associated signs and symptoms: Pertinent positives: cp intermittent numbness of right arm, Pertinent negatives: abdominal pain, diaphoresis, dizziness, lower extremity pain, lower extremity swelling, syncope. The chest pain is described as a pressure. Duration: The patient or guardian reports multiple episodes, that are intermittent. Modifying factors: the symptoms are aggravated by activity. Severity of pain: in the emergency department the pain has improved markedly. Patient reports recently being evaluated by DR Hall and being told to go to ED if pain returns. Was scheduled for stress test by DR Hall. Historical: - Allergies: 22:26 Codeine; jj7 - PMHx: 22:26 Diabetes - NIDDM; Heart attack in 2006; diabetes mellitus; Hyperlipidemia; jj7 Hypertension; Rheumatoid Arthritis; - PSHx: 22:26 None; jj7 - Immunization history:: Adult Immunizations Client reports receiving the 2nd dose of the Covid vaccine, Flu vaccine is not up to date. - Social history:: Smoking status: Patient denies any tobacco usage or history of. Patient/guardian denies using alcohol, street drugs. ROS: 22:50 Constitutional: Negative for body aches, chills, fever, poor PO intake, cp 22:50 Cardiovascular: Positive for chest pain, Negative for edema, palpitations, cp 22:50 Respiratory: Positive for shortness of breath, on exertion. Negative for cough, wheezing, 22:50 Eyes: Negative for injury, pain, redness, and discharge, cp 22:50 Neck: Negative for pain with movement, pain at rest, stiffness, tenderness, cp 22:50 Abdomen/GI: Negative for abdominal pain, nausea, vomiting, and diarrhea, 22:50 Neuro: Negative for altered mental status, dizziness, headache, weakness, 22:50 All other systems are negative, Exam: 22:55 Constitutional: The patient appears in no acute distress, alert, awake, cp non-diaphoretic, non-toxic, well developed, well nourished, 22:55 Head/Face: Normocephalic, atraumatic. cp 22:55 Eyes: Periorbital structures: appear normal, Conjunctiva: normal, no exudate, no injection, Sclera: no appreciated abnormality, Lids and lashes: appear normal, bilaterally, 22:55 ENT: External ear(s): are unremarkable, Nose: is normal, Mouth: Lips: moist, Oral mucosa: pink and intact, moist, Posterior pharynx: is normal, airway is patent, no erythema, no exudate, 22:55 Neck: ROM/movement: is normal, is supple, without pain, no range of motions limitations, 22:55 Chest/axilla: Inspection: normal, 22:55 Cardiovascular: Rate: normal, Rhythm: regular, Edema: is not appreciated, JVD: is not appreciated, 22:55 Respiratory: the patient does not display signs of respiratory distress, Respirations: normal, no use of accessory muscles, no retractions, labored breathing, is not present, Breath sounds: are clear throughout, no decreased breath sounds, no stridor, no wheezing, 22:55 Abdomen/GI: Inspection: abdomen appears normal, Palpation: abdomen is soft and non-tender, in all quadrants, 22:55 Back: pain, is absent, ROM is normal, 22:55 Skin: no rash present. 22:55 Neuro: Orientation: to person, place \T\ time. Mentation: is normal, Motor: moves all fours, strength is normal, Sensation: no obvious gross deficits, Gait: is steady, 23:37 ECG was reviewed by the Attending Physician. cp Vital Signs: 22:23 BP 173 / 71; Pulse 75; Resp 16; Temp 98.2; Pulse Ox 96% ; Weight 56.25 kg; Height 4 ft. jj7 11 in. ; Pain 0/10; 11 00:00 BP 178 / 56; Pulse 73; Resp 19; Pulse Ox 100% on R/A; pf1 00:20 BP 166 / 70; Pulse 69; Resp 17; Pulse Ox 98% on R/A; pf1 00:40 BP 175 / 72; Pulse 70; Resp 20; Pulse Ox 98% on R/A; pf1 01:24 BP 155 / 122; Pulse 71; Resp 20; Pulse Ox 98% on R/A; Pain 0/10; pf1 01:55 BP 196 / 72; Pulse 67; Resp 17 S; Pulse Ox 98% on R/A; ha1 04:50 BP 163 / 60; Pulse 61; Resp 18 S; Pulse Ox 98% on R/A; ha1 05/04 22:23 Body Mass Index 25.04 (56.25 kg, 149.86 cm) jj7 05/04 22:23 Pain Scale: Adult jj7 01:24 Pain Scale: Adult pf1 MDM: 05/04 22:30 Patient medically screened. cp 05/05 02:20 Data reviewed: vital signs, nurses notes, lab test result(s), EKG, radiologic studies, cp CT scan, plain films. 02:20 Differential diagnosis: abnormal EKG, acute myocardial infarction, cholecystitis, cp Cholelithiasis esophagitis, pericarditis, pneumonia, pneumothorax, stable angina, thoracic aortic disection, unstable angina. The patient was given aspirin in the Emergency Department. Consideration of Admission/Observation Patient was admitted/placed on observation. Management of patient was discussed with the following: Hospitalist: DR Reid will admit after discussion. I considered the following discharge prescriptions or medication management in the emergency department Medications were administered in the Emergency Department. See MAR. Care significantly affected by the following chronic conditions: Diabetes, Hypertension. Counseling: I had a detailed discussion with the patient and/or guardian regarding the historical points, exam findings, and any diagnostic results supporting the discharge/admit diagnosis, lab results, radiology results, the need for further work-up and treatment in the hospital. 05/04 22:37 Order name: Basic Metabolic Panel; Complete Time: 00:42 cp 05/04 22:37 Order name: CBC with Diff; Complete Time: 00:42 cp 05/04 22:37 Order name: LFT's; Complete Time: 00:42 cp 05/04 22:37 Order name: Magnesium; Complete Time: 00:42 cp 05/04 22:37 Order name: NT PRO-BNP; Complete Time: 00:42 cp 05/04 22:37 Order name: PT-INR; Complete Time: 00:42 cp 05/04 22:37 Order name: Troponin HS; Complete Time: 00:42 cp 05/05 02:28 Order name: Lipid Profile EDFL 05/05 02:28 Order name: Lipid Profile EDFL 05/05 02:29 Order name: Troponin High Sensitivity EDFL 05/05 02:29 Order name: Troponin High Sensitivity EDFL 05/05 02:29 Order name: Troponin High Sensitivity EDFL 05/05 02:29 Order name: Troponin High Sensitivity EDFL 05/05 08:16 Order name: Glucose, Ancillary Testing EDFL 05/05 12:33 Order name: Glucose, Ancillary Testing EDFL 05/05 16:11 Order name: Glucose, Ancillary Testing EDFL 05/05 17:46 Order name: Glucose, Ancillary Testing EDFL 05/04 22:37 Order name: XRAY Chest (1 view) cp 05/05 00:43 Order name: CT Aorta for Dissection cp 05/04 22:37 Order name: EKG; Complete Time: 22:37 cp 05/04 22:37 Order name: Cardiac monitoring; Complete Time: 23:50 cp 05/04 22:37 Order name: EKG - Nurse/Tech; Complete Time: 23:42 cp 05/04 22:37 Order name: IV Saline Lock; Complete Time: 23:43 cp 05/04 22:37 Order name: Labs collected and sent; Complete Time: 23:43 cp 05/04 22:37 Order name: O2 Per Protocol; Complete Time: 23:50 cp 05/04 22:37 Order name: O2 Sat Monitoring; Complete Time: 23:50 cp EC/31 23:37 Rate is 69 beats/min. Rhythm is regular. AK interval is normal. QRS interval is normal. cp QT interval is normal. T waves are Inverted in leads III, aVR. Interpreted by me. Reviewed by me. Administered Medications: 05/05 02:24 Drug: Metoprolol PO 25 mg PO once Route: PO; pf1 03:20 Follow up: Response: No adverse reaction; Marked relief of symptoms; Blood pressure is pf1 lowered 02:24 Drug: Aspirin PO Chewable Tablet 324 mg PO once; 81 mg tablets x 4 Route: PO; pf1 03:20 Follow up: Response: No adverse reaction; Marked relief of symptoms; Pain is decreased pf1 Disposition: 03:18 Co-signature as Attending Physician, Yoni Jin MD I agree with the assessment sp4 and plan of care. I reviewed the patient's care provided by the Advanced Practice Provider and agree with the diagnosis and treatment plan. Disposition Summary: 05/05/23 02:18 Hospitalization Ordered Notes: Hospitalization Status: Observation cp Provider: Nando Reid cp Condition: Stable cp Problem: new cp Symptoms: have improved cp Bed/Room Type: Standard cp Location: Telemetry/MedSurg (observation)(05/05/23 18:33) bd Room Assignment: 404(05/05/23 18:33) bd Diagnosis - Angina pectoris, unspecified cp Forms: - Medication Reconciliation Form cp - SBAR form cp - Leadership Thank You Letter cp Signatures: Dispatcher [employer] EDKsenia Aquino Corey, PA PA cp Basinger, Emily RN RN eb1 Anup Theodore RN RN Evelin Saravia RN RN pf1 Yoni Jin MD MD sp4 Corrections: (The following items were deleted from the chart) 02:32 02:18 Telemetry/MedSurg (observation) cp eb1 02:32 02:18 cp eb1 18:33 02:32 [facility] ER HOLD eb1 bd 18:33 02:32 ERHOLD- eb1 bd
--- NOTE | 2023-05-05 02:18 | ER ---
Nurse's Notes [facility] Name: Maria Esther Capone Age: 67 yrs Sex: Female : 1955 Arrival Date: 05/04/2023 Time: 21:39 Bed 6 Private MD: Diagnosis: Angina pectoris, unspecified Presentation: 05/04 22:23 Chief complaint: Patient states: HAVING PRESSURE ON HER CHEST X1 WK. WAS SEEN BY HER DR jordan YESTERDAY AND HE TOLD HER IF IT HAPPENS AGAIN COME TO THE ER. Coronavirus screen: At this time, the client does not indicate any symptoms associated with coronavirus-19. Ebola Screen: No symptoms or risks identified at this time. Initial Sepsis Screen: Does the patient meet any 2 criteria? No. Patient's initial sepsis screen is negative. Does the patient have a suspected source of infection? No. Patient's initial sepsis screen is negative. Risk Assessment: Do you want to hurt yourself or someone else? Patient reports no desire to harm self or others. Onset of symptoms was April 26, 2023. 22:23 Method Of Arrival: Ambulatory [facility] 22:23 Acuity: ALTA 3 jj7 Triage Assessment: 22:26 General: Appears in no apparent distress. comfortable, Behavior is calm, cooperative, jj7 appropriate for age. Pain: Denies pain. Cardiovascular: Reports CHEST PRESSURE. Respiratory: No deficits noted. Historical: - Allergies: 22:26 Codeine; jj7 - PMHx: 22:26 Diabetes - NIDDM; Heart attack in 2006; diabetes mellitus; Hyperlipidemia; jj7 Hypertension; Rheumatoid Arthritis; - PSHx: 22:26 None; jj7 - Immunization history:: Adult Immunizations Client reports receiving the 2nd dose of the Covid vaccine, Flu vaccine is not up to date. - Social history:: Smoking status: Patient denies any tobacco usage or history of. Patient/guardian denies using alcohol, street drugs. Screenin/01 01:05 [facility] ED Fall Risk Assessment (Adult) History of falling in the last 3 months, pf1 including since admission No falls in past 3 months (0 pts) Confusion or Disorientation No (0 pts) Intoxicated or Sedated No (0 pts) Impaired Gait No (0 pts) Mobility Assist Device Used No (0 pt) Altered Elimination No (0 pt) Score/Fall Risk Level 0 - 2 = Low Risk Oriented to surroundings, Maintained a safe environment, Educated pt \T\ family on fall prevention, incl call for assistance when getting out of bed, Assessed \T\ reinforced patient's understanding of fall precautions, Provided non-skid footwear, Hourly rounding (assess needs \T\ fall precautionary measures) done, Used ambulatory aids as needed (educated on \T\ assisted with), Used gait belt as appropriate. Abuse screen: Denies threats or abuse. Nutritional screening: No deficits noted. Tuberculosis screening: No symptoms or risk factors identified. Assessment: 05/04 23:30 General: Appears comfortable, Behavior is calm, cooperative. Pain: Complains of pain in ha1 chest Pain does not radiate. Pain currently is 1 out of 10 on a pain scale. Quality of pain is described as pressure, Pain began suddenly. Neuro: Level of Consciousness is awake, alert, obeys commands, Oriented to person, place, time, situation. Cardiovascular: Reports chest pain, Heart tones S1 S2 present Patient's skin is warm and dry. Respiratory: Airway is patent Respiratory effort is even, unlabored, Respiratory pattern is regular, symmetrical. GI: No signs and/or symptoms were reported involving the gastrointestinal system. Abdomen is round non-distended. Musculoskeletal: Circulation, motion, and sensation intact. Range of motion:. 05/05 00:30 Reassessment: Patient and/or family updated on plan of care and expected duration. Pain ha1 level reassessed. Patient is alert, oriented x 3, equal unlabored respirations, skin warm/dry/pink. Patient denies pain at this time. Patient states feeling better. Patient states symptoms have improved. 01:33 Reassessment: Patient appears in no apparent distress at this time. Patient and/or pf1 family updated on plan of care and expected duration. Pain level reassessed. Patient is alert, oriented x 3, equal unlabored respirations, skin warm/dry/pink. Patient denies pain at this time. Patient states feeling better. Patient states symptoms have improved. Vital Signs: 05/04 22:23 BP 173 / 71; Pulse 75; Resp 16; Temp 98.2; Pulse Ox 96% ; Weight 56.25 kg; Height 4 ft. jj7 11 in. ; Pain 0/10; 05/05 00:00 BP 178 / 56; Pulse 73; Resp 19; Pulse Ox 100% on R/A; pf1 00:20 BP 166 / 70; Pulse 69; Resp 17; Pulse Ox 98% on R/A; pf1 00:40 BP 175 / 72; Pulse 70; Resp 20; Pulse Ox 98% on R/A; pf1 01:24 BP 155 / 122; Pulse 71; Resp 20; Pulse Ox 98% on R/A; Pain 0/10; pf1 01:55 BP 196 / 72; Pulse 67; Resp 17 S; Pulse Ox 98% on R/A; ha1 04:50 BP 163 / 60; Pulse 61; Resp 18 S; Pulse Ox 98% on R/A; ha1 05/04 22:23 Body Mass Index 25.04 (56.25 kg, 149.86 cm) 7 05/04 22:23 Pain Scale: Adult j7 01:24 Pain Scale: Adult pf1 ED Course: 05/04 21:40 Patient arrived in ED. jj6 21:52 Jeffrey Jacobs PA is PHCP. cp 21:52 Yoni Jin MD is Attending Physician. cp 22:26 Triage completed. jj7 22:26 Arm band placed on left wrist. jj7 22:28 Patient has correct armband on for positive identification. Placed in gown. Bed in low ha1 position. Call light in reach. Side rails up X 1. Adult w/ patient. 22:33 Client placed on continuous cardiac and pulse oximetry monitoring. NIBP monitoring ha1 applied. 22:56 XRAY Chest (1 view) In Process Unspecified. EDMS 23:43 Basic Metabolic Panel Sent. cg3 23:43 CBC with Diff Sent. cg3 23:43 Troponin HS Sent. cg3 23:43 PT-INR Sent. cg3 23:43 NT PRO-BNP Sent. cg3 23:43 Magnesium Sent. cg3 23:43 LFT's Sent. cg3 23:45 Inserted saline lock: 20 gauge in right antecubital area, using aseptic technique. cg3 Blood collected. 05/05 01:15 CT Aorta for Dissection In Process Unspecified. EDMS 02:17 Nando Reid MD is Hospitalizing Provider. cp 03:00 Provided Education on: need for admit . ha1 04:05 No provider procedures requiring assistance completed. Patient admitted, IV remains in ha1 place. Patient maintains SpO2 saturation greater than 95% on room air. Administered Medications: 02:24 Drug: Metoprolol PO 25 mg PO once Route: PO; pf1 03:20 Follow up: Response: No adverse reaction; Marked relief of symptoms; Blood pressure is pf1 lowered 02:24 Drug: Aspirin PO Chewable Tablet 324 mg PO once; 81 mg tablets x 4 Route: PO; pf1 03:20 Follow up: Response: No adverse reaction; Marked relief of symptoms; Pain is decreased pf1 Medication: 03:00 VIS not applicable for this client. ha1 Outcome: 02:18 Decision to Hospitalize by Provider. cp 03:00 Admitted to ER Hold. Please see [facility] for further documentation. ha1 03:00 Condition: stable 03:00 Discharge instructions given to patient, family, Instructed on the need for admit, Demonstrated understanding of instructions, 19:26 Patient left the ED. cm10 Signatures: Dispatcher [employer] EDMS Jeffrey Jacobs PA PA cp Lisa Jones jj6 Ragini Mayen, RN RN ha1 Anup Theodore RN RN jj7 Evelin Leon RN RN pf1 Audrey Angelo RN RN cm10 Kendra Dasilva 3
[2023-05-05] MEDS ORDERED: ONDANSETRON 4 MG/2 ML VIAL IV PRN (02:23)
--- NOTE | 2023-05-05 02:28 | P.HP ---
Certification for Inpatient Patient admitted to: Observation With expected LOS: <2 Midnights Patient will require the following post-hospital care: None Practitioner: I am a practitioner with admitting privileges, knowledge of patient current condition, hospital course, and medical plan of care. Services: Services provided to patient in accordance with Admission requirements found in Title 42 Section 412.3 of the Code of Federal Regulations Patient History Date of Service: 05/05/23 Reason for admission: Chest pressure, rule out ACS. History of Present Illness: 67-year-old female patient with past medical history significant for hypertension, hyperlipidemia, diabetes type 2, history of status post stent placement in coronary artery who came to the emergency room for episode of chest pressure. She has been diabetic for more than 10 years and she began to feel chest pressure. She related discomfort of 6 out of 10 in intensity and she does not have pain in the neck/left arm area. She was evaluated in the emergency room with a CT of the chest to rule out dissection and this was negative. She was asked to be evaluated for ACS work-up. She denies overt episode of nausea, vomiting, dizzy spells, lightheadedness. Allergies hydrocodone Allergy (Verified 02/07/19 01:47) Nausea/Vomiting Home Medications: Metoprolol Tartrate [Lopressor*] 50 mg PO BID 08/22/13 Pravastatin [Pravachol*] 40 mg PO BEDTIME 08/22/13 Metformin HCl [Metformin ER Osmotic] 1 tab PO DAILY 02/01/15 Irbesartan [Avapro] 300 mg PO DAILY 02/07/19 Doxazosin [Cardura*] 1 mg PO BEDTIME 10/14/21 - Past Medical/Surgical History Diabetic: Yes -: CAD with prior stent 2006 -: Diabetes mellitus type 2, non insulin depended -: Hyperlipidemia -: Hypertension -: rheumatoid arthritis -: HTN -: CAD -: Tubal ligation Psychosocial/ Personal History: Patient is single. She lives at home. - Family History Brother -: Cancer Mother -: Cancer Notes: patient states unknown Sister -: Cancer - Social History Alcohol use: No CD- Drugs: No Caffeine use: No Review of Systems General: Unremarkable Eyes: Unremarkable ENT: Unremarkable Respiratory: SOB with Excertion Cardiovascular: As per HPI Gastrointestinal: Unremarkable Genitourinary: Unremarkable Musculoskeletal: Unremarkable Neurological: Unremarkable Physical Examination - Physical Exam General: Alert, Oriented x3 HEENT: Atraumatic Neck: Supple Respiratory: Normal air movement Gastrointestinal: Soft and benign Musculoskeletal: No swelling Neurological: Normal speech - Studies Laboratory Data (last 24 hrs) 05/04/23 05/04/23 05/04/23 23:40 23:40 23:40 WBC 9.10 Hgb 12.1 Hct 34.9 L Plt Count 259 PT 9.5 INR 0.86 Sodium 137 Potassium 4.3 BUN 18 Creatinine 1.06 H Glucose 159 H Magnesium 1.8 Total Bilirubin 0.5 AST 16 ALT 42 Alkaline Phosphatase 80 Assessment and Plan - Plan Chest pain: Presentation is concerning. We will rule out ACS by trending troponin, continue statin therapy) telemetry. As needed morphine to be used for pain management. Aspirin therapy to be continued. We will obtain echocardiogram. Cardiology to evaluate as needed. Hypertension: We will monitor vital signs per unit protocol and continue outpatient antihypertensive medications. Diabetes type 2: We will continue patient on sliding scale insulin for glucose control and carb restricted diet. Hyperlipidemia: We will continue statin therapy. Coronary artery disease: Patient is status post stent placement x1 in year 2006. We will continue statin therapy and aspirin. We will have evaluation as above. Prophylaxis: Lovenox for DVT prophylaxis CODE STATUS: Full code Disposition: We will work-up her chest pain and she will be discharged when she is cleared by cardiology. Discharge Plan: Home - Advance Directives Does patient have a Living Will: No Does patient have a Durable POA for Healthcare: No
[2023-05-05] MEDS ORDERED: ASPIRIN 81 MG CHEWABLE TABLET ONE (02:35)
[2023-05-05] MEDS ORDERED: METOPROLOL TAR 25 MG TAB ONE (02:35)
[2023-05-05] MEDS ORDERED: ACETAMINOPHEN 325 MG TABLET ONE (04:31)
[2023-05-05] MEDS: ACETAMINOPHEN 325 MG TABLET PO PRN ×2 (04:33→20:07)
[2023-05-05] MEDS: INSULIN REGULAR (HUMAN) 100 UNIT/ML SQ SCH ×4 (07:30→20:07)
[2023-05-05] MEDS ORDERED: PNEUMOCOCCAL VACCINE 0.5 ML IMVAC ONE (08:00)
[2023-05-05] MEDS ORDERED: INFLUENZA VACCINE (for 6+ mo) 0.5 ML DOSE IMVAC ONE (08:00)
[2023-05-05] MEDS: ENOXAPARIN 40 MG/0.4 ML SQ SCH (09:00)
[2023-05-05] MEDS ORDERED: ENOXAPARIN 40 MG/0.4 ML SQ ONE (09:02)
[2023-05-05] MEDS ORDERED: METHYLPREDNISOLONE 40 MG INJ IV ONE (14:07)
[2023-05-05] MEDS ORDERED: MORPHINE 2 MG/ML SYR IV ONE (14:07)
--- NOTE | 2023-05-05 14:41 | RAD REPORT ---
EXAM DESCRIPTION: Angio Aorta For Dissection CLINICAL HISTORY: Chest pressure TECHNIQUE: Contiguous axial images obtained through the chest, abdomen and pelvis during angiographi c phase following the uneventful administration of IV contrast. Sagittal and coronal reformatted imag es were provided. 3-D MIP reformatted images were provided. This exam was performed according to our departmental dose-optimization program, which includes autom ated exposure control, adjustment of the mA and/or kV according to patient size and/or use of iterati ve reconstruction technique. COMPARISON: No prior exams provided for comparison. FINDINGS: Thoracic aorta: No thoracic aortic dissection or aneurysmal dilatation. Soft plaque along the ascending segment of the thoracic aorta. Lungs: No focal consolidation. Airways are patent. Pleura: No effusion. No pneumothorax. Heart and pericardium: The heart is normal in size. No pericardial effusion. Mediastinum and rodrick: No pathologically enlarged lymph nodes. Lower neck and chest wall: Unremarkable Vessels: No pulmonary arterial filling defects. No thoracic aortic aneurysm. Bones: Unremarkable Abdominal aorta: No aneurysm. No dissection. Celiac trunk: No significant stenosis or occlusion. SMA: No significant stenosis or occlusion. TODD: Not visualized. Renal arteries: No significant stenosis or occlusion. Iliac arteries: No significant stenosis or occlusion. ACUPRESSURIST: No significant stenosis or occlusion. Liver: Unremarkable Gallbladder and biliary system: Small gallstone. Pancreas: Unremarkable Spleen: Unremarkable Adrenal: Unremarkable Kidneys: Normal renal cortical enhancement. No calculi. No hydronephrosis. GI: No obstruction. No appreciable mucosal thickening. Scattered colonic diverticula with no evidence of diverticulitis. Appendix: No findings to suggest acute appendicitis. Urinary bladder: Air in the urinary bladder likely secondary to recent catheterization.. Reproductive: 2.4 cm right adnexal cyst, for which no follow-up imaging is recommended. Lymph nodes: No pathologically enlarged lymph nodes. Peritoneum: No focal fluid collection. No free air. Abdominal wall: Unremarkable Bones: Grade 1 spondylolisthesis of L4 on L5 with no evidence of spondylolysis. IMPRESSION: 1. No thoracic or abdominal aortic dissection or aneurysmal dilatation. 2. Cholelithiasis without CT evidence of acute cholecystitis. 3. Air in the urinary bladder likely secondary to recent catheterization. 4. Scattered colonic diverticula with no evidence of diverticulitis. 5. Grade 1 spondylolisthesis of L4 on L5 with no evidence of spondylolysis. Electronically signed by: Sumeet Shukla MD 05/05/2023 1:43 AM CDT Due to temporary technical issues with the PACS/Fluency reporting system, reports are being signed by the in house radiologists without review as a courtesy to insure prompt reporting. The interpreting radiologist is fully responsible for the content of the report.
--- NOTE | 2023-05-05 14:42 | RAD REPORT ---
EXAM DESCRIPTION: Chest Single View CLINICAL HISTORY: 67-year-old female with chest pain. TECHNIQUE: Single view, AP portable chest was obtained. COMPARISON: None. FINDINGS: Unremarkable cardiac and mediastinal silhouette. Heart size is normal. Low lung volumes grossly clear without focal opacity, pneumothorax or pleural effusions. The visual ized bones are within normal limits. IMPRESSION: No acute cardiopulmonary abnormalities. Electronically signed by: Tanisha Irwin MD 05/04/2023 11:08 PM CDT Due to temporary technical issues with the PACS/Fluency reporting system, reports are being signed by the in house radiologists without review as a courtesy to insure prompt reporting. The interpreting radiologist is fully responsible for the content of the report.
[2023-05-05] MEDS ORDERED: MORPHINE 2 MG/ML SYR ONE (14:45)
[2023-05-05] MEDS ORDERED: METHYLPREDNISOLONE 40 MG INJ ONE (14:46)
[2023-05-05] MEDS ORDERED: INSULIN REGULAR (HUMAN) 100 UNIT/ML ONE (16:50)
--- NOTE | 2023-05-06 07:14 | ECHO ---
HEIGHT: 4 ft 11 in WEIGHT: 124 lb 0 oz DATE OF STUDY: 05/05/[address]: Nando Reid MD 2-DIMENSIONAL: YES M.MODE: YES DOPPLER: YES COLOR FLOW: YES TDS: PORTABLE: YES DEFINITY: BUBBLE STUDY: DIAGNOSIS: EVALUATION OF CHEST PAIN CARDIAC HISTORY: CATHERIZATION: YES SURGERY: NO PROSTHETIC VALVE: NO PACEMAKER: NO MEASUREMENTS (cm) DIASTOLIC (NORMALS) SYSTOLIC (NORMALS) IVSd 1.1 (0.6-1.2) LA Diam 2.2 (1.9-4.0) LVEF 68% LVIDd 4.0 (3.5-5.7) LVIDs 25 (2.0-3.5) %FS 37% LVPWd 1.2 (0.6-1.2) Ao Diam 2.4 (2.0-3.7) 2 DIMENSIONAL ASSESSMENT: RIGHT ATRIUM: NORMAL LEFT ATRIUM: NORMAL RIGHT VENTRICLE: NORMAL LEFT VENTRICLE: NORMAL TRICUSPID VALVE: NORMAL MITRAL VALVE: MILD MITRAL REGURGITATION WITH MITRAL ANNULAR CALCIFICATION PULMONIC VALVE: NORMAL AORTIC VALVE: MILD AORTIC INSUFFICIENCY PERICARDIAL EFFUSION: NONE AORTIC ROOT: NORMAL LEFT VENTRICULAR WALL MOTION: NORMAL DOPPLER/COLOR FLOW: SEE BELOW COMMENTS: 1. NORMAL LEFT VENTRICULAR EJECTION FRACTION 60-65% WITH NORMAL WALL MOTION 2. GRADE I DIASTOLIC DYSFUNCTION 3. MILD MITRAL REGURGITATION 4. MILD AORTIC INSUFFICIENCY TECHNOLOGIST: ANDREW HERR
[2023-05-06] MEDS: INSULIN REGULAR (HUMAN) 100 UNIT/ML SQ SCH ×4 (07:30→19:36)
[2023-05-06] MEDS: ENOXAPARIN 40 MG/0.4 ML SQ SCH (07:56)
--- NOTE | 2023-05-06 09:48 | EKG ---
Test Date: 2023-05-05 Test Time: 14:23:31 Marketing Sales Supervisor: CARLIE MEASUREMENT RESULTS: Intervals: Rate: 75 [place]: 172 QRSD: 80 QT: 356 QTc: 397 [place]: P: 62 [place]: 172 QRS: 34 T: 45 INTERPRETIVE STATEMENTS: Normal sinus rhythm Normal ECG Compared to ECG 05/04/2023 23:31:33 Left ventricular hypertrophy no longer present Electronically Signed On 05-06-23 09:46:07 CDT by Tony Hall
--- NOTE | 2023-05-06 09:51 | EKG ---
Test Date: 2023-05-04 Test Time: 23:31:33 Polygraph Operator: SIMONA MEASUREMENT RESULTS: Intervals: Rate: 69 [place]: 164 QRSD: 82 QT: 362 QTc: 387 [place]: P: 56 [place]: 164 QRS: 11 T: 28 INTERPRETIVE STATEMENTS: Normal sinus rhythm Minimal voltage criteria for LVH, may be normal variant Borderline ECG Compared to ECG 10/13/2021 19:56:59 Myocardial infarct finding no longer present Electronically Signed On 05-06-23 09:46:48 CDT by Tony Hall
--- NOTE | 2023-05-06 15:01 | RAD REPORT ---
EXAM DESCRIPTION: - CP - 05/06/2023 2:09 pm CLINICAL HISTORY: carotid artery stenosis COMPARISON: No comparisons TECHNIQUE: Real-time sonographic grayscale, color duplex, and spectral wave Doppler evaluation of amanda th carotid systems was performed. FINDINGS: Normal high resistance waveforms are noted in both external carotid arteries. The common c arotid arteries and internal carotid arteries show normal low resistance waveforms. Irregular calcified plaque at the right carotid bulb. Smooth echogenic noncalcified plaque along the left carotid bulb. Peak systolic velocity less than 125 cm/ sec bilaterally. ICA/CCA peak systolic r atios less than 2.0 bilaterally. Antegrade flow seen in both vertebral arteries. IMPRESSION: Bilateral atherosclerotic changes noted at the carotid bulbs, more pronounced on the rig ht. Less than 50% ICA stenosis bilaterally. Evaluation of carotid artery stenosis, if any, is reported based on consensus recommendations of the Society of Radiologists in Ultrasound (Nate et al., Radiology, 2003)
[2023-05-06] MEDS: DOXAZOSIN 2 MG TAB PO SCH (19:33)
[2023-05-06] MEDS: METOPROLOL TAR 50 MG TAB PO SCH (19:34)
[2023-05-06] MEDS: ATORVASTATIN 10 MG TAB PO SCH (19:35)
[2023-05-06] MEDS: ACETAMINOPHEN 325 MG TABLET PO PRN (19:36)
[2023-05-06] MEDS ORDERED: DOXAZOSIN 1 MG TAB PO SCH (21:00)
[2023-05-06] MEDS ORDERED: HOME MED 1 EA UNK (Pravastatin [Pravachol*] 40 MG/TAB Tab) PO SCH (21:00)
[2023-05-07 04:44] VITALS: BMI 25.0
[2023-05-07] MEDS: INSULIN REGULAR (HUMAN) 100 UNIT/ML SQ SCH ×4 (07:30→21:13)
[2023-05-07] MEDS ORDERED: REGADENOSON 0.4 MG/5 ML SYR IV ONE (07:42)
[2023-05-07] MEDS: ENOXAPARIN 40 MG/0.4 ML SQ SCH (07:51)
[2023-05-07] MEDS: VALSARTAN 160 MG TAB PO SCH (07:51)
[2023-05-07] MEDS: predniSONE 5 MG TAB PO SCH (07:51)
[2023-05-07] MEDS: METOPROLOL TAR 50 MG TAB PO SCH ×2 (07:56→21:12)
[2023-05-07] MEDS ORDERED: HOME MED 1 EA UNK (Irbesartan [Avapro] 300 MG Tablet) PO SCH (09:00)
--- NOTE | 2023-05-07 13:04 | RAD REPORT ---
EXAM DESCRIPTION: NM - Rest Stress Cardiac Imaging - 05/07/2023 10:02 am CLINICAL HISTORY: Chest pain. COMPARISON: 2013 TECHNIQUE: The patient was administered 10. mCi of Tc 99m Sestamibi prior to resting SPECT imaging o f the heart. The patient was then administered 30. MCi of Tc 99m Sestamibi following exercise or pha rmacologic stress. Multiplanar SPECT images were reviewed. FINDINGS: Small to moderate area of diminished radiotracer activity involves the lateral left ventri cular myocardium on stress images. This demonstrates normal radiotracer uptake on rest images. Remainder of the left ventricular myocardium demonstrates normal radiotracer uptake on rest and stres s sequences The left ventricular ejection fraction equals 52% IMPRESSION: Small to moderate reversible perfusion defect lateral left ventricle myocardium presumab ly stress induced ischemia
--- NOTE | 2023-05-07 13:12 | P.PN ---
Subjective Date of Service: 05/06/23 Patient was admitted with chest discomfort. Mainly pressure. But it has been much better since she was admitted. She actually has not felt any chest discomfort today. Patient has a history of coronary artery disease with stent placement. She has risk factors including hypertension, diabetes, anemia, and rheumatoid arthritis. Echocardiogram pending. Carotid Doppler pending. She stated she was post to see cardiology in the office. I will call the cardiology office and see when she was scheduled to get today. We will try to get this done here at the hospital if it is a stress test. We will place a cardiology consultation as well if any abnormal findings. Review of Systems 10-point ROS is otherwise unremarkable Physical Examination - Vital Signs Temperature: 98.2 F Blood Pressure: 129/62 Pulse: 78 Respirations: 16 Pulse Ox (%): 99 - Physical Exam General: Alert, In no apparent distress, Oriented x3 HEENT: Atraumatic, PERRLA, EOMI Neck: Supple, JVD not distended Respiratory: Clear to auscultation bilaterally, Normal air movement Cardiovascular: Regular rate/rhythm, Normal S1 S2, No murmurs Gastrointestinal: Normal bowel sounds, Soft and benign, Non-distended, No tenderness Musculoskeletal: No clubbing, No swelling, No tenderness Integumentary: No rashes Neurological: Sensation intact, Cranial nerves 3-12 intact - Studies Medications List Reviewed: Yes Assessment & Plan - Problems (Diagnosis) (1) Chest pain Current Visit: No Status: Acute (2) Coronary arteriosclerosis Current Visit: No Status: Acute (3) Diabetes mellitus Onset Date: 02/01/15 Current Visit: No Status: Acute (4) Hyperlipidemia Current Visit: No Status: Acute (5) Hypertensive disorder, systemic arterial Current Visit: No Status: Acute (6) Rheumatoid arthritis Onset Date: 02/01/15 Current Visit: No Status: Acute - Plan -High-sensitivity troponin -Cardiology consultation -Echocardiogram and stress test per cardiology recommendation -Repeat EKG -Lipid profile -Electrical Intern regarding modifying risk for cardiac disease Discharge Plan: Home Plan to discharge in: Greater than 2 days - Advance Directives Does patient have a Living Will: No Does patient have a Durable POA for Healthcare: No - Code Status/Comfort Care Code Status Assessed: Yes Code Status: Full Code Critical Care: No Time Spent Managing PTS Care (In Minutes): 45
[2023-05-07] MEDS: ATORVASTATIN 10 MG TAB PO SCH (21:12)
[2023-05-07] MEDS: DOXAZOSIN 2 MG TAB PO SCH (21:13)
[2023-05-08] MEDS: INSULIN REGULAR (HUMAN) 100 UNIT/ML SQ SCH ×6 (07:30→20:19)
--- NOTE | 2023-05-08 08:29 | P.PN ---
Subjective Date of Service: 05/08/23 Chief Complaint: Chest pressure, rule out ACS. Subjective: No new changes, No C/O voiced (No reported chest pain today.) Review of Systems 10-point ROS is otherwise unremarkable Physical Examination - Vital Signs Temperature: 97.4 F Blood Pressure: 97/48 Pulse: 77 Respirations: 14 Pulse Ox (%): 97 - Physical Exam General: Alert, In no apparent distress, Oriented x3 HEENT: Atraumatic, Normocephalic, PERRLA Neck: Supple, 2+ carotid pulse no bruit Respiratory: Clear to auscultation bilaterally, Normal air movement Cardiovascular: No edema, Normal pulses Capillary refill: <2 Seconds Gastrointestinal: Normal bowel sounds, Soft and benign Musculoskeletal: No clubbing, No swelling Neurological: Normal speech, Normal strength at 5/5 x4 extr - Studies Medications List Reviewed: Yes Assessment And Plan - Plan Assessment & Plan - Problems (Diagnosis) (1) Chest pain Current Visit: No Status: Acute -High-sensitivity troponin -Cardiology consultation -Repeat EKG -Lipid profile Plan for cardiac testing, possible left heart cath on Wednesday per Dr. Hall (2) Coronary arteriosclerosis Current Visit: No Status: Acute -Echocardiogram and stress test per cardiology recommendation -Roller Hand regarding modifying risk for cardiac disease Carstid US IMPRESSION: Bilateral atherosclerotic changes noted at the carotid bulbs, more pronounced on the right.Less than 50% ICA stenosis bilaterally Stress test FINDINGS: Small to moderate area of diminished radiotracer activity involves the lateral left ventricular myocardium on stress images. The left ventricular ejection fraction equals 52% IMPRESSION: Small to moderate reversible perfusion defect lateral left ventricle myocardium presumably stress induced ischemia 05/05 ECHO 1. NORMAL LEFT VENTRICULAR EJECTION FRACTION 60-65% WITH NORMAL WALL MOTION 2. GRADE I DIASTOLIC DYSFUNCTION, 3. MILD MITRAL REGURGITATION 4. MILD AORTIC INSUFFICIENCY (3) Diabetes mellitus Onset Date: 02/01/15 Current Visit: No Status: Acute Started on Accu-Cheks with sliding scale insulin (4) Hyperlipidemia Current Visit: No Status: Acute (5) Hypertensive disorder, systemic arterial Current Visit: No Status: Acute (6) Rheumatoid arthritis Onset Date: 02/01/15 Current Visit: No Status: Acute - Plan Discharge Plan: Home Plan to discharge in: Greater than 2 days Discharge Plan: Home - Code Status/Comfort Care Code Status: Full Code Physician Review: Patient Assessed, Agree with Above Assessment and Plan Critical Care: No Time Spent Managing PTS Care (In Minutes): 35
--- NOTE | 2023-05-08 08:32 | P.DS ---
Admission Date: 05/08/23 Discharge Date: 05/08/23 Reason for Admission: Chest pressure, rule out ACS. Brief History of Present Illness: 67-year-old female patient with past medical history significant for hypertension, hyperlipidemia, diabetes type 2, history of status post stent plac ement in coronary artery who came to the emergency room for episode of chest pressure. She has been diabetic for more than 10 years and she began to feel chest pressure. She related discomfort of 6 out of 10 in intensity and she does not have pain in the neck/left arm area. She was evaluated in the emergency room with a CT of the chest to rule out dissection and this was negative. She was asked to be evaluated for ACS work-up. She denies overt episode of nausea, vomiting, dizzy spells, lightheadedness. Hospital Course: -Quick Print Operator regarding modifying risk for cardiac disease Carstid US IMPRESSION: Bilateral atherosclerotic changes noted at the carotid bulbs, more pronounced on the right.Less than 50% ICA stenosis bilaterally Stress test FINDINGS: Small to moderate area of diminished radiotracer activity involves the lateral left ventricular myocardium on stress images. The left ventricular ejection fraction equals 52% IMPRESSION: Small to moderate reversible perfusion defect lateral left ventricle myocardium presumably stress induced ischemia 05/05 ECHO 1. NORMAL LEFT VENTRICULAR EJECTION FRACTION 60-65% WITH NORMAL WALL MOTION 2. GRADE I DIASTOLIC DYSFUNCTION, 3. MILD MITRAL REGURGITATION 4. MILD AORTIC INSUFFICIENCY Chest pain work up by cardiology, Discharge plan per cardiolgy Quick Print Operator regarding modifying risk for cardiac disease discharge on cardiac diet, Follow up with PCP, Cardiolgy in 7-10 days after discharge,Return to ER for worsening of symptoms. <Luann Aponte - Last Filed: 05/08/23 13:09> Admission Date: 05/08/23 Discharge Date: 05/09/23 Consultations: Music Library Assistant Procedures: Cardiac catheterization - Problems (1) Chest pain Current Visit: No Status: Acute (2) Coronary arteriosclerosis Current Visit: No Status: Acute (3) Diabetes mellitus Onset Date: 02/01/15 Current Visit: No Status: Acute (4) Hyperlipidemia Current Visit: No Status: Acute (5) Hypertensive disorder, systemic arterial Current Visit: No Status: Acute (6) Rheumatoid arthritis Onset Date: 02/01/15 Current Visit: No Status: Acute <Serena Chinchilla - Last Filed: 05/09/23 21:56> Discharge Condition: GOOD Vital Signs/Physical Exam: Temp Pulse Resp BP Pulse Ox 97.4 F 77 14 97/48 L 97 05/08/23 08:32 05/08/23 08:32 05/08/23 08:32 05/08/23 08:32 05/08/23 08:32 Laboratory Data at Discharge: WBC 9.10 thou/uL (4.3-10.9) 05/04/23 23:40 Hgb 12.1 g/dL (12.0-15.0) 05/04/23 23:40 Hct 34.9 % (36.0-45.0) L 05/04/23 23:40 Plt Count 259 thou/uL (152-406) 05/04/23 23:40 PT 9.5 SECONDS (9.5-12.5) 05/04/23 23:40 INR 0.86 05/04/23 23:40 Sodium 137 mEq/L (136-145) 05/04/23 23:40 Potassium 4.3 mEq/L (3.5-5.1) 05/04/23 23:40 BUN 18 mg/dL (7-18) 05/04/23 23:40 Creatinine 1.06 mg/dL (0.55-1.02) H 05/04/23 23:40 Glucose 159 mg/dL (74-106) H 05/04/23 23:40 Magnesium 1.8 mg/dL (1.6-2.4) 05/04/23 23:40 Total Bilirubin 0.5 mg/dL (0.2-1.0) 05/04/23 23:40 AST 16 U/L (15-37) 05/04/23 23:40 ALT 42 U/L (13-56) 05/04/23 23:40 Alkaline Phosphatase 80 U/L (45-117) 05/04/23 23:40 Triglycerides 125 mg/dL (<150) 05/05/23 05:30 Cholesterol 190 mg/dL (<200) 05/05/23 05:30 HDL Cholesterol 54 mg/dL (40-60) 05/05/23 05:30 Cholesterol/HDL Ratio 3.52 05/05/23 05:30 <Luann Aponte - Last Filed: 05/08/23 13:09> Vital Signs/Physical Exam: Temp Pulse Resp BP Pulse Ox 98 F 73 18 149/69 H 97 05/09/23 19:49 05/09/23 19:49 05/09/23 19:49 05/09/23 19:49 05/09/23 19:49 General: Alert, In no apparent distress, Oriented x3 Laboratory Data at Discharge: WBC 10.00 thou/uL (4.3-10.9) 05/09/23 06:15 Hgb 11.5 g/dL (12.0-15.0) L 05/09/23 06:15 Hct 33.5 % (36.0-45.0) L 05/09/23 06:15 Plt Count 234 thou/uL (152-406) 05/09/23 06:15 PT 9.5 SECONDS (9.5-12.5) 05/04/23 23:40 INR 0.86 05/04/23 23:40 Sodium 138 mEq/L (136-145) 05/09/23 06:15 Potassium 4.2 mEq/L (3.5-5.1) 05/09/23 06:15 BUN 34 mg/dL (7-18) H 05/09/23 06:15 Creatinine 1.28 mg/dL (0.55-1.02) H 05/09/23 06:15 Glucose 107 mg/dL (74-106) H 05/09/23 06:15 Magnesium 1.9 mg/dL (1.6-2.4) 05/09/23 06:15 Total Bilirubin 0.8 mg/dL (0.2-1.0) 05/09/23 06:15 AST 28 U/L (15-37) 05/09/23 06:15 ALT 66 U/L (13-56) H 05/09/23 06:15 Alkaline Phosphatase 48 U/L (45-117) 05/09/23 06:15 Triglycerides 125 mg/dL (<150) 05/05/23 05:30 Cholesterol 190 mg/dL (<200) 05/05/23 05:30 HDL Cholesterol 54 mg/dL (40-60) 05/05/23 05:30 Cholesterol/HDL Ratio 3.52 05/05/23 05:30 <Serena Chinchilla - Last Filed: 05/09/23 21:56> <Luann Aponte - Last Filed: 05/08/23 13:09> Diet: AHA Activity: Fall precautions Time spent managing pt's care (in minutes): 35 <Serena Chinchilla - Last Filed: 05/09/23 21:56> Home Medications: Metoprolol Tartrate [Lopressor*] 50 mg PO BID 08/22/13 Pravastatin [Pravachol*] 40 mg PO BEDTIME 08/22/13 Irbesartan [Avapro] 300 mg PO DAILY 02/07/19 Doxazosin [Cardura*] 2 mg PO BEDTIME 10/14/21 Metformin HCl [Metformin HCl ER] 750 mg PO DAILY 05/05/23 Tocilizumab [Actemra Actpen] 162 mg SQ EVERY 7TH DAY 05/05/23 predniSONE [Prednisone] 5 mg PO DAILY 05/05/23 Physician Discharge Instructions: OK TO DC IV AND DC HOME FOLLOW-UP WITH PRIMARY CARE PROVIDER IN 1-2 WEEKS FOLLOW-UP WITH CARDIOLOGY IN 1-2 WEEKS RETURN TO THE ER IF Symptoms worsen CALL DR. CHINCHILLA AT [phone] IF ANY QUESTIONS REGARDING HOSPITAL STAY. PLEASE CALL THE FLOOR AT [phone] IF ANY MEDICATION OR NURSING QUESTIONS. Followup: Gloria Benjamin NP [Primary Care Provider] -
[2023-05-08] MEDS: METOPROLOL TAR 50 MG TAB PO SCH ×2 (08:39→20:18)
[2023-05-08] MEDS: VALSARTAN 160 MG TAB PO SCH (08:40)
[2023-05-08] MEDS: ENOXAPARIN 40 MG/0.4 ML SQ SCH (08:40)
[2023-05-08] MEDS: predniSONE 5 MG TAB PO SCH (08:40)
[2023-05-08] MEDS ORDERED: D50W 25 GM/50 ML SYRINGE IV PRN (11:44)
[2023-05-08] MEDS ORDERED: GLUCAGON 1 MG/VIAL IM PRN (11:44)
[2023-05-08 11:58] LABS: Absolute Lymphocytes (CBC) 3.2 K/uL (0.7-4.9); Hematocrit 36.1 % (36.0-45.0); Lymphocytes % 23.2 % (15.3-44.8); MCV 90.5 fL (80-100); MPV 7.8 fL (7.6-11.3); Platelets 284 thou/uL (152-406)
[2023-05-08 12:27] LABS: Magnesium 2.1 mg/dL (1.6-2.4); Potassium 3.9 mEq/L (3.5-5.1)
[2023-05-08] MEDS ORDERED: NA CHLORIDE 0.9% 250 ML IV ONE (13:20)
[2023-05-08] MEDS: NA CHLORIDE 0.9% 1,000 ML IV SCH (14:42)
[2023-05-08 15:31] LABS: Urine Bacteria <20 /HPF (<20); Urine Mucus Slight /HPF (None Seen); Urine RBC <5 /HPF (None Seen); Urine WBC Clump Rare /HPF (None Seen)
[2023-05-08 15:40] LABS: Specific Gravity 1.019 (1.005-1.030); Urine Bilirubin NEGATIVE (Negative); Urine Blood Negative (Negative); Urine Clarity Turbid (Clear); Urine Color Light-Yellow (Yellow); Urine Glucose 1+ (Negative); Urine Protein NEGATIVE (Negative); Urine Urobilinogen Normal (Normal)
[2023-05-08] MEDS: DOXAZOSIN 2 MG TAB PO SCH (20:17)
[2023-05-08] MEDS: ATORVASTATIN 10 MG TAB PO SCH (20:18)
[2023-05-09 06:55] LABS: Absolute Lymphocytes (CBC) 3.1 K/uL (0.7-4.9); Hematocrit 33.5 % (36.0-45.0); Lymphocytes % 31.1 % (15.3-44.8); MPV 7.7 fL (7.6-11.3); Platelets 234 thou/uL (152-406); RBC Red Blood Cell Count 3.73 M/uL (3.86-4.86)
[2023-05-09 07:07] LABS: Albumin 3.4 g/dL (3.4-5.0); Bilirubin Total 0.8 mg/dL (0.2-1.0); Magnesium 1.9 mg/dL (1.6-2.4); Potassium 4.2 mEq/L (3.5-5.1); Protein, Total 6.4 g/dL (6.4-8.2)
[2023-05-09] MEDS: INSULIN REGULAR (HUMAN) 100 UNIT/ML SQ SCH ×8 (07:30→21:00)
--- NOTE | 2023-05-09 08:09 | P.PN ---
Subjective Date of Service: 05/09/23 Chief Complaint: Chest pressure, rule out ACS. Subjective: No new changes, No C/O voiced No reported chest pain Review of Systems 10-point ROS is otherwise unremarkable Physical Examination - Vital Signs Temperature: 97.1 F Blood Pressure: 127/54 Pulse: 78 Respirations: 16 Pulse Ox (%): 94 - Physical Exam General: Alert, In no apparent distress, Oriented x3 HEENT: Atraumatic, Normocephalic Neck: Supple, 2+ carotid pulse no bruit Respiratory: Clear to auscultation bilaterally, Normal air movement Cardiovascular: No edema, Normal pulses, Regular rate/rhythm Capillary refill: <2 Seconds Gastrointestinal: Normal bowel sounds, Soft and benign Musculoskeletal: No clubbing, No swelling Neurological: Normal gait, Normal speech, Normal strength at 5/5 x4 extr - Studies Medications List Reviewed: Yes Assessment And Plan - Current Problems (Diagnosis) (1) Elevated troponin Current Visit: Yes Status: Acute Plan: Cardiologhy following, anticoagulation per cardiology + stress test, schedule for L)HC Wednesday, NPO after MN resume home metoprolol, antilipid, aspirin - Plan Assessment & Plan - Problems (Diagnosis) (1) Chest pain Current Visit: No Status: Acute -High-sensitivity troponin -Cardiology consultation -Repeat EKG -Lipid profile Plan left heart cath on Wednesday per Dr. Hall Stress test FINDINGS: Small to moderate area of diminished radiotracer activity involves the lateral left ventricular myocardium on stress images. The left ventricular ejection fraction equals 52% IMPRESSION: Small to moderate reversible perfusion defect lateral left ventricle myocardium presumably stress induced ischemia L)HC sheduled Thursday 05/10 NPO after MN (2) Coronary arteriosclerosis Current Visit: No Status: Acute -Echocardiogram and stress test per cardiology recommendation -Online Trader regarding modifying risk for cardiac disease Carotid US IMPRESSION: Bilateral atherosclerotic changes noted at the carotid bulbs, more pronounced on the right.Less than 50% ICA stenosis bilaterally ECHO 1. NORMAL LEFT VENTRICULAR EJECTION FRACTION 60-65% WITH NORMAL WALL MOTION 2. GRADE I DIASTOLIC DYSFUNCTION, 3. MILD MITRAL REGURGITATION 4. MILD AORTIC INSUFFICIENCY (3) Diabetes mellitus Onset Date: 02/01/15 Current Visit: No Status: Acute Started on Accu-Cheks with sliding scale insulin (4) Hyperlipidemia Current Visit: No Status: Acute (5) Hypertensive disorder, systemic arterial Current Visit: No Status: Acute (6) Rheumatoid arthritis Onset Date: 02/01/15 Current Visit: No Status: Acute - Plan Discharge Plan: Home Plan to discharge in: Greater than 2 days Discharge Plan: Home - Code Status/Comfort Care Code Status: Full Code Physician Review: Patient Assessed, Agree with Above Assessment and Plan Critical Care: No Time Spent Managing PTS Care (In Minutes): 35
[2023-05-09] MEDS: ENOXAPARIN 30 MG/0.3 ML SQ SCH (09:22)
[2023-05-09] MEDS: METOPROLOL TAR 50 MG TAB PO SCH ×2 (09:23→20:13)
[2023-05-09] MEDS: predniSONE 5 MG TAB PO SCH (09:23)
[2023-05-09] MEDS: NA CHLORIDE 0.9% 1,000 ML IV SCH ×2 (16:31→20:14)
[2023-05-09] MEDS: DOXAZOSIN 2 MG TAB PO SCH (20:13)
[2023-05-09] MEDS: ATORVASTATIN 10 MG TAB PO SCH (20:14)
--- NOTE | 2023-05-09 21:54 | P.PN ---
Date of Service: 05/07/23 Subjective Patient's stress test came back positive. Spoke with cardiology and they want to go ahead and arrange for cardiac catheterization for Wednesday. We will continue with medical therapy over the weekend. Physical Examination - Vital Signs Reviewed - Physical Exam General: Alert, In no apparent distress, Oriented x3 Neck: Supple, JVD not distended Respiratory: Clear to auscultation bilaterally, Normal air movement Cardiovascular: Regular rate/rhythm, Normal S1 S2, No murmurs Gastrointestinal: Normal bowel sounds, Soft and benign, Non-distended, No tenderness Musculoskeletal: No clubbing, No swelling, No tenderness Neurological: no focal deficits Assessment & Plan - Problems (Diagnosis) (1) Chest pain Current Visit: No Status: Acute (2) Coronary arteriosclerosis Current Visit: No Status: Acute (3) Diabetes mellitus Onset Date: 02/01/15 Current Visit: No Status: Acute (4) Hyperlipidemia Current Visit: No Status: Acute (5) Hypertensive disorder, systemic arterial Current Visit: No Status: Acute (6) Rheumatoid arthritis Onset Date: 02/01/15 Current Visit: No Status: Acute - Plan -High-sensitivity troponin -Cardiology consultation appreciated -Stress test that showed reversible ischemia which will require cardiac catheterization -Lipid profile reviewed -Reading Instructor regarding modifying risk for cardiac disease -Outpatient follow-up with brazer helper induction Discharge Plan: Home Plan to discharge in: Greater than 2 days - Advance Directives Does patient have a Living Will: No Does patient have a Durable POA for Healthcare: No - Code Status/Comfort Care Code Status Assessed: Yes Code Status: Full Code Critical Care: No Time Spent Managing PTS Care (In Minutes): 25
[2023-05-10] MEDS: NA CHLORIDE 0.9% 1,000 ML IV SCH (05:45)
[2023-05-10] MEDS ORDERED: LIDOCAINE 1% 20 ML MDV ONE ×2 (06:08→06:39)
[2023-05-10] MEDS ORDERED: HEPA 1000U/500MLS 2,000 UNIT/1,000 ML BAG IV ONE ×2 (06:08→06:39)
[2023-05-10] MEDS: METOPROLOL TAR 50 MG TAB PO SCH (06:13)
[2023-05-10] MEDS ORDERED: FENTANYL CITR 100 MCG/2 ML ONE (06:40)
[2023-05-10] MEDS ORDERED: HEPARIN 5000 UNIT/ML 1 ML VIAL ONE (06:40)
[2023-05-10] MEDS ORDERED: MIDAZOLAM HCL 2 MG/2 ML INJ ONE (06:40)
[2023-05-10] MEDS ORDERED: CLOPIDOGREL 75 MG TABLET ONE (06:41)
[2023-05-10] MEDS ORDERED: VERAPAMIL HCL 10 MG/4 ML VIAL IV ONE (06:41)
[2023-05-10] MEDS ORDERED: ASPIRIN 325 MG TAB ONE (06:41)
[2023-05-10] MEDS ORDERED: HEPARIN 10,000 UNIT/10 ML VIAL IV ONE (06:42)
[2023-05-10] MEDS ORDERED: NITROGLYCERIN/D5W 50 MG/250 ML BTL IV ONE (06:42)
[2023-05-10] MEDS ORDERED: TICAGRELOR 90 MG TABLET PO ONE (06:42)
[2023-05-10] MEDS ORDERED: ATROPINE SULF 1 MG/10 ML SYR IV ONE ×2 (06:42→07:35)
[2023-05-10] MEDS: INSULIN REGULAR (HUMAN) 100 UNIT/ML SQ SCH (07:30)
[2023-05-10] MEDS ORDERED: ONDANSETRON 4 MG/2 ML VIAL ONE ×2 (07:45→10:24)
--- NOTE | 2023-05-10 08:46 | TREADPHA ---
DX: CHEST PAIN Date of Study: 05/07/2023 Ht: 4' 11 " Wt: 124 lb 0 oz Consulting Physician: LEANDRA MEDICATIONS: TYLENOL, LIPITOR, CARDURA, LOVENOX, NOVOLIN-R, LOPRESSOR, ZOFRAN, DELTASONE, DIOVAN HISTORY: DIABETES MELLITUS, HIGH CHOLESTEROL, RHUMATOID ARTHRITIS, FORMER SMOKER, NO ALCOHOL ABUSE, NO DRUGS PHYSICIAL EXAMINATION: RESTING B.P.: 183/72 RESTING H.R.: 69 RESTING EKG: SINUS RHYTHM, WITHIN NORMAL LIMITS PROTOCOL: PHARMACOLOGIC EXERCISE TIME: 3:30 B.P. AT [place] STRESS: 124/56 IMPRESSION: LEXISCAN INJECTED. CARDIOLITE INJECTED - SEE NUCLEAR MEDICINE REPORT. NO SUPRAVENTRICULAR TACHYCARDIA, VENTRICULAR TACHYCARDIA, PREMATURE ATRIAL COMPLEXES, PREMATURE VENTRICULAR TACHYCARDIA NOTED. PATIENT DENIES CHEST PAIN. PATIENT STATES NAUSEA/ VOMITING - 4 mg ZOFRAN INTRAVENOUS GIVEN. NO ELECTROCARDIOGRAM CHANGES OF ISCHEMIA.
[2023-05-10] MEDS: predniSONE 5 MG TAB PO SCH (09:00)
[2023-05-10] MEDS: ENOXAPARIN 30 MG/0.3 ML SQ SCH (09:00)
[2023-05-10] MEDS ORDERED: ASPIRIN 325 MG TAB PO SCH (09:00)
[2023-05-10 09:07] VITALS: TEMP 98
[2023-05-10 09:08] VITALS: O2SAT 100
[2023-05-10 12:08] VITALS: BP 114/65
[2023-05-13] MEDS ORDERED: TOCILIZUMAB 162 MG/0.9 ML SQ SCH (09:00)
== END 2023-05-10 11:02 | disposition short-term general hospital (02) | DRG 322 ==
LOC: ER 21:39 → ERHOLD 05-05 02:23 → 4TH 05-05 18:52 → OBSVTOIN 05-08 09:41
PROVIDERS: ADMIT Internal Medicine Nephrology; ATTEND Hospitalist
PROC: 027034Z Dilation of Coronary Artery, One Artery with Drug-eluting Intraluminal Device, Percutaneous Approach (ICD-10-PCS; principal; 2023-05-10)
PROC: 4A023N7 Measurement of Cardiac Sampling and Pressure, Left Heart, Percutaneous Approach (ICD-10-PCS; 2023-05-10)
PROC: B2111ZZ Fluoroscopy of Multiple Coronary Arteries using Low Osmolar Contrast (ICD-10-PCS; 2023-05-10)
DX: R07.9 Chest pain, unspecified (principal); E11.9 Type 2 diabetes mellitus without complications; I10 Essential (primary) hypertension; E78.5 Hyperlipidemia, unspecified; I08.0 Rheumatic disorders of both mitral and aortic valves; M06.9 Rheumatoid arthritis, unspecified; I99.8 Other disorder of circulatory system; I25.10 Atherosclerotic heart disease of native coronary artery without angina pectoris; I25.2 Old myocardial infarction; R77.8 Other specified abnormalities of plasma proteins; Z88.5 Allergy status to narcotic agent; Z95.5 Presence of coronary angioplasty implant and graft; Z98.51 Tubal ligation status; Z79.52 Long term (current) use of systemic steroids; Z79.84 Long term (current) use of oral hypoglycemic drugs; Z79.899 Other long term (current) drug therapy
CPT/HCPCS: 33210; 36415; 71045; 71275; 74175; 76937; 78452; 80048; 80053; 80061; 80076; 81001; 82947; 83735; 83880; 84484; 85025; 85347; 85610; 87077; 87086; 87088; 87186; 92928; 93005; 93017; 93306; 93454; 93880; 99285; A9500; C1725; C1893; G0378; J0461; J1644; J1650; J1815; J2001; J2250; J2270; J2405; J2785; J2920; J3010; J7030; J7512; Q9966; Q9967

== ENCOUNTER 2023-05-17 01:47 | Emergency (ER) | payer OTHER ==
--- OUTSIDE RECORDS SUMMARY | 2023-05-17 01:52 | XMS REPORT | Continuity of Care Document ---
:1955 Author Organization [facility] t Address [address] [facility] [address] [place] [address] Care Team Providers Name Role Phone BenjaminCarlosdieudonnepavithra Attending Clinician Unavailable Sudarshan Cleaning Attending Clinician Unavailable Iván Olmstead DO Attending Clinician NIRALI HOLDER Attending Clinician Unavailable Nirali Holder MD Attending Clinician LADY CASIANO Attending Clinician Unavailable Manpreet Coleman MD Attending Clinician MANPREET COLEMAN Attending Clinician Unavailable Wilder Lynch PT Attending Clinician Unavailable Doctor Unassigned, [facility] Attending Clinician Unavailable Sudarshan Cleaning Admitting Clinician Unavailable Payers Payer Name Policy Type Policy Number Effective Date Expiration Date Gabrielle cuello [facility] MEDICARE [id number] 2018 2019 COMPLETE 00:00:00 00:00:00 Problems Condition Condition Condition Status Onset Resolution Last Treating Co mments Source Name Details Category Date Date Treatment Clinician Date 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 2-18 it y of eyes eyes 00:00: [place] 00 Medical Branch Long-term Long-term Disease Active Uni vers use of use of 2-18 ity of Plaqu[place] Age-relate Age-relate Disease Active U nivers d [...] Branch 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 1-20 ity of 00:00: [place] [facility] Aspirin Aspirin Disease Active 2013-07 Univers long-term long-term 1-20 ity of use use 00:00: [place] [facility] Other Other Disease Active 2006-07 Univers acute and acute and 2-26 ity of subacute subacute 00:00: [place] form of form of 00 Medical ischemic ischemic Branch heart heart disease disease Essential Essential Disease Active 2006-07 Overview: Univers hypertensi hypertensi 2-26 ICD10 it y of on on 00:00: Diagnosis [place] Term 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 creatinine creatinine Me dical ratio ratio [place] 30-299 30-299 mg/g mg/g Rheumatoid Rheumatoid Problem C ommon arthritis arthritis Spir it - [facility] Hypertensi HTN Problem Commo n on (hypertens Spirit ion) - [facility] [id number] Type 2 Problem Common diabetes Spirit mellitus - [facility] with other diabetic [facility] kidney Medical complicati Center on Coronary CAD Problem Common artery (coronary Spirit disease artery - [facility] disease) [facility] Mixed Hyperlipem Problem Commo n hyperlipid ia, mixed Spi rit emia - [facility] Stented Stented Problem Common coronary coronary Spirit artery artery - [facility] Allergies, Adverse Reactions, Alerts Allergy Allergy Status Severity Reaction(s) Onset Inactive Treating Comm ents Source Name Type Date Date Clinician hydrocod DA Active [place] ITCHING 2022-07 [facility] one 07-10 Clear 00:00: [place] 00 [facility] HYDROCOD DRUG Active Rash Univers ONE INGREDI 07-17 ity of 00:00: [place] 00 Medical Branch Hydrocod Propensi Active Rash Univer s one ty to 07-17 ity of adverse 00:00: [place] reaction 00 [facility] hydrocod hydrocod Active vomiting Comm on one [facility] Social History Social Habit Start Date Stop Date Quantity Comments Source Exposure to Not sure [facility] SARS-CoV-2 (event) [facility] History of Tobacco Common Spirit - Use [facility] Sex Assigned At Common Sp shawn - [facility] Cigarettes smoked 2015-01-07 2015-01-07 Univers ity of current (pack per 00:00:00 00:00:00 [facility] ) - Reported Branch Cigarette 2015-01-07 2015-01-07 University of pack-years 00:00:00 00:00:00 [facility] Alcohol intake 2015-01-07 2015-01-07 Current University of 00:00:00 00:00:00 non-drinker of [facility] alcohol Branch (finding) Alcohol Comment 2014-10-04 2014-10-[address] [facility] Universit y of 00:00:00 00:00:00 [facility] Tobacco Comment 2014-10-04 2014-10-[address] [facility] Universit y of 00:00:00 00:00:00 [facility] Smoking Status Start Date Stop Date Source Former Smoker 2023-01-22 00:00:00 2023-01-22 00:00:00 [facility] S pirit [facility] Medications Ordered Filled Start Stop Current Ordering Indication Dosage Frequency Signature Comments Components Source Medication Medication Date Date Medication? Clinician (SIG) Name Name Laxmi Hair 2021-07 No 40mg Common (Triamcinol (Triamcinol 2-27 [facility]) one) 00:00: - [facility] 00 [facility] Laxmi Hair 2021-07 No 40mg Common (Triamcinol (Triamcinol 2-27 S pirit one) one) 00:00: - [facility] 00 [facility] Kenalog Abundioalog 2021-07 No 40mg Common (Triamcinol (Triamcinol 2-27 S pirit one) one) 00:00: - [facility] 00 [facility] metFORMIN metFORMIN No 1{table QD metFORMIN HCl ER 500 HCl ER 500 4-20 t_with_ HCl ER 500 MG MG 00:00: evening MG 00 _meal} vitamin C Yes [id number] 1000mg Take 1,000 Univers with vanessa 1-04 mg by ity of hips 21:04: mouth [place] (VITAMIN C) 34 daily. Medica l 1,000 mg Branch tablet omega-3 Yes [id number] 1g Take 1 g Un alvaro fatty 1-04 by mouth 3 ity of acids-vitam 21:04: (three) [place] as in E (FISH 34 times Medical OIL) 1,000 daily. Branch mg capsule vitamin C Yes [id number] 1000mg Take 1,000 Univers with vanessa 1-04 mg by ity of hips 21:04: mouth [place] (VITAMIN C) 34 daily. Medica l 1,000 mg Branch tablet omega-3 Yes [id number] 1g Take 1 g Un alvaro fatty 1-04 by mouth 3 ity of acids-vitam 21:04: (three) [place] as in E (FISH 34 times Medical OIL) 1,000 daily. Branch mg capsule vitamin C Yes [id number] 1000mg Take 1,000 Univers with vanessa 1-04 mg by ity of hips 21:04: mouth [place] (VITAMIN C) 34 daily. Medica l 1,000 mg Branch tablet omega-3 Yes [id number] 1g Take 1 g Un alvaro fatty 1-04 by mouth 3 ity of acids-vitam 21:04: (three) [place] in E (FISH 34 times Medical OIL) 1,000 daily. Branch mg capsule vitamin C Yes [id number] 1000mg Take 1,000 Univers with vanessa 1-04 mg by ity of hips 21:04: mouth [place] (VITAMIN C) 34 daily. Medica l 1,000 mg Branch tablet omega-3 Yes [id number] 1g Take 1 g Un alvaro fatty 1-04 by mouth 3 ity of acids-vitam 21:04: (three) [place] in E (FISH 34 times Medical OIL) 1,000 daily. Branch mg capsule vitamin C Yes [id number] 1000mg Take 1,000 Univers with vanessa 1-04 mg by ity of hips 21:04: mouth [place] (VITAMIN C) 34 daily. Medica l 1,000 mg Branch tablet omega-3 Yes [id number] 1g Take 1 g Un alvaro fatty 1-04 by mouth 3 ity of acids-vitam 21:04: (three) [place] in E (FISH 34 times Medical OIL) 1,000 daily. Branch mg capsule AMLODIPINE Yes [id number] Take by Univers BESYLATE 1-04 mouth. ity of (AMLODIPINE 21:02: [place] ORAL) Medical [place] aspirin 81 Yes [id number] 81mg Take 81 mg Univers mg chewable 1-04 by mouth ity of tablet 21:02: daily. [address] Branch CALCIUM Yes [id number] 1000U Take 1,000 Univers CARBONATE/V 1-04 Units by ity of ITAMIN D3 21:02: mouth [place] (VITAMIN 36 daily. Medical D-3 ORAL) Branch AMLODIPINE Yes [id number] Take by Univers BESYLATE 1-04 mouth. ity of (AMLODIPINE 21:02: [place] ORAL) Medical [place] aspirin 81 Yes [id number] 81mg Take 81 mg Univers mg chewable 1-04 by mouth ity of tablet 21:02: daily. [address] CALCIUM Yes [id number] 1000U Take 1,000 Univers CARBONATE/V 1-04 Units by ity of ITAMIN D3 21:02: mouth [place] (VITAMIN 36 daily. Medical D-3 ORAL) Branch AMLODIPINE Yes [id number] Take by Univers BESYLATE 1-04 mouth. ity of (AMLODIPINE 21:02: [place] ORAL) Medical [place] aspirin 81 Yes [id number] 81mg Take 81 mg Univers mg chewable 1-04 by mouth ity of tablet 21:02: daily. [address] Branch CALCIUM Yes [id number] 1000U Take 1,000 Univers CARBONATE/V 1-04 Units by ity of ITAMIN D3 21:02: mouth [place] (VITAMIN 36 daily. Medical D-3 ORAL) Branch AMLODIPINE Yes [id number] Take by Univers BESYLATE 1-04 mouth. ity of (AMLODIPINE 21:02: [place] ORAL) Medical Branch aspirin 81 Yes [id number] 81mg Take 81 mg Univers mg chewable 1-04 by mouth ity of tablet 21:02: daily. [place] [address] Medical Branch CALCIUM Yes [id number] 1000U Take 1,000 Univers CARBONATE/V 1-04 Units by ity of ITAMIN D3 21:02: mouth [place] (VITAMIN 36 daily. Medical D-3 ORAL) Branch AMLODIPINE Yes [id number] Take by Univers BESYLATE 1-04 mouth. ity of (AMLODIPINE 21:02: [place] ORAL) Medical Branch aspirin 81 Yes [id number] 81mg Take 81 mg Univers mg chewable 1-04 by mouth ity of tablet 21:02: daily. [place] [address] Medical [place] CALCIUM Yes [id number] 1000U Take 1,000 Univers CARBONATE/V 1-04 Units by ity of ITAMIN D3 21:02: mouth [place] (VITAMIN 36 daily. Medical D-3 ORAL) Branch tiZANidine 2019-07 Yes Univers 4 mg 2-23 ity of capsule 00:00: [place] [address] Medical Branch tiZANidine 2019-07 Yes Univers 4 mg 2-23 ity of capsule 00:00: [place] [address] Medical Branch tiZANidine 2019-07 Yes Univers 4 mg 2-23 ity of capsule 00:00: [place] [address] Medical Branch tiZANidine 2019-07 Yes Univers 4 mg 2-23 ity of capsule 00:00: [place] [address] Medical Branch leflunomide 2018-07 Yes 1{tbl} Take 1 Un alvaro 20 mg 1-15 tablet by ity of tablet 00:00: mouth. [place] [address] Medical Branch leflunomide 2018-07 Yes 1{tbl} Take 1 Un alvaro 20 mg 1-15 tablet by ity of tablet 00:00: mouth. [place] [address] Medical [place] leflunomide 2018-07 Yes 1{tbl} Take 1 Un alvaro 20 mg 1-15 tablet by ity of tablet 00:00: mouth. [place] [address] Medical Branch leflunomide 2018- Yes 1{tbl} Take 1 Un [place] 20 mg 1-15 tablet by ity of tablet 00:00: mouth. [place] [address] Medical Branch naproxen 2018-0 Yes [id number] 500mg Take 1 U nivers (NAPROSYN) 4-18 tablet by ity of 500 mg 00:00: mouth 2 [place] tablet 00 (two) Medical times Branch daily with meals. naproxen Yes [id number] 500mg Take 1 U nivers (NAPROSYN) 4-18 tablet by ity of 500 mg 00:00: mouth 2 [place] tablet 00 (two) Medical times Branch daily with meals. naproxen Yes [id number] 500mg Take 1 U nivers (NAPROSYN) 4-18 tablet by ity of 500 mg 00:00: mouth 2 [place] tablet 00 (two) Medical times Branch daily with meals. naproxen Yes [id number] 500mg Take 1 U nivers (NAPROSYN) 4-18 tablet by ity of 500 mg 00:00: mouth 2 [place] tablet 00 (two) Medical times Branch daily with meals. naproxen Yes [id number] 500mg Take 1 U nivers (NAPROSYN) 4-18 tablet by ity of 500 mg 00:00: mouth 2 [place] tablet 00 (two) Medical times Branch daily with meals. naproxen Yes [id number] 500mg Take 1 U nivers (NAPROSYN) 4-18 tablet by ity of 500 mg 00:00: mouth 2 [place] tablet 00 (two) Medical times Branch daily with meals. AMLODIPINE 2015- Yes [id number] Take by Univers BESYLATE 3-24 mouth. ity of (AMLODIPINE 16:39: [place] ORAL) 49 Medical Branch aspirin 81 2015- Yes [id number] 81mg Take 81 mg Univers mg chewable 3-24 by mouth ity of tablet 16:39: daily. [place] [address] Medical Branch CALCIUM 2015-0 Yes [id number] 1000U Take 1,000 Univers CARBONATE/V 3-24 Units by ity of ITAMIN D3 16:39: mouth [place] (VITAMIN 49 daily. Medical D-3 ORAL) Branch sulfaSALAzi 2015- Yes 500mg Take 1 Tab Univers ne [...] mouth 2 ity of (AZULFIDINE 00:00: (two) [place] ) 500 mg EC 00 times [...] 4-6) or Pain (scale 7-10). glimepiride Yes [id number] 4mg Take 1 Tab Univers (AMARYL) 4 7-03 by mouth ity o f mg tablet 00:00: daily with [place] 00 breakfast. Medical Branch metoprolol Yes [id number] 50mg Take 1 Tab Univers tartrate 7-03 by mouth 2 ity o f (LOPRESSOR) 00:00: (two) [place] 50 mg 00 times Medical tablet daily. Branch glimepiride Yes [id number] 4mg Take 1 Tab Univers (AMARYL) 4 7-03 by mouth ity o f mg tablet 00:00: daily with [place] 00 breakfast. Medical Branch metoprolol Yes [id number] 50mg Take 1 Tab Univers tartrate 7-03 by mouth 2 ity o f (LOPRESSOR) 00:00: (two) [place] 50 mg 00 times Medical tablet daily. Branch glimepiride Yes [id number] 4mg Take 1 Tab Univers (AMARYL) 4 7-03 by mouth ity o f mg tablet 00:00: daily with [place] 00 breakfast. Medical Branch metoprolol Yes [id number] 50mg Take 1 Tab Univers tartrate 7-03 by mouth 2 ity o f (LOPRESSOR) 00:00: (two) [place] 50 mg 00 times Medical tablet daily. Branch glimepiride Yes [id number] 4mg Take 1 Tab Univers (AMARYL) 4 7-03 by mouth ity o f mg tablet 00:00: daily with [place] 00 breakfast. Medical Branch metoprolol Yes [id number] 50mg Take 1 Tab Univers tartrate 7-03 by mouth 2 ity o f (LOPRESSOR) 00:00: (two) [place] 50 mg 00 times Medical tablet daily. Branch glimepiride Yes [id number] 4mg Take 1 Tab Univers (AMARYL) 4 7-03 by mouth ity o f mg tablet 00:00: daily with [place] 00 breakfast. Medical Branch metoprolol Yes [id number] 50mg Take 1 Tab Univers tartrate 7-03 by mouth 2 ity o f (LOPRESSOR) 00:00: (two) [place] 50 mg 00 times Medical tablet daily. Branch glimepiride Yes [id number] 4mg Take 1 Tab Univers (AMARYL) 4 7-03 by mouth ity o f mg tablet 00:00: daily with [place] 00 breakfast. Medical Branch metoprolol Yes [id number] 50mg Take 1 Tab Univers tartrate 7-03 [...] ity of 5 mg tablet 18:13: daily. [address] predniSONE 0 Yes 5mg Take 5 mg Un [place] (DELTASONE) 5-11 by mouth ity of 5 mg tablet 18:13: daily. [address] predniSONE 0 Yes 5mg Take 5 mg Un [place] (DELTASONE) 5-11 by mouth ity of 5 mg tablet 18:13: daily. [address] predniSONE Yes 5mg Take 5 mg Un [place] (DELTASONE) 5-11 by mouth ity of 5 mg tablet 18:13: daily. [address] predniSONE Yes 5mg Take 5 mg Un [place] (DELTASONE) 5-11 by mouth ity of 5 mg tablet 18:13: daily. [address] predniSONE Yes 5mg Take 5 mg Un [place] (DELTASONE) 5-11 by mouth ity of 5 mg tablet 18:13: daily. [address] omega-3 Yes [id number] 1g Take 1 g Un [place]varo fatty 5-01 by mouth 3 ity of acids-vitam 17:17: (three) [place] E (FISH 22 times Medical OIL) 1,000 daily. Branch mg capsule vitamin C Yes [id number] 1000mg Take 1,000 Univers with vanessa 5-01 [...] o f mg tablet 00:00: daily. [facility] foLIC acid 2013-07 Yes 1mg Take 1 Tab U nivers (FOLATE) 1 1-24 by mouth ity o f mg tablet 00:00: daily. [facility] foLIC acid 2013-07 Yes 1mg Take 1 Tab U nivers (FOLATE) 1 1-24 by mouth ity o f mg tablet 00:00: daily. [place] [facility] foLIC acid 2013-07 Yes 1mg Take 1 Tab U nivers (FOLATE) 1 1-24 by mouth ity o f mg tablet 00:00: daily. [place] [facility] foLIC acid 2013-07 Yes 1mg Take 1 Tab U nivers (FOLATE) 1 1-24 by mouth ity o f mg tablet 00:00: daily. [place] [facility] foLIC acid 2013-07 Yes 1mg Take 1 Tab U nivers (FOLATE) 1 1-24 by mouth ity o f mg tablet 00:00: daily. [place] [facility] PRAVASTATIN 2006-07 Yes 1 Tab Oral Univers 40 MG ORAL 2-28 DAILY ity of TAB 00:00: [place] [facility] NITROGLYCER 2006-07 Yes 1 Tab SL Un alvaro IN 0.4 MG 2-28 Q5MIN PRN ity o f SL SUBL 00:00: chest pain [place] 00 [facility] PRAVASTATIN 2006-07 Yes 1 Tab Oral Univers 40 MG ORAL 2-28 DAILY ity of TAB 00:00: [place] [facility] NITROGLYCER 2006-07 Yes 1 Tab SL Un alvaro IN 0.4 MG 2-28 Q5MIN PRN ity o f SL SUBL 00:00: chest pain [place] [facility] PRAVASTATIN 2006-07 Yes 1 Tab Oral Univers 40 MG ORAL 2-28 DAILY ity of TAB 00:00: [place] [facility] NITROGLYCER 2006-07 Yes 1 Tab SL Un alvaro IN 0.4 MG 2-28 Q5MIN PRN ity o f SL SUBL 00:00: chest pain [place] [facility] PRAVASTATIN 2006-07 Yes 1 Tab Oral Univers 40 MG ORAL 2-28 DAILY ity of TAB 00:00: Medical Branch NITROGLYCER 2006-07 Yes 1 Tab SL Un alvaro IN 0.4 MG 2-28 Q5MIN PRN ity o f SL SUBL 00:00: chest [place] PRAVASTATIN 2006-07 Yes 1 Tab Oral Univers 40 MG ORAL 2-28 DAILY ity of TAB 00:00: [facility] NITROGLYCER 2006-07 Yes 1 Tab SL Un alvaro IN 0.4 MG 2-28 Q5MIN PRN ity o f SL SUBL 00:00: chest pain [place] [facility] PRAVASTATIN 2006-07 Yes 1 Tab Oral Univers 40 MG ORAL 2-28 DAILY ity of TAB 00:00: [place] [facility] NITROGLYCER 2006-07 Yes 1 Tab SL Un alvaro IN 0.4 MG 2-28 Q5MIN PRN ity o f SL SUBL 00:00: chest pain [place] [facility] Irbesartan Irbesartan No 1{table QD Irbesartan [...] 300 MG 300 MG t} 300 MG Metoprolol Metoprolol No 1{table BID Metoprolol Tartrate Tartrate t_with_ Tartrate 100 MG 100 MG food} 100 MG Irbesartan Irbesartan No 1{table QD Irbesartan 300 MG 300 MG t} 300 MG Pravastatin Pravastatin No 1{table QD Pravastati Sodium 40 Sodium 40 t} n Sodium MG MG 40 MG Aspirin 81 Aspirin 81 No 1{table QD Aspirin 81 MG MG t} MG predniSONE predniSONE No 1{table QD predniSONE 5 MG 5 MG t} 5 MG Actemra 162 Actemra 162 No .9{ml} Actemra MG/0.9ML MG/0.9ML 162 MG/0.9ML Vitamin D Vitamin D No Vitamin D Doxazosin Doxazosin No QD Doxazosin Mesylate 2 Mesylate 2 Mesylate 2 MG MG MG Fish Oil Fish Oil No Fish Oil metFORMIN metFORMIN No metFORMIN HCl ER 750 HCl ER 750 HCl ER 750 MG MG MG Metoprolol Metoprolol No 1{table BID Metoprolol Tartrate Tartrate t_with_ Tartrate 100 MG 100 MG food} 100 MG Irbesartan Irbesartan No 1{table QD Irbesartan 300 MG 300 MG t} 300 MG Pravastatin Pravastatin No 1{table QD Pravastati Sodium 40 Sodium 40 t} n Sodium MG MG 40 MG Aspirin 81 Aspirin 81 No 1{table QD Aspirin 81 MG MG t} MG predniSONE predniSONE No 1{table QD predniSONE 5 MG 5 MG t} 5 MG Actemra 162 Actemra 162 No .9{ml} Actemra MG/0.9ML MG/0.9ML 162 MG/0.9ML Vitamin D Vitamin D No Vitamin D Doxazosin Doxazosin No QD Doxazosin Mesylate 2 Mesylate 2 Mesylate 2 MG MG MG Fish Oil Fish Oil No Fish Oil metFORMIN metFORMIN No metFORMIN HCl ER 750 HCl ER 750 HCl ER 750 MG MG MG tiZANidine tiZANidine No 1{table [...] [place] MG/1.14ML MG/1.14ML 200 MG/1.14ML Immunizations Ordered Filled Immunization Date Status Comments [facility] e Immunization Name Name FLUZONE HIGH DOSE FLUZONE HIGH DOSE 2022-06-16 Completed [facility] OVER 65 OVER 65 14:05:00 - [facility] FLUZONE HIGH DOSE FLUZONE HIGH DOSE 2022-06-16 Completed [facility] OVER 65 OVER 65 14:05:00 - [facility] FLUZONE HIGH DOSE FLUZONE HIGH DOSE Unknown Completed [facility] OVER 65 OVER 65 - [facility] FLUZONE HIGH DOSE FLUZONE HIGH DOSE Unknown Completed [facility] OVER 65 OVER 65 - [facility] Vital Signs Vital Name Observation Time Observation Value Comments Source height 2022-10-01 11:40:00 59.00 [in_i] [facility] weight 2022-10-01 11:40:00 120.4 [lb_av] [facility] temperature 2022-10-01 11:40:00 97.9 [degF] [facility] bmi 2022-10-01 11:40:00 24.32 kg/m2 [facility] oximetry 2022-10-01 11:40:00 99 % [facility] respiratory rate 2022-10-01 11:40:00 17 /min Comm on [facility] blood pressure 2022-10-01 11:40:00 139 mm[Hg] [facility] - systolic [facility] blood pressure 2022-10-01 11:40:00 67 mm[Hg] [facility] - diastolic [facility] height 2022-06-30 13:00:00 59.00 [in_i] [facility] weight 2022-06-30 13:00:00 124.7 [lb_av] [facility] temperature 2022-06-30 13:00:00 98.1 [degF] [facility] bmi 2022-06-30 13:00:00 25.18 kg/m2 Common [facility] oximetry 2022-06-30 13:00:00 98 % Common [facility] respiratory rate 2022-06-30 13:00:00 16 /min Comm on [facility] blood pressure 2022-06-30 13:00:00 140 mm[Hg] [facility] - systolic [facility] blood pressure 2022-06-30 13:00:00 75 mm[Hg] [facility] - diastolic [facility] height 2022-06-16 13:00:00 59.00 [in_i] Common [facility] weight 2022-06-16 13:00:00 124.5 [lb_av] [facility] temperature 2022-06-16 13:00:00 98.2 [degF] Common [facility] bmi 2022-06-16 13:00:00 25.14 kg/m2 [facility] oximetry 2022-06-16 13:00:00 99 % Common [facility] respiratory rate 2022-06-16 13:00:00 16 /min Comm on [facility] blood pressure 2022-06-16 13:00:00 147 mm[Hg] [facility] - systolic [facility] blood pressure 2022-06-16 13:00:00 75 mm[Hg] [facility] - diastolic [facility] height 2021-11-12 11:30:00 59.00 [in_i] Common [facility] weight 2021-11-12 11:30:00 139.7 [lb_av] [facility] temperature 2021-11-12 11:30:00 98.7 [degF] Common [facility] bmi 2021-11-12 11:30:00 28.21 kg/m2 Common [facility] oximetry 2021-11-12 11:30:00 96 % Common [facility] respiratory rate 2021-11-12 11:30:00 16 /min Comm on [facility] blood pressure 2021-11-12 11:30:00 140 mm[Hg] [facility] - systolic [facility] blood pressure 2021-11-12 11:30:00 72 mm[Hg] [facility] - diastolic [facility] height 2021-11-12 11:00:00 59.00 [in_i] Common S [facility] weight 2021-11-12 11:00:00 139.7 [lb_av] Common [facility] temperature 2021-11-12 11:00:00 98.7 [degF] Common [facility] bmi 2021-11-12 11:00:00 28.21 kg/m2 [facility] oximetry 2021-11-12 11:00:00 96 % Common [facility] respiratory rate 2021-11-12 11:00:00 16 /min Comm on [facility] blood pressure 2021-11-12 11:00:00 140 mm[Hg] [facility] - systolic [facility] blood pressure 2021-11-12 11:00:00 72 mm[Hg] [facility] - diastolic [facility] height 2021-10-22 10:00:00 59.00 [in_i] Common [facility] weight 2021-10-22 10:00:00 127.1 [lb_av] Common [facility] temperature 2021-10-22 10:00:00 97.0 [degF] [facility] bmi 2021-10-22 10:00:00 25.67 kg/m2 Common [facility] oximetry 2021-10-22 10:00:00 95 % Common [facility] respiratory rate 2021-10-22 10:00:00 16 /min Comm on [facility] blood pressure 2021-10-22 10:00:00 141 mm[Hg] [facility] - systolic [facility] blood pressure 2021-10-22 10:00:00 79 mm[Hg] [facility] - diastolic [facility] Systolic blood 2020-07-08 21:07:00 164 mm[Hg] Univer sity of pressure [facility] Diastolic blood 2020-07-08 21:07:00 75 mm[Hg] Unive rsity of [facility] Heart rate 2020-07-08 21:07:00 64 /min [facility] Body height 2020-07-08 21:00:00 149.9 cm [facility] Body weight 2020-07-08 21:00:00 54.976 kg [facility] BMI 2020-07-08 21:00:00 24.48 kg/m2 [facility] Procedures Procedure Date / Time Performing Clinician Source Performed AUTHORIZATION FOR 2019-02-06 05:01:00 Doctor Unassigned, No [facility] RELEASE OF PHI Name [facility] Encounters Start End Encounter Admission Attending Care Care Encounter Source Date/Time Date/Time Type Type Clinicians Facility Department ID 2022-12-24 Outpatient Benjamin, STLMLC STLC [id number] Common 08:14:01 [place] [id number] [facility] 2022-12-15 Outpatient Benjamin, STLMLC STLC [id number] Common 15:58:01 [place] [id number] [facility] 2022-06-30 Outpatient Benjamin, STLMLC STLC [id number] Common 07:26:00 [place] [id number] [facility] 2022-06-18 Outpatient Benjamin, STLMLC STLC [id number] Common 14:57:01 [place] [id number] [facility] 2022-06-12 Outpatient Benjamin, STLMLC STLC [id number] Common 10:16:03 Avnee [facility] 2022-01-06 Outpatient Benjamin, STLMLC STLC [id number] Common 16:40:01 [facility] 2021-12-05 Outpatient Benjamin, STLMLC STLMLC [id number] Common 15:02:02 [facility] 2021-11-17 Outpatient Benjamin, STLMLC STLMLC [id number] Common 09:25:09 [facility] 2021-11-11 Outpatient Benjamin, STLMLC STLMLC [id number] Common 13:25:02 [facility] 2021-11-06 Outpatient Benjamin, STLMLC STLMLC [id number] Common 10:00:03 [facility] 2021-10-22 Outpatient Benjamin, STLMLC STLMLC [id number] Common 16:34:02 [facility] 2023-05-10 2023-05-13 Inpatient KIESHA Escobedoterry, HCACL INTE [id number] [facility] 12:51:00 14:38:[address] [place] [address] 2022-10-01 2022-10-01 OFFICE STLMLC STLMLC [id number] Co mmon 00:00:00 00:00:00 VISIT [facility] PT - CHI LEVEL [address] [place] [address] 2022-09-22 2022-09-22 (TEL) STLMLC STLMLC [id number] Co mmon 00:00:00 00:00:00 [facility] 2022-06-30 2022-06-30 OFFICE STLMLC STLMLC [id number] Co mmon 00:00:00 00:00:00 VISIT [facility] PT - CHI LEVEL 4 [facility] 2022-06-16 2022-06-16 OFFICE STLMLC STLMLC [id number] Co mmon 00:00:00 00:00:00 VISIT [facility] PT - CHI LEVEL [address] [place] [address] 2022-02-26 2022-02-26 (TEL) STLMLC STLMLC [id number] Co mmon 00:00:00 00:00:00 [facility] 2022-02-20 2022-02-20 OL DIG E/M STLMLC STLMLC [id number] Common 00:00:00 00:00:00 C 11-20 Spir it MIN - [facility] 2022-01-06 2022-01-06 (TEL) STLMLC STLMLC [id number] Co mmon 00:00:00 00:00:00 [facility] 2021-11-25 2021-11-25 (TEL) STLMLC STLMLC [id number] Co mmon 00:00:00 00:00:00 Spirit [facility] 2021-11-12 2021-11-12 OFFICE STLMLC STLMLC [id number] Co mmon 00:00:00 00:00:00 VISIT Spirit ESTAB PT - CHI LEVEL 4 [facility] 2021-11-12 2021-11-12 SUB ANNUAL STLMLC STLMLC [id number] Common 00:00:00 00:00:00 MCR [facility] WELLNESS - CHI VISIT [facility] 2021-11-06 2021-11-06 (TEL) STLMLC STLMLC [id number] Co mmon 00:00:00 00:00:00 [facility] 2021-10-22 2021-10-22 OFFICE STLMLC STLMLC [id number] Co mmon 00:00:00 00:00:00 VISIT NEW Spir it PT LEVEL 4 - [facility] 2020-09-06 2020-09-06 [facility] [id number] Univers 00:00:00 00:00:00 [facility] [id number] i ty of [facility] [id number] Jeffery ROSE [phone] Ks dical [facility] 2020-08-12 2020-08-12 Outpatient R DONATO [facility] [id number] Univers 13:10:00 13:10:00 NIRALI gilliam [facility] 2020-08-08 2020-08-08 [facility] [id number] Univers 00:00:00 00:00:00 Nirali MCDONALD [id number] ity of CARE 4.2.7.2.686 [facility] AT [phone] Ks dical VICTORY 198 [facility] 2020-07-16 2020-07-16 Outpatient Yany MIDDLETONCASIANO [facility] [id number] Univers 14:15:00 14:15:00 LADY mane [facility] 2020-07-08 2020-07-08 Office [facility] [id number] Univers 14:49:14 15:40:00 Visit Manpreet [facility] [id number] it y of Surgical 4.2.7.2.686 Filipe as Specialti [phone] Ks dical es 198 [facility] 2020-07-08 2020-07-08 [facility] [id number] Univers 15:15:00 15:15:00 MANPREET gilliam [facility] 2020-06-24 2020-06-24 Telephone [facility] [id number] Univers 00:00:00 00:00:00 [facility] [id number] it y of League 4.2.7.2.686 [facility] [phone] [address] ([facility]) 2019-02-06 2019-02-06 Orders Doctor NIRALI [id number] Univers 00:00:00 00:00:00 Only Unassigned, ADELAIDE 350.1.13.10 ity of [place] [facility] 4.2.7.2.686 Filipe as [phone] [address] Results Test Description Test Time Test Comments Results Result Comments Source GLUCOSE BEDSIDE 2023-05-13 11:59:00 Test Item Value Reference Range Interpretation Comme nts GLUCOSE BEDSIDE (test code = 237 MG/DL 70-110 H Performed by certified printing sign machine operator at [facility]) [facility] GLUCOSE [id number] 07:39:00 Test Item Value Reference Range Interpretation Comments GLUCOSE BEDSIDE (test 162 MG/DL 70-110 H Perfor med by certified code = GLUBED) printing sign machine operator at [facility] BASIC METABOLIC [id number] 04:55:00 Test Item Value Reference Range Interpretation Comments SODIUM (test code = 135 mEq/L 134-147 N NA) POTASSIUM (test code 4.3 mEq/L 3.4-5.0 N = K) CHLORIDE (test code 102 mEq/L 100-108 N = CL) CARBON DIOXIDE (test 24 mEq/l 21-33 N code = CO2) ANION GAP (test code 13 0-20 N = GAP) GLUCOSE (test code = 150 mg/dL 77-141 H NOTE: N EW NORMAL RANGE GLU) BLOOD UREA NITROGEN 21 mg/dL 7-25 N NOTE: NE W NORMAL RANGE (test code = BUN) GLOMERULAR 54.4 80-90 L The Glomerular FILTRATION RATE Filtration R ate is a (test code = GFR) calculated parameterbased on serum Creatinine, pat ient age and sex. GFR va luesless than 60 mL/min/ 1.73 square meters a re indicative ofCh ronic Kidney Disease. Values less than 15 mL/min/1.73squa re meters indicate Kidney failure. The calculation forGFR is based on the CKD-EPI (2020) calculat ion. This formulais race indifferent and is the recommended for brianne for GFRby the formerly [facility] on for Adults.The GFR will not calculate if th e sex is unknown or if thepatient's ag e is <18 years. CREATININE (test 1.1 mg/dL 0.6-1.3 N code = CREAT) CALCIUM (test code = 8.3 mg/dL 8.0-10.5 N CA) [id number] 04:55:00 Test Item Value Reference Range Interpretation Comments PHOSPHOROUS (test code = PHOS) 3.9 MG/DL 2.5-4.9 N [id number] 04:55:00 Test Item Value Reference Range Interpretation Comments MAGNESIUM (test code = 1.87 mg/dL 1.6-2.6 N NOTE: NEW NORMAL MAG) RANGE CALCIUM [id number] 04:55:00 Test Item Value Reference Range Interpretation Comments CALCIUM IONIZED (test code = RAGHU) 1.15 MMOL/L 1.09-1.30 N CBC W/AUTO [id number] 04:32:00 Test Item Value Reference Range Interpretation Comments WHITE BLOOD CELL (test code = 11.3 x10 3/uL 4.5-11.0 H WBC) RED BLOOD CELL (test code = 3.26 x10 6/uL 3.54-5.02 L RBC) HEMOGLOBIN (test code = HGB) 9.9 g/dL 11.0-15.0 L HEMATOCRIT (test code = HCT) 29.8 % 33.0-45.0 L MEAN CELL VOLUME (test code = 91.4 fL 81.0-99.0 N MCV) MEAN CELL HGB (test code = MCH) 30.4 pg 27.0-33.0 N MEAN CELL HGB CONCETRATION 33.2 g/dL 33.0-37.0 N (test code = MCHC) RED CELL DISTRIBUTION WIDTH CV 12.4 % 11.5-14.5 N (test code = RDW) RED CELL DISTRIBUTION WIDTH SD 41.6 fL 37.0-54.0 N (test code = RDW-SD) PLATELET COUNT (test code = 225 x10 3/uL 150-400 N PLT) MEAN PLATELET VOLUME (test code 10.3 fL 7.0-9.0 H = MPV) NEUTROPHIL % (test code = NT%) 63.3 % 56.0-77.0 N IMMATURE GRANULOCYTE % (test 0.5 % 0.0-2.0 N code = IG%) LYMPHOCYTE % (test code = LY%) 24.3 % 14.0-32.0 N MONOCYTE % (test code = MO%) 9.7 % 4.8-9.0 H EOSINOPHIL % (test code = EO%) 1.8 % 0.3-3.7 N BASOPHIL % (test code = BA%) 0.4 % 0.0-2.0 N NUCLEATED RBC % (test code = 0.0 % 0-0 N NRBC%) NEUTROPHIL # (test code = NT#) 7.18 x10 3/uL 2.0-7.6 N IMMATURE GRANULOCYTE # (test 0.06 x10 3/uL 0.00-0.03 H code = IG#) LYMPHOCYTE # (test code = LY#) 2.75 x10 3/uL 1.0-3.8 N MONOCYTE # (test code = MO#) 1.10 x10 3/uL 0.1-0.8 H EOSINOPHIL # (test code = EO#) 0.20 x10 3/uL 0.0-0.2 N BASOPHIL # (test code = BA#) 0.05 x10 3/uL 0.0-0.2 N NUCLEATED RBC # (test code = 0.00 x10 3/uL 0.0-0.1 N NRBC#) GLUCOSE [id number] 21:23:00 Test Item Value Reference Range Interpretation Comments GLUCOSE BEDSIDE (test 152 MG/DL 70-110 H Perfor med by certified code = GLUBED) printing sign machine operator at [facility] GLUCOSE [id number] 17:14:00 Test Item Value Reference Range Interpretation Comments GLUCOSE BEDSIDE (test 164 MG/DL 70-110 H Perfor med by certified code = GLUBED) printing sign machine operator at [facility] GLUCOSE [id number] 11:56:00 Test Item Value Reference Range Interpretation Comments GLUCOSE BEDSIDE (test 257 MG/DL 70-110 H Perfor med by certified code = GLUBED) printing sign machine operator at [facility] BASIC METABOLIC [id number] 07:11:00 Test Item Value Reference Range Interpretation Comments SODIUM (test code = 137 mEq/L 134-147 N NA) POTASSIUM (test code 4.4 mEq/L 3.4-5.0 N = K) CHLORIDE (test code 107 mEq/L 100-108 N = CL) CARBON DIOXIDE (test 21 mEq/l 21-33 N code = CO2) ANION GAP (test code 13 0-20 N = GAP) GLUCOSE (test code = 143 mg/dL 77-141 H NOTE: N EW NORMAL RANGE GLU) BLOOD UREA NITROGEN 22 mg/dL 7-25 N NOTE: NE W NORMAL RANGE (test code = BUN) GLOMERULAR 49.0 80-90 L The Glomerular FILTRATION RATE Filtration R ate is a (test code = GFR) calculated parameterbased on serum Creatinine, pat ient age and sex. GFR va luesless than 60 mL/min/ 1.73 square meters a re indicative ofCh ronic Kidney Disease. Values less than 15 mL/min/1.73squa re meters indicate Kidney failure. The calculation forGFR is based on the CKD-EPI (2020) calculat ion. This formulais race indifferent and is the recommended for brianne for GFRby the formerly [facility] Foundati on for Adults.The GFR will not calculate if th e sex is unknown or if thepatient's ag e is <18 years. CREATININE (test 1.2 mg/dL 0.6-1.3 N code = CREAT) CALCIUM (test code = 9.2 mg/dL 8.0-10.5 N CA) [id number] 07:11:00 Test Item Value Reference Range Interpretation Comments PHOSPHOROUS (test code = PHOS) 4.8 MG/DL 2.5-4.9 N [id number] 07:11:00 Test Item Value Reference Range Interpretation Comments MAGNESIUM (test code = 1.99 mg/dL 1.6-2.6 N NOTE: NEW NORMAL MAG) RANGE CALCIUM [id number] 07:11:00 Test Item Value Reference Range Interpretation Comments CALCIUM IONIZED (test code = RAGHU) 1.11 MMOL/L 1.09-1.30 N CBC W/AUTO [id number] 05:16:00 Test Item Value Reference Range Interpretation Comments WHITE BLOOD CELL (test code = 11.4 x10 3/uL 4.5-11.0 H WBC) RED BLOOD CELL (test code = 3.35 x10 6/uL 3.54-5.02 L RBC) HEMOGLOBIN (test code = HGB) 10.1 g/dL 11.0-15.0 L HEMATOCRIT (test code = HCT) 31.4 % 33.0-45.0 L MEAN CELL VOLUME (test code = 93.7 fL 81.0-99.0 N MCV) MEAN CELL HGB (test code = MCH) 30.1 pg 27.0-33.0 N MEAN CELL HGB CONCETRATION 32.2 g/dL 33.0-37.0 L (test code = MCHC) RED CELL DISTRIBUTION WIDTH CV 12.5 % 11.5-14.5 N (test code = RDW) RED CELL DISTRIBUTION WIDTH SD 43.2 fL 37.0-54.0 N (test code = RDW-SD) PLATELET COUNT (test code = 209 x10 3/uL 150-400 N PLT) MEAN PLATELET VOLUME (test code 10.3 fL 7.0-9.0 H = MPV) NEUTROPHIL % (test code = NT%) 67.6 % 56.0-77.0 N IMMATURE GRANULOCYTE % (test 0.6 % 0.0-2.0 N code = IG%) LYMPHOCYTE % (test code = LY%) 20.1 % 14.0-32.0 N MONOCYTE % (test code = MO%) 9.6 % 4.8-9.0 H EOSINOPHIL % (test code = EO%) 1.7 % 0.3-3.7 N BASOPHIL % (test code = BA%) 0.4 % 0.0-2.0 N NUCLEATED RBC % (test code = 0.0 % 0-0 N NRBC%) NEUTROPHIL # (test code = NT#) 7.71 x10 3/uL 2.0-7.6 H IMMATURE GRANULOCYTE # (test 0.07 x10 3/uL 0.00-0.03 H code = IG#) LYMPHOCYTE # (test code = LY#) 2.29 x10 3/uL 1.0-3.8 N MONOCYTE # (test code = MO#) 1.10 x10 3/uL 0.1-0.8 H EOSINOPHIL # (test code = EO#) 0.19 x10 3/uL 0.0-0.2 N BASOPHIL # (test code = BA#) 0.05 x10 3/uL 0.0-0.2 N NUCLEATED RBC # (test code = 0.00 x10 3/uL 0.0-0.1 N NRBC#) GLUCOSE [id number] 21:17:00 Test Item Value Reference Range Interpretation Comments GLUCOSE BEDSIDE (test 251 MG/DL 70-110 H Perfor med by certified code = GLUBED) printing sign machine operator at [facility] GLUCOSE [id number] 17:26:00 Test Item Value Reference Range Interpretation Comments GLUCOSE BEDSIDE (test 160 MG/DL 70-110 H Perfor med by certified code = GLUBED) printing sign machine operator at [facility] GLUCOSE [id number] 11:43:00 Test Item Value Reference Range Interpretation Comments GLUCOSE BEDSIDE (test 168 MG/DL 70-110 H Perfor med by certified code = GLUBED) printing sign machine operator at [facility] GLUCOSE [id number] 08:25:00 Test Item Value Reference Range Interpretation Comments GLUCOSE BEDSIDE (test 143 MG/DL 70-110 H Perfor med by certified code = GLUBED) printing sign machine operator at [facility] BASIC METABOLIC [id number] 05:06:00 Test Item Value Reference Range Interpretation Comments SODIUM (test code = 140 mEq/L 134-147 N NA) POTASSIUM (test code 4.1 mEq/L 3.4-5.0 N = K) CHLORIDE (test code 107 mEq/L 100-108 N = CL) CARBON DIOXIDE (test 23 mEq/l 21-33 N code = CO2) ANION GAP (test code 14 0-20 N = GAP) GLUCOSE (test code = 124 mg/dL 77-141 N NOTE: N EW NORMAL RANGE GLU) BLOOD UREA NITROGEN 25 mg/dL 7-25 N NOTE: NE W NORMAL RANGE (test code = BUN) GLOMERULAR 49.0 80-90 L The Glomerular FILTRATION RATE Filtration R ate is a (test code = GFR) calculated parameterbased on serum Creatinine, pat ient age and sex. GFR v aluesless than 60 mL/min/ 1.73 square meters a re indicative ofCh ronic Kidney Disease. Values less than 15 mL/min/1.73squa re meters indicate Kidney failure. The calculation forGFR is based on the CKD-EPI (2020) calculat ion. This formulais race indifferent and is the recommended for brianne for GFRby the [facility] on for Adults.The GFR will not calculate if th e sex is unknown or if thepatient's ag e is <18 years. CREATININE (test 1.2 mg/dL 0.6-1.3 N code = CREAT) CALCIUM (test code = 8.2 mg/dL 8.0-10.5 N CA) THYROID STIMULATING [id number] 05:06:00 Test Item Value Reference Range Interpretation Comments THYROID STIMULATING 1.43 0.42-5.47 N Results in HORMONE (test code = TSH) mi lli-International Units/mL [id number] 04:52:00 Test Item Value Reference Range Interpretation Comments HGBA1C% (test code = HGBA1C%) 6.2 %A1C 4.8-6.0 H CBC W/AUTO [id number] 04:43:00 Test Item Value Reference Range Interpretation Comments WHITE BLOOD CELL (test code = 11.8 x10 3/uL 4.5-11.0 H WBC) RED BLOOD CELL (test code = 3.27 x10 6/uL 3.54-5.02 L RBC) HEMOGLOBIN (test code = HGB) 9.8 g/dL 11.0-15.0 L HEMATOCRIT (test code = HCT) 30.4 % 33.0-45.0 L MEAN CELL VOLUME (test code = 93.0 fL 81.0-99.0 N MCV) MEAN CELL HGB (test code = MCH) 30.0 pg 27.0-33.0 N MEAN CELL HGB CONCETRATION 32.2 g/dL 33.0-37.0 L (test code = MCHC) RED CELL DISTRIBUTION WIDTH CV 12.5 % 11.5-14.5 N (test code = RDW) RED CELL DISTRIBUTION WIDTH SD 43.1 fL 37.0-54.0 N (test code = RDW-SD) PLATELET COUNT (test code = 198 x10 3/uL 150-400 N PLT) MEAN PLATELET VOLUME (test code 10.2 fL 7.0-9.0 H = MPV) NEUTROPHIL % (test code = NT%) 65.6 % 56.0-77.0 N IMMATURE GRANULOCYTE % (test 0.4 % 0.0-2.0 N code = IG%) LYMPHOCYTE % (test code = LY%) 23.2 % 14.0-32.0 N MONOCYTE % (test code = MO%) 8.6 % 4.8-9.0 N EOSINOPHIL % (test code = EO%) 1.7 % 0.3-3.7 N BASOPHIL % (test code = BA%) 0.5 % 0.0-2.0 N NUCLEATED RBC % (test code = 0.0 % 0-0 N NRBC%) NEUTROPHIL # (test code = NT#) 7.76 x10 3/uL 2.0-7.6 H IMMATURE GRANULOCYTE # (test 0.05 x10 3/uL 0.00-0.03 H code = IG#) LYMPHOCYTE # (test code = LY#) 2.74 x10 3/uL 1.0-3.8 N MONOCYTE # (test code = MO#) 1.02 x10 3/uL 0.1-0.8 H EOSINOPHIL # (test code = EO#) 0.20 x10 3/uL 0.0-0.2 N BASOPHIL # (test code = BA#) 0.06 x10 3/uL 0.0-0.2 N NUCLEATED RBC # (test code = 0.00 x10 3/uL 0.0-0.1 N NRBC#) POC ARTERIAL BLOOD [id number] 04:34:00 Test Item Value Reference Range Interpretation Comments POC ARTERIAL BLOOD GAS PH (test 7.457 7.35-7.45 H code = POCPHA) POC ARTERIAL BLOOD GAS PCO2 30.7 mmHg 35.0-45 L (test code = ERYWCK4R) POC TCO2 ARTERIAL (test code = 22.6 POCTCO2) POC ARTERIAL BLOOD GAS PO2 (test 75.5 mmHg 80-100.0 L code = PQWKF1S) POC HCO3 ARTERIAL (test code = 21.7 MMOL/L 22.0-26.0 L [id number]) POC BASE EXCESS (test code = -2.2 MMOL/L -4.0-4.0 N POCBEA) POC O2 SATURATION (test code = 95.9 % 90-100 N POCO2S) FIO2 (test code = FIO2A) 21.0 % PaO2/FiO2 (test code = OSC1QRO7) 359.50 mm/Hg ABG DELIVERY (test code = HUMBERTO) room air ABG SITE (test code = SITEA) R Radial JAMISON'S TEST (test code = Positive ALLENS) BASIC METABOLIC [id number] 04:34:00 Test Item Value Reference Range Interpretation Comments SODIUM (test code = NA/ABG) 139 mmol/L 134-147 N POTASSIUM (test code = K/ABG) 4.1 mmol/L 3.4-5.0 N CHLORIDE (test code = CL/ABG) 109 mmol/L 100-108 H CREATININE ABG (test code = 1.2 mg/dL 0.6-1.0 H CREAABG) POC IONIZED CALCIUM (test code = 1.20 MMOL/L 1.12-1.32 N POCCA) POC GLUCOSE (test code = POCGLU) 134 MG/DL 70-110 H HEMOGLOBIN [id number] 04:34:00 Test Item Value Reference Range Interpretation Comments HEMOGLOBIN ABG (test code = 10.9 G/DL 11.0-15.0 L HGB/ABG) [id number] 04:34:00 Test Item Value Reference Range Interpretation Comments HEMATOCRIT (test code = HCT/ABG) 32 % 33.0-45.0 L POC LACTIC [id number] 04:34:00 Test Item Value Reference Range Interpretation Comments POC LACTIC ACID (test code = 0.7 mmol/l 0.9-1.7 L POCLAC) [id number] 20:50:00 Test Item Value Reference Range Interpretation Comments AMMONIA (test code = AMM) < 10 umol/L 11-35 L GLUCOSE [id number] 20:43:00 Test Item Value Reference Range Interpretation Comments GLUCOSE BEDSIDE (test 170 MG/DL 70-110 H Perfor med by certified code = GLUBED) printing sign machine operator at [facility] UA RFLX MICR CULT IF [id number] 20:31:00 Test Item Value Reference Range Interpretation Comments UA COLOR (test code = COLU) YELLOW YEL/STRAW UA APPEARANCE (test code = CLEAR CLEAR APPU) UA GLUCOSE DIPSTICK (test code 1+ NEGATIVE A = DGLUU) UA BILIRUBIN DIPSTICK (test NEGATIVE NEGATIVE code = BILU) UA KETONE DIPSTICK (test code = NEGATIVE NEGATIVE KETU) UA SPECIFIC GRAVITY (test code 1.049 1.005-1.030 H = SGU) UA BLOOD DIPSTICK (test code = 3+ NEGATIVE A LESLIE) UA PH DIPSTICK (test code = 5.0 5.0-7.0 N BIPIN) UA PROTEIN DIPSTICK (test code NEGATIVE NEGATIVE = PROU) UA UROBILINIOGEN DIPSTICK (test 0.2 mg/dL 0.2-1.0 code = URO) UA NITRITE DIPSTICK (test code POSITIVE NEGATIVE A = BEBE) UA LEUKOCYTE ESTERASE DIPSTICK 2+ NEGATIVE A (test code = LEUU) UA WBC (test code = WBCU) 10-20 WBC/HPF 0-3 A UA RBC (test code = RBCU) 4-10 RBC/HPF 0-3 UA WBC NO REFLEX (test code = 10-20 WBC/HPF 0-3 A WBCUCL) UA BACTERIA (test code = BACU) TRACE /HPF NONE SEEN UA SQUAMOUS CELLS (test code = 0-5 /HPF NONE SEEN SQU) UA MUCUS (test code = MUCU) TRACE /LPF NONE SEEN Indication for culture: RiskForSepsis-no oth srcSpecimen Description: STRAIGHT CATH- CT HEAD/BRAIN W/O [id number] 18:02:00 [facility] L[facility]EN[facility] SAFIA CAPONE : 1955 Sex: F Name:SAFIA CAPONE [facility] [place] : 1955 Age/S: 67 / F [address] [place] [address] Blvd Unit #: [id number] Loc: [place] [address] Phys: Tammy Chamberlain 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 TECHNIQUE: Routine non contrast enhanced axial images wereobtained for the skull base to the vertex. Sagittal and coronal reformats were obtained and reviewed. One or more of the following radiation dose reduction techniques was used: automated exposure control, adjustment of mA and/or KV according to patient size, and/or utilization of iterative reconstruction technique. FINDINGS: The ventricles and cortical sulci demonstrate mild diffuse prominence, with generalized parenchymal volume loss. There is no midline shift or mass-effect. No acute intra-axial hemorrhage is present. There are nonspecific focal and confluent areas of abnormal low attenuation in the periventricular and subcortical white matter. Duke-white matter differentiation is maintained. Noevidence of acute cortical infarct is present. No extra-axial masses or collections are present. Thebony calvarium is intact. The paranasal sinuses are clear. Mastoid air cells are patent. IMPRESSION:1. No CT evidence of intracranial hemorrhage or acute cortical infarct. 2. Nonspecific white matter changes which may represent chronic small vessel ischemia. 3. Generalized parenchymal volume loss. at 1802 Reported and signed by: Jorgito Chairez M.D. PAGE 1 Signed Report (CONTINUED) Name: SAFIA CAPONE [facility] [place] : 1955 Age/S: 67/ F [address] [place] [address] Unit #: [id number] Loc: [place] [address] Phys: Tammy Chamberlain NP Acct: [id number] Dis Date: Status: ADM IN PHONE #: [phone] Exam Date: 05/10/2023 174 FAX #: [phone] Reason: altered mental status EXAMS: CPT CODE: [id number] CT HEAD/BRAIN W/O CONT 17325 (Continued) CC: Joaquin Lemon MD; Tammy Chamberlain NP Technologist:Miguelangel Minaya Jr, RT(R)(CT) CTDI: DLP: Trnscb Date/Time: 05/10/2023 (1801) [email or web address] Orig Print D/T: S: 05/10/2023 (1804) PAGE 2 Signed Report- XR CHEST 1 [id number] 15:57:00 [facility] : 1955 Sex: F FAX: Carmen Heaton MD [phone] [place]: St: [facility] FAX: Joaquin Givens [phone] Name: SAFIA CAPONE [facility] [place] : 1955 Age/S: 67/F [address] [place] [address] Blvd Unit #: [id number] Loc: G.3313 [place] [address] Phys: Carmen Mckeon MD Acct: [id number] Dis Date: Status: ADM IN PHONE #: [phone] ExamDate: 05/10/2023 1526 FAX #: [phone] Reason: PRE OP EXAMS: CPT CODE: [id number] XR CHEST 1 V 86803 LOCATION: B2 EXAM: - XR CHEST 1 V HISTORY: PRE OP COMPARISON: None FINDINGS: The lungs are clear.No pleural effusion or pneumothorax. The cardiac silhouette is within normal limits. No acute osseous abnormalities. IMPRESSION: No acute cardiopulmonary disease. at 1557 Reported and signed by: Armando Knight M.D. CC: Carmen Mckeon MD; Joaquin Lemon MD Technologist: RT Bonita(R) Trnscrd Date/Time/By: 05/10/2023 (4477) : By: [email or web address] Orig Print D/T: S: 05/10/2023 (4802) PAGE 1 Signed ReportLIPOPROTEIN [id number] 14:49:00 Test Item Value Reference Range Interpretation Comments LIPOPROTEIN LDL 123.0 mg/dL 0-100 H <100 OPTIMAL 100-129 (test code = LDL) NEAR OPTIM AL/ABOVE [id number] HIGH>BK=253 LUIZ Y HIGH*Guidelines provided by the National Choles terol EducationProgra Adult Treatment Panel III COMPREHENSIVE METABOLIC [id number] 14:27:00 Test Item Value Reference Range Interpretation Comments SODIUM (test code = 138 mEq/L 134-147 N NA) POTASSIUM (test code 4.4 mEq/L 3.4-5.0 N = K) CHLORIDE (test code 106 mEq/L 100-108 N = CL) CARBON DIOXIDE (test 25 mEq/l 21-33 N code = CO2) ANION GAP (test code 11 0-20 N = GAP) GLUCOSE (test code = 140 mg/dL 77-141 N NOTE: N EW NORMAL RANGE GLU) BLOOD UREA NITROGEN 26 mg/dL 7-25 H NOTE: NE W NORMAL RANGE (test code = BUN) GLOMERULAR 54.4 80-90 L The Glomerular FILTRATION RATE Filtration R ate is a (test code = GFR) calculated parameterbased on serum Creatinin e, patient age and sex. GFR valuesless than 60 mL/min/1.73 squ are meters are jm cative ofChronic Kidne y Disease. Values less than 15 mL/min/1.73squa re meters indicate Kidney failure. The calculation for GFR is based on the CK D-EPI (2020) calculat ion. This formulais race indifferent and is the recommended for brianne for GFRby the N ational Kidney Foundati on for Adults.The GFR will not calculate i f the sex is unknown or if thepatient's ag e is <18 years. CREATININE (test 1.1 mg/dL 0.6-1.3 N code = CREAT) TOTAL PROTEIN (test 6.6 g/dL 6.4-8.2 N code = PROT) ALBUMIN (test code = 3.70 g/dL 3.4-5.0 N ALB) CALCIUM (test code = 9.0 mg/dL 8.0-10.5 N CA) BILIRUBIN TOTAL 1.00 mg/dL 0.0-1.0 N (test code = BILT) SGOT/AST (test code 54 IUnit/L 8-34 H NOTE: NE W NORMAL RANGE = AST) SGPT/ALT (test code 120 IUnit/L 10-49 H NOTE: NE W NORMAL RANGE = ALT) ALKALINE PHOSPHATASE 57 IUnit/L 20-125 N TOTAL (test code = ALKP) TROP-I HIGH [id number] 14:27:00 Test Item Value Reference Range Interpretation Comments TROP-I HIGH 250 ng/L 0-34 HH Critical result called to SENSITIVITY (test CARTER PAULA VILLAGOMEZ, RNby code = TROPIHS) Anuja.[email or web address] a t 1425 05/10/23Nurse r ead back result and tech confirmed it's correct? Y ESCAUTION: Units of the cu rrent test methodology (ng /L) differfrom the prior test methodology (ng /mL) by a factor of 1000. 99t h Percentile Uppe r Reference Limit (URL): Fe males: 34 ng/LMales: 54 n g/L In order to distin [facility] acute elevations of h igh sensitivitytrop onin from other clinical conditions, the FourthUnive rsal Definition of M yocardial Infarction stressesclinica l assessment and the demonstration o f a rise and/orfall in s erial troponin result s above the URL. These resu lts were obtained using [email or web address] IM TnI Hreagent. Results from di fferent methodologies s hould not becompared to o ne another as quantitative results and URLs mayvar y by method. PROTHROMBIN [id number] 14:15:00 Test Item Value Reference Range Interpretation Comments PROTHROMBIN TIME 10.9 SECONDS 9.3-12.9 N PATIENT (test code = PTP) INTERNATIONAL NORMAL 1.0 0.8-1.2 N TARGET INR BY RATIO (test code = INDICATIO N Indication INR) INR1. Prophylax is of venous thrombos is 2.0 - 3.0 (orthoped ic surgery), Proph ylaxis of venous throm bosis (other than hig h-risk surgery), Treat ment of Deep Vein Thrombosis/Pulm onary Embolism, Preve ntion of systemic emb olism - Tissue heart va lves, Acute Myocardia l Infarction (to prevent systemic emboli sm), Valvular heart disease, Atrial Fibrillation, Bileaflet mecha nical valve in aortic position.2. Mec hanical prosthetic valv es (high risk), 2. 5 - 3.5 Presence of Lup us Anticoagulant o r Antiphospholipi d Antibodies, Pre vention of systemic emb olism - Acute Myocardia l Infarction (to prevent recurrent infar ct). CBC W/AUTO [id number] 14:04:00 Test Item Value Reference Range Interpretation Comments WHITE BLOOD CELL (test code = 12.1 x10 3/uL 4.5-11.0 H WBC) RED BLOOD CELL (test code = 3.51 x10 6/uL 3.54-5.02 L RBC) HEMOGLOBIN (test code = HGB) 10.7 g/dL 11.0-15.0 L HEMATOCRIT (test code = HCT) 32.5 % 33.0-45.0 L MEAN CELL VOLUME (test code = 92.6 fL 81.0-99.0 N MCV) MEAN CELL HGB (test code = MCH) 30.5 pg 27.0-33.0 N MEAN CELL HGB CONCETRATION 32.9 g/dL 33.0-37.0 L (test code = MCHC) RED CELL DISTRIBUTION WIDTH CV 12.5 % 11.5-14.5 N (test code = RDW) RED CELL DISTRIBUTION WIDTH SD 42.4 fL 37.0-54.0 N (test code = RDW-SD) PLATELET COUNT (test code = 218 x10 3/uL 150-400 N PLT) MEAN PLATELET VOLUME (test code 10.3 fL 7.0-9.0 H = MPV) NEUTROPHIL % (test code = NT%) 77.4 % 56.0-77.0 H IMMATURE GRANULOCYTE % (test 0.6 % 0.0-2.0 N code = IG%) LYMPHOCYTE % (test code = LY%) 14.1 % 14.0-32.0 N MONOCYTE % (test code = MO%) 7.3 % 4.8-9.0 N EOSINOPHIL % (test code = EO%) 0.3 % 0.3-3.7 N BASOPHIL % (test code = BA%) 0.3 % 0.0-2.0 N NUCLEATED RBC % (test code = 0.0 % 0-0 N NRBC%) NEUTROPHIL # (test code = NT#) 9.35 x10 3/uL 2.0-7.6 H IMMATURE GRANULOCYTE # (test 0.07 x10 3/uL 0.00-0.03 H code = IG#) LYMPHOCYTE # (test code = LY#) 1.70 x10 3/uL 1.0-3.8 N MONOCYTE # (test code = MO#) 0.88 x10 3/uL 0.1-0.8 H EOSINOPHIL # (test code = EO#) 0.04 x10 3/uL 0.0-0.2 N BASOPHIL # (test code = BA#) 0.04 x10 3/uL 0.0-0.2 N NUCLEATED RBC # (test code = 0.00 x10 3/uL 0.0-0.1 N NRBC#) CBC W/AUTO [id number] 00:00:00 Test Item Value Reference Range Interpretation Comments NUCLEATED RBCS (test 0.0 /100 WBC'S See_Comment [Aut omated message] code = 79348-7) The system [employer] generated this result transmit socorro reference range : 0.0 /100 WBC'S. The reference range was not used to interpret this result as normal/abnormal . ABSOLUTE EOSINOPHILS 0.20 K/UL See_Comment [Autom ated message] (test code = The system [employer] 78636-2) generated this result transmit socorro reference range : 0.00-0.50 K/UL. The reference range was not used to interpret this result as normal/abnormal . ABSOLUTE LYMPHOCYTES 3.03 K/UL See_Comment [Autom ated message] (test code = The system [employer] 71508-7) generated this result transmit socorro reference range : 1.00-4.00 K/UL. The reference range was not used to interpret this result as normal/abnormal . ABSOLUTE MONOCYTES 0.51 K/UL See_Comment [Automat ed message] (test code = The system [employer] 90051-7) generated this result transmit socorro reference range : 0.20-1.00 K/UL. The reference range was not used to interpret this result as normal/abnormal . ABSOLUTE NEUTROPHILS 3.81 K/UL See_Comment [Autom ated message] (test code = The system [employer] 72031-1) generated this result transmit socorro reference range : 1.50-7.50 K/UL. The reference range was not used to interpret this result as normal/abnormal . BASOPHILS (test code 0.7 % = 33985-8) EOSINOPHILS (test 2.6 % code = 71328-2) HEMATOCRIT (test 35.0 % See_Comment [Automated message] code = 18784-0) The system [employer] generated this result transmit socorro reference range : 34.0-45.0 %. Th e reference range was not used to interpret this result as normal/abnormal . HEMOGLOBIN (test 11.0 G/DL See_Comment L [Automated message] code = 718-7) The system [facility] generated this result transmit socorro reference range : 11.5-15.5 G/DL. The reference range was not used to interpret this result as normal/abnormal . LYMPHOCYTES (test 39.7 % code = 51605-9) MCH (test code = 28.4 PG See_Comment [Automated message] 23848-9) The system [facility] generated this result transmit socorro reference range : 25.0-33.0 PG. T he reference range was not used to interpret this result as normal/abnormal . MCHC (test code = 31.4 G/DL See_Comment [Automate d message] 93780-6) The system [facility] generated this result transmit socorro reference range : 31.0-36.0 G/DL. The reference range was not used to interpret this result as normal/abnormal . MCV (test code = 90.2 fL See_Comment [Automated message] 97320-9) The system [facility] generated this result transmit socorro reference range : 80.0-99.0 fL. T he reference range was not used to interpret this result as normal/abnormal . MONOCYTES (test code 6.7 % = 89352-3) NEUTROPHILS (test 49.9 % code = 62758-3) PLATELET COUNT (test 307 K/UL See_Comment [Autom ated message] code = 39437-0) The system [facility] generated this result transmit socorro reference range : 130-400 K/UL. T he reference range was not used to interpret this result as normal/abnormal . RBC (test code = 3.88 M/UL See_Comment [Automated message] 64966-3) The system [facility] generated this result transmit socorro reference range : 3.80-5.40 M/UL. The reference range was not used to interpret this result as normal/abnormal . RDW (test code = 13.0 % See_Comment [Automated message] 46298-0) The system [facility] generated this result transmit socorro reference range : 11.5-15.0 %. Th e reference range was not used to interpret this result as normal/abnormal . WBC (test code = 7.6 K/UL See_Comment [Automated message] 58888-8) The system [facility] generated this result transmit socorro reference range : 3.5-11.0 K/UL. The reference range was not used to interpret this result as normal/abnormal . HEMOGLOBIN [id number] 00:00:00 Test Item Value Reference Range Interpretation Comments HEMOGLOBIN A1c (test 6.9 % See_Comment H [Autom ated message] The code = 4548-4) system which generated this result tra nsmitted reference range : 4.2-5.6 %. The referenc e range was not used to interpret this result as normal/abnormal . TSH REFLEX TO FREE [id number] 00:00:00 Test Item Value Reference Range Interpretation Comments TSH REFLEX TO FREE 0.991 UIU/ML See_Comment [Automat ed message] T4 (test code = The system [facility] 53811-0) generated this result transmitted ref erence range: 0.400-4. 100 UIU/ML. The ref erence range was not u sed to interpret this result as normal/abnor mal. VITAMIN D,1,38-[id number] 00:00:00 Test Item Value Reference Range Interpretation Comments VITAMIN 40.5 PG/ML See_Comment [Automated mes see] D,1,25-DIHYDROXY The system which (test code = 1649-3) generat ed this result transmitted ref erence range: 20.0-82. 0 PG/ML. The reference r carmen was not used to int erpret this result as normal/abnormal . LIPID PANEL WITH REFLEX DIRECT [id number] 00:00:00 Test Item Value Reference Range Interpretation Comments CALC LDL CHOL (test 112 MG/DL See_Comment H [Automa socorro message] code = 39984-4) The system [facility] generated this result transmit socorro reference range : <100 MG/DL. The reference range was not used to interpret this result as normal/abnormal . CHOLESTEROL (test code 200 MG/DL See_Comment H [Aut omated message] = 2093-3) The system [facility] generated this result transmit socorro reference range : <200 MG/DL. The reference range was not used to interpret this result as normal/abnormal . HDL CHOLESTEROL (test 56 MG/DL See_Comment [Auto mated message] code = 2085-9) The system [facility] generated this result transmit socorro reference range : >39 MG/DL. The refe rence range was not u sed to interpret th is result as normal/abnormal . RISK RATIO LDL/HDL 2.00 RATIO See_Comment [Automat ed message] (test code = 73374-4) The sy stem which generated this result transmit socorro reference range : <3.22 RATIO. Th e reference range was not used to interpret this result as normal/abnormal . TRIGLYCERIDES (test 201 MG/DL See_Comment H [Automa socorro message] code = 2571-8) The system [facility] generated this result transmit socorro reference range : <150 MG/DL. The reference range was not used to interpret this result as normal/abnormal . ALBUMIN/CREATININE RATIO, RANDOM [id number] 00:00:00 Test Item Value Reference Range Interpretation Comments ALBUMIN, URINE, 1.3 MG/DL NOT ESTAB MG/DL RANDOM (test code = 44939-2) CALC ALBUMIN/CREAT, 16 MG/G See_Comment [Automa socorro message] The RND (test code = system [employer] generated 42603-6) this result tra nsmitted reference range : <30 MG/G. The refer ence range was not u sed to interpret this result as normal/abnormal . CREATININE, URINE, 83.2 MG/DL NOT ESTAB MG/DL CONC. (test code = 2161-8) COMPREHENSIVE METABOLIC [id number] 00:00:00 Test Item Value Reference Range Interpretation Comments ALBUMIN (test code = 4.3 G/DL See_Comment [Autom ated message] 1751-7) The system [employer] generated this result transmit socorro reference range : 3.5-5.2 G/DL. T he reference range was not used to interpret this result as normal/abnormal . ALKALINE PHOSPHATASE 66 U/L See_Comment [Autom ated message] (test code = 6768-6) The sys tem which generated this result transmit socorro reference range : 40-142 U/L. The reference range was not used to interpret this result as normal/abnormal . BILIRUBIN, TOTAL 0.3 MG/DL See_Comment [Automated message] (test code = 1975-2) The sys tem which generated this result transmit socorro reference range : <=1.2 MG/DL. Th e reference range was not used to interpret this result as normal/abnormal . BUN (test code = 24 MG/DL See_Comment H [Automated message] 3094-0) The system [facility] generated this result transmit socorro reference range : 8-23 MG/DL. The reference range was not used to interpret this result as normal/abnormal . CALCIUM (test code = 9.9 MG/DL See_Comment [Autom ated message] 20348-7) The system [facility] generated this result transmit socorro reference range : 8.5-10.5 MG/DL. The reference range was not used to interpret this result as normal/abnormal . CALC A/G RATIO (test 1.7 RATIO See_Comment [Autom ated message] code = 1759-0) The system [facility] generated this result transmit socorro reference range : 1.0-2.6 RATIO. The reference range was not used to interpret this result as normal/abnormal . CALC BUN/CREAT (test 21 RATIO See_Comment [Autom ated message] code = 3097-3) The system [facility] generated this result transmit socorro reference range : 6-28 RATIO. The reference range was not used to interpret this result as normal/abnormal . CALC GLOBULIN (test 2.6 G/DL See_Comment [Automa socorro message] code = 77213-1) The system [facility] generated this result transmit socorro reference range : 1.9-3.7 G/DL. T he reference range was not used to interpret this result as normal/abnormal . CARBON DIOXIDE (test 25 MEQ/L See_Comment [Autom ated message] code = 1963-8) The system [facility] generated this result transmit socorro reference range : 19-31 MEQ/L. Th e reference range was not used to interpret this result as normal/abnormal . CHLORIDE (test code 107 MEQ/L See_Comment [Automa socorro message] = 2074-0) The system [facility] generated this result transmit socorro reference range : 95-107 MEQ/L. T he reference range was not used to interpret this result as normal/abnormal . CREATININE (test 1.15 MG/DL See_Comment [Automated message] code = 2160-0) The system [facility] generated this result transmit socorro reference range : 0.60-1.30 MG/DL . The reference range was not used to interpret this result as normal/abnormal . eGFR (2020 CKD-EPI) 52 ML/MIN/1.73 See_Comment L [Auto mated message] (test code = The system [facility] 02787-9) generated this result transmit socorro reference range : >60 ML/MIN/1.73. Th e reference range was not used to interpret this result as normal/abnormal . GLUCOSE (test code = 125 MG/DL See_Comment H [Autom ated message] 1558-6) The system [employer] generated this result transmit socorro reference range : 70-99 MG/DL. Th e reference range was not used to interpret this result as normal/abnormal . POTASSIUM (test code 4.3 MEQ/L See_Comment [Autom ated message] = 2823-3) The system [employer] generated this result transmit socorro reference range : 3.5-5.4 MEQ/L. The reference range was not used to interpret this result as normal/abnormal . PROTEIN, TOTAL (test 6.9 G/DL See_Comment [Autom ated message] code = 2885-2) The system [facility] generated this result transmit socorro reference range : 6.1-8.3 G/DL. T he reference range was not used to interpret this result as normal/abnormal . AST (test code = 18 U/L See_Comment [Automated message] 1920-8) The system [employer] generated this result transmit socorro reference range : 9-40 U/L. The reference range was not used to interpret this result as normal/abnormal . ALT (test code = 28 U/L See_Comment [Automated message] 1742-6) The system [employer] generated this result transmit socorro reference range : 5-40 U/L. The reference range was not used to interpret this result as normal/abnormal . SODIUM (test code = 144 MEQ/L See_Comment [Automa socorro message] 2071-2) The system [employer] generated this result transmit socorro reference range : 133-146 MEQ/L. The reference range was not used to interpret this result as normal/abnormal .
[2023-05-17] MEDS ORDERED: METOPROLOL TARTRATE 5 MG/5 ML INJ IV ONE (02:14)
[2023-05-17 02:44] LABS: Protime INR 0.94
[2023-05-17 02:50] LABS: Hematocrit 24.4 % (36.0-45.0); Lymphocytes % 21.2 % (15.3-44.8); MCV 91.6 fL (80-100); MPV 8.4 fL (7.6-11.3); Platelets 353 thou/uL (152-406); RBC Red Blood Cell Count 2.67 M/uL (3.86-4.86)
[2023-05-17 02:51] LABS: Bilirubin Direct 0.1 mg/dL (0-0.2); Bilirubin Indirect, Calculated 0.4 mg/dL (0.2-0.8); Bilirubin Total 0.5 mg/dL (0.2-1.0); Protein, Total 7.2 g/dL (6.4-8.2)
[2023-05-17 03:09] LABS: Magnesium 2.3 mg/dL (1.6-2.4); Potassium 4.8 mEq/L (3.5-5.1)
[2023-05-17 03:10] LABS: Troponin High Sensitivity 753.5 pg/mL (<58.9)
[2023-05-17] MEDS ORDERED: HEPARIN/D5W 25,000 UNIT/500 ML BAG IV ONE (03:21)
[2023-05-17] MEDS ORDERED: HEPARIN 5000 UNIT/ML 1 ML VIAL ONE (03:21)
--- NOTE | 2023-05-17 03:23 | EDPHYS ---
Physician Documentation [facility] Name: Maria Esther Capone Age: 67 yrs Sex: Female : 1955 Arrival Date: 05/17/2023 Time: 01:47 Bed 4 Private MD: ED Physician Theron Sam HPI: 05/17 02:19 This 67 yrs old Female presents to ER via EMS with complaints of AFIB. sp3 02:19 67-year-old female with a history of prior IA, diabetes, hypertension, rheumatoid sp3 arthritis, CAD who was recently admitted here and subsequently transferred to [facility] on May 10 for unstable angina and possible pacemaker placement now returns to the ED via EMS for chief complaint palpitations and new onset atrial fibrillation with RVR. Patient has an external cardiac monitoring device hooked up to a phone as given to her by her clearly speed operator. We are trying to ascertain who the speed operator is. Unknown exact duration of the atrial fibrillation though she states that when she went to bed she was not feeling this way. Presumably it has been within the last 12 hours. Patient also has mild dyspnea that is accompanied with the palpitations. She denies chest pain, back pain, epigastric pain, nausea, vomiting, diarrhea, fever, URI symptoms, syncope, near syncope, focal neurological deficit, headache, or any other signs or symptoms on ROS at this time. She does states she is on "a blood thinner" and we are trying to ascertain her medication list as well.. Historical: - Allergies: 01:52 Codeine; bp - Home Meds: 01:53 pravastatin 40 mg oral tablet 1 tab daily [Active]; irbesartan 300 mg oral tablet 1 tab bp daily [Active]; aspirin 81 mg Oral TbEC 1 tab once daily [Active]; clopidogrel 75 mg oral tablet 1 tab daily [Active]; doxazosin 2 mg oral tablet 1 tab daily [Active]; metformin 500 mg Oral Tablet, Extended Release 24 hr 1 tab daily [Active]; - PMHx: 01:52 Diabetes - NIDDM; diabetes mellitus; Heart attack in 2006; Hypertension; Rheumatoid bp Arthritis; Hyperlipidemia; - Immunization history:: Adult Immunizations up to date. - Social history:: Smoking status: Patient denies any tobacco usage or history of. ROS: 02:21 Constitutional: Negative for fever, chills, and weight loss, Eyes: Negative for injury, sp3 pain, redness, and discharge, ENT: Negative for injury, pain, and discharge, Neck: Negative for injury, pain, and swelling, Respiratory: Negative for shortness of breath, cough, wheezing, and pleuritic chest pain, Abdomen/GI: Negative for abdominal pain, nausea, vomiting, diarrhea, and constipation, Back: Negative for injury and pain, MS/Extremity: Negative for injury and deformity, Skin: Negative for injury, rash, and discoloration, Neuro: Negative for headache, weakness, numbness, tingling, and seizure, Psych: Negative for depression, anxiety, suicide ideation, homicidal ideation, and hallucinations, Allergy/Immunology: Negative for hives, rash, and allergies, Endocrine: Negative for neck swelling, polydipsia, polyuria, polyphagia, and marked weight changes, Hematologic/Lymphatic: Negative for swollen nodes, abnormal bleeding, and unusual bruising, 02:21 All other systems are negative, Exam: 02:21 Constitutional: This is a well developed, well nourished patient who is awake, alert, sp3 and in no acute distress. Head/Face: Normocephalic, atraumatic. Eyes: Pupils equal round and reactive to light, extra-ocular motions intact. Lids and lashes normal. Conjunctiva and sclera are non-icteric and not injected. Cornea within normal limits. Periorbital areas with no swelling, redness, or edema. ENT: Nares patent. No nasal discharge, no septal abnormalities noted. External auditory canals are clear. Oropharynx with no redness, swelling, or masses, exudates, or evidence of obstruction, uvula midline. Mucous membranes moist. Neck: Trachea midline, no thyromegaly or masses palpated, and no cervical lymphadenopathy. Supple, full range of motion without nuchal rigidity, or vertebral point tenderness. No Meningismus. Chest/axilla: Normal chest wall appearance and motion. Nontender with no deformity. No lesions are appreciated. Abdomen/GI: Soft, non-tender, with normal bowel sounds. No distension or tympany. No guarding or rebound. No evidence of tenderness throughout. Back: No spinal tenderness. No costovertebral tenderness. Full range of motion. Skin: Warm, dry with normal turgor. Normal color with no rashes, no lesions, and no evidence of cellulitis. MS/ Extremity: Pulses equal, no cyanosis. Neurovascular intact. Full, normal range of motion. Neuro: Awake and alert, GCS 15, oriented to person, place, time, and situation. Cranial nerves II-XII grossly intact. Motor strength 5/5 in all extremities. Sensory grossly intact. Cerebellar exam normal. Normal gait. Psych: Awake, alert, with orientation to person, place and time. Behavior, mood, and affect are within normal limits. 02:21 ECG was reviewed by the Attending Physician. EKG demonstrates atrial fibrillation with rapid ventricular response at 120 bpm with old Q waves in lead III and no change in axis compared to EKG dated 05/05/2023. Vital Signs: 01:51 BP 129 / 86; Pulse 157; Resp 18; Temp 98; Pulse Ox 96% ; bp 02:08 BP 108 / 85; Pulse 128; Resp 20; Pulse Ox 97% ; Weight 60.78 kg; bp 02:44 BP 113 / 63; Pulse 89; Resp 19; Pulse Ox 97% ; bp 03:16 BP 119 / 42; Pulse 45; Resp 23; Pulse Ox 99% ; bp 03:35 BP 125 / 41; Pulse 43; Resp 22; Pulse Ox 97% ; bp 03:59 BP 123 / 41; Pulse 44; Resp 29; Pulse Ox 99% ; bp 04:16 BP 118 / 50; Pulse 44; Resp 25; Pulse Ox 98% ; bp MDM: 01:51 Patient medically screened. sp3 02:24 Data reviewed: vital signs, nurses notes, lab test result(s), EKG, radiologic studies. sp3 ED course: 67-year-old female with PMH above now presents in [facility] for the first time. Patient does have an external cardiac monitoring device on and after consultation with family she was being seen by Dr. Santacruz at [place] and Dr. Mckeon who is linotype machinist apprentice who is the one who placed the device. EMS gave 25 mg of Cardizem and have given 10 mg of Lopressor total and patient's rate is in the 100-110 range still in atrial fibrillation. Given the unknown plan of what may or may not happen after the transfer, we will start heparin as opposed to Lovenox to easily allow cessation. Chest x-ray and laboratory values pending and probable disposition is transfer to [facility] to allow her primary care team to continue her care.. 03:09 ED course: Patient received 5 mg of Lopressor after which her atrial fibrillation broke sp3 and she is now in a sinus bradycardia with a heart rate in the 45-50 range. I discussed this case with Dr. Chinchilla who had admitted her last week and filled me in on her cardiac catheterization and subsequent transfer secondary to bradycardia. There is no Market Research Analyst note recorded so full details are not visible to me currently. After the Lopressor and now that she is in sinus bradycardia, she is having no symptoms. Her troponin did come in over 700 with remainder of her labs pending. After assessing these, we will initiate transfer to [facility] to continue her prior treatment and to also query her external wood heel back liner.. 03:12 ED course: Creatinine is at 1.8 and hemoglobin slightly low as well. No intervention sp3 required at this time and we will communicate these values to the receiving hospital.. 03:47 ED course: Discussed with Dr. Adair at [facility] who is excepted the patient.. 3 05/17 01:51 Order name: Basic Metabolic Panel; Complete Time: 03: 3 05/17 01:51 Order name: CBC with Diff; Complete Time: 03: 3 05/17 01:51 Order name: LFT's; Complete Time: 03: 3 05/17 01:51 Order name: Magnesium; Complete Time: 03: 3 05/17 01:51 Order name: NT PRO-BNP; Complete Time: 03: 3 05/17 01:51 Order name: PT-INR; Complete Time: 03: 3 05/17 01:51 Order name: Troponin HS; Complete Time: 03: 3 05/17 01:51 Order name: XRAY Chest (1 view) 3 05/17 01:51 Order name: EKG; Complete Time: 01:52 3 05/17 01:51 Order name: Cardiac monitoring; Complete Time: :58 3 05/17 01:51 Order name: EKG - Nurse/Tech; Complete Time: 01:56 3 05/17 01:51 Order name: IV Saline Lock; Complete Time: 01:58 3 05/17 01:51 Order name: Labs collected and sent; Complete Time: 02:08 3 05/17 01:51 Order name: O2 Per Protocol; Complete Time: :57 sp3 05/17 01:51 Order name: O2 Sat Monitoring; Complete Time: 57 sp3 Administered Medications: 02:03 Drug: Metoprolol IVP 5 mg IVP once; Hold for SBP <100 or HR <60. Route: IVP; Site: bp right antecubital; 04:00 Follow up: Response: No adverse reaction bp 02:45 Drug: Heparin (IA-Bolus No thrombolytic) - HEParin IVP 5000 units/kg IVP once; Max 5000 bp units {Co-Signature: pf1 (Evelin Leon RN).} Route: IVP; Site: right antecubital; 04:00 Follow up: Response: No adverse reaction bp 02:45 Drug: Heparin (IA Drip) 12 units/kg/hr - ([place] [address] units, D5W IV 500 ml) IV at bp calculated rate Per protocol; Max initial rate 1000 units/hr {Co-Signature: pf1 (Evelin Leon RN).} Route: IV; Rate: calculated rate; Site: right antecubital; 04:00 Follow up: IV Status: Infusion continued upon transfer bp Disposition Summary: 05/17/23 03:23 Transfer Ordered Notes: Transfer Location: Other Acute Care Facility sp3 Reason: Higher level of care sp3 Condition: Stable sp3 Problem: an acute exacerbation sp3 Symptoms: have worsened sp3 Accepting Physician: PARKER LOCKHART(05/17/23 04:18) bp Diagnosis - Atrial fibrillation with RVR, subsequent bradycardia, NSTEMI sp3 Forms: - Medication Reconciliation Form sp3 - SBAR form sp3 Signatures: Dispatcher [employer] Chuy Funez, RN RN bp Theron Sam MD MD sp3 Evelin Leon RN pf1 Corrections: (The following items were deleted from the chart) 04:18 03:23 PARKER LOCKHART sp3 bp
--- NOTE | 2023-05-17 03:23 | ER ---
Nurse's Notes [facility] Name: Maria Esther Capone Age: 67 yrs Sex: Female : 1955 Arrival Date: 05/17/2023 Time: 01:47 Bed 4 Private MD: Diagnosis: Atrial fibrillation with RVR, subsequent bradycardia, NSTEMI Presentation: 05/17 01:51 Chief complaint: EMS states: CALLED OUT FOR SOB, FOUND IN AFIB/RVR. RECENT H/O STENT bp AND PACER, NO H/O AFIB. Coronavirus screen: At this time, the client does not indicate any symptoms associated with coronavirus-19. Ebola Screen: No symptoms or risks identified at this time. Initial Sepsis Screen: Does the patient meet any 2 criteria? No. Patient's initial sepsis screen is negative. Does the patient have a suspected source of infection? No. Patient's initial sepsis screen is negative. Risk Assessment: Do you want to hurt yourself or someone else? Patient reports no desire to harm self or others. Onset of symptoms was May 17, 2023. Care prior to arrival: Medication(s) given: CARDIZEM 25MG IV initiated. 20 GA, in the left antecubital area. 01:51 Method Of Arrival: EMS: [facility] bp 01:51 Acuity: ALTA 3 bp Triage Assessment: 01:52 General: Appears in no apparent distress. Behavior is calm, cooperative, appropriate bp for age. Pain: Denies pain. Historical: - Allergies: 01:52 Codeine; bp - Home Meds: 01:53 pravastatin 40 mg oral tablet 1 tab daily [Active]; irbesartan 300 mg oral tablet 1 tab bp daily [Active]; aspirin 81 mg Oral TbEC 1 tab once daily [Active]; clopidogrel 75 mg oral tablet 1 tab daily [Active]; doxazosin 2 mg oral tablet 1 tab daily [Active]; metformin 500 mg Oral Tablet, Extended Release 24 hr 1 tab daily [Active]; - PMHx: 01:52 Diabetes - NIDDM; diabetes mellitus; Heart attack in 2006; Hypertension; Rheumatoid bp Arthritis; Hyperlipidemia; - Immunization history:: Adult Immunizations up to date. - Social history:: Smoking status: Patient denies any tobacco usage or history of. Screenin:57 [facility] ED Fall Risk Assessment (Adult) History of falling in the last 3 months, bp including since admission No falls in past 3 months (0 pts). Abuse screen: Denies threats or abuse. Denies injuries from another. Nutritional screening: No deficits noted. Tuberculosis screening: No symptoms or risk factors identified. Assessment: 01:50 General: SEE TRIAGE NOTE. bp 03:16 Reassessment: SIGNIFICANT BRADYCARDIA NOTED, PT PLACED ON PADS. REPEAT EKG. MD AT [facility]. bp 03:59 Reassessment: REPORT TO SACHIN GRADY AT [facility]. TRANSPORT PENDING. bp 04:16 Reassessment: EMS AT / FOR TRANSPORT. bp Vital Signs: 01:51 BP 129 / 86; Pulse 157; Resp 18; Temp 98; Pulse Ox 96% ; bp 02:08 BP 108 / 85; Pulse 128; Resp 20; Pulse Ox 97% ; Weight 60.78 kg; bp 02:44 BP 113 / 63; Pulse 89; Resp 19; Pulse Ox 97% ; bp 03:16 BP 119 / 42; Pulse 45; Resp 23; Pulse Ox 99% ; bp 03:35 BP 125 / 41; Pulse 43; Resp 22; Pulse Ox 97% ; bp 03:59 BP 123 / 41; Pulse 44; Resp 29; Pulse Ox 99% ; bp 04:16 BP 118 / 50; Pulse 44; Resp 25; Pulse Ox 98% ; bp ED Course: 01:51 Patient arrived in ED. wm 01:51 Chuy Rizvi, MIGUEL A is Primary Nurse. bp 01:51 Theron Sam MD is Attending Physician. sp3 01:52 Triage completed. bp 01:52 Arm band placed on. bp 01:53 Maintain EMS IV. Dressing intact. Good blood return noted. Site clean \T\ dry. Gauge \T\ bp site: 20 GA LEFT AC. 01:57 Patient has correct armband on for positive identification. Bed in low position. Call bp light in reach. Side rails up X2. Client placed on continuous cardiac and pulse oximetry monitoring. NIBP monitoring applied. 02:02 Inserted saline lock: 20 gauge in right antecubital area, using aseptic technique. oe Blood collected. 02:14 XRAY Chest (1 view) In Process Unspecified. EDMS 03:21 Initiated transfer to [facility], spoke with Zenon. wm 03:30 Pt accepted for transfer to [facility] ER by Mana Plasencia per Buddy Michaels. wm 03:51 EMS accepted for transport with ETA \T\ 0400 per Jhony. wm 04:17 No provider procedures requiring assistance completed. Patient transferred, IV remains bp in place. Administered Medications: 02:03 Drug: Metoprolol IVP 5 mg IVP once; Hold for SBP <100 or HR <60. Route: IVP; Site: bp right antecubital; 04:00 Follow up: Response: No adverse reaction bp 02:45 Drug: Heparin (PR-Bolus No thrombolytic) - HEParin IVP 5000 units/kg IVP once; Max 5000 bp units {Co-Signature: pf1 (Evelin Leon RN).} Route: IVP; Site: right antecubital; 04:00 Follow up: Response: No adverse reaction bp 02:45 Drug: Heparin (PR Drip) 12 units/kg/[place] - ([place] [address] units, D5W IV 500 ml) IV at bp calculated rate Per protocol; Max initial rate 1000 units/hr {Co-Signature: pf1 (Evelin Leon RN).} Route: IV; Rate: calculated rate; Site: right antecubital; 04:00 Follow up: IV Status: Infusion continued upon transfer bp Outcome: 03:23 ER care complete, transfer ordered by sp3 04:17 Transferred by ground EMS Transfer form completed. bp 04:17 Condition: stable 04:17 Instructed on the need for transfer, 04:18 Patient left the ED. bp Signatures: Dispatcher [employer] EDMS Paresh Ashley Brian, RN RN bp Angela Johansen Theron Sam MD MD sp3 Evelin Leon RN pf1 Corrections: (The following items were deleted from the chart) 02:44 02:08 BP 108 / 85; Pulse 128bpm; Resp 20bpm; Pulse Ox 97%; bp bp
[2023-05-17 04:52] VITALS: TEMP 98
[2023-05-17 05:08] VITALS: BP 118/50; O2SAT 98
--- NOTE | 2023-05-18 13:27 | RAD REPORT ---
EXAM DESCRIPTION: RAD - Chest Single View - 05/17/2023 2:12 am CLINICAL HISTORY: 67 years, Female, DYSPNEA COMPARISON: 05/04/2023. FINDINGS: 1 views of the chest was obtained. Prior films were compared. The lung volume is decreas ed. The cardiomediastinal silhouette demonstrate to be within normal limits. The heart is not enlarge d. The thoracic aorta is unremarkable. The pulmonary vasculature is normal in distribution. The costo phrenic angles demonstrate to be sharp. Minimal linear densities left lung base correspond to atele ctasis and/or early infiltrate. External EKG leads within the [id number] limits diagnosis. There i s a elongated density within the left side lung parenchyma perhaps corresponding to a color grinder. The re st of the soft tissue and bony structures are unremarkable. IMPRESSION: Minimal linear densities left lung base correspond to atelectasis and/or early infiltrat e. Electronically signed by: Merrill Donovan MD 05/17/2023 02:32 AM NURSING HOME ASSISTANT Due to temporary technical issues with the PACS/Fluency reporting system, reports are being signed by the in house radiologist without review as a courtesy to ensure prompt reporting. The interpreting r adiologist is fully responsible for the content of the report.
--- NOTE | 2023-05-19 17:31 | EKG ---
Test Date: 2023-05-17 Test Time: 03:18:27 Farm Equipment Mechanic: LAVERNE MEASUREMENT RESULTS: Intervals: Rate: 45 ND: 126 QRSD: 84 QT: 442 QTc: 382 Blain: P: 30 ND: 126 QRS: -6 T: 3 INTERPRETIVE STATEMENTS: Sinus bradycardia Minimal voltage criteria for LVH, may be normal variant Inferior infarct, possibly acute ACUTE ME / STEMI Abnormal ECG Compared to ECG 05/17/2023 01:51:32 Left ventricular hypertrophy now present Atrial fibrillation no longer present Myocardial infarct finding still present Electronically Signed On 05-19-23 17:24:03 PLAN CHECKER by Tony Hall
--- NOTE | 2023-05-19 17:31 | EKG ---
Test Date: 2023-05-17 Test Time: 01:51:32 Yarn Finisher: DILEEP MEASUREMENT RESULTS: Intervals: Rate: 120 GA: QRSD: 78 QT: 312 QTc: 440 [place]: P: GA: QRS: 14 T: -29 INTERPRETIVE STATEMENTS: Atrial fibrillation with rapid ventricular response Inferior infarct, age undetermined Abnormal ECG Compared to ECG 05/05/2023 14:23:31 Myocardial infarct finding now present Sinus rhythm no longer present Electronically Signed On 05-19-23 17:24:07 REFINERY OPERATOR HELPER by Tony Hall
== END 2023-05-17 04:18 ==
LOC: ER 01:47
DX: I21.4 Non-ST elevation (NSTEMI) myocardial infarction (principal); I48.19 Other persistent atrial fibrillation; R00.1 Bradycardia, unspecified; I10 Essential (primary) hypertension; E11.9 Type 2 diabetes mellitus without complications; I25.2 Old myocardial infarction; Z79.82 Long term (current) use of aspirin; Z88.5 Allergy status to narcotic agent
CPT/HCPCS: 96365; 93005 ×2; 85025; 80048; 36415; 83735; 85610; 80076; 84484; 83880; 71045; 96375; 99285; J1644

== ENCOUNTER 2023-12-22 07:40 | Emergency (ER) | payer OTHER ==
--- OUTSIDE RECORDS SUMMARY | 2023-12-22 07:46 | XMS REPORT | Continuity of Care Document ---
Author Name Unknown Address [address] [facility] [address] [place] [address] [facility] thconnect Address [address] [facility] [place] [address] Care Team Providers Care Mailer Name Role Phone Kwan Macias Attending Clinician Unavailable Gloria Benjamin Attending Clinician Unavailable Sudarshan Cleaning Attending Clinician Unavailable Iván Olmstead DO Attending Clinician [phone] NIRALI HOLDER Attending Clinician Unavailable Nirali Holder MD Attending Clinician [phone] LADY CASIANO Attending Clinician Unavailable Manpreet Coleman MD Attending Clinician [phone] MANPREET COLEMAN Attending Clinician UnavailWilder Capone PT Attending Clinician Unavailable Doctor Unassigned, [place] Attending Clinician U navailable Sudarshan Cleaning Admitting Clinician Unavailable Payers Payer Name Policy Type Policy Number Effective Date Expirati on Date Source [employer] MEDICARE COMPLETE [id number] 2018 00:00:00 2019 00:00:00 Problems Condition Name Condition Details Condition Category Status Onset Date Resolution Date Last Treatment Date Treating Clinician Comments Source Long-term use of Plaquenil Long-term use of Plaquenil Disease Active 08-22 00:00: 00 [facility] 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 Disease Active 08-22 00:00: 00 [facility] Long-term use of Plaquenil Long-term use of Plaquenil Disease Active 08-22 00:00: 00 [facility] Age-relate d macular degenerati on, dry, both eyes Age-relate d macular degenerati on, dry, both eyes Disease Active 08-22 00:00: 00 [facility] Osteoarthr itis, generalize d Osteoarthr itis, generalize d Disease Active 2013-07 00:00: 00 [facility] Heberden's nodes Heberden's nodes Disease Active 2013-07 00:00: 00 [facility] Aspirin long-term use Aspirin long-term use Disease Active 2013-07 00:00: 00 [facility] Other acute and subacute form of ischemic heart disease Other acute and subacute form of ischemic heart disease Disease Active 2006-07 00:00: 00 [facility] Essential hypertensi on Essential hypertensi on Disease Active 2006-07 00:00: 00 Overview: ICD10 Diagnosis 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[employer] [facility] Tobacco use disorder Tobacco use disorder Disease Active 2006-07 00:00: 00 [facility] CKD stage G3b/A2, GFR 30-44 and albumin creatinine ratio 30-299 mg/g CKD stage G3b/A2, GFR 30-44 and albumin creatinine ratio 30-299 mg/g Problem Common [facility] Rheumatoid arthritis Rheumatoid arthritis Problem [facility] [id number] Atrial fibrillati on, unspecifie d type Problem [facility] Hypertensi on HTN (hypertens ion) Problem [facility] [id number] Type 2 diabetes mellitus with other diabetic kidney complicati on Problem [facility] Coronary artery disease CAD (coronary artery disease) Problem [facility] Mixed hyperlipid emia Hyperlipem ia, mixed Problem [facility] Stented coronary artery Stented coronary artery Problem [facility] Allergies, Adverse Reactions, Alerts Allergy Name Allergy Type Status Severity Reaction(s) Onset Date Inactive Date Treating Clinician Comments Source hydrocod one DA Active [place] ITCHING 2022-07 00:00: 00 [facility] HYDROCOD ONE DRUG INGREDI Active Rash 07-17 00:00: 00 [facility] Hydrocod one Propensi ty to adverse reaction s Active Rash 07-17 00:00: 00 [facility] hydrocod one hydrocod one Active vomiting [facility] Social History Social Habit Start Date Stop Date Quantity Comments Source Exposure to SARS-CoV-2 (event) Not sure [facility] History of Tobacco Use [facility] Sex Assigned At [facility] Cigarettes smoked current (pack per day) - Reported 2015-01-07 00:00:00 2015-01-07 00:00:00 [facility] Cigarette pack-years 2015-01-07 00:00:00 2015-01-07 00:00:00 [facility] Alcohol intake 2015-01-07 00:00:00 2015-01-07 00:00:00 Current non-drinker of alcohol (finding) [facility] Alcohol Comment 2014-10-04 00:00:00 2014-10-04 00:00:00 quit 2007 [facility] Tobacco Comment 2014-10-04 00:00:00 2014-10-04 00:00:00 quit 2007 [facility] Smoking Status Start Date Stop Date Source Never Smoker [facility] Former Smoker 2023-09-10 00:00:00 2023-09-10 00:00:00 [facility] Medications Ordered Medication Name Filled Medication Name Start Date Stop Date Current Medication? Ordering Clinician Indication Dosage Frequency Signature (SIG) Comments Components Source Blood Glucose Test Strips 333 - Blood Glucose Test Strips 333 - 0 12-16 00:00: 00 No Blood Glucose Test Strips 333 - Lancets - Lancets - 12-16 00:00: 00 No Lancets - Glucometer n/s Glucometer n/s 0 12-15 00:00: 00 No Glucometer n/s Jardiance 10 MG Jardiance 10 MG 12-12 00:00: 00 No 1{table t} QD Jardiance 10 MG Cyclobenzap rine HCl 5 MG Cyclobenzap rine HCl 5 MG 12-05 00:00: 00 No 1{table t_at_be dtime_a s_neede d} QD Cyclobenza rafa HCl 5 MG Kenalog (Triamcinol one) Kenalog (Triamcinol one) 2021-07 00:00: 00 No 40mg [facility] vitamin C with vanessa hips (VITAMIN C) 1,000 mg tablet 07-08 21:04: 34 Yes [id number] 1000mg Take 1,000 mg by mouth daily. [facility] omega-3 fatty acids-vitam in E (FISH OIL) 1,000 mg capsule 07-08 21:04: 34 Yes [id number] 1g Take 1 g by mouth 3 (three) times daily. [facility] AMLODIPINE BESYLATE (AMLODIPINE ORAL) 07-08 21:02: 36 Yes [id number] Take by mouth. [facility] aspirin 81 mg chewable tablet 07-08 21:02: 36 Yes [id number] 81mg Take 81 mg by mouth daily. [facility] CALCIUM CARBONATE/V ITAMIN D3 (VITAMIN D-3 ORAL) 07-08 21:02: 36 Yes [id number] 1000U Take 1,000 Units by mouth daily. [facility] tiZANidine 4 mg capsule 2019-07 00:00: 00 Yes [facility] leflunomide 20 mg tablet 2018-07 00:00: 00 Yes 1{tbl} Take 1 tablet by mouth. [facility] naproxen (NAPROSYN) 500 mg tablet 10-20 00:00: 00 Yes [id number] 500mg Take 1 tablet by mouth 2 (two) times daily with meals. [facility] AMLODIPINE BESYLATE (AMLODIPINE ORAL) 09-25 16:39: 49 Yes [id number] Take by mouth. [facility] aspirin 81 mg chewable tablet 09-25 16:39: 49 Yes [id number] 81mg Take 81 mg by mouth daily. [facility] CALCIUM CARBONATE/V ITAMIN D3 (VITAMIN D-3 ORAL) 09-25 16:39: 49 Yes [id number] 1000U Take 1,000 Units by mouth daily. [facility] sulfaSALAzi ne (AZULFIDINE ) 500 mg EC tablet 09-25 00:00: 00 Yes 500mg Take 1 Tab by mouth 2 (two) times daily. [facility] traMADOL (ULTRAM) 50 mg tablet 09-25 00:00: 00 Yes 50mg Take 1 Tab by mouth every 6 (six) hours as needed for Pain (scale 4-6). [facility] acetaminoph en-codeine (TYLENOL-CO DEINE #3) 300-30 mg tablet 02-18 00:00: 00 Yes 1{tbl} Take 1 Tab by mouth every 6 (six) hours as needed for Pain (scale 4-6) or Pain (scale 7-10). [facility] glimepiride (AMARYL) 4 mg tablet 01-04 00:00: 00 Yes [id number] 4mg Take 1 Tab by mouth daily with breakfast. [facility] metoprolol tartrate (LOPRESSOR) 50 mg tablet 01-04 00:00: 00 Yes [id number] 50mg Take 1 Tab by mouth 2 (two) times daily. [facility] gabapentin (NEURONTIN) 600 mg tablet 12-20 00:00: 00 Yes 600mg Take 1 Tab by mouth 3 (three) times daily. [facility] predniSONE (DELTASONE) 5 mg tablet 11-12 18:13: 06 Yes 5mg Take 5 mg by mouth daily. [facility] omega-3 fatty acids-vitam in E (FISH OIL) 1,000 mg capsule 11-02 17:17: 22 Yes [id number] 1g Take 1 g by mouth 3 (three) times daily. [facility] vitamin C with vanessa hips (VITAMIN C) 1,000 mg tablet 11-02 17:17: 10 Yes [id number] 1000mg Take 1,000 mg by mouth daily. [facility] metformin ER (GLUCOPHAGE -XR) 500 mg 24 hr tablet 10-04 00:00: 00 Yes 500mg Take 1 Tab by mouth daily with breakfast. [facility] foLIC acid (FOLATE) 1 mg tablet 2013-07 00:00: 00 Yes 1mg Take 1 Tab by mouth daily. [facility] PRAVASTATIN 40 MG ORAL TAB 2006-07 00:00: 00 Yes 1 Tab Oral DAILY [facility] NITROGLYCER IN 0.4 MG SL SUBL 2006-07 00:00: 00 Yes 1 Tab SL Q5MIN PRN chest pain [facility] Doxazosin Mesylate 2 MG Doxazosin Mesylate 2 MG No QD Doxazosin Mesylate 2 MG metFORMIN HCl ER 500 MG metFORMIN HCl ER 500 MG No 1{table t_with_ evening _meal} QD metFORMIN HCl ER 500 MG Aspirin 81 MG Aspirin 81 MG No 1{table t} QD Aspirin 81 MG predniSONE 5 MG predniSONE 5 MG No 1{table t} QD predniSONE 5 MG Actemra 162 MG/0.9ML Actemra 162 MG/0.9ML No .9{ml} Actemra 162 MG/0.9ML Doxycycline Monohydrate 100 MG Doxycycline Monohydrate 100 MG No 1{capsu le} QD Doxycyclin e Monohydrat e 100 MG Atorvastati n Calcium 40 MG Atorvastati n Calcium 40 MG No 1{table t} QD Atorvastat in Calcium 40 MG Clopidogrel Bisulfate 75 MG Clopidogrel Bisulfate 75 MG No 1{table t} QD Clopidogre l Bisulfate 75 MG Metoprolol Succinate ER 50 MG Metoprolol Succinate ER 50 MG No 1{table t} BID Metoprolol Succinate ER 50 MG amLODIPine Besylate 10 MG amLODIPine Besylate 10 MG No 1{table t} QD amLODIPine Besylate 10 MG metFORMIN HCl 500 MG metFORMIN HCl 500 MG No 1{table t_with_ a_meal} BID metFORMIN HCl 500 MG Immunizations Ordered Immunization Name Filled Immunization Name Date Status Comments Source FLUZONE HIGH DOSE OVER 65 FLUZONE HIGH DOSE OVER 65 2022-06-16 14:05:00 Completed [facility] FLUZONE HIGH DOSE OVER 65 FLUZONE HIGH DOSE OVER 65 2022-06-16 14:05:00 Completed [facility] FLUZONE HIGH DOSE OVER 65 FLUZONE HIGH DOSE OVER 65 Unknown Completed [facility] FLUZONE HIGH DOSE OVER 65 FLUZONE HIGH DOSE OVER 65 Unknown Completed [facility] FLUZONE HIGH DOSE OVER 65 FLUZONE HIGH DOSE OVER 65 Unknown Completed [facility] FLUZONE HIGH DOSE OVER 65 FLUZONE HIGH DOSE OVER 65 Unknown Completed [facility] FLUZONE HIGH DOSE OVER 65 FLUZONE HIGH DOSE OVER 65 Unknown Completed [facility] FLUZONE HIGH DOSE OVER 65 FLUZONE HIGH DOSE OVER 65 Unknown Completed [facility] FLUZONE HIGH DOSE OVER 65 FLUZONE HIGH DOSE OVER 65 Unknown Completed [facility] FLUZONE HIGH DOSE OVER 65 FLUZONE HIGH DOSE OVER 65 Unknown Completed [facility] FLUZONE HIGH DOSE OVER 65 FLUZONE HIGH DOSE OVER 65 Unknown Completed [facility] Prevnar 20 (PCV20) Prevnar 20 (PCV20) Unknown Completed [facility] Fluad (aIIV4) - SDS - 0.5mL Fluad (aIIV4) - SDS - 0.5mL Unknown Completed [facility] FLUZONE HIGH DOSE OVER 65 FLUZONE HIGH DOSE OVER 65 Unknown Completed [facility] Prevnar 20 (PCV20) Prevnar 20 (PCV20) Unknown Completed [facility] Fluad (aIIV4) - SDS - 0.5mL Fluad (aIIV4) - SDS - 0.5mL Unknown Completed [facility] FLUZONE HIGH DOSE OVER 65 FLUZONE HIGH DOSE OVER 65 Unknown Completed [facility] Prevnar 20 (PCV20) Prevnar 20 (PCV20) Unknown Completed [facility] Fluad (aIIV4) - SDS - 0.5mL Fluad (aIIV4) - SDS - 0.5mL Unknown Completed [facility] FLUZONE HIGH DOSE OVER 65 FLUZONE HIGH DOSE OVER 65 Unknown Completed [facility] Prevnar 20 (PCV20) Prevnar 20 (PCV20) Unknown Completed [facility] Fluad (aIIV4) - SDS - 0.5mL Fluad (aIIV4) - SDS - 0.5mL Unknown Completed [facility] FLUZONE HIGH DOSE OVER 65 FLUZONE HIGH DOSE OVER 65 Unknown Completed [facility] Prevnar 20 (PCV20) Prevnar 20 (PCV20) Unknown Completed [facility] Fluad (aIIV4) - SDS - 0.5mL Fluad (aIIV4) - SDS - 0.5mL Unknown Completed [facility] FLUZONE HIGH DOSE OVER 65 FLUZONE HIGH DOSE OVER 65 Unknown Completed [facility] Vital Signs Vital Name Observation Time Observation Value Comments S ource height 2023-12-13 15:40:00 59.00 [in_i] Com mon [facility] weight 2023-12-13 15:40:00 119.4 [lb_av] Co mmon [facility] temperature 2023-12-13 15:40:00 99.8 [degF] Com [facility] bmi 2023-12-13 15:40:00 24.11 kg/m2 Comm on [facility] oximetry 2023-12-13 15:40:00 93 % Commo n [facility] respiratory rate 2023-12-13 15:40:00 16 /min [facility] blood pressure systolic 2023-12-13 15:40:00 126 mm[Hg] Common [facility] blood pressure diastolic 2023-12-13 15:40:00 59 mm[Hg] [facility] height 2023-12-06 14:40:00 59.00 [in_i] Com [facility] weight 2023-12-06 14:40:00 118.6 [lb_av] Co mmon [facility] temperature 2023-12-06 14:40:00 99.0 [degF] Com [facility] bmi 2023-12-06 14:40:00 23.95 kg/m2 Comm on [facility] oximetry 2023-12-06 14:40:00 94 % Commo n [facility] blood pressure systolic 2023-12-06 14:40:00 135 mm[Hg] Common [facility] blood pressure diastolic 2023-12-06 14:40:00 63 mm[Hg] Common [facility] height 2023-10-07 13:00:00 59.00 [in_i] Com [facility] weight 2023-10-07 13:00:00 113.0 [lb_av] Co mmon [facility] temperature 2023-10-07 13:00:00 98.2 [degF] Com [facility] bmi 2023-10-07 13:00:00 22.82 kg/m2 Comm on [facility] oximetry 2023-10-07 13:00:00 96 % Commo n [facility] respiratory rate 2023-10-07 13:00:00 16 /min [facility] blood pressure systolic 2023-10-07 13:00:00 132 mm[Hg] [facility] blood pressure diastolic 2023-10-07 13:00:00 68 mm[Hg] Common [facility] height 2023-09-30 13:40:00 59.00 [in_i] Com [facility] weight 2023-09-30 13:40:00 112.0 [lb_av] Co [facility] temperature 2023-09-30 13:40:00 98.1 [degF] Com [facility] bmi 2023-09-30 13:40:00 22.62 kg/m2 Comm on [facility] oximetry 2023-09-30 13:40:00 99 % Commo n [facility] respiratory rate 2023-09-30 13:40:00 16 /min [facility] blood pressure systolic 2023-09-30 13:40:00 128 mm[Hg] Common [facility] blood pressure diastolic 2023-09-30 13:40:00 62 mm[Hg] [facility] height 2023-09-10 16:00:00 59.00 [in_i] Com [facility] weight 2023-09-10 16:00:00 110.0 [lb_av] Co [facility] temperature 2023-09-10 16:00:00 98.1 [degF] Com [facility] bmi 2023-09-10 16:00:00 22.21 kg/m2 Comm on [facility] oximetry 2023-09-10 16:00:00 98 % Commo n [facility] respiratory rate 2023-09-10 16:00:00 16 /min [facility] blood pressure systolic 2023-09-10 16:00:00 143 mm[Hg] [facility] blood pressure diastolic 2023-09-10 16:00:00 70 mm[Hg] [facility] height 2023-09-10 16:00:00 59.00 [in_i] Com [facility] weight 2023-09-10 16:00:00 110.0 [lb_av] Co [facility] temperature 2023-09-10 16:00:00 98.1 [degF] Com [facility] bmi 2023-09-10 16:00:00 22.21 kg/m2 Comm on [facility] oximetry 2023-09-10 16:00:00 98 % Commo n [facility] respiratory rate 2023-09-10 16:00:00 16 /min [facility] blood pressure systolic 2023-09-10 16:00:00 142 mm[Hg] Common [facility] blood pressure diastolic 2023-09-10 16:00:00 60 mm[Hg] [facility] height 2023-05-31 13:00:00 59.00 [in_i] Com [facility] weight 2023-05-31 13:00:00 120.8 [lb_av] Co [facility] temperature 2023-05-31 13:00:00 98.1 [degF] Com [facility] bmi 2023-05-31 13:00:00 24.4 kg/m2 Commo n [facility] oximetry 2023-05-31 13:00:00 97 % Commo n [facility] respiratory rate 2023-05-31 13:00:00 16 /min [facility] blood pressure systolic 2023-05-31 13:00:00 125 mm[Hg] [facility] blood pressure diastolic 2023-05-31 13:00:00 64 mm[Hg] [facility] height 2023-01-22 13:20:00 59.00 [in_i] Com [facility] weight 2023-01-22 13:20:00 121.6 [lb_av] Co [facility] temperature 2023-01-22 13:20:00 97.9 [degF] Com [facility] bmi 2023-01-22 13:20:00 24.56 kg/m2 Comm on [facility] oximetry 2023-01-22 13:20:00 98 % Commo n [facility] respiratory rate 2023-01-22 13:20:00 16 /min Common [facility] blood pressure systolic 2023-01-22 13:20:00 137 mm[Hg] [facility] blood pressure diastolic 2023-01-22 13:20:00 72 mm[Hg] [facility] height 2023-01-22 13:20:00 59.00 [in_i] Com [facility] weight 2023-01-22 13:20:00 121.6 [lb_av] Co [facility] temperature 2023-01-22 13:20:00 97.9 [degF] Com [facility] bmi 2023-01-22 13:20:00 24.56 kg/m2 Comm on [facility] oximetry 2023-01-22 13:20:00 98 % Commo n [facility] respiratory rate 2023-01-22 13:20:00 16 /min [facility] blood pressure systolic 2023-01-22 13:20:00 137 mm[Hg] Common [facility] blood pressure diastolic 2023-01-22 13:20:00 72 mm[Hg] [facility] height 2022-10-01 11:40:00 59.00 [in_i] Com [facility] weight 2022-10-01 11:40:00 120.4 [lb_av] Co [facility] temperature 2022-10-01 11:40:00 97.9 [degF] Com [facility] bmi 2022-10-01 11:40:00 24.32 kg/m2 Comm on [facility] oximetry 2022-10-01 11:40:00 99 % Commo n [facility] respiratory rate 2022-10-01 11:40:00 17 /min Common [facility] blood pressure systolic 2022-10-01 11:40:00 139 mm[Hg] [facility] blood pressure diastolic 2022-10-01 11:40:00 67 mm[Hg] [facility] height 2022-06-30 13:00:00 59.00 [in_i] Com [facility] weight 2022-06-30 13:00:00 124.7 [lb_av] Co [facility] temperature 2022-06-30 13:00:00 98.1 [degF] Com [facility] bmi 2022-06-30 13:00:00 25.18 kg/m2 Comm on [facility] oximetry 2022-06-30 13:00:00 98 % Commo n [facility] respiratory rate 2022-06-30 13:00:00 16 /min [facility] blood pressure systolic 2022-06-30 13:00:00 140 mm[Hg] [facility] blood pressure diastolic 2022-06-30 13:00:00 75 mm[Hg] [facility] height 2022-06-16 13:00:00 59.00 [in_i] Com [facility] weight 2022-06-16 13:00:00 124.5 [lb_av] Co [facility] temperature 2022-06-16 13:00:00 98.2 [degF] Com [facility] bmi 2022-06-16 13:00:00 25.14 kg/m2 Comm on [facility] oximetry 2022-06-16 13:00:00 99 % Commo n [facility] respiratory rate 2022-06-16 13:00:00 16 /min [facility] blood pressure systolic 2022-06-16 13:00:00 147 mm[Hg] [facility] blood pressure diastolic 2022-06-16 13:00:00 75 mm[Hg] [facility] height 2021-11-12 11:30:00 59.00 [in_i] Com [facility] weight 2021-11-12 11:30:00 139.7 [lb_av] Co [facility] temperature 2021-11-12 11:30:00 98.7 [degF] Com [facility] bmi 2021-11-12 11:30:00 28.21 kg/m2 Comm on [facility] oximetry 2021-11-12 11:30:00 96 % Commo n [facility] respiratory rate 2021-11-12 11:30:00 16 /min [facility] blood pressure systolic 2021-11-12 11:30:00 140 mm[Hg] [facility] blood pressure diastolic 2021-11-12 11:30:00 72 mm[Hg] Common [facility] height 2021-11-12 11:00:00 59.00 [in_i] Com [facility] weight 2021-11-12 11:00:00 139[facility]7 [facility] 11:00:00 98.7 [degF] Com [facility] bmi 2021-11-12 11:00:00 28.21 kg/m2 Comm on [facility] oximetry 2021-11-12 11:00:00 96 % Commo n [facility] respiratory rate 2021-11-12 11:00:00 16 /min [facility] blood pressure systolic 2021-11-12 11:00:00 140 mm[Hg] [facility] blood pressure diastolic 2021-11-12 11:00:00 72 mm[Hg] [facility] height 2021-10-22 10:00:00 59.00 [in_i] Com [facility] weight 2021-10-22 10:00:00 127.1 [lb_av] Co mmon [facility] temperature 2021-10-22 10:00:00 97.0 [degF] Com [facility] bmi 2021-10-22 10:00:00 25.67 kg/m2 Comm on [facility] oximetry 2021-10-22 10:00:00 95 % Commo n [facility] respiratory rate 2021-10-22 10:00:00 16 /min [facility] blood pressure systolic 2021-10-22 10:00:00 141 mm[Hg] [facility] blood pressure diastolic 2021-10-22 10:00:00 79 mm[Hg] [facility] Systolic blood pressure 2020-07-08 21:07:00 164 mm[Hg] [facility] Diastolic blood pressure 2020-07-08 21:07:00 75 mm[Hg] [facility] Heart rate 2020-07-08 21:07:00 64 /min [facility] Body height 2020-07-08 21:00:00 149.9 cm [facility] Body weight 2020-07-08 21:00:00 54.976 kg [facility] BMI 2020-07-08 21:00:00 24.48 kg/m2 [facility] Procedures Procedure Date / Time Performed Performing Clinician Source [id number] 2023-05-17 00:00:00 [facility] [id number] 2023-05-17 00:00:00 [facility] [id number] 2023-05-17 00:00:00 [facility] [id number] 2023-05-17 00:00:00 [facility] [id number] 2023-05-17 00:00:00 MOIZ [facility] [id number] 2023-05-17 00:00:00 SILVIANO [facility] AUTHORIZATION FOR RELEASE OF PHI 2019-02-06 05:01:00 Doctor Unassigned, [facility] Encounters Start Date/Time End Date/Time Encounter Type Admission Type Attending [facility] Facility Care Department Encounter ID Source 2023-10-05 08:00:00 Outpatient Kwan Macias [facility] [id number] [facility] 2023-09-30 13:39:00 Outpatient Kwan Macias [facility] [id number] [facility] 2023-07-08 15:17:01 Outpatient Kwan Macias [facility] [id number] [facility] 2023-05-25 09:58:01 Outpatient Kwan Macias [facility] [id number] [facility] 2022-12-24 08:14:01 Outpatient Benjamin, Avnee [facility] [id number] [facility] 2022-12-15 15:58:01 Outpatient Benjamin, Avnee [facility] [id number] [facility] 2022-06-30 07:26:00 Outpatient Benjamin, Avnee STLMLC STLC [id number] [facility] 2022-06-18 14:57:01 Outpatient Benjamin, Avnee STLMLC STLC [id number] [facility] 2022-06-12 10:16:03 Outpatient Benjamin, Avnee STLMLC STLMLC [id number] [facility] 2022-01-06 16:40:01 Outpatient Benjamin, Avnee STLMLC STLC [id number] [facility] 2021-12-05 15:02:02 Outpatient BenjaminGloria STLMLC STLMLC [id number] [facility] 2021-11-17 09:25:09 Outpatient BenjaminGloria STLMLC STLMLC [id number] [facility] 2021-11-11 13:25:02 Outpatient BenjaminGloria STLMLC STLMLC [id number] [facility] 2021-11-06 10:00:03 Outpatient BenjaminHayleye STLMLC STLMLC [id number] [facility] 2021-10-22 16:34:02 Outpatient BenjaminHayleye STLMLC STLMLC [id number] [facility] 2023-12-17 00:00:00 2023-12-17 00:00:00 (TEL) STLMLC STLMLC [id number] [facility] 2023-12-16 00:00:00 2023-12-16 00:00:00 (TEL) STLMLC STLMLC [id number] [facility] 2023-12-13 00:00:00 2023-12-13 00:00:00 OFFICE VISIT ESTAB PT LEVEL 4 STLMLC STLMLC [id number] [facility] 2023-12-06 00:00:00 2023-12-06 00:00:00 OFFICE VISIT ESTAB PT LEVEL 3 STLMLC STLMLC [id number] [facility] 2023-10-07 00:00:00 2023-10-07 00:00:00 OFFICE VISIT ESTAB PT LEVEL 3 STLMLC STLMLC [id number] [facility] 2023-09-30 00:00:00 2023-09-30 00:00:00 OFFICE VISIT ESTAB PT LEVEL 3 STLMLC STLMLC [id number] [facility] 2023-09-10 00:00:00 2023-09-10 00:00:00 OFFICE VISIT ESTAB PT LEVEL 4 STLMLC STLMLC [id number] [facility] 2023-09-10 00:00:00 2023-09-10 00:00:00 SUB ANNUAL MCR WELLNESS VISIT STLMLC STLMLC [id number] [facility] 2023-06-10 00:00:00 2023-06-10 00:00:00 (TEL) STLMLC STLMLC [id number] [facility] 2023-06-10 00:00:00 2023-06-10 00:00:00 OFFICE VISIT ESTAB PT LEVEL 3 STLMLC STLMLC [id number] [facility] 2023-05-31 00:00:00 2023-05-31 00:00:00 OFFICE VISIT ESTAB PT LEVEL 4 STLMLC STLMLC [id number] [facility] 2023-05-21 00:00:00 2023-05-21 00:00:00 (TEL) STLMLC STLMLC [id number] [facility] 2023-05-17 06:08:00 2023-05-20 19:15:00 Inpatient EM Sudarshan Cleaning HCACL INTE [id number] [facility] 2023-05-10 12:51:00 2023-05-13 14:38:00 Inpatient EL Sudarshan Cleaning HCACL INTE [id number] [facility] 2023-05-12 00:00:00 2023-05-12 00:00:00 (TEL) STLMLC STLMLC [id number] [facility] 2023-01-22 00:00:00 2023-01-22 00:00:00 SUB ANNUAL MCR WELLNESS VISIT STLMLC STLMLC [id number] [facility] 2023-01-22 00:00:00 2023-01-22 00:00:00 OFFICE VISIT ESTAB PT LEVEL 4 STLMLC STLMLC [id number] [facility] 2022-10-01 00:00:00 2022-10-01 00:00:00 OFFICE VISIT ESTAB PT LEVEL 4 STLMLC STLMLC [id number] [facility] 2022-09-22 00:00:00 2022-09-22 00:00:00 (TEL) STLMLC STLMLC [id number] [facility] 2022-06-30 00:00:00 2022-06-30 00:00:00 OFFICE VISIT ESTAB PT LEVEL 4 STLMLC STLMLC [id number] [facility] 2022-06-16 00:00:00 2022-06-16 00:00:00 OFFICE VISIT ESTAB PT LEVEL 4 STLMLC STLMLC [id number] [facility] 2022-02-26 00:00:00 2022-02-26 00:00:00 (TEL) STLMLC STLMLC [id number] [facility] 2022-02-20 00:00:00 2022-02-20 00:00:00 OL DIG E/M SVC 11-20 MIN STLMLC STLMLC [id number] [facility] 2022-01-06 00:00:00 2022-01-06 00:00:00 (TEL) STLMLC STLMLC [id number] [facility] 2021-11-25 00:00:00 2021-11-25 00:00:00 (TEL) STLMLC STLMLC [id number] [facility] 2021-11-12 00:00:00 2021-11-12 00:00:00 OFFICE VISIT ESTAB PT LEVEL 4 STLMLC STLMLC [id number] [facility] 2021-11-12 00:00:00 2021-11-12 00:00:00 SUB ANNUAL [facility] WELLNESS VISIT STLMLC STLMLC [id number] [facility] 2021-11-06 00:00:00 2021-11-06 00:00:00 (TEL) STLMLC STLMLC [id number] [facility] 2021-10-22 00:00:00 2021-10-22 00:00:00 OFFICE VISIT NEW PT LEVEL 4 STLMLC STLMLC [id number] [facility] 2020-09-06 00:00:00 2020-09-06 00:00:00 Patient Outreach Ishan Ivánvalentin Davenport [facility] [id number] [id number] [id number] [id number] [facility] 2020-08-12 13:10:00 2020-08-12 13:10:00 Outpatient NIRALI ELLISON [facility] [id number] [facility] 2020-08-08 00:00:00 2020-08-08 00:00:00 Abstract Nirali Holder [facility] [id number] 350.1.13.10 [id number] [id number] [facility] 2020-07-16 14:15:00 2020-07-16 14:15:00 Outpatient LADY FINN [facility] [id number] [facility] 2020-07-08 14:49:14 2020-07-08 15:40:00 Office Visit Manpreet Coleman [facility] 1.2.840.114 350.1.13.10 4.2.7.2.686 [id number] [facility] 2020-07-08 15:15:00 2020-07-08 15:15:00 Outpatient MANPREET XIE [facility] [id number] [facility] 2020-06-24 00:00:00 2020-06-24 00:00:00 Telephone [facility] ([facility] [id number] [id number] [id number] [id number] [facility] 2019-02-06 00:00:00 2019-02-06 00:00:00 Orders Only Doctor Unassigned, [place] [facility] [id number] 350.1.13.10 [id number] [id number] [facility] Results Test Description Test Time Test Comments Results Result Co mments Source GLUCOSE [id number] 11:40:00* Test Item Value Reference Range Interpretation Comme nts GLUCOSE BEDSIDE (test code = GLUBED) 240 MG/DL 70-110 H Performed by cer tified electronic pagination system operator at [facility] GLUCOSE [id number] 08:26:00* Test Item Value Reference Range Interpretation Comme nts GLUCOSE BEDSIDE (test code = GLUBED) 109 MG/DL 70-110 N Performed by cer tified electronic pagination system operator at [facility] GLUCOSE [id number] 08:23:00* Test Item Value Reference Range Interpretation Comme nts GLUCOSE BEDSIDE (test code = GLUBED) 194 MG/DL 70-110 H Performed by [facility] tified electronic pagination system operator at [facility] BASIC METABOLIC [id number] 06:14:00* Test Item Value Reference Range Interpretation Comme nts SODIUM (test code = NA) 136 mEq/L 134-147 N POTASSIUM (test code = K) 5.0 mEq/L 3.4-5.0 N CHLORIDE (test code = CL) 105 mEq/L 100-108 N CARBON DIOXIDE (test code = CO2) 22 mEq/l 21-33 N ANION GAP (test code = GAP) 14 0-20 N GLUCOSE (test code = GLU) 113 mg/dL 77-141 N NOTE: NEW NORMAL RANGE BLOOD UREA NITROGEN (test code = BUN) 30 mg/dL 7-25 H NOTE: NEW NORM AL RANGE GLOMERULAR FILTRATION RATE (test code = GFR) 37.5 80-90 L The Glomerular Filtration Rate is a calculated parameterbased on serum Creatinine, patient age and sex. GFR valuesless than 60 mL/min/1.73 square meters are indicative ofChronic Kidney Disease. Values less than 15 mL/min/1.73square meters indicate Kidney failure. The calculation forGFR is based on the CKD-EPI (2020) calculation. This formulais race indifferent and is the recommended formula for GFRby the National Kidney Foundation for Adults.The GFR will not calculate if the sex is unknown or if thepatient's age is <18 years. CREATININE (test code = CREAT) 1.5 mg/dL 0.6-1.3 H CALCIUM (test code = CA) 9.5 mg/dL 8.0-10.5 N [id number] 06:14:00* Test Item Value Reference Range Interpretation Comme nts PHOSPHOROUS (test code = PHOS) 3.9 MG/DL 2.5-4.9 N [id number] 06:14:00* Test Item Value Reference Range Interpretation Comme nts MAGNESIUM (test code = MAG) 1.80 mg/dL 1.6-2.6 N NOTE: NEW NORMAL RANGE CALCIUM [id number] 06:14:00* Test Item Value Reference Range Interpretation Comme nts CALCIUM IONIZED (test code = RAGHU) 1.16 MMOL/L 1.09-1.30 N CBC W/AUTO [id number] 05:18:00* Test Item Value Reference Range Interpretation Comme nts WHITE BLOOD CELL (test code = WBC) 9.7 x10 3/uL 4.5-11.0 N RED BLOOD CELL (test code = RBC) 2.87 x10 6/uL 3.54-5.02 L HEMOGLOBIN (test code = HGB) 8.6 g/dL 11.0-15.0 L HEMATOCRIT (test code = HCT) 27.2 % 33.0-45.0 L MEAN CELL VOLUME (test code = MCV) 94.8 fL 81.0-99.0 N MEAN CELL HGB (test code = MCH) 30.0 pg 27.0-33.0 N MEAN CELL HGB CONCETRATION (test code = MCHC) 31.6 g/dL 33.0-37.0 L RED CELL DISTRIBUTION WIDTH CV (test code = RDW) 12.4 % 11.5-14.5 N RED CELL DISTRIBUTION WIDTH SD (test code = RDW-SD) 43.1 fL 37.0-54.0 N PLATELET COUNT (test code = PLT) 447 x10 3/uL 150-400 H MEAN PLATELET VOLUME (test c ode = MPV) 9.7 fL 7.0-9.0 H NEUTROPHIL % (test code = NT%) 66.7 % 56.0-77.0 N IMMATURE GRANULOCYTE % (test code = IG%) 0.4 % 0.0-2.0 N LYMPHOCYTE % (test code = LY%) 21.8 % 14.0-32.0 N MONOCYTE % (test code = MO%) 7.3 % 4.8-9.0 N EOSINOPHIL % (test code = EO%) 3.3 % 0.3-3.7 N BASOPHIL % (test code = BA%) 0.5 % 0.0-2.0 N NUCLEATED RBC % (test code = NRBC%) 0.0 % 0-0 N NEUTROPHIL # (test code = NT#) 6.44 x10 3/uL 2.0-7.6 N IMMATURE GRANULOCYTE # (test code = IG#) 0.04 x10 3/uL 0.00-0.03 H LYMPHOCYTE # (test code = LY#) 2.11 x10 3/uL 1.0-3.8 N MONOCYTE # (test code = MO#) 0.71 x10 3/uL 0.1-0.8 N EOSINOPHIL # (test code = EO#) 0.32 x10 3/uL 0.0-0.2 H BASOPHIL # (test code = BA#) 0.05 x10 3/uL 0.0-0.2 N NUCLEATED RBC # (test code = NRBC#) 0.00 x10 3/uL 0.0-0.1 N GLUCOSE [id number] 22:04:00* Test Item Value Reference Range Interpretation Comme nts GLUCOSE BEDSIDE (test code = GLUBED) 102 MG/DL 70-110 N Performed by cer tified electronic pagination system operator at [facility] GLUCOSE [id number] 16:49:00* Test Item Value Reference Range Interpretation Comme nts GLUCOSE BEDSIDE (test code = GLUBED) 206 MG/DL 70-110 H Performed by cer tified electronic pagination system operator at [facility] GLUCOSE [id number] 07:50:00* Test Item Value Reference Range Interpretation Comme nts GLUCOSE BEDSIDE (test code = GLUBED) 128 MG/DL 70-110 H Performed by cer tified electronic pagination system operator at [facility] COMPREHENSIVE METABOLIC [id number] 05:26:00* Test Item Value Reference Range Interpretation Comme nts SODIUM (test code = NA) 136 mEq/L 134-147 N POTASSIUM (test code = K) 4.9 mEq/L 3.4-5.0 N CHLORIDE (test code = CL) 105 mEq/L 100-108 N CARBON DIOXIDE (test code = CO2) 23 mEq/l 21-33 N ANION GAP (test code = GAP) 13 0-20 N GLUCOSE (test code = GLU) 125 mg/dL 77-141 NOTE: NEW NORMAL RANGE BLOOD UREA NITROGEN (test code = BUN) 32 mg/dL 7-25 H NOTE: NEW NORM AL RANGE GLOMERULAR FILTRATION RATE (test code = GFR) 44.5 80-90 L The Glomerular Filtration Rate is a calculated parameterbased on serum Creatinine, patient age and sex. GFR valuesless than 60 mL/min/1.73 square meters are indicative ofChronic Kidney Disease. Values less than 15 mL/min/1.73square meters indicate Kidney failure. The calculation forGFR is based on the CKD-EPI (2020) calculation. This formulais race indifferent and is the recommended formula for GFRby the National Kidney Foundation for Adults.The GFR will not calculate if the sex is unknown or if thepatient's age is <18 years. CREATININE (test code = CREAT) 1.3 mg/dL 0.6-1.3 N TOTAL PROTEIN (test code = PROT) 6.5 g/dL 6.4-8.2 N ALBUMIN (test code = ALB) 3.10 g/dL 3.4-5.0 L CALCIUM (test code = CA) 9.0 mg/dL 8.0-10.5 N BILIRUBIN TOTAL (test code = BILT) 0.60 mg/dL 0.0-1.0 N SGOT/AST (test code = AST) 22 IUnit/L 8-34 N NOTE: NEW NORMAL RANGE SGPT/ALT (test code = ALT) 36 IUnit/L 10-49 N NOTE: NEW NORMAL RANGE ALKALINE PHOSPHATASE TOTAL (test code = ALKP) 81 IUnit/L 20-125 N [id number] 05:26:00* Test Item Value Reference Range Interpretation Comme nts PHOSPHOROUS (test code = PHOS) 4.6 MG/DL 2.5-4.9 N [id number] 05:26:00* Test Item Value Reference Range Interpretation Comme nts MAGNESIUM (test code = MAG) 1.86 mg/dL 1.6-2.6 N NOTE: NEW NORMAL RANGE CALCIUM [id number] 05:26:00* Test Item Value Reference Range Interpretation Comme nts CALCIUM IONIZED (test code = RAGHU) 1.20 MMOL/L 1.09-1.30 N CBC W/AUTO [id number] 04:54:00* Test Item Value Reference Range Interpretation Comme nts WHITE BLOOD CELL (test code = WBC) 9.5 x10 3/uL 4.5-11.0 N RED BLOOD CELL (test code = RBC) 2.83 x10 6/uL 3.54-5.02 L HEMOGLOBIN (test code = HGB) 8.7 g/dL 11.0-15.0 L HEMATOCRIT (test code = HCT) 26.3 % 33.0-45.0 L MEAN CELL VOLUME (test code = MCV) 92.9 fL 81.0-99.0 N MEAN CELL HGB (test code = MCH) 30.7 pg 27.0-33.0 N MEAN CELL HGB CONCETRATION (test code = MCHC) 33.1 g/dL 33.0-37.0 N RED CELL DISTRIBUTION WIDTH CV (test code = RDW) 12.7 % 11.5-14.5 N RED CELL DISTRIBUTION WIDTH SD (test code = RDW-SD) 42.9 fL 37.0-54.0 N PLATELET COUNT (test code = PLT) 420 x10 3/uL 150-400 H MEAN PLATELET VOLUME (test c ode = MPV) 9.7 fL 7.0-9.0 H NEUTROPHIL % (test code = NT%) 66.7 % 56.0-77.0 N IMMATURE GRANULOCYTE % (test code = IG%) 0.4 % 0.0-2.0 N LYMPHOCYTE % (test code = LY%) 21.8 % 14.0-32.0 N MONOCYTE % (test code = MO%) 7.3 % 4.8-9.0 N EOSINOPHIL % (test code = EO%) 3.4 % 0.3-3.7 N BASOPHIL % (test code = BA%) 0.4 % 0.0-2.0 N NUCLEATED RBC % (test code = NRBC%) 0.0 % 0-0 N NEUTROPHIL # (test code = NT#) 6.34 x10 3/uL 2.0-7.6 N IMMATURE GRANULOCYTE # (test code = IG#) 0.04 x10 3/uL 0.00-0.03 H LYMPHOCYTE # (test code = LY#) 2.07 x10 3/uL 1.0-3.8 N MONOCYTE # (test code = MO#) 0.69 x10 3/uL 0.1-0.8 N EOSINOPHIL # (test code = EO#) 0.32 x10 3/uL 0.0-0.2 H BASOPHIL # (test code = BA#) 0.04 x10 3/uL 0.0-0.2 N NUCLEATED RBC # (test code = NRBC#) 0.00 x10 3/uL 0.0-0.1 N GLUCOSE [id number] 21:24:00* Test Item Value Reference Range Interpretation Comme nts GLUCOSE BEDSIDE (test code = GLUBED) 173 MG/DL 70-110 H Performed by [facility] tified electronic pagination system operator at [facility] GLUCOSE [id number] 16:45:00* Test Item Value Reference Range Interpretation Comme nts GLUCOSE BEDSIDE (test code = GLUBED) 178 MG/DL 70-110 H Performed by [facility] tified electronic pagination system operator at [facility] GLUCOSE [id number] 13:04:00* Test Item Value Reference Range Interpretation Comme nts GLUCOSE BEDSIDE (test code = GLUBED) 133 MG/DL 70-110 H Performed by [facility] [employer] electronic pagination system operator at [facility] GLUCOSE [id number] 12:01:00* Test Item Value Reference Range Interpretation Comme nts GLUCOSE BEDSIDE (test code = GLUBED) 102 MG/DL 70-110 N Performed by [facility] electronic pagination system operator at [facility] - XR CHEST 1 [id number] 08:20:00 [facility] : 1955 Sex: F FAX: Carla Stein CNP [place]: St: ADM Name: MARIA ESTHER CAPONE [facility] : 1955 Age/S: 67/F [address] [place] [address] Blvd Unit #: [id number] Loc: G.M[address] [place] [address] Phys: Carla Stein CNP Acct: [id number] Dis Date: Status: ADM IN PHONE #: [phone] Exam Date: 05/18/2023633 FAX #: [phone] Reason: CONGESTION EXAMS: CPT CODE: [id number] XR CHEST 1 V 95900 STUDY: Chest radiograph HISTORY: Congestion COMPARISON: 05/17/2023 TECHNIQUE: Frontal view of the chest. LOCATION: H19 FINDINGS: Left chest tube and pacemaker is again noted. The cardiac silhouette is stable in size. There is mild pulmonary vascular congestion. A faint right midlung patchy opacity is present. There is no large pleural effusion or discernible pneumothorax. IMPRESSION: Mild pulmonary vascular congestion with faint right midlung patchy opacity that may reflect atelectasis or pneumonitis. at 0820 Reported and signed by: Baldev Seo M.D. CC: Carla Stein Technologist: Angie Dumont, RT(R); RT Chris(R) Trnscrd Date/Time/By: 05/18/2023 (08) : By: [email or web address] Orig Print D/T: S: 05/18/2023 (9365) PAGE 1 Signed ReportCOMPREHENSIVE METABOLIC [id number] 06:07:00* Test Item Value Reference Range Interpretation Comme nts SODIUM (test code = NA) 141 mEq/L 134-147 N POTASSIUM (test code = K) 4.8 mEq/L 3.4-5.0 N CHLORIDE (test code = CL) 108 mEq/L 100-108 N CARBON DIOXIDE (test code = CO2) 24 mEq/l 21-33 N ANION GAP (test code = GAP) 14 0-20 N GLUCOSE (test code = GLU) 99 mg/dL 77-141 NOTE: NEW NORMAL RANGE BLOOD UREA NITROGEN (test code = BUN) 35 mg/dL 7-25 H NOTE: NEW NORM AL RANGE GLOMERULAR FILTRATION RATE (test code = GFR) 49.0 80-90 L The Glomerular Filtration Rate is a calculated parameterbased on serum Creatinine, patient age and sex. GFR valuesless than 60 mL/min/1.73 square meters are indicative ofChronic Kidney Disease. Values less than 15 mL/min/1.73square meters indicate Kidney failure. The calculation forGFR is based on the CKD-EPI (2020) calculation. This formulais race indifferent and is the recommended formula for GFRby the National Kidney Foundation for Adults.The GFR will not calculate if the sex is unknown or if thepatient's age is <18 years. CREATININE (test code = CREAT) 1.2 mg/dL 0.6-1.3 N TOTAL PROTEIN (test code = PROT) 6.7 g/dL 6.4-8.2 N ALBUMIN (test code = ALB) 3.10 g/dL 3.4-5.0 L CALCIUM (test code = CA) 9.2 mg/dL 8.0-10.5 N BILIRUBIN TOTAL (test code = BILT) 0.50 mg/dL 0.0-1.0 N SGOT/AST (test code = AST) 28 IUnit/L 8-34 N NOTE: NEW NORMAL RANGE SGPT/ALT (test code = ALT) 57 IUnit/L 10-49 H NOTE: NEW NORMAL RANGE ALKALINE PHOSPHATASE TOTAL (test code = ALKP) 73 IUnit/L 20-125 N [id number] 06:07:00* Test Item Value Reference Range Interpretation Comme nts PHOSPHOROUS (test code = PHOS) 4.2 MG/DL 2.5-4.9 [id number] 06:07:00* Test Item Value Reference Range Interpretation Comme nts MAGNESIUM (test code = MAG) 2.15 mg/dL 1.6-2.6 N NOTE: NEW NORMAL RANGE CALCIUM [id number] 06:07:00* Test Item Value Reference Range Interpretation Comme nts CALCIUM IONIZED (test code = RAGHU) 1.18 MMOL/L 1.09-1.30 N CBC W/AUTO [id number] 05:39:00* Test Item Value Reference Range Interpretation Comme nts WHITE BLOOD CELL (test code = WBC) 8.5 x10 3/uL 4.5-11.0 N RED BLOOD CELL (test code = RBC) 2.77 x10 6/uL 3.54-5.02 L HEMOGLOBIN (test code = HGB) 8.4 g/dL 11.0-15.0 L HEMATOCRIT (test code = HCT) 26.3 % 33.0-45.0 L MEAN CELL VOLUME (test code = MCV) 94.9 fL 81.0-99.0 N MEAN CELL HGB (test code = MCH) 30.3 pg 27.0-33.0 N MEAN CELL HGB CONCETRATION (test code = MCHC) 31.9 g/dL 33.0-37.0 L RED CELL DISTRIBUTION WIDTH CV (test code = RDW) 12.6 % 11.5-14.5 N RED CELL DISTRIBUTION WIDTH SD (test code = RDW-SD) 44.0 fL 37.0-54.0 N PLATELET COUNT (test code = PLT) 382 x10 3/uL 150-400 N MEAN PLATELET VOLUME (test c ode = MPV) 10.1 fL 7.0-9.0 H NEUTROPHIL % (test code = NT%) 58.2 % 56.0-77.0 N IMMATURE GRANULOCYTE % (test code = IG%) 0.2 % 0.0-2.0 N LYMPHOCYTE % (test code = LY%) 30.3 % 14.0-32.0 N MONOCYTE % (test code = MO%) 7.4 % 4.8-9.0 N EOSINOPHIL % (test code = EO%) 3.3 % 0.3-3.7 N BASOPHIL % (test code = BA%) 0.6 % 0.0-2.0 N NUCLEATED RBC % (test code = NRBC%) 0.0 % 0-0 N NEUTROPHIL # (test code = NT#) 4.94 x10 3/uL 2.0-7.6 N IMMATURE GRANULOCYTE # (test code = IG#) 0.02 x10 3/uL 0.00-0.03 N LYMPHOCYTE # (test code = LY#) 2.57 x10 3/uL 1.0-3.8 N MONOCYTE # (test code = MO#) 0.63 x10 3/uL 0.1-0.8 N EOSINOPHIL # (test code = EO#) 0.28 x10 3/uL 0.0-0.2 H BASOPHIL # (test code = BA#) 0.05 x10 3/uL 0.0-0.2 N NUCLEATED RBC # (test code = NRBC#) 0.00 x10 3/uL 0.0-0.1 N GLUCOSE [id number] 21:16:00* Test Item Value Reference Range Interpretation Comme nts GLUCOSE BEDSIDE (test code = GLUBED) 141 MG/DL 70-110 H Performed by barbara johns electronic pagination system operator at [facility] - XR CHEST 1 [id number] 20:31:00 [facility] : 1955 Sex: F FAX: Sandor Santacruz MD [place]: BENITA St: ADM Name: MARIA ESTHER CAPONE [facility] : 1955 Age/S: 67/F [address] [place] [address] Unit #: [id number] Loc: [place] [address] Phys: Sandor Santacruz MD Acct: [id number] DisDate: Status: ADM IN PHONE #: [phone] Exam Date: 05/17/20232003 FAX #: [phone] Reason: Post PM/ICD EXAMS: CPT CODE: [id number] XR CHEST 1 V 83371 CLINICAL HISTORY: Post PM/ICD. LOCATION: A1 FINDINGS: Comparison is made with a previous study dated May 17, 2023. A portable AP view of the chest is dated 05/17/2023 at 1954 hours. The cardiomediastinal silhouette is within normal size limits. Dual-lead cardiac conduction device overlies the left chest. There are no infiltrates or pleural effusions. No pneumothorax. No acute skeletal or soft tissue abnormalities. IMPRESSION: 1. No acute disease. at 2030 Reported and signed by: Chaitanya Corrales M.D. CC: Sandor Santacruz MD Technologist: RT Ramonita(R) Trnscrd Date/Time/By: 05/17/2023 (2030) : By: [email or web address] Orig Print D/T: S: 05/17/2023 (2033) PAGE 1 Signed Repor Yamile WHITE IF [id number] 18:00:00* Test Item Value Reference Range Interpretation Comme nts UA COLOR (test code = COLU) STRAW YEL/STRAW UA APPEARANCE (test code = APPU) CLEAR CLEAR UA GLUCOSE DIPSTICK (test code = DGLUU) NEGATIVE NEGATIVE UA BILIRUBIN DIPSTICK (test code = BILU) NEGATIVE NEGATIVE UA KETONE DIPSTICK (test code = KETU) NEGATIVE NEGATIVE UA SPECIFIC GRAVITY (test code = SGU) 1.008 1.005-1.030 N UA BLOOD DIPSTICK (test code = LESLIE) NEGATIVE NEGATIVE UA PH DIPSTICK (test code = BIPIN) 5.0 5.0-7.0 N UA PROTEIN DIPSTICK (test code = PROU) NEGATIVE NEGATIVE UA UROBILINIOGEN DIPSTICK (test code = URO) 0.2 mg/dL 0.2-1.0 UA NITRITE DIPSTICK (test code = BEBE) NEGATIVE NEGATIVE UA LEUKOCYTE ESTERASE DIPSTICK (test code = LEUU) NEGATIVE NEGATIVE UA WBC (test code = WBCU) 0-3 WBC/HPF 0-3 UA RBC (test code = RBCU) NONE SEEN RBC/HPF 0-3 UA WBC NO REFLEX (test code = WBCUCL) 0-3 WBC/HPF 0-3 UA BACTERIA (test code = BACU) NONE SEEN /HPF NONE SEEN UA SQUAMOUS CELLS (test code = SQU) NONE SEEN /HPF NONE SEEN UA MUCUS (test code = MUCU) TRACE /LPF NONE SEEN Indication for culture: RiskForSepsis-no oth srcSpecimen Description: CLEAN CATCHTHROMBOPLASTIN TIME [id number] 17:03:00* Test Item Value Reference Range Interpretation Comme nts THROMBOPLASTIN TIME PARTIAL (test code = PTT) 64.6 Seconds 25.0-39.5 H Therapeutic Rang e: 50.4 - 88.3 Seconds Effective 10/18/2018 GLUCOSE [id number] 16:23:00* Test Item Value Reference Range Interpretation Comme nts GLUCOSE BEDSIDE (test code = GLUBED) 163 MG/DL 70-110 H Performed by cer tified electronic pagination system operator at [facility] GLUCOSE [id number] 12:39:00* Test Item Value Reference Range Interpretation Comme nts GLUCOSE BEDSIDE (test code = GLUBED) 136 MG/DL 70-110 H Performed by cer tified electronic pagination system operator at [facility] THROMBOPLASTIN TIME [id number] 12:06:00* Test Item Value Reference Range Interpretation Comme nts THROMBOPLASTIN TIME PARTIAL (test code = PTT) 73.2 Seconds 25.0-39.5 H Therapeutic Rang e: 50.4 - 88.3 Seconds Effective 10/18/2018 TROP-I HIGH [id number] 10:26:00* Test Item Value Reference Range Interpretation Comme nts TROP-I HIGH SENSITIVITY (test code = TROPIHS) 1549 ng/L 0-34 HH CAUTION: Units o f the current test methodology (ng/L) differfrom the prior test methodology (ng/mL) by a factor of 1000. 99th Percentile Upper Reference Limit (URL): Females: 34 ng/LMales: 54 ng/L In order to distinguish acute elevations of high sensitivitytroponin from other clinical conditions, the FourthUniversal Definition of Myocardial Infarction stressesclinical assessment and the demonstration of a rise and/orfall in serial troponin results above the URL. These results were obtained using [employer] [employer] IM TnIHreagent. Results from different methodologies should not becompared to one another as quantitative results and URLs mayvary by method. HGBA1C%2023-05-17 10:22:00* Test Item Value Reference Range Interpretation Comme nts HGBA1C% (test code = HGBA1C%) 6.3 %A1C 4.8-6.0 H TSH REFLEX TO [id number] 09:34:00* Test Item Value Reference Range Interpretation Comme nts TSH REFLEX TO FT4 (test code = TSHREFLEX) 3.44 IU/mL 0.42-5.47 N TROP-I HIGH [id number] 08:34:00* Test Item Value Reference Range Interpretation Comme nts TROP-I HIGH SENSITIVITY (test code = TROPIHS) 1479 ng/L 0-34 HH Critical result called to BEAU LAW RNby [id number] at 0830 05/17/23Nurse read back result and tech confirmed it's correct? YESCAUTION: Units of the current test methodology (ng/L) differfrom the prior test methodology (ng/mL) by a factor of 1000. 99th Percentile Upper Reference Limit (URL): Females: 34 ng/LMales: 54 ng/L In order to distinguish acute elevations of high sensitivitytroponin from other clinical conditions, the FourthUniversal Definition of Myocardial Infarction stressesclinical assessment and the demonstration of a rise and/orfall in serial troponin results above the URL. These results were obtained using [employer] IM TnIHreagent. Results from different methodologies should not becompared to one another as quantitative results and URLs mayvary by method. GLUCOSE [id number] 07:36:00* Test Item Value Reference Range Interpretation [facility] GLU[facility] BEDSIDE (test code = GLUBED) 122 MG/DL 70-110 H Performed by cer tified electronic pagination system operator at [facility] LIPOPROTEIN [id number] 06:49:00* Test Item Value Reference Range Interpretation Com[facility] LIPOPROTEIN LDL (test code = LDL) 110.0 mg/dL 0-100 H <100 [id number] 0-129 NEAR OPTIMAL/ABOVE [id number] HIGH>XZ=307 VERY HIGH*Guidelines provided by the National Cholesterol EducationProgram Adult Treatment Panel III B-TYPE NATRIURETIC [id number] 06:35:00* Test Item Value Reference Range Interpretation Com[facility] B-TYPE NATRIURETIC PEPTIDE ( test code = BNP) 286.0 PG/ML 0-100 H PROTHROMBIN [id number] 06:31:00* Test Item Value Reference Range Interpretation Com[facility] PROTHROMBIN TIME PATIENT (test code = PTP) 11.2 SECONDS 9.3-12.9 N INTERNATIONAL NORMAL RATIO (test code = INR) 1.0 0.8-1.2 N TARGET INR BY INDICATION Indication INR1. Prophylaxis of venous thrombosis 2.0 - 3.0 (orthopedic surgery), Prophylaxis of venous thrombosis (other than high-risk surgery), Treatment of Deep Vein Thrombosis/Pulmonary Embolism, Prevention of systemic embolism - Tissue heart valves, Acute Myocardial Infarction (to prevent systemic embolism), Valvular heart disease, Atrial Fibrillation, Bileaflet mechanical valve in aortic position.2. Mechanical prosthetic valves (high risk), 2.5 - 3.5 Presence of Lupus Anticoagulant or Antiphospholipid Antibodies, Prevention of systemic embolism - Acute Myocardial Infarction (to prevent recurrent infarct). THROMBOPLASTIN TIME [id number] 06:31:00* Test Item Value Reference Range Interpretation Com[facility] THROMBOPLASTIN TIME PARTIAL (test code = PTT) 106.8 Seconds 25.0-39.5 H Therapeutic Rang e: 50.4 - 88.3 Seconds Effective 10/18/2018 COMPREHENSIVE METABOLIC [id number] 06:29:00* Test Item Value Reference Range Interpretation Comme nts SODIUM (test code = NA) 139 mEq/L 134-147 N POTASSIUM (test code = K) 4.9 mEq/L 3.4-5.0 N CHLORIDE (test code = CL) 108 mEq/L 100-108 N CARBON DIOXIDE (test code = CO2) 22 mEq/l 21-33 N ANION GAP (test code = GAP) 14 0-20 N GLUCOSE (test code = GLU) 133 mg/dL 77-141 N NOTE: NEW NORMAL RANGE BLOOD UREA NITROGEN (test code = BUN) 50 mg/dL 7-25 H NOTE: NEW NORM AL RANGE GLOMERULAR FILTRATION RATE (test code = GFR) 40.7 80-90 L The Glomerular Filtration Rate is a calculated parameterbased on serum Creatinine, patient age and sex. GFR valuesless than 60 mL/min/1.73 square meters are indicative ofChronic Kidney Disease. Values less than 15 mL/min/1.73square meters indicate Kidney failure. The calculation forGFR is based on the CKD-EPI (2020) calculation. This formulais race indifferent and is the recommended formula for GFRby the National Kidney Foundation for Adults.The GFR will not calculate if the sex is unknown or if thepatient's age is <18 years. CREATININE (test code = CREAT) 1.4 mg/dL 0.6-1.3 H TOTAL PROTEIN (test code = PROT) 6.4 g/dL 6.4-8.2 N ALBUMIN (test code = ALB) 3.10 g/dL 3.4-5.0 L CALCIUM (test code = CA) 8.5 mg/dL 8.0-10.5 N BILIRUBIN TOTAL (test code = BILT) 0.50 mg/dL 0.0-1.0 N SGOT/AST (test code = AST) 22 IUnit/L 8-34 N NOTE: NEW NORMAL RANGE SGPT/ALT (test code = ALT) 77 IUnit/L 10-49 H NOTE: NEW NORMAL RANGE ALKALINE PHOSPHATASE TOTAL (test code = ALKP) 81 IUnit/L 20-125 N [id number] 06:29:00* Test Item Value Reference Range Interpretation Comme nts PHOSPHOROUS (test code = PHOS) 3.1 MG/DL 2.5-4.9 N [id number] 06:29:00* Test Item Value Reference Range Interpretation Comme nts MAGNESIUM (test code = MAG) 2.08 mg/dL 1.6-2.6 N NOTE: NEW NORMAL RANGE TROP-I HIGH [id number] 06:29:00* Test Item Value Reference Range Interpretation Comme nts TROP-I HIGH SENSITIVITY (test code = TROPIHS) 1496 ng/L 0-34 HH CAUTION: Units o f the current test methodology (ng/L) differfrom the prior test methodology (ng/mL) by a factor of 1000. 99th Percentile Upper Reference Limit (URL): Females: 34 ng/LMales: 54 ng/L In order to distinguish acute elevations of high sensitivitytroponin from other clinical conditions, the FourthUniversal Definition of Myocardial Infarction stressesclinical assessment and the demonstration of a rise and/orfall in serial troponin results above the URL. These results were obtained using [employer] IM TnIHreagent. Results from different methodologies should not becompared to one another as quantitative results and URLs mayvary by method. CBC W/AUTO [id number] 06:17:00* Test Item Value Reference Range Interpretation Comme nts WHITE BLOOD CELL (test code = WBC) 10.9 x10 3/uL 4.5-11.0 N RED BLOOD CELL (test code = RBC) 2.64 x10 6/uL 3.54-5.02 L HEMOGLOBIN (test code = HGB) 8.1 g/dL 11.0-15.0 L HEMATOCRIT (test code = HCT) 24.7 % 33.0-45.0 L MEAN CELL VOLUME (test code = MCV) 93.6 fL 81.0-99.0 N MEAN CELL HGB (test code = MCH) 30.7 pg 27.0-33.0 N MEAN CELL HGB CONCETRATION (test code = MCHC) 32.8 g/dL 33.0-37.0 L RED CELL DISTRIBUTION WIDTH CV (test code = RDW) 12.6 % 11.5-14.5 N RED CELL DISTRIBUTION WIDTH SD (test code = RDW-SD) 43.3 fL 37.0-54.0 N PLATELET COUNT (test code = PLT) 330 x10 3/uL 150-400 N MEAN PLATELET VOLUME (test c ode = MPV) 10.1 fL 7.0-9.0 H NEUTROPHIL % (test code = NT%) 62.1 % 56.0-77.0 N IMMATURE GRANULOCYTE % (test code = IG%) 0.5 % 0.0-2.0 N LYMPHOCYTE % (test code = LY%) 27.6 % 14.0-32.0 N MONOCYTE % (test code = MO%) 7.3 % 4.8-9.0 N EOSINOPHIL % (test code = EO%) 2.1 % 0.3-3.7 N BASOPHIL % (test code = BA%) 0.4 % 0.0-2.0 N NUCLEATED RBC % (test code = NRBC%) 0.0 % 0-0 N NEUTROPHIL # (test code = NT#) 6.76 x10 3/uL 2.0-7.6 N IMMATURE GRANULOCYTE # (test code = IG#) 0.05 x10 3/uL 0.00-0.03 H LYMPHOCYTE # (test code = LY#) 3.01 x10 3/uL 1.0-3.8 N MONOCYTE # (test code = MO#) 0.80 x10 3/uL 0.1-0.8 N EOSINOPHIL # (test code = EO#) 0.23 x10 3/uL 0.0-0.2 H BASOPHIL # (test code = BA#) 0.04 x10 3/uL 0.0-0.2 N NUCLEATED RBC # (test code = NRBC#) 0.00 x10 3/uL 0.0-0.1 N - XR CHEST 1 [id number] 05:56:00 [facility] : 1955 Sex: F FAX: Ash Saleem [place]: St: REG Name: MARIA ESTHER CAPONE [facility] : 1955 Age/S: 67/F [address] [place] [address] Unit #: [id number] Loc: [place] [address] Phys: Ash Saleem MD Acct: [id number] Dis Date: Status: REG ER PHONE #: [phone] Exam Date: 05/17/2023541 FAX #: [phone] Reason: cp, bradycardia, nstemi EXAMS: CPT CODE: [id number] XR CHEST 1 V [id number] EXAMINATION: - XR CHEST1 V CLINICAL INDICATION: Female, 67 years year old with cp, bradycardia, nstemi COMPARISON: None. FINDINGS: Single view(s) of the chest submitted. Support Devices: None. Heart: Cardiac silhouette isenlarged. Mediastinum: Mediastinal contours are normal. Lungs: Pulmonary vessels are enlarged consistent with congestion. Lungs are well aerated and clear. Pleura: No pleural effusion is identified. No pneumothorax is present. Bones: Visualized skeleton is normal. IMPRESSION: Cardiomegaly with mildcongestion. at 0556 Reported and signed by: Tevin Downs M.D. CC: Ash Saleem MD Technologist: Ashok Hernandez RT(R) Trnscrd Date/Time/By: 05/17/2023 (0556) : By: [email or web address] Orig Print D/T: S: 05/17/2023 (2116) PAGE 1 Signed ReportGLUCOSE [id number] 11:59:00* Test Item Value Reference Range Interpretation Comme nts GLUCOSE BEDSIDE (test code = GLUBED) 237 MG/DL 70-110 H Performed by cer tified electronic pagination system operator at [facility] GLUCOSE [id number] 07:39:00* Test Item Value Reference Range Interpretation Comme nts GLUCOSE BEDSIDE (test code = GLUBED) 162 MG/DL 70-110 H Performed by cer tified electronic pagination system operator at [facility] BASIC METABOLIC [id number] 04:55:00* Test Item Value Reference Range Interpretation Comme nts SODIUM (test code = NA) 135 mEq/L 134-147 N POTASSIUM (test code = K) 4.3 mEq/L 3.4-5.0 N CHLORIDE (test code = CL) 102 mEq/L 100-108 N CARBON DIOXIDE (test code = CO2) 24 mEq/l 21-33 N ANION GAP (test code = GAP) 13 0-20 N GLUCOSE (test code = GLU) 150 mg/dL 77-141 H NOTE: NEW NORMAL RANGE BLOOD UREA NITROGEN (test code = BUN) 21 mg/dL 7-25 N NOTE: NEW NORM AL RANGE GLOMERULAR FILTRATION RATE (test code = GFR) 54.4 80-90 L The Glomerular Filtration Rate is a calculated parameterbased on serum Creatinine, patient age and sex. GFR valuesless than 60 mL/min/1.73 square meters are indicative ofChronic Kidney Disease. Values less than 15 mL/min/1.73square meters indicate Kidney failure. The calculation forGFR is based on the CKD-EPI (2020) calculation. This formulais race indifferent and is the recommended formula for GFRby the National Kidney Foundation for Adults.The GFR will not calculate if the sex is unknown or if thepatient's age is <18 years. CREATININE (test code = CREAT) 1.1 mg/dL 0.6-1.3 N CALCIUM (test code = CA) 8.3 mg/dL 8.0-10.5 N [id number] 04:55:00* Test Item Value Reference Range Interpretation Comme nts PHOSPHOROUS (test code = PHOS) 3.9 MG/DL 2.5-4.9 N [id number] 04:55:00* Test Item Value Reference Range Interpretation Comme nts MAGNESIUM (test code = MAG) 1.87 mg/dL 1.6-2.6 N NOTE: NEW NORMAL RANGE CALCIUM [id number] 04:55:00* Test Item Value Reference Range Interpretation Comme nts CALCIUM IONIZED (test code = RAGHU) 1.15 MMOL/L 1.09-1.30 N CBC W/AUTO [id number] 04:32:00* Test Item Value Reference Range Interpretation Comme nts WHITE BLOOD CELL (test code = WBC) 11.3 x10 3/uL 4.5-11.0 H RED BLOOD CELL (test code = RBC) 3.26 x10 6/uL 3.54-5.02 L HEMOGLOBIN (test code = HGB) 9.9 g/dL 11.0-15.0 L HEMATOCRIT (test code = HCT) 29.8 % 33.0-45.0 L MEAN CELL VOLUME (test code = MCV) 91.4 fL 81.0-99.0 N MEAN CELL HGB (test code = MCH) 30.4 pg 27.0-33.0 N MEAN CELL HGB CONCETRATION (test code = MCHC) 33.2 g/dL 33.0-37.0 N RED CELL DISTRIBUTION WIDTH CV (test code = RDW) 12.4 % 11.5-14.5 N RED CELL DISTRIBUTION WIDTH SD (test code = RDW-SD) 41.6 fL 37.0-54.0 N PLATELET COUNT (test code = PLT) 225 x10 3/uL 150-400 N MEAN PLATELET VOLUME (test c ode = MPV) 10.3 fL 7.0-9.0 H NEUTROPHIL % (test code = NT%) 63.3 % 56.0-77.0 N IMMATURE GRANULOCYTE % (test code = IG%) 0.5 % 0.0-2.0 N LYMPHOCYTE % (test code = LY%) 24.3 % 14.0-32.0 N MONOCYTE % (test code = MO%) 9.7 % 4.8-9.0 H EOSINOPHIL % (test code = EO%) 1.8 % 0.3-3.7 N BASOPHIL % (test code = BA%) 0.4 % 0.0-2.0 N NUCLEATED RBC % (test code = NRBC%) 0.0 % 0-0 N NEUTROPHIL # (test code = NT#) 7.18 x10 3/uL 2.0-7.6 N IMMATURE GRANULOCYTE # (test code = IG#) 0.06 x10 3/uL 0.00-0.03 H LYMPHOCYTE # (test code = LY#) 2.75 x10 3/uL 1.0-3.8 N MONOCYTE # (test code = MO#) 1.10 x10 3/uL 0.1-0.8 H EOSINOPHIL # (test code = EO#) 0.20 x10 3/uL 0.0-0.2 N BASOPHIL # (test code = BA#) 0.05 x10 3/uL 0.0-0.2 N NUCLEATED RBC # (test code = NRBC#) 0.00 x10 3/uL 0.0-0.1 N GLUCOSE [id number] 21:23:00* Test Item Value Reference Range Interpretation Comme nts GLUCOSE BEDSIDE (test code = GLUBED) 152 MG/DL 70-110 H Performed by cer tified electronic pagination system operator at [facility] GLUCOSE [id number] 17:14:00* Test Item Value Reference Range Interpretation Comme nts GLUCOSE BEDSIDE (test code = GLUBED) 164 MG/DL 70-110 H Performed by [employer] electronic pagination system operator at [facility] GLUCOSE [id number] 11:56:00* Test Item Value Reference Range Interpretation Comme nts GLUCOSE BEDSIDE (test code = GLUBED) 257 MG/DL 70-110 H Performed by [employer] electronic pagination system operator at [facility] BASIC METABOLIC [id number] 07:11:00* Test Item Value Reference Range Interpretation Comme nts SODIUM (test code = NA) 137 mEq/L 134-147 N POTASSIUM (test code = K) 4.4 mEq/L 3.4-5.0 N CHLORIDE (test code = CL) 107 mEq/L 100-108 N CARBON DIOXIDE (test code = CO2) 21 mEq/l 21-33 N ANION GAP (test code = GAP) 13 0-20 N GLUCOSE (test code = GLU) 143 mg/dL 77-141 H NOTE: NEW NORMAL RANGE BLOOD UREA NITROGEN (test code = BUN) 22 mg/dL 7-25 N NOTE: NEW NORM AL RANGE GLOMERULAR FILTRATION RATE (test code = GFR) 49.0 80-90 L The Glomerular Filtration Rate is a calculated parameterbased on serum Creatinine, patient age and sex. GFR valuesless than 60 mL/min/1.73 square meters are indicative ofChronic Kidney Disease. Values less than 15 mL/min/1.73square meters indicate Kidney failure. The calculation forGFR is based on the CKD-EPI (202) calculation. This formulais race indifferent and is the recommended formula for GFRby the National Kidney Foundation for Adults.The GFR will not calculate if the sex is unknown or if thepatient's age is <18 years. CREATININE (test code = CREAT) 1.2 mg/dL 0.6-1.3 N CALCIUM (test code = CA) 9.2 mg/dL 8.0-10.5 N [id number] 07:11:00* Test Item Value Reference Range Interpretation Comme nts PHOSPHOROUS (test code = PHOS) 4.8 MG/DL 2.5-4.9 N [id number] 07:11:00* Test Item Value Reference Range Interpretation Comme nts MAGNESIUM (test code = MAG) 1.99 mg/dL 1.6-2.6 N NOTE: NEW NORMAL RANGE CALCIUM [id number] 07:11:00* Test Item Value Reference Range Interpretation Comme nts CALCIUM IONIZED (test code = RAGHU) 1.11 MMOL/L 1.09-1.30 N CBC W/AUTO [id number] 05:16:00* Test Item Value Reference Range Interpretation Comme nts WHITE BLOOD CELL (test code = WBC) 11.4 x10 3/uL 4.5-11.0 H RED BLOOD CELL (test code = RBC) 3.35 x10 6/uL 3.54-5.02 L HEMOGLOBIN (test code = HGB) 10.1 g/dL 11.0-15.0 L HEMATOCRIT (test code = HCT) 31.4 % 33.0-45.0 L MEAN CELL VOLUME (test code = MCV) 93.7 fL 81.0-99.0 N MEAN CELL HGB (test code = MCH) 30.1 pg 27.0-33.0 N MEAN CELL HGB CONCETRATION (test code = MCHC) 32.2 g/dL 33.0-37.0 L RED CELL DISTRIBUTION WIDTH CV (test code = RDW) 12.5 % 11.5-14.5 N RED CELL DISTRIBUTION WIDTH SD (test code = RDW-SD) 43.2 fL 37.0-54.0 N PLATELET COUNT (test code = PLT) 209 x10 3/uL 150-400 N MEAN PLATELET VOLUME (test c ode = MPV) 10.3 fL 7.0-9.0 H NEUTROPHIL % (test code = NT%) 67.6 % 56.0-77.0 N IMMATURE GRANULOCYTE % (test code = IG%) 0.6 % 0.0-2.0 N LYMPHOCYTE % (test code = LY%) 20.1 % 14.0-32.0 N MONOCYTE % (test code = MO%) 9.6 % 4.8-9.0 H EOSINOPHIL % (test code = EO%) 1.7 % 0.3-3.7 N BASOPHIL % (test code = BA%) 0.4 % 0.0-2.0 N NUCLEATED RBC % (test code = NRBC%) 0.0 % 0-0 N NEUTROPHIL # (test code = NT#) 7.71 x10 3/uL 2.0-7.6 H IMMATURE GRANULOCYTE # (test code = IG#) 0.07 x10 3/uL 0.00-0.03 H LYMPHOCYTE # (test code = LY#) 2.29 x10 3/uL 1.0-3.8 N MONOCYTE # (test code = MO#) 1.10 x10 3/uL 0.1-0.8 H EOSINOPHIL # (test code = EO#) 0.19 x10 3/uL 0.0-0.2 N BASOPHIL # (test code = BA#) 0.05 x10 3/uL 0.0-0.2 N NUCLEATED RBC # (test code = NRBC#) 0.00 x10 3/uL 0.0-0.1 N GLUCOSE [id number] 21:17:00* Test Item Value Reference Range Interpretation Comme nts GLUCOSE BEDSIDE (test code = GLUBED) 251 MG/DL 70-110 H Performed by cer tified electronic pagination system operator at [facility] GLUCOSE [id number] 17:26:00* Test Item Value Reference Range Interpretation Comme nts GLUCOSE BEDSIDE (test code = GLUBED) 160 MG/DL 70-110 H Performed by cer tified electronic pagination system operator at [facility] GLUCOSE [id number] 11:43:00* Test Item Value Reference Range Interpretation Comme nts GLUCOSE BEDSIDE (test code = GLUBED) 168 MG/DL 70-110 H Performed by cer tified electronic pagination system operator at [facility] GLUCOSE [id number] 08:25:00* Test Item Value Reference Range Interpretation Comme nts GLUCOSE BEDSIDE (test code = GLUBED) 143 MG/DL 70-110 H Performed by [facility] tified electronic pagination system operator at [facility] BASIC METABOLIC [id number] 05:06:00* Test Item Value Reference Range Interpretation Comme nts SODIUM (test code = NA) 140 mEq/L 134-147 N POTASSIUM (test code = K) 4.1 mEq/L 3.4-5.0 N CHLORIDE (test code = CL) 107 mEq/L 100-108 N CARBON DIOXIDE (test code = CO2) 23 mEq/l 21-33 N ANION GAP (test code = GAP) 14 0-20 N GLUCOSE (test code = GLU) 124 mg/dL 77-141 N NOTE: NEW NORMAL RANGE BLOOD UREA NITROGEN (test code = BUN) 25 mg/dL 7-25 N NOTE: NEW NORM AL RANGE GLOMERULAR FILTRATION RATE (test code = GFR) 49.0 80-90 L The Glomerular Filtration Rate is a calculated parameterbased on serum Creatinine, patient age and sex. GFR valuesless than 60 mL/min/1.73 square meters are indicative ofChronic Kidney Disease. Values less than 15 mL/min/1.73square meters indicate Kidney failure. The calculation forGFR is based on the CKD-EPI (2020) calculation. This formulais race indifferent and is the recommended formula for GFRby the National Kidney Foundation for Adults.The GFR will not calculate if the sex is unknown or if thepatient's age is <18 years. CREATININE (test code = CREAT) 1.2 mg/dL 0.6-1.3 N CALCIUM (test code = CA) 8.2 mg/dL 8.0-10.5 N THYROID STIMULATING [id number] 05:06:00* Test Item Value Reference Range Interpretation Comme nts THYROID STIMULATING HORMONE (test code = TSH) 1.43 0.42-5.47 N Result s in alanna-International Units/mL [id number] 04:52:00* Test Item Value Reference Range Interpretation Comme nts HGBA1C% (test code = HGBA1C%) 6.2 %A1C 4.8-6.0 H CBC W/AUTO [id number] 04:43:00* Test Item Value Reference Range Interpretation Comme nts WHITE BLOOD CELL (test code = WBC) 11.8 x10 3/uL 4.5-11.0 H RED BLOOD CELL (test code = RBC) 3.27 x10 6/uL 3.54-5.02 L HEMOGLOBIN (test code = HGB) 9.8 g/dL 11.0-15.0 L HEMATOCRIT (test code = HCT) 30.4 % 33.0-45.0 L MEAN CELL VOLUME (test code = MCV) 93.0 fL 81.0-99.0 N MEAN CELL HGB (test code = MCH) 30.0 pg 27.0-33.0 N MEAN CELL HGB CONCETRATION (test code = MCHC) 32.2 g/dL 33.0-37.0 L RED CELL DISTRIBUTION WIDTH CV (test code = RDW) 12.5 % 11.5-14.5 N RED CELL DISTRIBUTION WIDTH SD (test code = RDW-SD) 43.1 fL 37.0-54.0 N PLATELET COUNT (test code = PLT) 198 x10 3/uL 150-400 N MEAN PLATELET VOLUME (test c ode = MPV) 10.2 fL 7.0-9.0 H NEUTROPHIL % (test code = NT%) 65.6 % 56.0-77.0 N IMMATURE GRANULOCYTE % (test code = IG%) 0.4 % 0.0-2.0 N LYMPHOCYTE % (test code = LY%) 23.2 % 14.0-32.0 N MONOCYTE % (test code = MO%) 8.6 % 4.8-9.0 N EOSINOPHIL % (test code = EO%) 1.7 % 0.3-3.7 N BASOPHIL % (test code = BA%) 0.5 % 0.0-2.0 N NUCLEATED RBC % (test code = NRBC%) 0.0 % 0-0 N NEUTROPHIL # (test code = NT#) 7.76 x10 3/uL 2.0-7.6 H IMMATURE GRANULOCYTE # (test code = IG#) 0.05 x10 3/uL 0.00-0.03 H LYMPHOCYTE # (test code = LY#) 2.74 x10 3/uL 1.0-3.8 N MONOCYTE # (test code = MO#) 1.02 x10 3/uL 0.1-0.8 H EOSINOPHIL # (test code = EO#) 0.20 x10 3/uL 0.0-0.2 N BASOPHIL # (test code = BA#) 0.06 x10 3/uL 0.0-0.2 N NUCLEATED RBC # (test code = NRBC#) 0.00 x10 3/uL 0.0-0.1 N POC ARTERIAL BLOOD [id number] 04:34:00* Test Item Value Reference Range Interpretation Comme nts POC ARTERIAL BLOOD GAS PH (t est code = POCPHA) 7.457 7.35-7.45 H POC ARTERIAL BLOOD GAS PCO2 (test code = MFBWAX9E) 30.7 mmHg 35.0-45 L POC TCO2 ARTERIAL (test code = POCTCO2) 22.6 POC ARTERIAL BLOOD GAS PO2 ( test code = QXYKG7R) 75.5 mmHg 80-100.0 L POC HCO3 ARTERIAL (test code = MATGZW2T) 21.7 MMOL/L 22.0-26.0 L POC BASE EXCESS (test code = POCBEA) -2.2 MMOL/L -4.0-4.0 N POC O2 SATURATION (test code = POCO2S) 95.9 % 90-100 N FIO2 (test code = FIO2A) 21.0 % PaO2/FiO2 (test code = [id number]) 359.50 mm/Hg ABG DELIVERY (test code = HUMBERTO) room air ABG SITE (test code = SITEA) R Radial JAMISON'S TEST (test code = ALLENS) Positive BASIC METABOLIC [id number] 04:34:00* Test Item Value Reference Range Interpretation Comme nts SODIUM (test code = NA/ABG) 139 mmol/L 134-147 N POTASSIUM (test code = K/ABG) 4.1 mmol/L 3.4-5.0 N CHLORIDE (test code = CL/ABG) 109 mmol/L 100-108 H CREATININE ABG (test code = CREAABG) 1.2 mg/dL 0.6-1.0 H POC IONIZED CALCIUM (test co de = POCCA) 1.20 MMOL/L 1.12-1.32 N POC GLUCOSE (test code = POCGLU) 134 MG/DL 70-110 H HEMOGLOBIN [id number] 04:34:00* Test Item Value Reference Range Interpretation Comme nts HEMOGLOBIN ABG (test code = HGB/ABG) 10.9 G/DL 11.0-15.0 L [id number] 04:34:00* Test Item Value Reference Range Interpretation Comme nts HEMATOCRIT (test code = HCT/ABG) 32 % 33.0-45.0 L POC LACTIC [id number] 04:34:00* Test Item Value Reference Range Interpretation Comme nts POC LACTIC ACID (test code = POCLAC) 0.7 mmol/l 0.9-1.7 L [id number] 20:50:00* Test Item Value Reference Range Interpretation Comme nts AMMONIA (test code = AMM) < 10 umol/L 11-35 L GLUCOSE [id number] 20:43:00* Test Item Value Reference Range Interpretation Comme nts GLUCOSE BEDSIDE (test code = GLUBED) 170 MG/DL 70-110 H Performed by cer tified electronic pagination system operator at [facility] UA RFLX MICR CULT IF [id number] 20:31:00* Test Item Value Reference Range Interpretation Comme nts UA COLOR (test code = COLU) YELLOW YEL/STRAW UA APPEARANCE (test code = APPU) CLEAR CLEAR UA GLUCOSE DIPSTICK (test co de = DGLUU) 1+ NEGATIVE A UA BILIRUBIN DIPSTICK (test code = BILU) NEGATIVE NEGATIVE UA KETONE DIPSTICK (test cod e = KETU) NEGATIVE NEGATIVE UA SPECIFIC GRAVITY (test co de = SGU) 1.049 1.005-1.030 H UA BLOOD DIPSTICK (test code = LESLIE) 3+ NEGATIVE A UA PH DIPSTICK (test code = BIPIN) 5.0 5.0-7.0 N UA PROTEIN DIPSTICK (test co de = PROU) NEGATIVE NEGATIVE UA UROBILINIOGEN DIPSTICK (t est code = URO) 0.2 mg/dL 0.2-1.0 UA NITRITE DIPSTICK (test co de = BEBE) POSITIVE NEGATIVE A UA LEUKOCYTE ESTERASE DIPSTI CK (test code = LEUU) 2+ NEGATIVE A UA WBC (test code = WBCU) 10-20 WBC/HPF 0-3 A UA RBC (test code = RBCU) 4-10 RBC/HPF 0-3 UA WBC NO REFLEX (test code = WBCUCL) 10-20 WBC/HPF 0-3 A UA BACTERIA (test code = BACU) TRACE /HPF NONE SEEN UA SQUAMOUS CELLS (test code = SQU) 0-5 /HPF NONE SEEN UA MUCUS (test code = MUCU) TRACE /LPF NONE SEEN Indication for culture: RiskForSepsis-no oth srcSpecimen Description: STRAIGHT CATH- CT HEAD/BRAIN W/O [id number] 18:02:00 [facility] : 1955 Sex: F Name: MARIA ESTHER CAPONE [facility] : 1955 Age/S: 67 / F [address] [place] [address] Unit #: [id number] Loc: [place] [address] Phys: 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 TECHNIQUE: Routine non contrast enhanced axial images were obtained for the skull base to the vertex. [...] focal and confluent areas of abnormal low att enuation in the periventricular and subcortical white matter. Duke-white matter differentiation is maintained. No evidence of acute cortical infarct is present. No extra-axial masses or collections are present. The bony calvarium is intact. The paranasal sinuses are clear. Mastoid air cells are patent. IMPRESSION: 1. No CT evidence of intracranial hemorrhage or acute cortical infarct. 2. Nonspecific white matter changes which may represent chronic small vessel ischemia. 3. Generalized parenchymal volume loss. at 1802 Reported and signed by: Jorgito Chairez M.D. PAGE 1 Signed Report (CONTINUED) Name: MARIA ESTHER CAPONE [facility] : 0 1955 Age/S: 67 / F [address] [place] [address] Blvd Unit #: [id number] Loc: [place] [address] Phys: Tammy Chamberlain NP Acct: [id number] Dis Date: Status: ADM IN PHONE #: [phone] Exam Date: 05/10/2023 174 FAX #: [phone] Reason: altered mental status EXAMS: CPT CODE: [id number] CT HEAD/BRAINW/O CONT 15778 (Continued) CC: Joaquin Lemon MD; Tammy Chamberlain NP Technologist:Miguelangel Minaya Jr, RT(R)(CT) CTDI: DLP: Trnscb Date/Time: 05/10/2023 (1801) [email or web address] Orig Print D/T: S: 05/10/2023 (1804) PAGE 2 Signed Report- XR CHEST 1 V 2023-05-10 15:57:00 [facility] : 1955 Sex: F FAX: Carmen Heaton MD [phone] [place]: St: ADM FAX: Joaquin Givens [phone] ------- Name: MARIA ESTHER CAPONE [facility] : 1955 Age/S: 67/F [address] [place] [address] Unit #: [id number] Loc: G.[facility] [place] [address] Phys: Carmen Mckeon MD Acct: [id number] Dis Date: Status: ADM IN PHONE #: [phone] Exam Date: 05/10/20231525 FAX #: [phone] Reason: PRE OP EXAMS: CPT CODE: [id number] XR CHEST1 V 12668 LOCATION: EXAM: - XR CHEST 1 V HISTORY: PRE OP COMPARISON: None FINDINGS: The lungs are clear. No pleural effusion or pneumothorax. The cardiac silhouette is within normal limits. No acute osseous abnormalities. IMPRESSION: No acute cardiopulmonary disease. at 1557 Reported and signed by: Armando Knight M.D. CC: Carmen Mckeon MD; Joaquin Lemon MD Technologist: Riddhi Larson RT(R) Trnscrd Date/Time/By: 05/10/2023 (1557) : By: [email or web address] Orig Print D/T: S: 05/10/2023 (0260) PAGE 1 Signed ReportLIPOPROTEIN [id number] 14:49:00* Test Item Value Reference Range Interpretation Comme nts LIPOPROTEIN LDL (test code = LDL) 123.0 mg/dL 0-100 H <100 WGPVEDI71 0-129 NEAR OPTIMAL/ABOVE [id number] JEXZSYMFWK335-023 HIGH>SI=057 VERY HIGH*Guidelines provided by the National Cholesterol EducationProgram Adult Treatment Panel III COMPREHENSIVE METABOLIC [id number] 14:27:00* Test Item Value Reference Range Interpretation Comme nts SODIUM (test code = NA) 138 mEq/L 134-147 N POTASSIUM (test code = K) 4.4 mEq/L 3.4-5.0 N CHLORIDE (test code = CL) 106 mEq/L 100-108 N CARBON DIOXIDE (test code = CO2) 25 mEq/l 21-33 N ANION GAP (test code = GAP) 11 0-20 N GLUCOSE (test code = GLU) 140 mg/dL 77-141 N NOTE: NEW NORMAL RANGE BLOOD UREA NITROGEN (test code = BUN) 26 mg/dL 7-25 H NOTE: NEW NORM AL RANGE GLOMERULAR FILTRATION RATE (test code = GFR) 54.4 80-90 L The Glomerular Filtration Rate is a calculated parameterbased on serum Creatinine, patient age and sex. GFR valuesless than 60 mL/min/1.73 square meters are indicative ofChronic Kidney Disease. Values less than 15 mL/min/1.73square meters indicate Kidney failure. The calculation forGFR is based on the CKD-EPI (2020) calculation. This formulais race indifferent and is the recommended formula for GFRby the National Kidney Foundation for Adults.The GFR will not calculate if the sex is unknown or if thepatient's age is <18 years. CREATININE (test code = CREAT) 1.1 mg/dL 0.6-1.3 N TOTAL PROTEIN (test code = PROT) 6.6 g/dL 6.4-8.2 N ALBUMIN (test code = ALB) 3.70 g/dL 3.4-5.0 N CALCIUM (test code = CA) 9.0 mg/dL 8.0-10.5 N BILIRUBIN TOTAL (test code = BILT) 1.00 mg/dL 0.0-1.0 N SGOT/AST (test code = AST) 54 IUnit/L 8-34 H NOTE: NEW NORMAL RANGE SGPT/ALT (test code = ALT) 120 IUnit/L 10-49 H NOTE: NEW NORMAL RANGE ALKALINE PHOSPHATASE TOTAL (test code = ALKP) 57 IUnit/L 20-125 N TROP-I HIGH [id number] 14:27:00* Test Item Value Reference Range Interpretation Comme nts TROP-I HIGH SENSITIVITY (test code = TROPIHS) 250 ng/L 0-34 HH Critical result called to Maribel ALEXANDERLJJ2 at 1425 05/10/23Nurse read back result and tech confirmed it's correct? YESCAUTION: Units of the current test methodology (ng/L) differfrom the prior test methodology (ng/mL) by a factor of 1000. 99th Percentile Upper Reference Limit (URL): Females: 34 ng/LMales: 54 ng/L In order to distinguish acute elevations of high sensitivitytroponin from other clinical conditions, the FourthUniversal Definition of Myocardial Infarction stressesclinical assessment and the demonstration of a rise and/orfall in serial troponin results above the URL. These results were obtained using [employer] IM TnIHreagent. Results from different methodologies should not becompared to one another as quantitative results and URLs mayvary by method. PROTHROMBIN [id number] 14:15:00* Test Item Value Reference Range Interpretation Comme nts PROTHROMBIN TIME PATIENT (test code = PTP) 10.9 SECONDS 9.3-12.9 N INTERNATIONAL NORMAL RATIO (test code = INR) 1.0 0.8-1.2 N TARGET INR BY INDICATION Indication INR1. Prophylaxis of venous thrombosis 2.0 - 3.0 (orthopedic surgery), Prophylaxis of venous thrombosis (other than high-risk surgery), Treatment of Deep Vein Thrombosis/Pulmonary Embolism, Prevention of systemic embolism - Tissue heart valves, Acute Myocardial Infarction (to prevent systemic embolism), Valvular heart disease, Atrial Fibrillation, Bileaflet mechanical valve in aortic position.2. Mechanical prosthetic valves (high risk), 2.5 - 3.5 Presence of Lupus Anticoagulant or Antiphospholipid Antibodies, Prevention of systemic embolism - Acute Myocardial Infarction (to prevent recurrent infarct). CBC W/AUTO [id number] 14:04:00* Test Item Value Reference Range Interpretation Comme nts WHITE BLOOD CELL (test code = WBC) 12.1 x10 3/uL 4.5-11.0 H RED BLOOD CELL (test code = RBC) 3.51 x10 6/uL 3.54-5.02 L HEMOGLOBIN (test code = HGB) 10.7 g/dL 11.0-15.0 L HEMATOCRIT (test code = HCT) 32.5 % 33.0-45.0 L MEAN CELL VOLUME (test code = MCV) 92.6 fL 81.0-99.0 N MEAN CELL HGB (test code = MCH) 30.5 pg 27.0-33.0 N MEAN CELL HGB CONCETRATION (test code = MCHC) 32.9 g/dL 33.0-37.0 L RED CELL DISTRIBUTION WIDTH CV (test code = RDW) 12.5 % 11.5-14.5 N RED CELL DISTRIBUTION WIDTH SD (test code = RDW-SD) 42.4 fL 37.0-54.0 N PLATELET COUNT (test code = PLT) 218 x10 3/uL 150-400 N MEAN PLATELET VOLUME (test c ode = MPV) 10.3 fL 7.0-9.0 H NEUTROPHIL % (test code = NT%) 77.4 % 56.0-77.0 H IMMATURE GRANULOCYTE % (test code = IG%) 0.6 % 0.0-2.0 N LYMPHOCYTE % (test code = LY%) 14.1 % 14.0-32.0 N MONOCYTE % (test code = MO%) 7.3 % 4.8-9.0 N EOSINOPHIL % (test code = EO%) 0.3 % 0.3-3.7 N BASOPHIL % (test code = BA%) 0.3 % 0.0-2.0 N NUCLEATED RBC % (test code = NRBC%) 0.0 % 0-0 N NEUTROPHIL # (test code = NT#) 9.35 x10 3/uL 2.0-7.6 H IMMATURE GRANULOCYTE # (test code = IG#) 0.07 x10 3/uL 0.00-0.03 H LYMPHOCYTE # (test code = LY#) 1.70 x10 3/uL 1.0-3.8 N MONOCYTE # (test code = MO#) 0.88 x10 3/uL 0.1-0.8 H EOSINOPHIL # (test code = EO#) 0.04 x10 3/uL 0.0-0.2 N BASOPHIL # (test code = BA#) 0.04 x10 3/uL 0.0-0.2 N NUCLEATED RBC # (test code = NRBC#) 0.00 x10 3/uL 0.0-0.1 N CBC W/AUTO [id number] 00:00:00* Test Item Value Reference Range Interpretation Comme nts NUCLEATED RBCS (test code = 53044-0) 0.0 /100 WBC'S See_Comment [Automated [employer]] The system which generated this result transmitted reference range: 0.0 /100 WBC'S. The reference range was not used to interpret this result as normal/abnormal. ABSOLUTE EOSINOPHILS (test code = 92224-3) 0.20 K/UL See_Comment [Automated [employer]] The system which generated this result transmitted reference range: 0.00-0.50 K/UL. The reference range was not used to interpret this result as normal/abnormal. ABSOLUTE LYMPHOCYTES (test code = 97409-6) 3.03 K/UL See_Comment [Automated [employer]] The system which generated this result transmitted reference range: 1.00-4.00 K/UL. The reference range was not used to interpret this result as normal/abnormal. ABSOLUTE MONOCYTES (test code = 81255-8) 0.51 K/UL See_Comment [Automated [employer] ge] The system which generated this result transmitted reference range: 0.20-1.00 K/UL. The reference range was not used to interpret this result as normal/abnormal. ABSOLUTE NEUTROPHILS (test code = 44634-7) 3.81 K/UL See_Comment [Automated [employer]] The system which generated this result transmitted reference range: 1.50-7.50 K/UL. The reference range was not used to interpret this result as normal/abnormal. BASOPHILS (test code = 05189-8) 0.7 % EOSINOPHILS (test code = 29144-6) 2.6 % HEMATOCRIT (test code = 20012-2) 35.0 % See_Comment [Automated messa ge] The system which generated this result transmitted reference range: 34.0-45.0 %. The reference range was not used to interpret this result as normal/abnormal. HEMOGLOBIN (test code = 718-7) 11.0 G/DL See_Comment L [Automated messa ge] The system which generated this result transmitted reference range: 11.5-15.5 G/DL. The reference range was not used to interpret this result as normal/abnormal. LYMPHOCYTES (test code = 01424-2) 39.7 % MCH (test code = 83426-4) 28.4 PG See_Comment [Automated messa ge] The system which generated this result transmitted reference range: 25.0-33.0 PG. The reference range was not used to interpret this result as normal/abnormal. MCHC (test code = 33410-6) 31.4 G/DL See_Comment [Automated messa ge] The system which generated this result transmitted reference range: 31.0-36.0 G/DL. The reference range was not used to interpret this result as normal/abnormal. MCV (test code = 98074-3) 90.2 fL See_Comment [Automated messa ge] The system which generated this result transmitted reference range: 80.0-99.0 fL. The reference range was not used to interpret this result as normal/abnormal. MONOCYTES (test code = 45875-6) 6.7 % NEUTROPHILS (test code = 67404-1) 49.9 % PLATELET COUNT (test code = 69881-0) 307 K/UL See_Comment [Automated messa ge] The system which generated this result transmitted reference range: 130-400 K/UL. The reference range was not used to interpret this result as normal/abnormal. RBC (test code = 39547-8) 3.88 M/UL See_Comment [Automated messa ge] The system which generated this result transmitted reference range: 3.80-5.40 M/UL. The reference range was not used to interpret this result as normal/abnormal. RDW (test code = 23474-2) 13.0 % See_Comment [Automated messa ge] The system which generated this result transmitted reference range: 11.5-15.0 %. The reference range was not used to interpret this result as normal/abnormal. WBC (test code = 66306-9) 7.6 K/UL See_Comment [Automated [employer] ge] The system which generated this result transmitted reference range: 3.5-11.0 K/UL. The reference range was not used to interpret this result as normal/abnormal. HEMOGLOBIN [id number] 00:00:00* Test Item Value Reference Range Interpretation [facility] HEMOGLOBIN A1c (test code = 4548-4) 6.9 % See_Comment H [Automated [employer] ge] The system which generated this result transmitted reference range: 4.2-5.6 %. The reference range was not used to interpret this result as normal/abnormal. TSH REFLEX TO FREE [id number] 00:00:00* Test Item Value Reference Range Interpretation [facility] TSH REFLEX TO FREE T4 (test code = 67262-4) 0.991 UIU/ML See_Comment [Automated [employer] ge] The system which generated this result transmitted reference range: 0.400-4.100 UIU/ML. The reference range was not used to interpret this result as normal/abnormal. VITAMIN D,1,84-[id number] 00:00:00* Test Item Value Reference Range Interpretation [facility] VITAMIN D,1,25-DIHYDROXY (test code = 1649-3) 40.5 PG/ML See_Comment [Automated message] The system which generated this result transmitted reference range: 20.0-82.0 PG/ML. The reference range was not used to interpret this result as normal/abnormal. LIPID PANEL WITH REFLEX DIRECT [id number] 00:00:00* Test Item Value Reference Range Interpretation [facility] CALC LDL CHOL (test code = 96688-2) 112 MG/DL See_Comment H [Automated [employer] ge] The system which generated this result transmitted reference range: <100 MG/DL. The reference range was not used to interpret this result as normal/abnormal. CHOLESTEROL (test code = 2093-3) 200 MG/DL See_Comment H [Automated [employer] ge] The system which generated this result transmitted reference range: <200 MG/DL. The reference range was not used to interpret this result as normal/abnormal. HDL CHOLESTEROL (test code = 2085-9) 56 MG/DL See_Comment [Automated messa ge] The system which generated this result transmitted reference range: >39 MG/DL. The reference range was not used to interpret this result as normal/abnormal. RISK RATIO LDL/HDL (test code = 43594-3) 2.00 RATIO See_Comment [Automated message] The system which generated this result transmitted reference range: <3.22 RATIO. The reference range was not used to interpret this result as normal/abnormal. TRIGLYCERIDES (test code = 2571-8) 201 MG/DL See_Comment H [Automated messa ge] The system which generated this result transmitted reference range: <150 MG/DL. The reference range was not used to interpret this result as normal/abnormal. ALBUMIN/CREATININE RATIO, RANDOM [id number] 00:00:00* Test Item Value Reference Range Interpretation Comme nts ALBUMIN, URINE, RANDOM (test code = 93494-8) 1.3 MG/DL NOT ESTAB MG/DL CALC ALBUMIN/CREAT, RND (test code = 69353-0) 16 MG/G See_Comment [Automated [employer] ge] The system which generated this result transmitted reference range: <30 MG/G. The reference range was not used to interpret this result as normal/abnormal. CREATININE, URINE, CONC. (test code = 2161-8) 83.2 MG/DL NOT ESTAB MG/DL COMPREHENSIVE METABOLIC [id number] 00:00:00* Test Item Value Reference Range Interpretation Comme nts ALBUMIN (test code = 1751-7) 4.3 G/DL See_Comment [Automated [employer] ge] The system which generated this result transmitted reference range: 3.5-5.2 G/DL. The reference range was not used to interpret this result as normal/abnormal. ALKALINE PHOSPHATASE (test code = 6768-6) 66 U/L See_Comment [Automated message] The system which generated this result transmitted reference range: 40-142 U/L. The reference range was not used to interpret this result as normal/abnormal. BILIRUBIN, TOTAL (test code = 1975-2) 0.3 MG/DL See_Comment [Automated message] The system which generated this result transmitted reference range: <=1.2 MG/DL. The reference range was not used to interpret this result as normal/abnormal. BUN (test code = 3094-0) 24 MG/DL See_Comment H [Automated messa ge] The system which generated this result transmitted reference range: 8-23 MG/DL. The reference range was not used to interpret this result as normal/abnormal. CALCIUM (test code = 45460-9) 9.9 MG/DL See_Comment [Automated messa ge] The system which generated this result transmitted reference range: 8.5-10.5 MG/DL. The reference range was not used to interpret this result as normal/abnormal. CALC A/G RATIO (test code = 1759-0) 1.7 RATIO See_Comment [Automated messa ge] The system which generated this result transmitted reference range: 1.0-2.6 RATIO. The reference range was not used to interpret this result as normal/abnormal. CALC BUN/CREAT (test code = 3097-3) 21 RATIO See_Comment [Automated messa ge] The system which generated this result transmitted reference range: 6-28 RATIO. The reference range was not used to interpret this result as normal/abnormal. CALC GLOBULIN (test code = 97619-7) 2.6 G/DL See_Comment [Automated messa ge] The system which generated this result transmitted reference range: 1.9-3.7 G/DL. The reference range was not used to interpret this result as normal/abnormal. CARBON DIOXIDE (test code = 1963-8) 25 MEQ/L See_Comment [Automated messa ge] The system which generated this result transmitted reference range: 19-31 MEQ/L. The reference range was not used to interpret this result as normal/abnormal. CHLORIDE (test code = 2075-0) 107 MEQ/L See_Comment [Automated messa ge] The system which generated this result transmitted reference range: 95-107 MEQ/L. The reference range was not used to interpret this result as normal/abnormal. CREATININE (test code = 2160-0) 1.15 MG/DL See_Comment [Automated messa ge] The system which generated this result transmitted reference range: 0.60-1.30 MG/DL. The reference range was not used to interpret this result as normal/abnormal. eGFR (2020 CKD-EPI) (test code = 94182-8) 52 ML/MIN/1.73 See_Comment L [Automated messa ge] The system which generated this result transmitted reference range: >60 ML/MIN/1.73. The reference range was not used to interpret this result as normal/abnormal. GLUCOSE (test code = 1558-6) 125 MG/DL See_Comment H [Automated messa ge] The system which generated this result transmitted reference range: 70-99 MG/DL. The reference range was not used to interpret this result as normal/abnormal. POTASSIUM (test code = 2823-3) 4.3 MEQ/L See_Comment [Automated messa ge] The system which generated this result transmitted reference range: 3.5-5.4 MEQ/L. The reference range was not used to interpret this result as normal/abnormal. PROTEIN, TOTAL (test code = 2885-2) 6.9 G/DL See_Comment [Automated messa ge] The system which generated this result transmitted reference range: 6.1-8.3 G/DL. The reference range was not used to interpret this result as normal/abnormal. AST (test code = 1920-8) 18 U/L See_Comment [Automated messa ge] The system which generated this result transmitted reference range: 9-40 U/L. The reference range was not used to interpret this result as normal/abnormal. ALT (test code = 1742-6) 28 U/L See_Comment [Automated messa ge] The system which generated this result transmitted reference range: 5-40 U/L. The reference range was not used to interpret this result as normal/abnormal. SODIUM (test code = 2951-2) 144 MEQ/L See_Comment [Automated messa ge] The system which generated this result transmitted reference range: 133-146 MEQ/L. The reference range was not used to interpret this result as normal/abnormal. Notes Date/Time Note Provider Source 2023-05-24 12:06:00 [id number] Gkmv9j/tKyS3aLqEozjWyBaSH3oFe XVSz0a8+T5tAT4AVMfPnecSQ4my9134-17-67K39:06:31495 0-0080 [place] [address] PATIENT NAME: MARIA ESTHER CAPONE ADMIT DATE: 05/17/23ACCOUNT NO: [id number] ROOM NO: G.6628 AGE: 67 REPORT TYPE: 360 - QUERY RESPONSE DOCUMENT SEX: F ADMITTING PHYSICIAN:Sudarshan Cleannig MD ATTENDING PHYSICIAN:Sudarshan Cleaning MD Provider Query QUERY TEXT: Condition General 360MD Query related questions should be directed to: [facility] Coding Helpline Based on your clinical Judgment please clarify the diagnosis or condition NSTEMI was conformed or NSTEMI was not conformed? The patient's Clinical Indicators include:NSTEMI (non-ST elevated myocardial infarction)-Hospitalist Discharge Summary 05/20/2023 B-TYPE NATRIURETIC PEPTIDE (PG/ML) 286.0H-LAB Chest pain-Hospitalist Progress Note 05/19/2023 Atrial fibrillation-Hospitalist Discharge Summary 05/20/2023 Troponin I High Sens (0 - 34 ng/L) 1479 *H-Critical Care Consult Note 05/17/2023 heparin 25,000 units/0.45% NS 500 mL-MARASPIRIN 81 MG TAB.EC-MAR Options provided:-- Respond - Create new note now-- Dismiss - Not applicable / Not valid-- Dismiss - Clinically unable to determine / Unknown-- Assign to another provider QUERY RESPONSE: NSTEMI was not conformed? Query created by: Allan Henry on 05/23/2023 1:55 AM at 1206 PATIENT NAME: MARIA ESTHER CAPONE noteG.[id number] for patient lzwjSFTMGFYSOORCXY4647-53-70Q27:07:20 HCACL 2023-05-20 17:46:00 [id number] m0IWY1YtE+9ZzgEen+scF29oSMZBx sIx6RYAdKgn2OUVbauyY79AUw5B7611-23-24W12:46:00 [facility])Hospitalist Discharge SummaryREPORT#:[id number] REPORT STATUS: SignedREPORT INITIALIZATION DATE:05/20/23 TIME: 1746 PATIENT: MARIA ESTHER CAPONE UNIT #: [id number]#: [id number] ROOM/BED: 6628-1DOB: [birth year] AGE: 67 SEX: F ATTEND: Sudarshan Cleaning MDADM AUTHOR: Shivani Khanna MDREPT SERVICE DT/TIME: 05/20/23 1746* ALL edits or amendments must be made on the electronic/computer document * General InformationProblem List/A P: 1. HTN (hypertension) 2. Dyslipidemia 3. Rheumatoid arthritis 4. Diabetes 5. CAD (coronary artery disease) 6. Junctional bradycardia 7. Confusion 8. UTI (urinary tract infection) 9. Atrial fibrillation with RVR 10. NSTEMI (non-ST elevated myocardial infarction) 11. Bradycardia 12. Palpitations 13. Diabetes mellitus 14. 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 The patient has PMH of CAD with recent PCI/ MARY LOU to RCA, HTN, HLD, DM. The patient had recent stent placement to RCA on 05/10/2023 complicated by complete heart block requiring temporary pacemaker. She was transferred to [facility] that time, was observed for 48 hours -72 hours, taken off BB with resolution of CHB. She was discharged home few days ago with 2 weeks cardiac event monitor. Unfortunately patient came back with with palpitation, found to be in afib RVR. She received IV cardizem and IV lopressor which made her bradycardic in the 30-40s range. # Atrial fibrillation with RVR with tachy-kevan syndrome s/p BSC PPM* Echocardiogram preserved LVEF, small pericardial effusion* XTH4BN7-CWPb score at least 7* Eliquis mg BID tomorrow* afib RVR yesterday, chemically converted to sinus rhythm with amiodarone gtt* metoprolol tartrate 50 mg BID, amiodarone 400 mg BID # CAD with recent stent to RCA* Plavix and Eliquis, stop ASA* continue BB and statin # Positive troponin - likely demand ischemia in the setting of Afib RVR* no indication for ischemic evaluation # Hypertension Doing well.Afib rate and rhythm controlOk to DC home todayConsultants: cardiology, critical/anthropometrist, electrophysiology Free Text DxA P NotesFree text DxA P notes:Assessment: - NSTEMI.- A-fib RVR - Chest pain- BECKIE.- HX of CAD, status post PCI to the RCA, diabetes, hypertension, hyperlipidemia. Plan: -Continuous telemetry monitoring, strict vital monitoring, monitor, replace electrolytes, avoid AV meet blocking agent as per cardiology/electrophysiology- FRZ3AG1-PQLp score at least 7-Eliquis mg BID tomorrow-Echocardiogram preserved LVEF, small pericardial effusion-Status post dual pacemaker placed, device interrogated patient- Ap 95%, Salesforce Developer < 1%, normal lead testing, no episodes recorded, normal functioning device-Postop chest x-ray reviewed, pacemaker site seen no sign of infection no bleeding no hematoma-Monitor, replace electrolytes-Insulin sliding scale-Case discussed with cardiology/critical care team-Recent PCI to RCA. Continue Plavix/Eliquis on discharge, stop aspirin-PT OT, discharge planning Med Rec Med RecDischarge meds:Stop taking the following medications:ASPIRIN EC (ECOTRIN) 81 MG TAB.EC 81 MILLIGRAM ORAL DAILY. Days = 30 Qty = 30 CEFDINIR (OMNICEF) 300 MG CAP 300 MILLIGRAM ORAL EVERY 12 HOURS. Qty = 14 predniSONE (predniSONE) 5 MG TAB 5 MILLIGRAM ORAL DAILY. Continue taking these medications:DOXAZOSIN (CARDURA) 2 MG TAB 2 MILLIGRAM ORAL DAILY. METOPROLOL SUCC XL (TOPROL XL) 50 MG TAB.SA 50 MILLIGRAM ORAL TWICE DAILY. metFORMIN (GLUCOPHAGE) 500 MG TAB 500 MILLIGRAM ORAL DAILY. CLOPIDOGREL (PLAVIX) 75 MG TAB 75 MILLIGRAM ORAL DAILY. Days = 30 Qty = 30 ATORVASTATIN (LIPITOR) 40 MG TAB 40 MILLIGRAM ORAL BEDTIME. Days = 30 Qty = 30 IRBESARTAN (AVAPRO) 300 MG TAB 300 MILLIGRAM ORAL DAILY. Start taking the following new medications:APIXABAN (ELIQUIS) 2.5 MG TAB 2.5 MILLIGRAM ORAL EVERY 12 HOURS. Days = 30 Qty = 60 Refills = 3 DOXYCYCLINE MONOHYDRATE (MONODOX) 100 MG CAP 100 MILLIGRAM ORAL EVERY 12 HOURS. Days = 5 Qty = 10 No Refills ObjectiveVS/I OLast Documented: Result Date Time Temp 98.0 05/20 1200 Pulse Ox 94 05/20 0646 B/P 154/63 05/20 0646 B/P Mean 91 05/20 0646 Pulse 60 05/20 0646 Resp 35 05/20 0646 O2 Flow Rate 2 05/18 2000 O2 Delivery Room air 05/17 1600 General appearance: alert, awake, orientedHead/Eyes: atraumatic, normocephalic, PERRLAENT: moist mucosal membranes, normal dentition, normal ear leftNeck: full range of motion, non-tender, normal thyroidCardiovascular: bradycardic, normal capillary refill, normal heart soundsRespiratory: aerating well, symmetric expansion, no distressAbdomen: non-tender, normal bowel sounds, softGenitourinary: no bladder distention, no flank painExtremities: no clubbing, no cyanosisMusculoskeletal: no muscle spasmNeuro/JUICE SCALEMAN: alert, oriented X 3, CNII-XII intactPsychiatry: normal affect, normal judgment/insight, normal mood ResultsFindings/Data:Laboratory Tests: 05/20 05/20 05/20 05/19 05/19 1128 0815 0406 2016 1753Chemistry Sodium (134 - 147 mEq/L) 136 Potassium (3.4 - 5.0 mEq/L) 5.0 Chloride (100 - 108 mEq/L) 105 Carbon Dioxide (21 - 33 mEq/l) 22 Anion Gap (0 - 20) 14 BUN (7 - 25 mg/dL) 30 H Creatinine (0.6 - 1.3 mg/dL) 1.5 H Glomerular Filtr Rate (80 - 90) 37.5 L Glucose (77 - 141 mg/dL) 113 POC Glucose (70 - 110 MG/DL) 240 H 109 194 H 102 Calcium (8.0 - 10.5 mg/dL) 9.5 Ionized Calcium William (1.09 - 1.30 MMOL/L) 1.16 Phosphorus (2.5 - 4.9 MG/DL) 3.9 Magnesium (1.6 - 2.6 mg/dL) 1.80Hematology WBC (4.5 - 11.0 x10 3/uL) 9.7 RBC (3.54 - 5.02 x10 6/uL) 2.87 L Hgb (11.0 - 15.0 g/dL) 8.6 L Hct (33.0 - 45.0 %) 27.2 L MCV (81.0 - 99.0 fL) 94.8 MCH (27.0 - 33.0 pg) 30.0 MCHC (33.0 - 37.0 g/dL) 31.6 L RDW (11.5 - 14.5 %) 12.4 Plt Count (150 - 400 x10 3/uL) 447 H MPV (7.0 - 9.0 fL) 9.7 H Neut % (Auto) (56.0 - 77.0 %) 66.7 Lymph % (Auto) (14.0 - 32.0 %) 21.8 [place] % (Auto) (4.8 - 9.0 %) 7.3 Eos % (Auto) (0.3 - 3.7 %) 3.3 Baso % (Auto) (0.0 - 2.0 %) 0.5 Neut # (Auto) (2.0 - 7.6 x10 3/uL) 6.44 Lymph # (Auto) (1.0 - 3.8 x10 3/uL) 2.11 [place] # (Auto) (0.1 - 0.8 x10 3/uL) 0.71 Eos # (Auto) (0.0 - 0.2 x10 3/uL) 0.32 H Baso # (Auto) (0.0 - 0.2 x10 3/uL) 0.05 Abs Immat Gran (auto) (0.00 - 0.03 0.04 Hx10 3/uL) Immature Gran % (0.0 - 2.0 %) 0.4 Nucleated RBC % (0 - 0 %) 0.0 Nucleated RBCs # (Man) (0.0 - 0.1 0.00x10 3/uL) InterpretationI independently reviewed the [ ] and my interpretation is [ ] Discharge Instructions PCPPCP follow-up:PCP: No Primary or Family Physician Additional Discharge Routines: PCP Follow-Up Attestations Physician AttestationTime spent on patient care:Time spent on patient care:45 mins I spent [] TOTAL minutes on patient care, including [] minutes spent jointly with []. > 50% time spent on counseling/coordination of care [yes/no] at 1749 RPT #:[id number] OF REPORTDSDischarge [id number]:46:00G.[id number] ailable for patient rnrjDLHUISLEGVEVUP4428-24-36Z59:49:57 [facility] 2023-05-20 15:09:00 [id number] vPx+[id number]/RJPck1lqwK3fMAPS428X LN5j6sblfskMbA+4nwGbcRi+z6V5974-13-26O87:09:00 [facility])Cardiology Progress NoteREPORT#:[id number] REPORT STATUS: SignedREPORT INITIALIZATION DATE:05/20/23 TIME: 150 PATIENT: MARIA ESTHER CAPONE UNIT #: [id number]#: [id number] [address] [birth year] AGE: 67 SEX: F ATTEND: Sudarshan Cleaning [facility] AUTHOR: Lisa YooPREPT SERVICE DT/TIME: 05/20/23 1509* ALL edits or amendments must be made on the electronic/computer document * SubjectivePatient reports:No: complaints. Objective GeneralVS/I O:Vital Signs Date Temp Pulse Resp B/P B/P Mean Pulse Ox FiO2 05/19-05/20 36.7-37.1 60-65 19-36 115-161/55-71 80-102 94-100 PATIENT WEIGHT: Weight (lb): 120Weight (oz): 5.96Weight (kg): 54.600 Medications:Active Meds + DC'd Last 24 HrsApixaban (ELIQUIS 2.5MG TABLET) 2.5 MG Q12H PO Mupirocin (BACTROBAN 2% 22 GM OINTMENT) 1 APPLIC BID NASAL Metoprolol Tartrate (LOPRESSOR) 50 MG Q12HR PO Amiodarone HCl (CORDARONE) 400 MG BID 9A 5P PO (CKD) Apixaban (ELIQUIS 5MG TABLET) 5 MG Q12H PO (DC) Losartan Potassium (COZAAR) 100 MG DAILY PO Metoprolol Tartrate (LOPRESSOR) 5 MG Q4H PRN PRN IV Clopidogrel Bisulfate (Plavix) 75 MG DAILY PO Bisacodyl (DULCOLAX) 10 MG DAILY PRN PRN RECTAL Senna/Docusate Sodium (SENOKOT S) 1 TAB DAILY PO Dextrose/Water (DEXTROSE 10% IN WATER) 125 ML ASDIR PRN IV (CKD) Dextrose/Water (DEXTROSE 10% IN WATER) 250 ML ASDIR PRN IV (CKD) Glucagon (GLUCAGON) 1 MG ASDIR PRN IM Doxycycline Monohydrate (DOXYCYCLINE MONOHYDRATE) 100 MG Q12HR PO Atorvastatin Calcium (LIPITOR) 40 MG BEDTIME PO Hydralazine HCl (APRESOLINE) 10 MG Q6H PRN PRN IV Polyethylene Glycol (MIRALAX) 17 GM BID PO Insulin Human Lispro (HUMALOG) 0 AC HS SUBQ Acetaminophen (TYLENOL) 650 MG Q4H PRN PRN PO Ondansetron HCl (ZOFRAN) 4 MG Q6H PRN PRN IV Pacemaker: permanent Physical ExamGeneral appearance: alert, awake, orientedNeck: non-tender, no JVDCardiovascular: CV assessment: regular rate and rhythmRespiratory: clear to auscultation, no distressAbdomen: soft, non-tender, normal bowel sounds, no distentionGenitourinary: no flank painLower extremity: LE assessment: normal capillary refill, no edemaMusculoskeletal: normal inspectionNeuro/JUICE SCALEMAN: alert, oriented X 3, normal speechSkin: dry, intact, normal colorPsychiatry: normal affect, normal judgment/insight, normal mood ResultsFindings/Data:Laboratory Tests 05/20 05/20 05/20 05/19 05/19 1128 0815 0406 2016 1753Chemistry Sodium (134 - 147 mEq/L) 136 Potassium (3.4 - 5.0 mEq/L) 5.0 Chloride (100 - 108 mEq/L) 105 Carbon Dioxide (21 - 33 mEq/l) 22 Anion Gap (0 - 20) 14 BUN (7 - 25 mg/dL) 30 H Creatinine (0.6 - 1.3 mg/dL) 1.5 H Glomerular Filtr Rate (80 - 90) 37.5 L Glucose (77 - 141 mg/dL) 113 POC Glucose (70 - 110 MG/DL) 240 H 109 194 H 102 Calcium (8.0 - 10.5 mg/dL) 9.5 Ionized Calcium William (1.09 - 1.30 1.16MMOL/L) Phosphorus (2.5 - 4.9 MG/DL) 3.9 Magnesium (1.6 - 2.6 mg/dL) 1.80 Laboratory Tests 05/20 0406 Hematology WBC (4.5 - 11.0 x10 3/uL) 9.7 RBC (3.54 - 5.02 x10 6/uL) 2.87 L Hgb (11.0 - 15.0 g/dL) 8.6 L Hct (33.0 - 45.0 %) 27.2 L MCV (81.0 - 99.0 fL) 94.8 MCH (27.0 - 33.0 pg) 30.0 MCHC (33.0 - 37.0 g/dL) 31.6 L RDW (11.5 - 14.5 %) 12.4 Plt Count (150 - 400 x10 3/uL) 447 H MPV (7.0 - 9.0 fL) 9.7 H Neut % (Auto) (56.0 - 77.0 %) 66.7 Lymph % (Auto) (14.0 - 32.0 %) 21.8 [place] % (Auto) (4.8 - 9.0 %) 7.3 Eos % (Auto) (0.3 - 3.7 %) 3.3 Baso % (Auto) (0.0 - 2.0 %) 0.5 Neut # (Auto) (2.0 - 7.6 x10 3/uL) 6.44 Lymph # (Auto) (1.0 - 3.8 x10 3/uL) 2.11 [place] # (Auto) (0.1 - 0.8 x10 3/uL) 0.71 Eos # (Auto) (0.0 - 0.2 x10 3/uL) 0.32 H Baso # (Auto) (0.0 - 0.2 x10 3/uL) 0.05 Abs Immat Gran (auto) (0.00 - 0.03 x10 3/uL) 0.04 H Immature Gran % (0.0 - 2.0 %) 0.4 Nucleated RBC % (0 - 0 %) 0.0 Nucleated RBCs # (Man) (0.0 - 0.1 x10 3/uL) 0.00 Laboratory Tests 05/20 0406 Chemistry Magnesium (1.6 - 2.6 mg/dL) 1.80 Results: labs reviewed, vital signs reviewed, rhythm personally rev'dTelemetry Interpretation:paced Diagnosis, Assessment PlanPlan discussed with: patient, son, collaborating MD, nurse Free Text DxA P NotesFree Text DxA P Notes:67 YO female presented with atrial fibrillation with RVR then kevan down to the 30s. The patient has PMH of CAD with recent PCI/ MARY LOU to RCA, HTN, HLD, DM. The patient had recent stent placement to RCA on 05/10/2023 complicated by complete heart block requiring temporary pacemaker. She was transferred to [facility] that time, was observed for 48 hours -72 hours, taken off BB with resolution of CHB. She was discharged home few days ago with 2 weeks cardiac event monitor. Unfortunately patient came back with with palpitation, found to be in afib RVR. She received IV cardizem and IV lopressor which made her bradycardic in the 30-40s range. # Atrial fibrillation with RVR with tachy-kevan syndrome s/p BSC PPM* Echocardiogram preserved LVEF, small pericardial effusion* [id number]-DKFl score at least 7* Eliquis mg BID tomorrow* afib RVR yesterday, chemically converted to sinus rhythm with amiodarone gtt* metoprolol tartrate 50 mg BID, amiodarone 400 mg BID # CAD with recent stent to RCA* Plavix and Eliquis, stop ASA* continue BB and statin # Positive troponin - likely demand ischemia in the setting of Afib RVR* no indication for ischemic evaluation # Hypertension Doing well.Afib rate and rhythm controlOk to MN home today. Outpatient follow-up with Dr. Hall. MDM by Dr. Mckeon at 1604 at 2006 RPT #:[id number] OF REPORTPRProgress [id number]:09:00G.[id number] able for patient kcpxVJSJAKNNRSXGLS8486-99-68S82:05:08 [facility] 2023-05-19 12:42:00 [id number]+[id number] wDdQ8VB1H5DlTdKAjIeDIK8IMhr4213-95-33L30:42:00 [facility] ([facility])Hospitalist Progress NoteREPORT#:[id number] REPORT STATUS: SignedREPORT INITIALIZATION DATE:05/19/23 TIME: 1241 PATIENT: MARIA ESTHER CAPONE UNIT #: [id number]#: [id number] [address] [birth year] AGE: 67 SEX: F ATTEND: Sudarshan Cleaning MDADM AUTHOR: Shivani Khanna MDREPT SERVICE DT/TIME: 05/19/23 1242* ALL edits or amendments must be made on the electronic/computer document * SubjectiveChief complaint:BradycardiacHPI:67-year-old woman, past medical history of CAD, status post PCI to the RCA, diabetes, hypertension, hyperlipidemia, recently seen at this hospital after opening of occluded RCA stent complicated by complete heart block requiring temporary pacemaker, discharged without pacemaker and recommendations to hold all beta-blockers and AV meet blockers. Patient reported to have called EMS for palpitations and shortness of breath, found to be in A-fib with RVR heart rate in the 180s, given 20 of Cardizem with EMS, transported to outside ED, slowed to 100s, was given 5 mg of metoprolol in ED, which resulted in bradycardia in the 40s. Patient remains only mildly fatigued, minimal symptoms at this time. She denies any CP, fever, chills now. Free Text Subj NotesFree Text Subj Notes:A-fib with RVR yesterday, now heart rate in 60s. Sitting in chair comfortable denies any complaint no chest pain no shortness of breath no headache no change in vision no fever no nausea no vomiting. Patient is now switched to p.o. amiodarone IV amiodarone turned off this morning at 6. Patient is concerned that if she go home she would go back into A-fib with RVR. Patient is status post pacemaker placement. No pain at the site of placement no other issues reported Review of SystemsAll systems rev neg: except as noted Objective GeneralVS/I O:Vital Signs: Date Time Temp Pulse Resp B/P B/P Pulse O2 O2 Flow FiO2 Mean Ox Delivery Rate 05/19 0915 60 27 149/68 98 99 /15 0900 60 28 157/67 97 96 /15 0845 60 28 145/63 90 95 11/15 0830 61 29 146/67 96 97 /15 0815 60 30 153/64 92 96 /15 0800 61 50 151/67 96 96 /15 0745 60 29 150/69 99 95 /15 0730 63 32 157/71 102 96 /15 0715 60 27 162/70 101 95 /15 0700 60 29 153/69 99 96 /15 0615 60 30 132/60 87 95 11/15 0600 60 29 132/60 87 95 /15 0545 60 22 145/65 93 95 /15 0530 61 24 165/70 101 96 /15 0515 60 22 146/68 98 93 /15 0500 60 23 152/70 100 95 /15 0445 60 21 133/62 89 93 /15 0430 60 28 151/67 96 92 /15 0415 60 21 95 /15 0400 98.5 /15 0400 62 26 152/68 98 96 /15 0345 60 22 156/70 100 97 /15 0330 60 21 157/67 96 98 /15 0315 60 21 159/67 96 98 /15 0300 60 21 152/69 99 97 /15 0245 62 21 155/63 90 99 /15 0230 60 22 146/63 91 98 /15 0215 60 26 148/67 96 97 /15 0200 60 24 125/59 85 98 /15 0145 60 30 146/64 92 97 /15 0130 60 20 115/57 82 98 /15 0115 60 40 128/60 87 99 /15 0100 61 28 135/63 91 98 11/15 0045 60 22 117/58 83 98 05/19 0030 60 24 129/61 88 99 05/19 0015 60 28 124/60 86 97 05/19 0000 98.6 05/19 0000 60 21 134/62 89 97 05/18 2345 60 22 133/61 88 98 05/18 2330 60 24 139/65 93 98 05/18 2322 62 24 143/63 91 99 05/18 2300 60 32 107/56 80 99 05/18 2245 60 22 122/59 85 100 05/18 2230 60 42 114/56 80 100 05/18 2215 60 40 112/55 79 99 05/18 2200 60 36 118/56 80 100 05/18 2145 60 36 142/65 93 100 05/18 2130 60 32 142/64 92 100 05/18 2115 60 38 152/64 92 100 05/18 2100 60 40 129/59 85 05/18 2045 60 30 125/61 88 05/18 2030 60 38 130/60 87 05/18 2015 60 26 141/65 93 100 05/18 2000 98.4 05/18 2000 2 05/18 2000 61 39 145/71 102 94 05/18 1945 61 29 159/65 94 97 05/18 1930 61 33 142/64 92 98 05/18 1915 60 28 138/64 92 99 05/18 1900 62 23 135/58 89 100 05/18 1845 61 29 136/63 91 100 05/18 1830 62 28 131/63 90 100 05/18 1815 63 134/61 88 99 05/18 1800 60 26 140/60 86 99 05/18 1749 60 27 146/65 94 100 05/18 1730 60 33 139/65 93 98 05/18 1715 60 29 111/57 81 98 05/18 1700 60 29 116/56 81 100 05/18 1645 60 25 123/58 83 99 05/18 1630 123 26 124/59 85 99 05/18 1615 98.6 05/18 1615 136 27 137/66 91 100 05/18 1600 154 25 153/66 95 99 05/18 1545 156 29 154/70 101 98 05/18 1534 164 28 145/63 90 97 05/18 1530 156 05/18 1515 159 22 125/56 79 96 05/18 1500 167 27 143/67 90 98 05/18 1445 164 27 141/63 91 94 05/18 1430 158 29 136/61 88 97 05/18 1415 165 29 122/58 83 97 05/18 1400 148 25 180/73 105 99 05/18 1345 145 29 164/76 109 94 05/18 1331 165 21 170/79 113 95 05/18 1329 158 25 154/72 104 96 05/18 1316 163 25 149/72 104 96 05/18 1300 61 28 146/66 95 98 24 hour I O ending at 0700: 05/19 0700 05/18 1900 Intake Total 490.00 249.85 Output Total 600 Balance 490.00 -350.15 Intake, IV 190.00 249.85 Intake, Oral 300 Number 2 Bowel Movements Number 1 1 Incontinent Voids Number Voids 1 Output, Urine 600 Patient 54.6 kg 54.431 kg Weight Weight Bed scale Measurement Method PATIENT WEIGHT: Weight (lb): 120Weight (oz): 5.96Weight (kg): 54.600 Medications:Active Meds + DC'd Last 24 HrsMetoprolol Tartrate (LOPRESSOR) 50 MG Q12HR PO Amiodarone HCl (CORDARONE) 400 MG BID 9A 5P PO (CKD) Apixaban (ELIQUIS 5MG TABLET) 5 MG BID PO (DC) Apixaban (ELIQUIS 5MG TABLET) 5 MG Q12H PO Losartan Potassium (COZAAR) 100 MG DAILY PO Metoprolol Tartrate (LOPRESSOR) 25 MG Q12HR PO (DC) Metoprolol Tartrate (LOPRESSOR) 5 MG Q4H PRN PRN IV Amiodarone HCl (AMIODARONE HCL) 450 MG ASDIR IV (DC) Dextrose/Water (D5%W NON-DEHP) 250 MLAmiodarone HCl (NEXTERONE 150MG/D5W 100ML) 100 ML STAT STA IV (DC) Metoprolol Tartrate (LOPRESSOR) 0 .STK-MED ONE IV (DC) Apixaban (ELIQUIS 5MG TABLET) 5 MG Q12H PO (DC) Clopidogrel Bisulfate (Plavix) 75 MG DAILY PO Amiodarone HCl (CORDARONE) 200 MG BID 9A 5P PO (DC) Bisacodyl (DULCOLAX) 10 MG DAILY PRN PRN RECTAL Senna/Docusate Sodium (SENOKOT S) 1 TAB DAILY PO Dextrose/Water (DEXTROSE 10% IN WATER) 125 ML ASDIR PRN IV (CKD) Dextrose/Water (DEXTROSE 10% IN WATER) 250 ML ASDIR PRN IV (CKD) Glucagon (GLUCAGON) 1 MG ASDIR PRN IM Doxycycline Monohydrate (DOXYCYCLINE MONOHYDRATE) 100 MG Q12HR PO Fentanyl Citrate (SUBLIMAZE) 50 MCG Q2H PRN PRN IV (DC) Atorvastatin Calcium (LIPITOR) 40 MG BEDTIME PO Mupirocin (BACTROBAN 2% 22 GM OINTMENT) 1 APPLIC BID NASAL (DC) Hydralazine HCl (APRESOLINE) 10 MG Q6H PRN PRN IV Aspirin (ASPIRIN) 81 MG DAILY PO (DC) Polyethylene Glycol (MIRALAX) 17 GM BID PO Insulin Human Lispro (HUMALOG) 0 AC HS SUBQ Acetaminophen (TYLENOL) 650 MG Q4H PRN PRN PO Ondansetron HCl (ZOFRAN) 4 MG Q6H PRN PRN IV Dietitian nutrition assessmentThe data set between the solid lines has been imported from the dietitian's assessment. BMI Calculated: 24.3Nutrition related diagnosis: Nutrition diagnosis details: Nutrition problem: Nutrition etiology: Nutrition signs and symptoms: Nutrition prescription: Dietitian name: Assessment completed: Physical ExamGeneral appearance: alertHead/Eyes: atraumatic, normocephalic, PERRLAENT: moist mucosal membranes, normal dentition, normal ear leftNeck: full range of motion, non-tender, normal thyroidCardiovascular: bradycardic, normal capillary refill, normal heart soundsRespiratory: aerating well, symmetric expansion, no distressAbdomen: non-tender, normal bowel sounds, softGenitourinary: no bladder distention, no flank painExtremities: no clubbing, no cyanosisMusculoskeletal: no muscle spasmNeuro/JUICE SCALEMAN: alert, oriented X 3, CNII-XII intactPsychiatry: normal affect, normal judgment/insight, normal mood ResultsFindings/Data:Laboratory Tests 05/19 05/19 05/18 05/18 0732 0344 2112 1633 Chemistry Sodium (134 - 147 mEq/L) 136 Potassium (3.4 - 5.0 mEq/L) 4.9 Chloride (100 - 108 mEq/L) 105 Carbon Dioxide (21 - 33 mEq/l) 23 Anion Gap (0 - 20) 13 BUN (7 - 25 mg/dL) 32 H Creatinine (0.6 - 1.3 mg/dL) 1.3 Glomerular Filtr Rate (80 - 90) 44.5 L Glucose (77 - 141 mg/dL) 125 POC Glucose (70 - 110 MG/DL) 128 H 173 H 178 H Calcium (8.0 - 10.5 mg/dL) 9.0 Ionized Calcium William (1.09 - 1.30 MMOL/L) 1.20 Phosphorus (2.5 - 4.9 MG/DL) 4.6 Magnesium (1.6 - 2.6 mg/dL) 1.86 Total Bilirubin (0.0 - 1.0 mg/dL) 0.60 AST (8 - 34 IUnit/L) 22 ALT (10 - 49 IUnit/L) 36 Total Alk Phosphatase (20 - 125 IUnit/L) 81 Total Protein (6.4 - 8.2 g/dL) 6.5 Albumin (3.4 - 5.0 g/dL) 3.10 L Laboratory Tests 05/19 0344 Hematology WBC (4.5 - 11.0 x10 3/uL) 9.5 RBC (3.54 - 5.02 x10 6/uL) 2.83 L Hgb (11.0 - 15.0 g/dL) 8.7 L Hct (33.0 - 45.0 %) 26.3 L MCV (81.0 - 99.0 fL) 92.9 MCH (27.0 - 33.0 pg) 30.7 MCHC (33.0 - 37.0 g/dL) 33.1 RDW (11.5 - 14.5 %) 12.7 Plt Count (150 - 400 x10 3/uL) 420 H MPV (7.0 - 9.0 fL) 9.7 H Neut % (Auto) (56.0 - 77.0 %) 66.7 Lymph % (Auto) (14.0 - 32.0 %) 21.8 [place] % (Auto) (4.8 - 9.0 %) 7.3 Eos % (Auto) (0.3 - 3.7 %) 3.4 Baso % (Auto) (0.0 - 2.0 %) 0.4 Neut # (Auto) (2.0 - 7.6 x10 3/uL) 6.34 Lymph # (Auto) (1.0 - 3.8 x10 3/uL) 2.07 [place] # (Auto) (0.1 - 0.8 x10 3/uL) 0.69 Eos # (Auto) (0.0 - 0.2 x10 3/uL) 0.32 H Baso # (Auto) (0.0 - 0.2 x10 3/uL) 0.04 Abs Immat Gran (auto) (0.00 - 0.03 x10 3/uL) 0.04 H Immature Gran % (0.0 - 2.0 %) 0.4 Nucleated RBC % (0 - 0 %) 0.0 Nucleated RBCs # (Man) (0.0 - 0.1 x10 3/uL) 0.00 Treatment Prophylaxis Treatment ProphylaxisOxygen: room air Diagnosis, Assessment PlanConsultants: cardiology, critical/anthropometrist, electrophysiology Free Text DxA P NotesFree text DxA P notes:Assessment: - NSTEMI.- A-fib RVR - Chest pain- BECKIE.- HX of CAD, status post PCI to the RCA, diabetes, hypertension, hyperlipidemia. Plan: -Continuous telemetry monitoring, strict vital monitoring, monitor, replace electrolytes, avoid AV meet blocking agent as per cardiology/electrophysiology- [id number] score at least 7-Eliquis mg BID tomorrow-Echocardiogram preserved LVEF, small pericardial effusion-Status post dual pacemaker placed, device interrogated patient- Ap 95%, Salesforce Developer < 1%, normal lead testing, no episodes recorded, normal functioning device-Postop chest x-ray reviewed, pacemaker site seen no sign of infection no bleeding no hematoma-Monitor, replace electrolytes-Insulin sliding scale-Case discussed with cardiology/critical care team-Recent PCI to RCA. Continue Plavix/Eliquis on discharge, stop aspirin-PT OT, discharge planning at 0620 RPT #:[id number] OF REPORTPRProgress [id number]:42:00G.[id number] able for patient byzxBHSLRGPGTGQKMQ0696-73-64C01:21:00 [facility] 2023-05-19 09:32:00 [id number]/[id number]/Ojs 67u1dxS2KHGtaG9X5nwXbiyONqN4456-35-64S38:32:00 [facility] HospitalCard[facility] Progress NoteREPORT#:[id number] REPORT STATUS: SignedREPORT INITIALIZATION DATE:05/19/23 TIME: 931 PATIENT: MARIA ESTHER CAPONE UNIT #: [id number]#: [id number] [address] [birth year] AGE: 67 SEX: F ATTEND: Sudarshan Cleaning MDADM AUTHOR: Lisa YooCNPREPT SERVICE DT/TIME: 05/19/23 0932* ALL edits or amendments must be made on the electronic/computer document * SubjectiveComments:Afib RVR yesterday Objective GeneralVS/I O:24 hour I O ending at 0700: 05/19 0700 05/18 1900 Intake Total 490.00 249.85 Output Total 600 Balance 490.00 -350.15 Intake, IV 190.00 249.85 Intake, Oral 300 Number 2 Bowel Movements Number 1 1 Incontinent Voids Number Voids 1 Output, Urine 600 Patient 54.6 kg 54.431 kg Weight Weight Bed scale Measurement Method Vital Signs: Date Time Temp Pulse Resp B/P B/P Pulse O2 O2 Flow FiO2 Mean Ox Delivery Rate 05/19 915 60 27 149/68 98 99 05/19 0900 60 28 157/67 97 96 11/15 0845 60 28 145/63 90 95 11/15 0830 61 29 146/67 96 97 /15 0815 60 30 153/64 92 96 11/15 0800 61 50 151/67 96 96 11/15 0745 60 29 150/69 99 95 11/15 0730 63 32 157/71 102 96 /15 0715 60 27 162/70 101 95 11/15 0700 60 29 153/69 99 96 /15 0615 60 30 132/60 87 95 11/15 0600 60 29 132/60 87 95 /15 0545 60 22 145/65 93 95 /15 0530 61 24 165/70 101 96 /15 0515 60 22 146/68 98 93 /15 0500 60 23 152/70 100 95 /15 0445 60 21 133/62 89 93 /15 0430 60 28 151/67 96 92 /15 0415 60 21 95 /15 0400 36.9 /15 0400 62 26 152/68 98 96 /15 0345 60 22 156/70 100 97 /15 0330 60 21 157/67 96 98 /15 0315 60 21 159/67 96 98 /15 0300 60 21 152/69 99 97 /15 0245 62 21 155/63 90 99 /15 0230 60 22 146/63 91 98 /15 0215 60 26 148/67 96 97 /15 0200 60 24 125/59 85 98 /15 0145 60 30 146/64 92 97 /15 0130 60 20 115/57 82 98 /15 0115 60 40 128/60 87 99 /15 0100 61 28 135/63 91 98 /15 0045 60 22 117/58 83 98 /15 0030 60 24 129/61 88 99 /15 0015 60 28 124/60 86 97 /15 0000 37.0 15 0000 60 21 134/62 89 97 14 2345 60 22 133/61 88 98 05/18 2330 60 24 139/65 93 98 05/18 2322 62 24 143/63 91 99 05/18 2300 60 32 107/56 80 99 05/18 2245 60 22 122/59 85 100 05/18 2230 60 42 114/56 80 100 05/18 2215 60 40 112/55 79 99 05/18 2200 60 36 118/56 80 100 05/18 2145 60 36 142/65 93 100 05/18 2130 60 32 142/64 92 100 05/18 2115 60 38 152/64 92 100 05/18 2100 60 40 129/59 85 05/18 2045 60 30 125/61 88 05/18 2030 60 38 130/60 87 05/18 2015 60 26 141/65 93 100 05/18 2000 36.9 05/18 2000 2 05/18 2000 61 39 145/71 102 94 05/18 1945 61 29 159/65 94 97 05/18 1930 61 33 142/64 92 98 05/18 1915 60 28 138/64 92 99 05/18 1900 62 23 135/58 89 100 05/18 1845 61 29 136/63 91 100 05/18 1830 62 28 131/63 90 100 05/18 1815 63 134/61 88 99 05/18 1800 60 26 140/60 86 99 05/18 1749 60 27 146/65 94 100 05/18 1730 60 33 139/65 93 98 05/18 1715 60 29 111/57 81 98 05/18 1700 60 29 116/56 81 100 05/18 1645 60 25 123/58 83 99 05/18 1630 123 26 124/59 85 99 05/18 1615 37.0 05/18 1615 136 27 137/66 91 100 05/18 1600 154 25 153/66 95 99 05/18 1545 156 29 154/70 101 98 05/18 1534 164 28 145/63 90 97 05/18 1530 156 05/18 1515 159 22 125/56 79 96 05/18 1500 167 27 143/67 90 98 05/18 1445 164 27 141/63 91 94 05/18 1430 158 29 136/61 88 97 05/18 1415 165 29 122/58 83 97 05/18 1400 148 25 180/73 105 99 05/18 1345 145 29 164/76 109 94 05/18 1331 165 21 170/79 113 95 05/18 1329 158 25 154/72 104 96 05/18 1316 163 25 149/72 104 96 05/18 1300 61 28 146/66 95 98 05/18 1200 36.9 05/18 1200 63 23 133/60 87 95 05/18 1105 66 153/70 100 97 05/18 1030 60 23 145/67 97 05/18 1000 60 24 137/64 92 96 05/18 0939 64 17 139/93 112 PATIENT WEIGHT: Weight (lb): 120Weight (oz): 5.96Weight (kg): 54.600 Medications:Active Meds + DC'd Last 24 HrsApixaban (ELIQUIS 5MG TABLET) 5 MG BID PO (DC) Apixaban (ELIQUIS 5MG TABLET) 5 MG Q12H PO Losartan Potassium (COZAAR) 100 MG DAILY PO Metoprolol Tartrate (LOPRESSOR) 25 MG Q12HR PO Metoprolol Tartrate (LOPRESSOR) 5 MG Q4H PRN PRN IV Amiodarone HCl (AMIODARONE HCL) 450 MG ASDIR IV (CKD) Dextrose/Water (D5%W NON-DEHP) 250 MLAmiodarone HCl (NEXTERONE 150MG/D5W 100ML) 100 ML STAT STA IV (DC) Metoprolol Tartrate (LOPRESSOR) 0 .STK-MED ONE IV (DC) Apixaban (ELIQUIS 5MG TABLET) 5 MG Q12H PO (DC) Clopidogrel Bisulfate (Plavix) 75 MG DAILY PO Amiodarone HCl (CORDARONE) 200 MG BID 9A 5P PO (DC) Bisacodyl (DULCOLAX) 10 MG DAILY PRN PRN RECTAL Senna/Docusate Sodium (SENOKOT S) 1 TAB DAILY PO Dextrose/Water (DEXTROSE 10% IN WATER) 125 ML ASDIR PRN IV (CKD) Dextrose/Water (DEXTROSE 10% IN WATER) 250 ML ASDIR PRN IV (CKD) Glucagon (GLUCAGON) 1 MG ASDIR PRN IM Doxycycline Monohydrate (DOXYCYCLINE MONOHYDRATE) 100 MG Q12HR PO Fentanyl Citrate (SUBLIMAZE) 50 MCG Q2H PRN PRN IV (DC) Atorvastatin Calcium (LIPITOR) 40 MG BEDTIME PO Dopamine HCl/Dextrose (DOPamine 400MG/D5W 250ML) 250 ML ASDIR IV (DC) Mupirocin (BACTROBAN 2% 22 GM OINTMENT) 1 APPLIC BID NASAL Hydralazine HCl (APRESOLINE) 10 MG Q6H PRN PRN IV Aspirin (ASPIRIN) 81 MG DAILY PO (DC) Docusate Sodium (COLACE) 100 MG BID PO (DC) Polyethylene Glycol (MIRALAX) 17 GM BID PO Insulin Human Lispro (HUMALOG) 0 AC HS SUBQ Acetaminophen (TYLENOL) 650 MG Q4H PRN PRN PO Ondansetron HCl (ZOFRAN) 4 MG Q6H PRN PRN IV Heparin Sodium (HEPARIN 5000 UNITS/ML) Dose per Heparin Cardiology Nomogram orders ASDIR PRN IV (DC) Heparin Sodium (Porcine) (HEPARIN 25,000 UNITS/ 1/2NS 500ML) 500 ML ASDIR IV (DC) Pacemaker: permanentDietitian nutrition assessmentThe data set between the solid lines has been imported from the dietitian's assessment. BMI Calculated: 24.3Nutrition related diagnosis: Nutrition diagnosis details: Nutrition problem: Nutrition etiology: Nutrition signs and symptoms: Nutrition prescription: Dietitian name: Assessment completed: Physical ExamGeneral appearance: alert, awake, orientedNeck: non-tender, no JVDCardiovascular: CV assessment: regular rate and rhythmRespiratory: clear to auscultation, no distressAbdomen: soft, non-tender, normal bowel sounds, no distentionGenitourinary: no flank painLower extremity: LE assessment: normal capillary refill, no edemaMusculoskeletal: normal inspectionNeuro/JUICE SCALEMAN: alert, oriented X 3, normal speechSkin: dry, intact, normal colorPsychiatry: normal affect, normal judgment/insight, normal mood ResultsFindings/Data:Laboratory Tests 05/19 05/19 05/18 05/18 05/18 0732 0344 2112 1633 1207Chemistry Sodium (134 - 147 mEq/L) 136 Potassium (3.4 - 5.0 mEq/L) 4.9 Chloride (100 - 108 mEq/L) 105 Carbon Dioxide (21 - 33 mEq/l) 23 Anion Gap (0 - 20) 13 BUN (7 - 25 mg/dL) 32 H Creatinine (0.6 - 1.3 mg/dL) 1.3 Glomerular Filtr Rate (80 - 90) 44.5 L Glucose (77 - 141 mg/dL) 125 POC Glucose (70 - 110 MG/DL) 128 H 173 H 178 H 133 H Calcium (8.0 - 10.5 mg/dL) 9.0 Ionized Calcium William (1.09 - 1.30 1.20MMOL/L) Phosphorus (2.5 - 4.9 MG/DL) 4.6 Magnesium (1.6 - 2.6 mg/dL) 1.86 Total Bilirubin (0.0 - 1.0 mg/dL) 0.60 AST (8 - 34 IUnit/L) 22 ALT (10 - 49 IUnit/L) 36 Total Alk Phosphatase (20 - 125 81IUnit/L) Total Protein (6.4 - 8.2 g/dL) 6.5 Albumin (3.4 - 5.0 g/dL) 3.10 L Laboratory Tests 05/19 0344 Hematology WBC (4.5 - 11.0 x10 3/uL) 9.5 RBC (3.54 - 5.02 x10 6/uL) 2.83 L Hgb (11.0 - 15.0 g/dL) 8.7 L Hct (33.0 - 45.0 %) 26.3 L MCV (81.0 - 99.0 fL) 92.9 MCH (27.0 - 33.0 pg) 30.7 MCHC (33.0 - 37.0 g/dL) 33.1 RDW (11.5 - 14.5 %) 12.7 Plt Count (150 - 400 x10 3/uL) 420 H MPV (7.0 - 9.0 fL) 9.7 H Neut % (Auto) (56.0 - 77.0 %) 66.7 Lymph % (Auto) (14.0 - 32.0 %) 21.8 [place] % (Auto) (4.8 - 9.0 %) 7.3 Eos % (Auto) (0.3 - 3.7 %) 3.4 Baso % (Auto) (0.0 - 2.0 %) 0.4 Neut # (Auto) (2.0 - 7.6 x10 3/uL) 6.34 Lymph # (Auto) (1.0 - 3.8 x10 3/uL) 2.07 [place] # (Auto) (0.1 - 0.8 x10 3/uL) 0.69 Eos # (Auto) (0.0 - 0.2 x10 3/uL) 0.32 H Baso # (Auto) (0.0 - 0.2 x10 3/uL) 0.04 Abs Immat Gran (auto) (0.00 - 0.03 x10 3/uL) 0.04 H Immature Gran % (0.0 - 2.0 %) 0.4 Nucleated RBC % (0 - 0 %) 0.0 Nucleated RBCs # (Man) (0.0 - 0.1 x10 3/uL) 0.00 Laboratory Tests 05/19 0344 Chemistry Magnesium (1.6 - 2.6 mg/dL) 1.86 Echo results:Summary: 1. Left ventricle: The cavity size is normal. Wall thickness is at the upper limits of normal. Systolic function is probably normal. The estimated ejection fraction is 55-59%. Regional wall motion abnormalities cannot be excluded. Left ventricular diastolic function parameters are indeterminate.2. Right ventricle: Systolic function is mildly reduced.3. Left atrium: The atrium is dilated.4. Mitral valve: The annulus is mildly calcified.5. Pericardium, extracardiac: A small pericardial effusion is identified. Diagnosis, Assessment Plan Free Text DxA P NotesFree Text DxA P Notes:67 YO female presented with atrial fibrillation with RVR then kevan down to the 30s. The patient has PMH of CAD with recent PCI/ MARY LOU to RCA, HTN, HLD, DM. The patient had recent stent placement to RCA on 05/10/2023 complicated by complete heart block requiring temporary pacemaker. She was transferred to [facility] that time, was observed for 48 hours -72 hours, taken off BB with resolution of CHB. She was discharged home few days ago with 2 weeks cardiac event monitor. Unfortunately patient came back with with palpitation, found to be in afib RVR. She received IV cardizem and IV lopressor which made her bradycardic in the 30-40s range. # Atrial fibrillation with RVR with tachy-kevan syndrome s/p BSC PPM* Echocardiogram preserved LVEF, small pericardial effusion* [id number] score at least 7* Eliquis mg BID tomorrow* afib RVR yesterday, chemically converted to sinus rhythm with amiodarone gtt* up metoprolol tartrate to 50 mg BID, amiodarone 400 mg BID* defer antiarrhythmic management to EP # CAD with recent stent to RCA* Plavix and Eliquis, stop ASA* continue BB and statin # Positive troponin - likely demand ischemia in the setting of Afib RVR* no indication for ischemic evaluation # Hypertension Ok to transfer out of [facility] home in AM. MDM by Dr. Mckeon at 1349 at 1447 RPT #:[id number] OF REPORTPRProgress [id number]:32:00G.[id number] able for patient [id number]:50:25 [facility] 2023-05-19 08:46:00 [id number]:46:00 [facility] ([facility])Critical Care Progress NoteREPORT#:[id number] REPORT STATUS: SignedREPORT INITIALIZATION DATE:05/19/23 TIME: 845 PATIENT: MARIA ESTHER CAPONE UNIT #: [id number]#: [id number] [address] AGE: 67 SEX: F ATTEND: Sudarshan Cleaning AUTHOR: Tri Guzman SERVICE DT/TIME: 05/19/23 0846* ALL edits or amendments must be made on the electronic/computer document * SubjectiveChief complaint:Palpitatioins, Shortness of breathHPI:Patient is a 67-year-old woman, past medical history of CAD, status post PCI to the RCA, diabetes, hypertension, hyperlipidemia, recently seen at this hospital after opening of occluded RCA stent complicated by complete heart block requiring temporary pacemaker, discharged without pacemaker and recommendations to hold all beta-blockers and AV meet blockers. Patient reported to have calledEMS for palpitations, cough and shortness of breath, found to be in A-fib with RVR heart rate in the 180s, given 20 of Cardizem with EMS, transported to [facility], slowed to 100s, was given 5 mg of metoprolol in ED, which resulted in bradycardia in the 40s. Patient remains only mildly fatigued, minimal symptoms at this time. She denies any CP, fever, chills now. Patient was transferred to [facility] for further evaluation and management. Comments:In bed. awake alertNo distressS/p PPM, LUE sling in place. Objective GeneralVS/I OLast Documented: Result Date Time Pulse Ox 95 05/19 615 B/P 132/60 05/19 615 B/P Mean 87 05/19 615 Pulse 60 05/19 615 Resp 30 05/19 615 Temp 98.5 05/19 0400 O2 Flow Rate 2 05/18 2000 O2 Delivery Room air 05/17 1600 24 hour I O ending at 0700: 05/19 0700 05/18 1900 Intake Total 490.00 249.85 Output Total 600 Balance 490.00 -350.15 Intake, IV 190.00 249.85 Intake, Oral 300 Number 2 Bowel Movements Number 1 1 Incontinent Voids Number Voids 1 Output, Urine 600 Patient 54.6 kg 54.431 kg Weight Weight Bed scale Measurement Method PATIENT WEIGHT: Weight (lb): 120Weight (oz): 5.96Weight (kg): 54.600 Medications:Active Meds + DC'd Last 24 HrsApixaban (ELIQUIS 5MG TABLET) 5 MG BID PO (DC) Apixaban (ELIQUIS 5MG TABLET) 5 MG Q12H PO Losartan Potassium (COZAAR) 100 MG DAILY PO Metoprolol Tartrate (LOPRESSOR) 25 MG Q12HR PO Metoprolol Tartrate (LOPRESSOR) 5 MG Q4H PRN PRN IV Amiodarone HCl (AMIODARONE HCL) 450 MG ASDIR IV (CKD) Dextrose/Water (D5%W NON-DEHP) 250 MLAmiodarone HCl (NEXTERONE 150MG/D5W 100ML) 100 ML STAT STA IV (DC) Metoprolol Tartrate (LOPRESSOR) 0 .STK-MED ONE IV (DC) Apixaban (ELIQUIS 5MG TABLET) 5 MG Q12H PO (DC) Clopidogrel Bisulfate (Plavix) 75 MG DAILY PO Amiodarone HCl (CORDARONE) 200 MG BID 9A 5P PO (DC) Bisacodyl (DULCOLAX) 10 MG DAILY PRN PRN RECTAL Senna/Docusate Sodium (SENOKOT S) 1 TAB DAILY PO Dextrose/Water (DEXTROSE 10% IN WATER) 125 ML ASDIR PRN IV (CKD) Dextrose/Water (DEXTROSE 10% IN WATER) 250 ML ASDIR PRN IV (CKD) Glucagon (GLUCAGON) 1 MG ASDIR PRN IM Doxycycline Monohydrate (DOXYCYCLINE MONOHYDRATE) 100 MG Q12HR PO Fentanyl Citrate (SUBLIMAZE) 50 MCG Q2H PRN PRN IV (DC) Atorvastatin Calcium (LIPITOR) 40 MG BEDTIME PO Dopamine HCl/Dextrose (DOPamine 400MG/D5W 250ML) 250 ML ASDIR IV (DC) Mupirocin (BACTROBAN 2% 22 GM OINTMENT) 1 APPLIC BID NASAL Hydralazine HCl (APRESOLINE) 10 MG Q6H PRN PRN IV Aspirin (ASPIRIN) 81 MG DAILY PO Docusate Sodium (COLACE) 100 MG BID PO (DC) Polyethylene Glycol (MIRALAX) 17 GM BID PO Insulin Human Lispro (HUMALOG) 0 AC HS SUBQ Acetaminophen (TYLENOL) 650 MG Q4H PRN PRN PO Ondansetron HCl (ZOFRAN) 4 MG Q6H PRN PRN IV Heparin Sodium (HEPARIN 5000 UNITS/ML) Dose per Heparin Cardiology Nomogram orders ASDIR PRN IV (DC) Heparin Sodium (Porcine) (HEPARIN 25,000 UNITS/ 1/2NS 500ML) 500 ML ASDIR IV (DC) Status post:05/17- S/p PPM ResultsFindings/data:Laboratory Tests 05/19 05/19 05/18 05/18 05/18 0732 0344 2112 1633 1207Chemistry Sodium (134 - 147 mEq/L) 136 Potassium (3.4 - 5.0 mEq/L) 4.9 Chloride (100 - 108 mEq/L) 105 Carbon Dioxide (21 - 33 mEq/l) 23 Anion Gap (0 - 20) 13 BUN (7 - 25 mg/dL) 32 H Creatinine (0.6 - 1.3 mg/dL) 1.3 Glomerular Filtr Rate (80 - 90) 44.5 L Glucose (77 - 141 mg/dL) 125 POC Glucose (70 - 110 MG/DL) 128 H 173 H 178 H 133 H Calcium (8.0 - 10.5 mg/dL) 9.0 Ionized Calcium William (1.09 - 1.30 1.20MMOL/L) Phosphorus (2.5 - 4.9 MG/DL) 4.6 Magnesium (1.6 - 2.6 mg/dL) 1.86 Total Bilirubin (0.0 - 1.0 mg/dL) 0.60 AST (8 - 34 IUnit/L) 22 ALT (10 - 49 IUnit/L) 36 Total Alk Phosphatase (20 - 125 81IUnit/L) Total Protein (6.4 - 8.2 g/dL) 6.5 Albumin (3.4 - 5.0 g/dL) 3.10 L Laboratory Tests 05/19 0344 Hematology WBC (4.5 - 11.0 x10 3/uL) 9.5 RBC (3.54 - 5.02 x10 6/uL) 2.83 L Hgb (11.0 - 15.0 g/dL) 8.7 L Hct (33.0 - 45.0 %) 26.3 L MCV (81.0 - 99.0 fL) 92.9 MCH (27.0 - 33.0 pg) 30.7 MCHC (33.0 - 37.0 g/dL) 33.1 RDW (11.5 - 14.5 %) 12.7 Plt Count (150 - 400 x10 3/uL) 420 H MPV (7.0 - 9.0 fL) 9.7 H Neut % (Auto) (56.0 - 77.0 %) 66.7 Lymph % (Auto) (14.0 - 32.0 %) 21.8 [place] % (Auto) (4.8 - 9.0 %) 7.3 Eos % (Auto) (0.3 - 3.7 %) 3.4 Baso % (Auto) (0.0 - 2.0 %) 0.4 Neut # (Auto) (2.0 - 7.6 x10 3/uL) 6.34 Lymph # (Auto) (1.0 - 3.8 x10 3/uL) 2.07 [place] # (Auto) (0.1 - 0.8 x10 3/uL) 0.69 Eos # (Auto) (0.0 - 0.2 x10 3/uL) 0.32 H Baso # (Auto) (0.0 - 0.2 x10 3/uL) 0.04 Abs Immat Gran (auto) (0.00 - 0.03 x10 3/uL) 0.04 H Immature Gran % (0.0 - 2.0 %) 0.4 Nucleated RBC % (0 - 0 %) 0.0 Nucleated RBCs # (Man) (0.0 - 0.1 x10 3/uL) 0.00 Laboratory Tests 05/19/23 0344:[Embedded Image Not Available] Results: labs reviewed, vital signs reviewed, rhythm personally rev'd, x-ray personally reviewed, current med profile rev'd Free Text Obj NotesFree Text Obj Notes:Physical ExamGeneral appearance: alert, awake, oriented, status post PPMHead/Eyes: atraumatic, normocephalic, PERRLACardiovascular: RRR, normal capillary refill, normal heart soundsRespiratory: aerating well, symmetric expansion, no distressAbdomen: non-tender, normal bowel sounds, softGenitourinary: no bladder distention, no flank painExtremities: no clubbing, no cyanosis, LUE sling in placeMusculoskeletal: no muscle spasmNeuro/JUICE SCALEMAN: alert, oriented X 3, CNII-XII intact, speech is fluent Treatment Prophylaxis Treatment ProphylaxisOxygen: room airLines: peripheralAnti-arrhythmics: amiodarone, metoprololAnti-infectives: doxycycline Diagnosis, Assessment PlanFree text A P:Patient is a 67-year-old woman, past medical history of CAD, status post PCI to the RCA, diabetes, hypertension, hyperlipidemia, recently seen at this hospital after opening of occluded RCA stent complicated by complete heart block requiring temporary pacemaker, discharged without pacemaker and recommendations to hold all beta-blockers and AV meet blockers. Patient reported to have calledEMS for palpitations and shortness of breath, found to be in A-fib with RVR heart rate in the 180s, given 20 of Cardizem with EMS, transported to outside ED, slowed to 100s, was given 5 mg of metoprolol in ED, which resulted in bradycardia in the 40s. Patient remains only mildly fatigued, minimal symptoms at this time. She denies any CP, fever, chills now. Patient seen and examined in MICU 317. Heparin gtt cardiology infusing. Patient denies shortness of breath, chest pain, palpitations. Vital signs as follows: [id number] (89), WV 46, RR 20, Afebrile, saturating 100% on room air. 05/19/2023:Seen and examined. Neuro:AOx4, baselinePain control Respiratory:Saturating well on room airSupplemental oxygen as needed to keep saturation more than 90% CV:Status post BSC PPM placement, device interrogation doneMonitor site for bleeding or hematoma, signs of infectionArm sling on x3 daysDoxycycline 100 twice daily x7 daysAmiodarone drip and eliquis, defer oral transition to EPCardiology following. D/c ASA as patient was started on eliquis. Plavix, statinLosartan, PRN hydralazine GI:DATBowel care Hem/ID:Doxycycline 100 twice daily x7 daysMonitor CBC and transfuse as needed :Strict I O, daily weightMonitor electrolytes and replete as needed Musc:DVT prophylaxis: EliquisPT/OT Dispo: transfer to telemetry I spent 32 minutes of critical care reviewing labs, imaging and discussing plan of care with ICC team, patient, family and nurse.Consultants: cardiology, critical/anthropometrist, electrophysiologyCode status: full codePlan discussed with: patient, family, collaborating MD, consultants, nurse, interdisc care team, pharmacy/pharmacist at 1158 RPT #:[id number] OF REPORTPRProgress [id number]:46:00G.[id number] able for patient [id number]:59:00 [facility] 2023-05-18 12:49:00 [id number] [id number]+[id number]:49:00 [facility] ([facility])Hospitalist Progress NoteREPORT#:[id number] REPORT STATUS: SignedREPORT INITIALIZATION DATE:05/18/23 TIME: 124 PATIENT: MARIA ESTHER CAPONE UNIT #: [id number]#: [id number] [address] [birth year] AGE: 67 SEX: F ATTEND: Sudarshan Cleaning MDA AUTHOR: Shivani Khanna MDREPT SERVICE DT/TIME: 05/18/23 1249* ALL edits or amendments must be made on the electronic/computer document * SubjectiveChief complaint:BradycardiacHPI:67-year-old woman, past medical history of CAD, status post PCI to the RCA, diabetes, hypertension, hyperlipidemia, recently seen at this hospital after opening of occluded RCA stent complicated by complete heart block requiring temporary pacemaker, discharged without pacemaker and recommendations to hold all beta-blockers and AV meet blockers. Patient reported to have called EMS for palpitations and shortness of breath, found to be in A-fib with RVR heart rate in the 180s, given 20 of Cardizem with EMS, transported to outside ED, slowed to 100s, was given 5 mg of metoprolol in ED, which resulted in bradycardia in the 40s. Patient remains only mildly fatigued, minimal symptoms at this time. She denies any CP, fever, chills now. Free Text Subj NotesFree Text Subj Notes:67-year-old female admitted to ICU after found to have A-fib with RVR on the floor. During my rounds in ICU patient went into A-fib with RVR again with heart rate up to 170 patient felt palpitation but no dizziness. Cardiology was immediately called. Recommended to start patient on amiodarone drip. Patient'sfamily present at bedside. All electrolytes reviewed, laboratory data reviewed. Nurse practitioner Carla Stein also came at the bedside. We reviewed rhythm strips together and found patient is indeed in A-fib with RVR. Patient had received dose of p.o. amiodarone around 10 Review of SystemsAll systems rev neg: except as noted Objective GeneralVS/I O:Vital Signs: Date Time Temp Pulse Resp B/P B/P Pulse O2 O2 Flow FiO2 Mean Ox Delivery Rate 05/18 1200 98.5 05/18 1200 63 23 133/60 87 95 05/18 1105 66 153/70 100 97 05/18 1030 60 23 145/67 97 05/18 1000 60 24 137/64 92 96 05/18 0939 64 17 139/93 112 05/18 0911 62 20 146/65 94 97 05/18 0845 67 132/58 88 98 05/18 0830 65 131/61 90 95 05/18 0815 60 29 135/61 93 96 05/18 0800 61 133/63 90 98 05/18 0745 98.4 05/18 0745 64 27 134/63 90 98 05/18 0730 60 144/67 96 99 05/18 0715 60 28 132/60 87 97 05/18 0700 61 28 136/65 93 98 05/18 0645 60 35 137/65 93 98 05/18 0630 60 37 131/63 90 95 05/18 0615 60 35 136/63 91 97 05/18 0601 61 42 138/58 83 98 05/18 0545 64 34 112/57 82 98 05/18 0530 60 38 124/58 83 97 05/18 0515 60 28 120/59 85 97 05/18 0500 60 27 131/60 86 95 05/18 0445 60 24 150/70 100 96 05/18 0430 60 24 147/66 95 98 05/18 0415 60 25 164/72 103 97 05/18 0405 60 26 162/70 101 98 05/18 0400 98.4 05/18 0400 62 26 166/73 105 97 05/18 0345 61 22 140/60 87 97 05/18 0330 61 20 115/56 80 95 05/18 0315 60 21 115/57 82 95 05/18 0300 60 29 114/56 81 96 05/18 0245 61 22 141/63 90 96 05/18 0230 60 21 121/58 83 96 05/18 0215 60 20 124/58 83 96 05/18 0201 60 20 116/58 83 99 05/18 0200 60 18 95 05/18 0145 60 21 99/51 73 96 05/18 0130 60 21 118/56 81 96 05/18 0115 60 21 156/69 99 98 05/18 0100 60 20 130/59 85 96 05/18 0045 60 24 112/55 79 97 05/18 0030 60 21 117/54 78 96 05/18 0015 60 20 109/52 75 96 05/18 0000 98.3 05/18 0000 60 22 144/60 87 96 05/17 2345 60 24 140/64 92 96 05/17 2330 60 24 106/53 76 98 05/17 2315 60 22 111/54 78 97 05/17 2301 60 22 111/56 80 96 05/17 2245 60 21 119/57 82 98 05/17 2230 60 23 134/60 87 98 05/17 2215 60 24 133/61 88 98 05/17 2200 60 35 125/62 89 99 05/17 2146 60 27 117/53 77 98 05/17 2130 60 21 128/60 87 97 05/17 2115 60 29 98 05/17 2100 60 32 99 05/17 2045 60 45 100 05/17 2030 60 26 120/58 84 94 05/17 2016 60 28 171/69 88 99 05/17 2015 60 32 98 05/17 2000 98.1 05/17 2000 60 34 133/59 85 100 05/17 1945 60 21 134/59 85 100 05/17 1930 60 25 104/52 75 97 05/17 1915 60 26 108/47 74 97 05/17 1900 60 15 119/58 84 97 05/17 1635 152 28 100 05/17 1630 149 27 125/63 88 98 05/17 1615 153 25 111/79 90 98 05/17 1600 98.5 181 22 97/68 77 98 Room air 05/17 1600 151 22 97/68 78 98 05/17 1546 154 29 121/76 92 93 05/17 1545 154 26 96 05/17 1530 161 24 145/64 92 97 05/17 1516 161 26 142/66 95 100 05/17 1500 163 24 118/59 81 100 05/17 1450 155 24 130/85 103 100 05/17 1445 156 27 112/57 75 100 05/17 1440 154 29 132/60 86 100 05/17 1437 157 30 147/58 84 98 05/17 1429 189 36 142/62 89 97 05/17 1422 200 30 166/102 125 96 05/17 1400 56 26 128/72 95 97 05/17 1331 54 31 154/70 100 100 05/17 1315 50 36 100 05/17 1307 46 38 119/65 88 100 05/17 1300 52 42 182/72 103 100 24 hour I O ending at 0700: 05/18 0700 05/17 1900 Intake Total 1000 180.00 Output Total 400 1200 Balance 600 -1020.00 Intake, IV 180.00 Intake, Oral 1000 Output, Urine 400 1200 Patient 54.6 kg Weight Weight Bed scale Measurement Method PATIENT WEIGHT: Weight (lb): 120Weight (oz): 5.96Weight (kg): 54.600 Medications:Active Meds + DC'd Last 24 HrsApixaban (ELIQUIS 5MG TABLET) 5 MG BID PO (DC) Losartan Potassium (COZAAR) 100 MG DAILY PO Metoprolol Tartrate (LOPRESSOR) 25 MG Q12HR PO Apixaban (ELIQUIS 5MG TABLET) 5 MG Q12H PO Clopidogrel Bisulfate (Plavix) 75 MG DAILY PO Amiodarone HCl (CORDARONE) 200 MG BID 9A 5P PO Bisacodyl (DULCOLAX) 10 MG DAILY PRN PRN RECTAL Senna/Docusate Sodium (SENOKOT S) 1 TAB DAILY PO Dextrose/Water (DEXTROSE 10% IN WATER) 125 ML ASDIR PRN IV (CKD) Dextrose/Water (DEXTROSE 10% IN WATER) 250 ML ASDIR PRN IV (CKD) Glucagon (GLUCAGON) 1 MG ASDIR PRN IM Doxycycline Monohydrate (DOXYCYCLINE MONOHYDRATE) 100 MG Q12HR PO Fentanyl Citrate (SUBLIMAZE) 50 MCG Q2H PRN PRN IV Atorvastatin Calcium (LIPITOR) 40 MG BEDTIME PO Cefazolin Sodium (KEFZOL OR ANCEF) 0 .STK-MED ONE .ROUTE (DC) Fentanyl Citrate (SUBLIMAZE) 0 .STK-MED ONE .ROUTE (DC) Midazolam HCl (VERSED) 0 .STK-MED ONE .ROUTE (DC) Vancomycin HCl (VANCOMYCIN HCL) 0 .STK-MED ONE IV (DC) Gentamicin Sulfate (GARAMYCIN) 0 .STK-MED ONE .ROUTE (DC) Lidocaine HCl (LIDOCAINE HCL/PF) 0 .STK-MED ONE .ROUTE (DC) Sodium Bicarbonate (SODIUM BICARBONATE) 0 .STK-MED ONE IV (DC) Vancomycin HCl (VANCOMYCIN HCL) 0 .STK-MED ONE .ROUTE (DC) Metoprolol Tartrate (LOPRESSOR) 5 MG ONCE ONE IV (DC) Metoprolol Tartrate (LOPRESSOR) 2.5 MG ONCE ONE IV (DC) Dopamine HCl/Dextrose (DOPamine 400MG/D5W 250ML) 250 ML .STK-MED ONE IV (DC) Dopamine HCl/Dextrose (DOPamine 400MG/D5W 250ML) 250 ML ASDIR IV (DCr) Mupirocin (BACTROBAN 2% 22 GM OINTMENT) 1 APPLIC BID NASAL Hydralazine HCl (APRESOLINE) 10 MG Q6H PRN PRN IV Aspirin (ASPIRIN) 81 MG DAILY PO Docusate Sodium (COLACE) 100 MG BID PO (DC) Polyethylene Glycol (MIRALAX) 17 GM BID PO Insulin Human Lispro (HUMALOG) 0 AC HS SUBQ Acetaminophen (TYLENOL) 650 MG Q4H PRN PRN PO Ondansetron HCl (ZOFRAN) 4 MG Q6H PRN PRN IV Heparin Sodium (HEPARIN 5000 UNITS/ML) Dose per Heparin Cardiology Nomogram orders ASDIR PRN IV (DCr) Heparin Sodium (Porcine) (HEPARIN 25,000 UNITS/ 1/2NS 500ML) 500 ML ASDIR IV (DCr) Dietitian nutrition assessmentThe data set between the solid lines has been imported from the dietitian's assessment. BMI Calculated: 24.3Nutrition related diagnosis: Nutrition diagnosis details: Nutrition problem: Nutrition etiology: Nutrition signs and symptoms: Nutrition prescription: Dietitian name: Assessment completed: Physical ExamGeneral appearance: alert, awake, orientedHead/Eyes: atraumatic, normocephalic, PERRLACardiovascular: bradycardic, normal capillary refill, normal heart soundsRespiratory: aerating well, symmetric expansion, no distressAbdomen: non-tender, normal bowel sounds, softGenitourinary: no bladder distention, no flank painExtremities: no clubbing, no cyanosisMusculoskeletal: no muscle spasmNeuro/JUICE SCALEMAN: alert, oriented X 3, CNII-XII intactPsychiatry: normal affect, normal judgment/insight, normal mood ResultsFindings/Data:Laboratory Tests 05/18 05/18 05/17 05/17 0744 0252 2053 1606 Chemistry Sodium (134 - 147 mEq/L) 141 Potassium (3.4 - 5.0 mEq/L) 4.8 Chloride (100 - 108 mEq/L) 108 Carbon Dioxide (21 - 33 mEq/l) 24 Anion Gap (0 - 20) 14 BUN (7 - 25 mg/dL) 35 H Creatinine (0.6 - 1.3 mg/dL) 1.2 Glomerular Filtr Rate (80 - 90) 49.0 L Glucose (77 - 141 mg/dL) 99 POC Glucose (70 - 110 MG/DL) 102 141 H 163 H Calcium (8.0 - 10.5 mg/dL) 9.2 Ionized Calcium William (1.09 - 1.30 MMOL/L) 1.18 Phosphorus (2.5 - 4.9 MG/DL) 4.2 Magnesium (1.6 - 2.6 mg/dL) 2.15 Total Bilirubin (0.0 - 1.0 mg/dL) 0.50 AST (8 - 34 IUnit/L) 28 ALT (10 - 49 IUnit/L) 57 H Total Alk Phosphatase (20 - 125 IUnit/L) 73 Total Protein (6.4 - 8.2 g/dL) 6.7 Albumin (3.4 - 5.0 g/dL) 3.10 L Laboratory Tests 05/17 1630 Coagulation PTT (Celia) (25.0 - 39.5 Seconds) 64.6 H Laboratory Tests 05/18 0252 Hematology WBC (4.5 - 11.0 x10 3/uL) 8.5 RBC (3.54 - 5.02 x10 6/uL) 2.77 L Hgb (11.0 - 15.0 g/dL) 8.4 L Hct (33.0 - 45.0 %) 26.3 L MCV (81.0 - 99.0 fL) 94.9 MCH (27.0 - 33.0 pg) 30.3 MCHC (33.0 - 37.0 g/dL) 31.9 L RDW (11.5 - 14.5 %) 12.6 Plt Count (150 - 400 x10 3/uL) 382 MPV (7.0 - 9.0 fL) 10.1 H Neut % (Auto) (56.0 - 77.0 %) 58.2 Lymph % (Auto) (14.0 - 32.0 %) 30.3 [place] % (Auto) (4.8 - 9.0 %) 7.4 Eos % (Auto) (0.3 - 3.7 %) 3.3 Baso % (Auto) (0.0 - 2.0 %) 0.6 Neut # (Auto) (2.0 - 7.6 x10 3/uL) 4.94 Lymph # (Auto) (1.0 - 3.8 x10 3/uL) 2.57 [place] # (Auto) (0.1 - 0.8 x10 3/uL) 0.63 Eos # (Auto) (0.0 - 0.2 x10 3/uL) 0.28 H Baso # (Auto) (0.0 - 0.2 x10 3/uL) 0.05 Abs Immat Gran (auto) (0.00 - 0.03 x10 3/uL) 0.02 Immature Gran % (0.0 - 2.0 %) 0.2 Nucleated RBC % (0 - 0 %) 0.0 Nucleated RBCs # (Man) (0.0 - 0.1 x10 3/uL) 0.00 Radiology data:Recent Impressions:RADIOLOGY - XR CHEST 1 V 05/17 2004 Report Impression - Status: SIGNED Entered: 05/17/20232033 IMPRESSION: 1. No acute disease.Impression By: Xuan - Chaitanya Corrales M.D.RADIOLOGY - XR CHEST 1 V 05/18 5024 Report Impression - Status: SIGNED Entered: 05/18/2023 0824 IMPRESSION:Mild pulmonary vascular congestion with faint right midlung patchyopacity that may reflect atelectasis or pneumonitis.Impression By: [email or web address] - Baldev Seo M.D. InterpretationI independently reviewed the [ ] and my interpretation is [ ] Treatment Prophylaxis Treatment ProphylaxisOxygen: room air Diagnosis, Assessment Plan Free Text DxA P NotesFree text DxA P notes:Assessment: - NSTEMI.- A-fib RVR - Chest pain- BECKIE.- HX of CAD, status post PCI to the RCA, diabetes, hypertension, hyperlipidemia. Plan: -Continuous telemetry monitoring, strict vital monitoring, monitor, replace electrolytes, avoid AV meet blocking agent as per cardiology/electrophysiology,start patient on IV amiodarone drip-Continue heparin drip-Status post dual pacemaker placed, device interrogated patient- Ap 95%, Salesforce Developer < 1%, normal lead testing, no episodes recorded, normal functioning device-Postop chest x-ray reviewed, pacemaker site seen no sign of infection no bleeding no hematoma-Monitor, replace electrolytes-Insulin sliding scale-Case discussed with cardiology/critical care team at 0445 RPT #:[id number] OF REPORTPRProgress [id number]:49:00G.[id number] able for patient dnmfFQTRWUDDFSYEAF8622-13-25O07:45:30 [facility] 2023-05-18 12:04:00 [id number] dXzo8xuIwWN8vrydowyDKi2+Lgk0R EmgeChQMj60tAYpWMLMgzsydokU5290-79-77N52:04:00 [facility] ([facility])Critical Care Progress NoteREPORT#:[id number] REPORT STATUS: SignedREPORT INITIALIZATION DATE:05/18/23 TIME: 1204 PATIENT: MARIA ESTHER CAPONE UNIT #: [id number]#: [id number] [facility] AGE: 67 SEX: F ATTEND: Sudarshan Cleaning AUTHOR: Carla Stein CNPREPT SERVICE DT/TIME: 05/18/23 1204* ALL edits or amendments must be made on the electronic/computer document * SubjectiveChief complaint:Palpitatioins, Shortness of breathHPI:Patient is a 67-year-old woman, past medical history of CAD, status post PCI to the RCA, diabetes, hypertension, hyperlipidemia, recently seen at this hospital after opening of occluded RCA stent complicated by complete heart block requiring temporary pacemaker, discharged without pacemaker and recommendations to hold all beta-blockers and AV meet blockers. Patient reported to have calledEMS for palpitations, cough and shortness of breath, found to be in A-fib with RVR heart rate in the 180s, given 20 of Cardizem with EMS, transported to [facility], slowed to 100s, was given 5 mg of metoprolol in ED, which resulted in bradycardia in the 40s. Patient remains only mildly fatigued, minimal symptoms at this time. She denies any CP, fever, chills now. Patient was transferred to [facility] for further evaluation and management. Objective GeneralVS/I OLast Documented: Result Date Time Pulse Ox 97 05/18 1105 B/P 153/70 05/18 1105 B/P Mean 100 05/18 1105 Pulse 66 05/18 1105 Resp 23 05/18 1030 Temp 98.4 05/18 0745 O2 Delivery Room air 05/17 1600 24 hour I O ending at 0700: 05/18 0700 05/17 1900 Intake Total 1000 180.00 Output Total 400 1200 Balance 600 -1020.00 Intake, IV 180.00 Intake, Oral 1000 Output, Urine 400 1200 Patient 54.6 kg Weight Weight Bed scale Measurement Method PATIENT WEIGHT: Weight (lb): 120Weight (oz): 5.96Weight (kg): 54.600 Medications:Active Meds + DC'd Last 24 HrsApixaban (ELIQUIS 5MG TABLET) 5 MG BID PO (PEND) Losartan Potassium (COZAAR) 100 MG DAILY PO Metoprolol Tartrate (LOPRESSOR) 25 MG Q12HR PO Clopidogrel Bisulfate (Plavix) 75 MG DAILY PO Amiodarone HCl (CORDARONE) 200 MG BID 9A 5P PO Bisacodyl (DULCOLAX) 10 MG DAILY PRN PRN RECTAL Senna/Docusate Sodium (SENOKOT S) 1 TAB DAILY PO Dextrose/Water (DEXTROSE 10% IN WATER) 125 ML ASDIR PRN IV (CKD) Dextrose/Water (DEXTROSE 10% IN WATER) 250 ML ASDIR PRN IV (CKD) Glucagon (GLUCAGON) 1 MG ASDIR PRN IM Doxycycline Monohydrate (DOXYCYCLINE MONOHYDRATE) 100 MG Q12HR PO Fentanyl Citrate (SUBLIMAZE) 50 MCG Q2H PRN PRN IV Atorvastatin Calcium (LIPITOR) 40 MG BEDTIME PO Cefazolin Sodium (KEFZOL OR ANCEF) 0 .STK-MED ONE .ROUTE (DC) Fentanyl Citrate (SUBLIMAZE) 0 .STK-MED ONE .ROUTE (DC) Midazolam HCl (VERSED) 0 .STK-MED ONE .ROUTE (DC) Vancomycin HCl (VANCOMYCIN HCL) 0 .STK-MED ONE IV (DC) Gentamicin Sulfate (GARAMYCIN) 0 .STK-MED ONE .ROUTE (DC) Lidocaine HCl (LIDOCAINE HCL/PF) 0 .STK-MED ONE .ROUTE (DC) Sodium Bicarbonate (SODIUM BICARBONATE) 0 .STK-MED ONE IV (DC) Vancomycin HCl (VANCOMYCIN HCL) 0 .STK-MED ONE .ROUTE (DC) Metoprolol Tartrate (LOPRESSOR) 5 MG ONCE ONE IV (DC) Metoprolol Tartrate (LOPRESSOR) 2.5 MG ONCE ONE IV (DC) Dopamine HCl/Dextrose (DOPamine 400MG/D5W 250ML) 250 ML .STK-MED ONE IV (DC) Dopamine HCl/Dextrose (DOPamine 400MG/D5W 250ML) 250 ML ASDIR IV Mupirocin (BACTROBAN 2% 22 GM OINTMENT) 1 APPLIC BID NASAL Hydralazine HCl (APRESOLINE) 10 MG Q6H PRN PRN IV Aspirin (ASPIRIN) 81 MG DAILY PO Docusate Sodium (COLACE) 100 MG BID PO (DC) Polyethylene Glycol (MIRALAX) 17 GM BID PO Insulin Human Lispro (HUMALOG) 0 AC HS SUBQ Acetaminophen (TYLENOL) 650 MG Q4H PRN PRN PO Ondansetron HCl (ZOFRAN) 4 MG Q6H PRN PRN IV Heparin Sodium (HEPARIN 5000 UNITS/ML) Dose per Heparin Cardiology Nomogram orders ASDIR PRN IV Heparin Sodium (Porcine) (HEPARIN 25,000 UNITS/ 1/2NS 500ML) 500 ML ASDIR IV (CKD) ResultsFindings/data:Laboratory Tests 05/18 05/18 05/17 05/17 05/17 0744 0252 2053 1606 1222Chemistry Sodium (134 - 147 mEq/L) 141 Potassium (3.4 - 5.0 mEq/L) 4.8 Chloride (100 - 108 mEq/L) 108 Carbon Dioxide (21 - 33 mEq/l) 24 Anion Gap (0 - 20) 14 BUN (7 - 25 mg/dL) 35 H Creatinine (0.6 - 1.3 mg/dL) 1.2 Glomerular Filtr Rate (80 - 90) 49.0 L Glucose (77 - 141 mg/dL) 99 POC Glucose (70 - 110 MG/DL) 102 141 H 163 H 136 H Calcium (8.0 - 10.5 mg/dL) 9.2 Ionized Calcium William (1.09 - 1.30 MMOL/L) 1.18 Phosphorus (2.5 - 4.9 MG/DL) 4.2 Magnesium (1.6 - 2.6 mg/dL) 2.15 Total Bilirubin (0.0 - 1.0 mg/dL) 0.50 AST (8 - 34 IUnit/L) 28 ALT (10 - 49 IUnit/L) 57 H Total Alk Phosphatase (20 - 125 IUnit/L) 73 Total Protein (6.4 - 8.2 g/dL) 6.7 Albumin (3.4 - 5.0 g/dL) 3.10 L Laboratory Tests 05/17 1630 Coagulation PTT (Granite) (25.0 - 39.5 Seconds) 64.6 H Laboratory Tests 05/18 0252 Hematology WBC (4.5 - 11.0 x10 3/uL) 8.5 RBC (3.54 - 5.02 x10 6/uL) 2.77 L Hgb (11.0 - 15.0 g/dL) 8.4 L Hct (33.0 - 45.0 %) 26.3 L MCV (81.0 - 99.0 fL) 94.9 MCH (27.0 - 33.0 pg) 30.3 MCHC (33.0 - 37.0 g/dL) 31.9 L RDW (11.5 - 14.5 %) 12.6 Plt Count (150 - 400 x10 3/uL) 382 MPV (7.0 - 9.0 fL) 10.1 H Neut % (Auto) (56.0 - 77.0 %) 58.2 Lymph % (Auto) (14.0 - 32.0 %) 30.3 [place] % (Auto) (4.8 - 9.0 %) 7.4 Eos % (Auto) (0.3 - 3.7 %) 3.3 Baso % (Auto) (0.0 - 2.0 %) 0.6 Neut # (Auto) (2.0 - 7.6 x10 3/uL) 4.94 Lymph # (Auto) (1.0 - 3.8 x10 3/uL) 2.57 [place] # (Auto) (0.1 - 0.8 x10 3/uL) 0.63 Eos # (Auto) (0.0 - 0.2 x10 3/uL) 0.28 H Baso # (Auto) (0.0 - 0.2 x10 3/uL) 0.05 Abs Immat Gran (auto) (0.00 - 0.03 x10 3/uL) 0.02 Immature Gran % (0.0 - 2.0 %) 0.2 Nucleated RBC % (0 - 0 %) 0.0 Nucleated RBCs # (Man) (0.0 - 0.1 x10 3/uL) 0.00 Laboratory Tests 05/18/23 0252:[Embedded Image Not Available] Radiology dataRecent Impressions:RADIOLOGY - XR CHEST 1 V 05/17 2004 Report Impression - Status: SIGNED Entered: 05/17/20232033 IMPRESSION: 1. No acute disease.Impression By: [email or web address] - Chaitanya Corrales M.D.RADIOLOGY - XR CHEST 1 V 05/18 0634 Report Impression - Status: SIGNED Entered: 05/18/2023 0824 IMPRESSION:Mild pulmonary vascular congestion with faint right midlung patchyopacity that may reflect atelectasis or pneumonitis.Impression By: [email or web address] - Baldev Seo M.D. Free Text Obj NotesFree Text Obj Notes:Physical ExamGeneral appearance: alert, awake, oriented, left chest with pressure dressing status post PPMHead/Eyes: atraumatic, normocephalic, PERRLACardiovascular: bradycardic, normal capillary refill, normal heart soundsRespiratory: aerating well, symmetric expansion, no distressAbdomen: non-tender, normal bowel sounds, softGenitourinary: no bladder distention, no flank painExtremities: no clubbing, no cyanosisMusculoskeletal: no muscle spasmNeuro/JUICE SCALEMAN: alert, oriented X 3, CNII-XII intact Diagnosis, Assessment PlanProblem list/A P: 1. HTN (hypertension) 2. Atrial fibrillation with RVR 3. NSTEMI (non-ST elevated myocardial infarction) 4. Bradycardia 5. Palpitations 6. CAD (coronary artery disease) 7. Dyslipidemia 8. Diabetes mellitus Free text A P:Patient is a 67-year-old woman, past medical history of CAD, status post PCI to the RCA, diabetes, hypertension, hyperlipidemia, recently seen at this hospital after opening of occluded RCA stent complicated by complete heart block requiring temporary pacemaker, discharged without pacemaker and recommendations to hold all beta-blockers and AV meet blockers. Patient reported to have calledEMS for palpitations and shortness of breath, found to be in A-fib with RVR heart rate in the 180s, given 20 of Cardizem with EMS, transported to outside ED, slowed to 100s, was given 5 mg of metoprolol in ED, which resulted in bradycardia in the 40s. Patient remains only mildly fatigued, minimal symptoms at this time. She denies any CP, fever, chills now. Patient seen and examined in MICU 317. Heparin gtt cardiology infusing. Patient denies shortness of breath, chest pain, palpitations. Vital signs as follows: [id number] (89), WV 46, RR 20, Afebrile, saturating 100% on room air. 05/18/2023:Seen and examined. Neuro:AOx4, baseline Respiratory:Saturating well on room airSupplemental oxygen as needed to keep saturation more than 90% CV:Vital signs per unit protocolContinuous cardiac and saturation monitoringStatus post BSC PPM placement, device interrogation doneMonitor site for bleeding or hematoma, signs of infectionArm sling on x3 daysDoxycycline 100 twice daily x7 daysEcho doneStart Eliquis 5mg PO twice daily on 05/19Continue DAPT, statin, resume beta-blockerAs needed hydralazine for SBP more than 170 mmHgBP stable at this timePaced rhythm on the monitorCardio followingEP following GI:DATBowel care Hem/ID:Doxycycline 100 twice daily x7 daysMonitor CBC and transfuse as needed :Strict I O, daily weightMonitor electrolytes and replete as needed Musc:DVT prophylaxis: SCDPT/OT Dispo: CCU I spent 35 minutes of critical care reviewing labs, imaging and discussing plan of care with ICC team, patient, family and nurse.Consultants: cardiology, critical/anthropometrist, electrophysiologyCode status: full codePlan discussed with: patient, family, nurse, interdisc care team, pharmacy/pharmacistCritical care time: Minutes: 35 at 1736 RPT #:[id number] OF REPORTPRProgress [id number]:04:00G.[id number] able for patient rjokZDIBCOAPZCECRP8371-85-09X36:36:12 [facility] 2023-05-18 09:43:00 [id number] yGyBPRbL8RK4nD6SYI/wsL4fAHoCw lXS7KwOQNn068MadlIRGKfDeVAF5854-17-35F09:43:00 [facility] ([facility])EP Progress NoteREPORT#:[id number] REPORT STATUS: SignedREPORT INITIALIZATION DATE:05/18/23 TIME: 942 PATIENT: MARIA ESTHER CAPONE UNIT #: [id number]#: [id number] [address] AGE: 67 SEX: F ATTEND: Sudarshan Cleaning AUTHOR: Elysia Velazco NPREPT SERVICE DT/TIME: 05/18/23942* ALL edits or amendments must be made on the electronic/computer document * Lianne Velazco 05/18/23 0943:SubjectiveChief complaint:Awake and alert, feeling better, OOB in chair Patient reports:No: complaints. Nursing reports:No: complaints. Objective GeneralVS/I OLaboratory Tests 05/18/23 0252:[Embedded Image Not Available]Current Medications Sig/Xavi Start time Last Medication Dose Route Stop Time Status Admin Irbesartan 300 MG DAILY 05/19 0900 UNV PO 08/17 0859 Metoprolol Tartrate 25 MG Q12HR 05/18 2100 UNV PO 08/16 2059 Amiodarone HCl 200 MG BID 9A 5P 05/18 1015 UNVr PO 08/16 1014 Dextrose/Water 125 ML ASDIR PRN 05/18 0945 UNV IV 08/16 0944 Dextrose/Water 250 ML ASDIR PRN 05/18 0945 UNV IV 08/16 0944 Glucagon 1 MG ASDIR PRN 05/18 0945 UNV IM 08/16 0944 Doxycycline 100 MG Q12HR 05/18 0900 AC 05/18 Monohydrate PO 05/25 0859 0948 Fentanyl Citrate 50 MCG Q2H PRN PRN 05/18 0600 AC 05/18 IV 05/23 0559 0849 Atorvastatin Calcium 40 MG BEDTIME 05/17 2100 AC 05/17 PO 06/16 2059 203 Cefazolin Sodium 0 .STK-MED ONE 05/17 1726 DC 05/17 .ROUTE 1729 Fentanyl Citrate 0 .STK-MED ONE 05/17 1712 DC 05/17 .ROUTE 1727 Midazolam HCl 0 .STK-MED ONE 05/17 1712 DC 05/17 .ROUTE 1727 Vancomycin HCl 0 .STK-MED ONE 05/17 1642 DC IV Gentamicin Sulfate 0 .STK-MED ONE 05/17 1638 DC 05/17 .ROUTE 1727 Lidocaine HCl 0 .STK-MED ONE 05/17 1638 DC 05/17 .ROUTE 1727 Sodium Bicarbonate 0 .STK-MED ONE 05/17 1638 DC 05/17 IV 1727 Vancomycin HCl 0 .STK-MED ONE 05/17 1638 DC 05/17 .ROUTE 1727 Metoprolol Tartrate 5 MG ONCE ONE 05/17 1545 DC 05/17 IV 05/17 1546 1541 Metoprolol Tartrate 2.5 MG ONCE ONE 05/17 1430 DC 05/17 IV 05/17 1431 1433 Dopamine HCl/Dextrose 250 ML .STK-MED ONE 05/17 1323 DC 05/17 IV 1324 Dopamine HCl/Dextrose 250 ML ASDIR 05/17 1315 AC IV 08/15 1314 Mupirocin 1 APPLIC BID 05/17 1115 AC 05/18 NASAL 05/21 2101 0843 Hydralazine HCl 10 MG Q6H PRN PRN 05/17 0945 AC 05/18 IV 08/15 0944 0450 Aspirin 81 MG DAILY 05/17 09 AC 05/18 PO 08/15 0859 0843 Docusate Sodium 100 MG BID 05/17 09 AC 05/18 PO 08/15 0859 0843 Polyethylene Glycol 17 GM BID 05/17 09 AC 05/18 PO 08/15 0859 0843 Insulin Human Lispro 0 AC HS 05/17 0730 AC SUBQ 08/15 0729 Acetaminophen 650 MG Q4H PRN PRN 05/17 0615 AC 05/18 PO 05/21 0139 0418 Ondansetron HCl 4 MG Q6H PRN PRN 05/17 0615 AC 05/18 IV 05/21 0139 0948 Heparin Sodium See Dose ASDIR PRN 05/17 0545 AC Insts (1) IV 05/19 0343 Heparin Sodium 500 ML ASDIR 05/17 0545 CKD 05/17 (Porcine) IV 05/19 0343 0716 Dose Instructions:(1)Heparin Sodium: Dose per Heparin Cardiology Nomogram orders Last Documented: Result Date Time Pulse Ox 96 05/18 1000 B/P 137/64 05/18 1000 B/P Mean 92 05/18 1000 Pulse 60 05/18 1000 Resp 24 05/18 1000 Temp 36.9 05/18 0745 O2 Delivery Room air 05/17 1600 24 hour I O ending at 0700: 05/18 0700 05/17 1900 Intake Total 1000 180.00 Output Total 400 1200 Balance 600 -1020.00 Intake, IV 180.00 Intake, Oral 1000 Output, Urine 400 1200 Patient 54.6 kg Weight Weight Bed scale Measurement Method PATIENT WEIGHT: Weight (lb): 120Weight (oz): 5.96Weight (kg): 54.600 Physical ExamGeneral appearance: alert, awake, oriented, no acute distress, no respiratory distressHEENT: mucosal membranes moistNeck: non-tenderCardiovascular: CV assessment: regular rate and rhythm, pedal pulses presentRespiratory: decreased breath sounds, no distressAbdomen: softGenitourinary: no flank painExtremities: dryMusculoskeletal: normal inspectionNeuro/JUICE SCALEMAN: alert, oriented X 3Skin: dryPsychiatry: normal affectEKG Interpretation: normal sinus rhythm, atrial pacing Treatment Prophylaxis Treatment ProphylaxisOxygen: room air Diagnosis, Assessment PlanFree Text A P:Assessment:1. Paroxysmal atrial fibrillation with RVR, new onset 2. Sick sinus syndrome 3. CAD s/p PCI/stenting to RCA . HTN5. HLD 6. Chest pain7. DM Cardiac cath report 05/10/2023: severe proximal RCA disease s/p PCI/stent, severeLcx stenois, moderate LAD disease Plan/Recommendations:- Continuous tele monitoring- Cardiology following - ECHO 55-59%- AVOID AV meet blocking agents- EKG - afib RVR- On tele SB/junctional rhythm, rate as low as 30 bpm, intermittent afib RVR - Will need to be loaded with amiodarone once PPM inserted - Continue heparin drip AC, will need to transition to OAC prior to discharge- Plan for dual chamber PPM today - Will follow 05/18/2023:- s/p dual chamber PPM (Gravel Switch) 05/17/2023- Device interrogation - Ap 95%, Salesforce Developer < 1%, normal lead testing, no episodes recorded, normal functioning device- Post op cxray reviewed - On tele NSR, Apaced at 60 bpm- PPM site clean, dry, intact, no signs of bleeding or hematoma noted- Pressure dressing can be removed 3 days post op, post op dressing keep clean, dry, intact x 3-5 days- Ok to shower 3 days post procedure, no not scrub or pick at site, keep clean and dry- Monitor site for signs of bleeding and infection, report fever greater than 101 F or any signs of infection to site such as redness, drainage, warmth to site- Sling x 3 days and at night x 6 weeks- No arm above head, shoulder above elbow or driving x 2 weeks- No lifting/pulling/swinging, pushing with left arm x 6 weeks - Soreness at site is normal - Ok to start eliquis tomorrow- Ok to start BB, will add amiodarone for rate control - Doxycycline 100mg BID x 7 days - Ok to discharge from EP standpoint, follow up with Dr. Santacruz in one week - Follow up with cardiology - May benefit from PVI ablation in future depending on afib burden and if afib is refractory to medical therapy Discussed post op care and follow up care with patient, she was provided with post-op cardiac device instruction sheet from [facility]. Consultants: cardiology, critical/anthropometrist, electrophysiologyCode status: full codePlan discussed with: patient NoamSandor Bonilla 06/11/23 1604:Attestations Physician AttestationAgree w/findings plan:The patient was seen and examined. I agree with the assessment and plan by BULMARO Santacruz [facility] at 1019 at 1604 RPT #:[id number] OF REPORTPRProgress [id number]:43:00G.[id number] able for patient nsbeLBZDNQMFKGCPKW5286-66-69V35:20:01 [facility] 2023-05-18 09:39:00 [id number] wozbwgtK64TUJ3qiBVngVRIWjS1dO FwTcRK0CF94b+lE0b1Qki8DuJRn7787-83-48W91:39:64884 4-0003 [place] [address] PATIENT NAME: MARIA ESTHER CAPONE ADMIT DATE: 05/17/23ACCOUNT NO: [id number] ROOM NO: G.M317 AGE: 67 REPORT TYPE: eECHOCARDIOGRAM REPORT SEX: F ADMITTING PHYSICIAN:Sudarshan Cleaning MD ATTENDING PHYSICIAN:Sudarshan Cleaning MD *[place] [id number]: Yeu: [phone] Transthoracic Echocardiogram Patient: Maria Esther CaponeStudy Date: 05/17/2023 BP: 128 / 61 [id number] 1955 Age: 67 Height: 59 in / 149.9 cmAccession#: [id number] Gender: F Weight: 133.7 lb / 60.8 kgBMI/BSA: 27.1 kg/m 2 / 1.61 m 2 *Ordering Physician: Lisa Samuels *Interpreting Physician: * Carmen Mckeon MD*Bilingual Sales Assistant: * Charity Kumari Indications: Eval for pericardial effusion, new onset A. Fib RVR. Study data: Transthoracic echocardiogram. Procedure: Transthoracicechocardiography was performed. Image quality was adequate. Dagyweqg4Y, complete spectral Doppler, and color Doppler. Location: Bedside.Patient status: Inpatient. Patient room number: M317. Study status:Routine. Findings Left ventricle: The cavity size is normal. Wall thickness is at theupper limits of normal. Systolic function is probably normal. Theestimated ejection fraction is 55-59%. Regional wall motionabnormalities cannot be excluded. Left ventricular diastolic functionparameters are indeterminate.Right ventricle: The cavity size is normal. Systolic function is mildlyPATIENT NAME: STEPHEN,MARIA ESTHER reduced. TAPSE measurement is estimated at 15 mm. Insufficient tricuspidregurgitation jet to estimate RVSP.Left atrium: The atrium is dilated.Right atrium: The atrium is at the upper limits of normal in size.Aorta: Aortic root: The aortic root is normal in size.Aortic valve: Not well visualized. The valve is trileaflet. Theleaflets are mildly thickened. There is no evidence of stenosis.There is mild regurgitation.Mitral valve: The annulus is mildly calcified. There is no evidence ofstenosis. There is mild regurgitation.Tricuspid valve: The valve is structurally normal. There is trivialregurgitation.Pulmonic valve: Not well visualized. The valve is structurallynormal. There is physiologic regurgitation.Pericardium: A small pericardial effusion is identified.Pulmonary arteries:Main pulmonary artery: The artery is of normal size.Systemic veins:Inferior vena cava: The vessel is at the upper limits of normal in size.The respirophasic diameter changes are in the normal range (= 50%). Measurements Left ventricle Value 05/10/2023 Ref PEPE, LAX 4.7 cm 3.1 3.8 - 5.2 ESD, LAX 3.3 cm 2.3 2.2 - 3.5 ESD/bsa, 2.0 cm/m 2 1.5 1.3 LAX - 2.1 FS, LAX 31 % 25 27 - 45 ESD/bsa 3.5 cm/m 2 4.0 ---- major ax, A4C PEPE/bsa 3.5 cm/m 2 4.0 ---- minor ax, A4C PEPE major 5.8 cm 6.9 ---- ax, A2C ESD major 6.1 cm 6.6 ---- ax, A2C PEPE/bsa 3.6 cm/m 2 4.5 ---- major ax, A2C ESD/bsa 3.8 cm/m 2 4.3 ---- major ax, A2C PW, ED 0.9 cm 1.1 0.6 -PATIENT NAME: MARIA ESTHER CAPONE 0.9 IVS/PW, ED 1.04 0.99 ---- EF 58 % 50 54 - 74 LVOT Value 05/10/2023 Ref Diam, S 1.93 cm 1.90 ---- Area 2.9 cm 2 2.8 ---- Peak too, -1.16 m/sec 0.84 ---- S Mean too, 0.8 m/sec 0.59 ---- S VTI, S 13.8 cm 16.2 ---- Peak grad, 5 mm Hg 3 ---- S Mean grad, 3 mm Hg 2 ---- S SV 40 ml 46 ---- Qs 6.14 L/min 2.73 ---- Qs/bsa 3.8 L/(min-m 2) 1.8 ---- SV/bsa 25 ml/m 2 30 ---- Ventricular septum Value 05/10/2023 Ref IVS, ED 0.9 cm 1.1 0.6 - 0.9 Right ventricle Value 05/10/2023 Ref TAPSE, MM 1.5 cm 1.5 1.7 - 3.1 RVOT Value 05/10/2023 Ref Peak v, S 1.16 m/sec ---- Peak grad, 5 mm Hg ---- S Left atrium Value 05/10/2023 Ref AP dim, ES 3.51 cm 3.01 2.70 - 3.80 Vol/bsa, 37 ml/m 2 17 11 - ES, 1-p 40 A4C Vol, ES, 70 ml 33 ---- 2-p Vol/bsa, 44 ml/m 2 21 16 - ES, 2-p 34 Vol/bsa, 39 ml/m 2 17 16 - ES, A/L 34 AP dim, ES 3.2 cm 2.7 MM - 3.8 LA/Ao root 1.02 ----PATIENT NAME: MARIA ESTHER CAPONE ratio, MM Right atrium Value 05/10/2023 Ref Area, ES 15 cm 2 10 - 18 Aortic valve Value 05/10/2023 Ref Leaflet 1.14 cm ---- sep, MM Peak v, S 1.34 m/sec 1.29 ---- Mean v, S 0.93 m/sec 0.94 ---- VTI, S 18.7 cm 24.5 ---- Mean grad, 4.0 mm Hg 3.8 ---- S Peak grad, 7.2 mm Hg 6.6 ---- S LVOT/AV, 0.74 0.66 ---- VTI ratio JENNY, VTI 2.15 cm 2 1.87 ---- JENNY, Vmax 2.32 cm 2 1.85 ---- AR peak v 2.78 m/sec 3 ---- AR decel 155 cm/s 2 141 ---- AR decel 1968 ms 2136 ---- time AR PHT 571 ms 619 ---- AR peak 31 mm Hg 36 ---- grad Mitral valve Value 05/10/2023 Ref Peak E 1.03 m/sec ---- Mean v, D 0.74 m/sec 0.46 ---- VTI 16.2 cm 25.4 ---- leaflet coapt PHT 40 ms ---- Mean grad, 2.5 mm Hg 1.2 ---- D Peak grad, 5.3 mm Hg 3.7 ---- D MVA, PHT 5.1 cm 2 ---- Pulmonic valve Value 05/10/2023 Ref WV v, ED 1.53 m/sec 0.6 ---- WV grad, 9 mm Hg ---- ED Aortic root Value 05/10/2023 Ref Root diam, 3.09 cm ---- ED MM Ascending aorta Value 05/10/2023 Ref AAo AP 2.7 cm ---- diam, S AAo AP 1.7 cm/m 2 ----PATIENT NAME: MARIA ESTHER CAPONE diam/bsa, S Conclusions Summary: 1. Left ventricle: The cavity size is normal. Wall thickness is at the upper limits of normal. Systolic function is probably normal. The estimated ejection fraction is 55-59%. Regional wall motion abnormalities cannot be excluded. Left ventricular diastolic function parameters are indeterminate.2. Right ventricle: Systolic function is mildly reduced.3. Left atrium: The atrium is dilated.4. Mitral valve: The annulus is mildly calcified.5. Pericardium, extracardiac: A small pericardial effusion is identified. Prepared and electronically signed by Carmen Mckeon MD05/18/2023 09:39 at 0939 PATIENT NAME: MARIA ESTHER CAPONE :39:0 0G.[id number] for patient nypmZKYZQFUQTNZATT8532-16-73Y06:40:24 [facility] 2023-05-18 09:26:00 [id number]XWnQ +a/ib3PLniM0aDq2dH1Za8yOrCU4955-07-68F05:26:00 [facility] ([facility])Cardiology Progress NoteREPORT#:[id number] REPORT STATUS: SignedREPORT INITIALIZATION DATE:05/18/23 TIME: 925 PATIENT: MARIA ESTHER CAPONE UNIT #: [id number]#: [id number] ROOM/BED: 6628-1DOB: [birth year] AGE: 67 SEX: F ATTEND: Sudarshan Claening AUTHOR: Lisa YooCNPREPT SERVICE DT/TIME: 05/18/23925* ALL edits or amendments must be made on the electronic/computer document * SubjectivePatient reports:No: complaints. Objective GeneralVS/I O:24 hour I O ending at 0700: 05/18 0700 05/17 1900 Intake Total 1000 180.00 Output Total 400 1200 Balance 600 -1020.00 Intake, IV 180.00 Intake, Oral 1000 Output, Urine 400 1200 Patient 54.6 kg Weight Weight Bed scale Measurement MethodVital Signs Date Temp Pulse Resp B/P B/P Mean Pulse Ox FiO2 05/17-05/18 36.7-36.9 46-200 15-45 97-182/47-102 73-125 93-100 PATIENT WEIGHT: Weight (lb): 120Weight (oz): 5.96Weight (kg): 54.600 Medications:Active Meds + DC'd Last 24 HrsDoxycycline Monohydrate (DOXYCYCLINE MONOHYDRATE) 100 MG Q12HR PO Fentanyl Citrate (SUBLIMAZE) 50 MCG Q2H PRN PRN IV Atorvastatin Calcium (LIPITOR) 40 MG BEDTIME PO Cefazolin Sodium (KEFZOL OR ANCEF) 0 .STK-MED ONE .ROUTE (DC) Fentanyl Citrate (SUBLIMAZE) 0 .STK-MED ONE .ROUTE (DC) Midazolam HCl (VERSED) 0 .STK-MED ONE .ROUTE (DC) Vancomycin HCl (VANCOMYCIN HCL) 0 .STK-MED ONE IV (DC) Gentamicin Sulfate (GARAMYCIN) 0 .STK-MED ONE .ROUTE (DC) Lidocaine HCl (LIDOCAINE HCL/PF) 0 .STK-MED ONE .ROUTE (DC) Sodium Bicarbonate (SODIUM BICARBONATE) 0 .STK-MED ONE IV (DC) Vancomycin HCl (VANCOMYCIN HCL) 0 .STK-MED ONE .ROUTE (DC) Metoprolol Tartrate (LOPRESSOR) 5 MG ONCE ONE IV (DC) Metoprolol Tartrate (LOPRESSOR) 2.5 MG ONCE ONE IV (DC) Dopamine HCl/Dextrose (DOPamine 400MG/D5W 250ML) 250 ML .STK-MED ONE IV (DC) Dopamine HCl/Dextrose (DOPamine 400MG/D5W 250ML) 250 ML ASDIR IV Mupirocin (BACTROBAN 2% 22 GM OINTMENT) 1 APPLIC BID NASAL Hydralazine HCl (APRESOLINE) 10 MG Q6H PRN PRN IV Aspirin (ASPIRIN) 81 MG DAILY PO Docusate Sodium (COLACE) 100 MG BID PO Polyethylene Glycol (MIRALAX) 17 GM BID PO Insulin Human Lispro (HUMALOG) 0 AC HS SUBQ Acetaminophen (TYLENOL) 650 MG Q4H PRN PRN PO Ondansetron HCl (ZOFRAN) 4 MG Q6H PRN PRN IV Heparin Sodium (HEPARIN 5000 UNITS/ML) Dose per Heparin Cardiology Nomogram orders ASDIR PRN IV Heparin Sodium (Porcine) (HEPARIN 25,000 UNITS/ 1/2NS 500ML) 500 ML ASDIR IV (CKD) Status post:PPMPacemaker: permanent Physical ExamGeneral appearance: alert, awakeNeck: non-tender, no JVDCardiovascular: CV assessment: regular rate and rhythmRespiratory: clear to auscultation, no distressAbdomen: soft, non-tender, normal bowel sounds, no distentionGenitourinary: no flank painLower extremity: LE assessment: normal capillary refill, no edemaMusculoskeletal: normal inspectionNeuro/JUICE SCALEMAN: alert, oriented X 3, normal speechSkin: dry, intact, normal colorPsychiatry: normal affect, normal judgment/insight, normal mood ResultsFindings/Data:Laboratory Tests 05/18 05/17 05/17 05/17 0252 2053 1606 1222 Chemistry Sodium (134 - 147 mEq/L) 141 Potassium (3.4 - 5.0 mEq/L) 4.8 Chloride (100 - 108 mEq/L) 108 Carbon Dioxide (21 - 33 mEq/l) 24 Anion Gap (0 - 20) 14 BUN (7 - 25 mg/dL) 35 H Creatinine (0.6 - 1.3 mg/dL) 1.2 Glomerular Filtr Rate (80 - 90) 49.0 L Glucose (77 - 141 mg/dL) 99 POC Glucose (70 - 110 MG/DL) 141 H 163 H 136 H Calcium (8.0 - 10.5 mg/dL) 9.2 Ionized Calcium William (1.09 - 1.30 MMOL/L) 1.18 Phosphorus (2.5 - 4.9 MG/DL) 4.2 Magnesium (1.6 - 2.6 mg/dL) 2.15 Total Bilirubin (0.0 - 1.0 mg/dL) 0.50 AST (8 - 34 IUnit/L) 28 ALT (10 - 49 IUnit/L) 57 H Total Alk Phosphatase (20 - 125 IUnit/L) 73 Total Protein (6.4 - 8.2 g/dL) 6.7 Albumin (3.4 - 5.0 g/dL) 3.10 L 05/17 05/17 0953 0953 Chemistry Hemoglobin A1c (4.8 - 6.0 %A1C) 6.3 H Troponin I High Sens (0 - 34 ng/L) 1549 *H Laboratory Tests 05/17 05/17 1630 1101 Coagulation PTT (Celia) (25.0 - 39.5 Seconds) 64.6 H 73.2 H Laboratory Tests 05/18 0252 Hematology WBC (4.5 - 11.0 x10 3/uL) 8.5 RBC (3.54 - 5.02 x10 6/uL) 2.77 L Hgb (11.0 - 15.0 g/dL) 8.4 L Hct (33.0 - 45.0 %) 26.3 L MCV (81.0 - 99.0 fL) 94.9 MCH (27.0 - 33.0 pg) 30.3 MCHC (33.0 - 37.0 g/dL) 31.9 L RDW (11.5 - 14.5 %) 12.6 Plt Count (150 - 400 x10 3/uL) 382 MPV (7.0 - 9.0 fL) 10.1 H Neut % (Auto) (56.0 - 77.0 %) 58.2 Lymph % (Auto) (14.0 - 32.0 %) 30.3 [place] % (Auto) (4.8 - 9.0 %) 7.4 Eos % (Auto) (0.3 - 3.7 %) 3.3 Baso % (Auto) (0.0 - 2.0 %) 0.6 Neut # (Auto) (2.0 - 7.6 x10 3/uL) 4.94 Lymph # (Auto) (1.0 - 3.8 x10 3/uL) 2.57 [place] # (Auto) (0.1 - 0.8 x10 3/uL) 0.63 Eos # (Auto) (0.0 - 0.2 x10 3/uL) 0.28 H Baso # (Auto) (0.0 - 0.2 x10 3/uL) 0.05 Abs Immat Gran (auto) (0.00 - 0.03 x10 3/uL) 0.02 Immature Gran % (0.0 - 2.0 %) 0.2 Nucleated RBC % (0 - 0 %) 0.0 Nucleated RBCs # (Man) (0.0 - 0.1 x10 3/uL) 0.00 Laboratory Tests 05/17 0953 Urines Urine Color (YEL/STRAW) STRAW Urine Appearance (CLEAR) CLEAR Urine pH (5.0 - 7.0) 5.0 Ur Specific [place] (1.005 - 1.030) 1.008 Urine Protein (NEGATIVE) NEGATIVE Urine Glucose (UA) (NEGATIVE) NEGATIVE Urine Ketones (NEGATIVE) NEGATIVE Urine Blood (NEGATIVE) NEGATIVE Urine Nitrite (NEGATIVE) NEGATIVE Urine Bilirubin (NEGATIVE) NEGATIVE Urine Urobilinogen (0.2 - 1.0 mg/dL) 0.2 Ur Leukocyte Esterase (NEGATIVE) NEGATIVE Urine RBC (0 - 3 RBC/HPF) NONE SEEN Urine WBC (0 - 3 WBC/HPF) 0-3 Ur Squamous Epith Cells (NONE SEEN /HPF) NONE SEEN Urine Bacteria (NONE SEEN /HPF) NONE SEEN Urine Mucus (NONE SEEN /LPF) TRACE Laboratory Tests 05/18 0252 Chemistry Magnesium (1.6 - 2.6 mg/dL) 2.15 Radiology data:Recent Impressions:RADIOLOGY - XR CHEST 1 V 05/17 2004 Report Impression - Status: SIGNED Entered: 05/17/20232033 IMPRESSION: 1. No acute disease.Impression By: [email or web address] - Chaitanya Corrales M.D.RADIOLOGY - XR CHEST 1 V 05/18 0634 Report Impression - Status: SIGNED Entered: 05/18/2023 0824 IMPRESSION:Mild pulmonary vascular congestion with faint right midlung patchyopacity that may reflect atelectasis or pneumonitis.Impression By: [email or web address] - Baldev Seo M.D. Results: labs reviewed, vital signs reviewed, rhythm personally rev'd Diagnosis, Assessment PlanPlan discussed with: patient, son, collaborating MD, consultants (EP), nurse Free Text DxA P NotesFree Text DxA P Notes:67 YO female presented with atrial fibrillation with RVR then kevan down to the 30s. The patient has PMH of CAD with recent PCI/ MARY LOU to RCA, HTN, HLD, DM. The patient had recent stent placement to RCA on 05/10/2023 complicated by complete heart block requiring temporary pacemaker. She was transferred to [facility] that time, was observed for 48 hours -72 hours, taken off BB with resolution of CHB. She was discharged home few days ago with 2 weeks cardiac event monitor. Unfortunately patient came back with with palpitation, found to be in afib RVR. She received IV cardizem and IV lopressor which made her bradycardic in the 30-40s range. # Atrial fibrillation with RVR with tachy-kevan syndrome s/p BSC PPM* EP consult for PPM* Echocardiogram report to follow* LLD3EM8-MCAe score at least 7* start Eliquis mg BID tomorrow 05/19/23 - d/w EP* start metoprolol tartrate 25 mg BID, EP started amiodarone 200 mg BID # CAD with recent stent to RCA* continue Plavix, ASA, statin. Once she is started on Eliquis will drop ASA # Positive troponin - likely demand ischemia in the setting of Afib RVR* no indication for ischemic evaluation* continue DAPT, statin, resume BB # Hypertension* BP trending up* resume BP meds Doing well post PPM.Ok to transfer out of ICUanticipate DC home in AM. MDM by Dr. Mckeon at 1207 at 1445 RPT #:[id number] OF REPORTPRProgress mywq9993-66-40D73:26:00G.[id number] able for patient vykzLUHTAQEHSGJZPF5514-05-14C51:08:20 [facility] 2023-05-17 22:01:00 [id number] OJixXMUrEhtNOfIxN5GcGLWx+sKnX BRBx9Y9kDyniEpksVFltWoDnhk31203-93-31G05:01:69720 4-[address] [address] PATIENT NAME: MARIA ESTHER CAPONE ADMIT DATE: 05/17/23ACCOUNT NO: [id number] ROOM NO: [id number] AGE: 67 REPORT TYPE: OPERATIVE REPORT SEX: F ADMITTING PHYSICIAN:Sudarshan Cleaning MD ATTENDING PHYSICIAN:Sudarshan Cleaning MD OPERATION DATE: 05/17/2023 PROCEDURE PERFORMED: Dual-chamber pacemaker implantation. Pacemaker system. Gravel Switch [employer]. PREOPERATIVE DIAGNOSES:1. Sick sinus syndrome.2. Dizziness.3. Lightheadedness. POSTOPERATIVE DIAGNOSES:1. Sick sinus syndrome.2. Dizziness.3. Lightheadedness with presyncopal attack. SURGEON: Sandor Santacruz MD WIRELESS ENGINEER: ANESTHESIA: PROCEDURE DETAILS:1. Dual-chamber pacemaker implantation.2. Pacemaker interrogation.3. Left axillary vein/subclavian vein venogram. The patient was brought to the EP lab in a fasting and nonsedated state after informed consent was obtained. Blood pressure monitoring, oxygen temperature monitoring and ECG monitoring wasinitiated. Moderate sedation was performed with IV Versed and fentanyl.Prophylactic antibiotics were given. The left chest was prepped in a sterile fashion following which the patient wasdraped in a sterile fashion. A venogram was performed to assess the axillaryvein and subclavian vein on the left side. Following this, we created a pocketin the infraclavicular area after giving additional local anesthesia andmoderate sedation. Following this, we obtained 2 ultrasound-guided venousaccess using modified Seldinger technique using secondary technique. Theposition of the right ventricle was confirmed in the IVC. Later, we started with placement of the RV lead in the distal interventricular PATIENT NAME: MARIA ESTHER CAPONE septum using standard techniques, fluoroscopic guidance and peel-away dilatorsheaths. After adequate parameters were achieved, the lead was sewn to theprepectoral fascia and muscle with 0 silk. Later we placed RA lead in the right atrial appendage using standard techniques,fluoroscopy guidance, and peel-away dilator sheaths. After adequate parameterswere achieved, the RA lead was sewn to the prepectoral fascia and muscle using 0silk. The pocket was flushed with antibiotic solution. Vancomycin powder was applied. A new dual-chamber pacemaker generator was attached to the leads and wasinserted in the pocket. The pocket was closed in running layers. Postprocedure, the patient's family was met in person and updated about thepatient's status, procedure outcome and explained about left arm precautions andwound care precautions. RECOMMENDATIONS:1. Chest x-ray.2. Left arm precautions.3. Surgical wound care precautions. PACEMAKER INFORMATION:Gravel Switch Prisync system. RA lead 1.4 millivolts, 0.8 volts at 0.40 milliseconds, 515 ohms, model 7841,serial #[id number]. RV lead 8.4 millivolts, 0.6 volts at 0.40 milliseconds, impedance 946 ohms,model 7842, serial #[id number]. Dual-chamber pacemaker generator, model L311, serial #[id number]. Mode DDDR, 60/130 ppm. Dictated By: Sandor Santacruz MD Date Dictated: 05/17/2023 22:01:51Date Transcribed: 05/17/2023 23:22:49HG/JONO/Ryanne #: [id number] ID: [id number] and Edited by Sandor Santacruz MD On 06/22/23 5:17:13 PM at 0519 PATIENT NAME: MARIA ESTHER CAPONE bkudfy8837-33-13C76:22:00G.[id number] lable for patient nscwTDEVIGVHUWWEQW3935-91-74G48:20:16 [facility] 2023-05-17 15:40:00 [id number]/kTSmy W2WzzHeYEO/WIvipki9NIVif9eGxr 0ipb3y/N7i38Z5iKNXKFZgqq4+U6043-02-83S87:40:00 [facility] ([facility])EP Consultation NoteREPORT#:[id number] REPORT STATUS: SignedREPORT INITIALIZATION DATE:05/17/23 TIME: 1540 PATIENT: MARIA ESTHER CAPONE UNIT #: [id number]#: [id number] ROOM/BED: [facility]28-1DOB: [birth year] AGE: 67 SEX: F ATTEND: Sudarshan Cleaning AUTHOR: Elysia Velazco NPREPT SERVICE DT/TIME: 05/17/23 1540* ALL edits or amendments must be made on the electronic/computer document * Lianne Velazco 05/17/23 1540:History of Present IllnessRequesting clinician: Dr. Flower for consult:afib, sick sinus syndrome, eval for pacemaker Chief complaint:SOB, palpitations PCP:PCP: No Primary or Family Physician HPI:The patient is a 67 year old female with past medical history of HTN, HLD, DM, CAD s/p PCI/stenting in 2006 who presented to ED with shortness of breath and palpitations. She was recently hospitalized and discharged for complete heart block/juntional rhythm/temporary pacemaker s/p PCI/senting to R[facility] with Dr. Hall. She was discharged with cardiac event monitor. Initial EKG showed atrialfibrillation with RVR. She received IV cardizem and lopressor and went bradycardic in 30-40s. EP was consulted for sick sinus syndrome, PPM evaluation.Thank you kindly for the consultation and the opportunity to participate in the patient's plan of care. History - Adult longitudinalAdditional medical history:HTN, HLD, DM, CADAdditional surgical history:tubal ligationAlcohol use: Denies EtOH useDrug use: Denies recreational drugsSmoking status for patients 13 years old or older: Former SmokerAllergies:Coded Allergies:hydrocodone (Mild, ITCHING 05/10/23) Review of SystemsConstitutional:Reports: generalized weakness. Skin:Denies: abrasion. Allergy/Immun:Denies: allergic reaction. Eyes:Denies: visual loss/blurred. ENT:Denies: nasal congestion. Respiratory:Reports: SOB. Cardiovascular:Reports: chest pain, TELLO (dyspnea on exertion), palpitations. GI:Denies: abdominal pain. :Denies: dysuria. Musculoskeletal:Denies: extremity swelling. Heme:Denies: bleeding. Endocrine:Denies: weight gain. Neuro:dizziness. Psych:Denies: agitation, anxiety. All systems rev neg: except as marked ObjectiveVS/I OLaboratory Tests 05/17/23 0552:[Embedded Image Not Available]Current Medications Sig/Xavi Start time Last Medication Dose Route Stop Time Status Admin Atorvastatin Calcium 40 MG BEDTIME 05/17 2100 AC PO 06/16 2059 Cefazolin Sodium 0 .STK-MED ONE 05/17 1726 DC 05/17 .ROUTE 1729 Fentanyl Citrate 0 .STK-MED ONE 05/17 171 DC 05/17 .ROUTE 1727 Midazolam HCl 0 .STK-MED ONE 05/17 1712 DC 05/17 .ROUTE 1727 Vancomycin HCl 0 .STK-MED ONE 05/17 1642 DC IV Gentamicin Sulfate 0 .STK-MED ONE 05/17 1638 DC 05/17 .ROUTE 1727 Lidocaine HCl 0 .STK-MED ONE 05/17 1638 DC 05/17 .ROUTE 1727 Sodium Bicarbonate 0 .STK-MED ONE 05/17 1638 DC 05/17 IV 1727 Vancomycin HCl 0 .STK-MED ONE 05/17 1638 DC 05/17 .ROUTE 1727 Metoprolol Tartrate 5 MG ONCE ONE 05/17 1545 DC 05/17 IV 05/17 1546 1541 Metoprolol Tartrate 2.5 MG ONCE ONE 05/17 1430 DC 05/17 IV 05/17 1431 1433 Dopamine HCl/Dextrose 250 ML .STK-MED ONE 05/17 1323 DC 05/17 IV 1324 Dopamine HCl/Dextrose 250 ML ASDIR 05/17 1315 AC IV 08/15 1314 Mupirocin 1 APPLIC BID 05/17 1115 AC 05/17 NASAL 05/21 2101 1226 Hydralazine HCl 10 MG Q6H PRN PRN 05/17 0945 AC 05/17 IV 08/15 0944 1052 Aspirin 81 MG DAILY 05/17 09 AC 05/17 PO 08/15 0859 1013 Docusate Sodium 100 MG BID 05/17 0900 AC 05/17 PO 08/15 0859 1013 Polyethylene Glycol 17 GM BID 05/17 0900 AC PO 08/15 0859 Insulin Human Lispro 0 AC HS 05/17 0730 AC SUBQ 08/15 0729 Acetaminophen 650 MG Q4H PRN PRN 05/17 0615 AC PO 05/21 0139 Ondansetron HCl 4 MG Q6H PRN PRN 05/17 0615 AC IV 05/21 0139 Heparin Sodium See Dose ASDIR PRN 05/17 0545 AC Insts (1) IV 05/19 034 Heparin Sodium 500 ML ASDIR 05/17 0545 CKD 05/17 (Porcine) IV 05/19 343 0716 Dose Instructions:(1)Heparin Sodium: Dose per Heparin Cardiology Nomogram orders Last Documented: Result Date Time Pulse Ox 100 05/17 1635 Pulse 152 05/17 1635 Resp 28 05/17 1635 B/P 125/63 05/17 1630 B/P Mean 88 05/17 1630 O2 Delivery Room air 05/17 1600 Temp 36.9 05/17 1600 24 hour I O ending at 0700: 05/17 0700 05/16 1900 Intake Total Output Total Balance Patient 61.1 kg Weight Weight Bed scale Measurement Method PATIENT WEIGHT: Weight (lb): Weight (oz): Weight (kg): 61.100 General appearance: alert, awake, orientedHEENT: mucosal membranes moistNeck: non-tenderCardiovascular: CV assessment: bradycardia, irregular rhythm, irregularly irregular, tachycardiaRespiratory: decreased breath sounds, no distressAbdomen: softGenitourinary: no flank painExtremities: dryMusculoskeletal: normal inspectionNeuro/JUICE SCALEMAN: alert, oriented X 3Skin: dryPsychiatry: normal affectEKG Interpretation: sinus bradycardia, atrial fibrillation Treatment Prophylaxis Treatment ProphylaxisOxygen: room air Diagnosis, Assessment PlanFree Text A P:Assessment:1. Paroxysmal atrial fibrillation with RVR, new onset 2. Sick sinus syndrome 3. CAD s/p PCI/stenting to RCA . HTN5. HLD 6. Chest pain7. DM Cardiac cath report 05/10/2023: severe proximal RCA disease s/p PCI/stent, severeLcx stenois, moderate LAD disease Plan/Recommendations:- Continuous tele monitoring- Cardiology following - ECHO 55-59%- AVOID AV meet blocking agents- EKG - afib RVR- On tele SB/junctional rhythm, rate as low as 30 bpm, intermittent afib RVR - Will need to be loaded with amiodarone once PPM inserted - Continue heparin drip AC, will need to transition to OAC prior to discharge- Plan for dual chamber PPM today - Will follow Dicussed plan and PPM as well as risks/benefits with patient, verbalized understanding and in agreement with plan. ORR4PY4-KOLp Score RIO5IZ5-RBUq Score Response Value CHF: No 0 HTN: Yes 1 age greater than 75 years: No 0 age between 65 and 74 yrs: Yes 1 hx stroke, TIA, or TE: No 0 vascular disease: Yes 1 diabetes mellitus: Yes 1 female: Yes 1 Total 5 Consultants: cardiology, critical/anthropometrist, electrophysiologyPlan discussed with: patientCode status: full code Sandor Santacruz V 06/11/23 1605:Attestations Physician AttestationAgree w/findings plan:The patient was seen and examined. I agree with the assessment and plan by BULMARO Santacruz [facility] at 1823 at 1605 RPT #:[id number] OF REPORTDGZjejejeszrkx6600-93-62V10:40:00G.PDOC2 [id number] for patient axupSEHEUREDKCAIGI8389-16-99H09:23:25 [facility] 2023-05-17 14:30:00 [id number] [id number]+qIFsukCCCRyZK MaZeTMKRX2s/Zlu9FRrdfIgjRtv1796-00-68F51:30:24302 3-[address] [place] [address] PATIENT NAME: MARIA ESTHER CAPONE ADMIT DATE: 05/17/23ACCOUNT NO: [id number] ROOM NO: [id number] AGE: 67 REPORT TYPE: eELECTROCARDIOGRAM REPORT SEX: F ADMITTING PHYSICIAN:Sudarshan Cleaning MD ATTENDING PHYSICIAN:Sudarshan Cleaning MD Order:[id number] Reason : kevan Test Date/Time Stamp:WedMay 17 2023 14:30:48Blood Pressure : / mmHGVent. Rate : 170 BPM Atrial Rate : 000 BPM P-R Int : 000 ms QRS Dur : 160 ms QT Int : 242 ms P-R-T Axes : 000 -27 004 degrees QTc Int : 406 ms Atrial fibrillation with rapid ventricular responseNonspecific intraventricular blockLeft ventricular hypertrophy ( R in aVL , [place] product )Inferior infarct (cited on or before 11-MAY-2023)Abnormal ECGWhen compared with ECG of 17-MAY-2023 05:47,Significant changes have occurredConfirmed by MD PALAFOX GERARD ([id number]) on 05/17/2023 8:56:21 PM Referred By: Self Referred Confirmed by:BENJAMIN PALAFOX MD at 2055 PATIENT NAME: MARIA ESTHER CAPONE .[id number] AVAvailable for patient qtrfSSDGYRJBOQDMQB3048-72-57W22:56:43 [facility] 2023-05-17 12:38:00 [id number]/A/ SGAZp8ftIa0PZ7AZCZrJdXJ0dDjnh UxSVfuhIZU+z3FxQPFEuft4bTOo1911-49-93A82:38:00 [facility] HospitalCardiology ConsultationREPORT#:[id number] REPORT STATUS: SignedREPORT INITIALIZATION DATE:05/17/23 TIME: 1237 PATIENT: MARIA ESTHER CAPONE UNIT #: [id number]#: [id number] [address] [birth year] AGE: 67 SEX: F ATTEND: Sudarshan Cleaning AUTHOR: Lisa YooPT SERVICE DT/TIME: 05/17/23 1238* ALL edits or amendments must be made on the electronic/computer document * History of Present Illness HPIRequesting Clinician: Dr. Rogers for consult:Afib, elevated troponin, bradycardiaChief complaint:SOB and palpitationPCP:PCP: No Primary or Family Physician HPI:67 YO female presented with atrial fibrillation with RVR then kevan down to the 30s. The patient has PMH of CAD with recent PCI/ MARY LOU to RCA, HTN, HLD. The patient had recent stent placement to RCA on 05/10/2023 complicated by complete heart block requiring temporary pacemaker. She was transferred to [facility] that time, was observed for 48 hours -72 hours, taken off BB with resolution of CHB. She was discharged home few days ago with 2 weeks cardiac event monitor. Unfortunately patient came back with with palpitation, found to be in afib RVR. She received IV cardizem and IV lopressor which made her bradycardic in the 30-40s range.Hx Obtained From Patient, Prior medical records History - Adult longitudinalAdditional medical history:HTN, HLD, DM, CADAdditional surgical history:tubal ligationAlcohol use: Denies EtOH useDrug use: Denies recreational drugsSmoking status for patients 13 years old or older: Former SmokerAllergies:Coded Allergies:hydrocodone (Mild, ITCHING 05/10/23) Review of SystemsAdditional notes:As stated in HPI Objective GeneralVS/I O:Vital Signs: Date Time Temp Pulse Resp B/P B/P Pulse O2 O2 Flow FiO2 Mean Ox Delivery Rate 05/17 0745 50 19 128/61 88 100 05/17 0730 45 133/60 87 99 05/17 0716 47 143/63 91 99 05/17 0715 17 05/17 0645 46 126/62 89 98 05/17 0630 47 15 125/60 87 98 05/17 0616 48 18 142/66 95 100 05/17 0600 47 15 135/63 90 100 05/17 0545 49 159/67 97 99 05/17 0525 36.7 49 16 153/78 103 98 Room air 24 hour I O ending at 0700: 05/17 0700 05/16 1900 Intake Total Output Total Balance Patient 61.1 kg Weight Weight Bed scale Measurement Method PATIENT WEIGHT: Weight (lb): Weight (oz): Weight (kg): 61.100 Medications:Active Meds + DC'd Last 24 HrsAtorvastatin Calcium (LIPITOR) 40 MG BEDTIME PO Mupirocin (BACTROBAN 2% 22 GM OINTMENT) 1 APPLIC BID NASAL Hydralazine HCl (APRESOLINE) 10 MG Q6H PRN PRN IV Aspirin (ASPIRIN) 81 MG DAILY PO Docusate Sodium (COLACE) 100 MG BID PO Polyethylene Glycol (MIRALAX) 17 GM BID PO Insulin Human Lispro (HUMALOG) 0 AC HS SUBQ Acetaminophen (TYLENOL) 650 MG Q4H PRN PRN PO Ondansetron HCl (ZOFRAN) 4 MG Q6H PRN PRN IV Heparin Sodium (HEPARIN 5000 UNITS/ML) Dose per Heparin Cardiology Nomogram orders ASDIR PRN IV Heparin Sodium (Porcine) (HEPARIN 25,000 UNITS/ 1/2NS 500ML) 500 ML ASDIR IV (CKD) Physical ExamGeneral appearance: alert, awake, orientedNeck: non-tender, no JVDCardiovascular: CV assessment: bradycardiaRespiratory: clear to auscultation, no distressAbdomen: soft, non-tender, normal bowel sounds, no distentionGenitourinary: no flank painLower extremity: LE assessment: normal capillary refill, no edemaMusculoskeletal: normal inspectionNeuro/JUICE SCALEMAN: alert, oriented X 3, normal speechSkin: dry, intact, normal colorPsychiatry: normal affect, normal judgment/insight, normal mood ResultsFindings/Data:Laboratory Tests 05/17 05/17 05/17 05/17 05/17 1222 0953 0953 0755 0720 Chemistry POC Glucose (70 - 110 MG/DL) 136 H 122 H Hemoglobin A1c (4.8 - 6.0 %A1C) 6.3 H Troponin I High Sens (0 - 34 ng/L) 1549 *H 1479 *H 05/17 05/17 05/17 05/17 0628 0552 0552 0552 Chemistry Sodium (134 - 147 mEq/L) 139 Potassium (3.4 - 5.0 mEq/L) 4.9 Chloride (100 - 108 mEq/L) 108 Carbon Dioxide (21 - 33 mEq/l) 22 Anion Gap (0 - 20) 14 BUN (7 - 25 mg/dL) 50 H Creatinine (0.6 - 1.3 mg/dL) 1.4 H Glomerular Filtr Rate (80 - 90) 40.7 L Glucose (77 - 141 mg/dL) 133 Calcium (8.0 - 10.5 mg/dL) 8.5 Phosphorus (2.5 - 4.9 MG/DL) 3.1 Magnesium (1.6 - 2.6 mg/dL) 2.08 Total Bilirubin (0.0 - 1.0 mg/dL) 0.50 AST (8 - 34 IUnit/L) 22 ALT (10 - 49 IUnit/L) 77 H Total Alk Phosphatase (20 - 125 IUnit/L) 81 Troponin I High Sens (0 - 34 ng/L) 1496 *H B-Natriuretic Peptide (0 - 100 PG/ML) 286.0 H Total Protein (6.4 - 8.2 g/dL) 6.4 Albumin (3.4 - 5.0 g/dL) 3.10 L LDL Cholesterol Measurd (0 - 100 mg/dL) 110.0 H TSH (0.42 - 5.47 IU/mL) 3.44 Laboratory Tests 05/17 05/17 1101 0552 Coagulation INR (0.8 - 1.2) 1.0 PTT (Celia) (25.0 - 39.5 Seconds) 73.2 H 106.8 H PT Patient/Control Mix (9.3 - 12.9 SECONDS) 11.2 Laboratory Tests 05/17 0552 Hematology WBC (4.5 - 11.0 x10 3/uL) 10.9 RBC (3.54 - 5.02 x10 6/uL) 2.64 L Hgb (11.0 - 15.0 g/dL) 8.1 L Hct (33.0 - 45.0 %) 24.7 L MCV (81.0 - 99.0 fL) 93.6 MCH (27.0 - 33.0 pg) 30.7 MCHC (33.0 - 37.0 g/dL) 32.8 L RDW (11.5 - 14.5 %) 12.6 Plt Count (150 - 400 x10 3/uL) 330 MPV (7.0 - 9.0 fL) 10.1 H Neut % (Auto) (56.0 - 77.0 %) 62.1 Lymph % (Auto) (14.0 - 32.0 %) 27.6 [place] % (Auto) (4.8 - 9.0 %) 7.3 Eos % (Auto) (0.3 - 3.7 %) 2.1 Baso % (Auto) (0.0 - 2.0 %) 0.4 Neut # (Auto) (2.0 - 7.6 x10 3/uL) 6.76 Lymph # (Auto) (1.0 - 3.8 x10 3/uL) 3.01 [place] # (Auto) (0.1 - 0.8 x10 3/uL) 0.80 Eos # (Auto) (0.0 - 0.2 x10 3/uL) 0.23 H Baso # (Auto) (0.0 - 0.2 x10 3/uL) 0.04 Abs Immat Gran (auto) (0.00 - 0.03 x10 3/uL) 0.05 H Immature Gran % (0.0 - 2.0 %) 0.5 Nucleated RBC % (0 - 0 %) 0.0 Nucleated RBCs # (Man) (0.0 - 0.1 x10 3/uL) 0.00 Laboratory Tests 05/17 05/17 0552 0552 Chemistry Magnesium (1.6 - 2.6 mg/dL) 2.08 B-Natriuretic Peptide (0 - 100 PG/ML) 286.0 H Radiology Data:Recent Impressions:RADIOLOGY - XR CHEST 1 V 05/17 0542 Report Impression - Status: SIGNED Entered: 05/17/2023 0559 IMPRESSION:Cardiomegaly with mild congestion.Impression By: [email or web address] - Tevin Downs M.D. Results: labs reviewed, vital signs reviewed Scores [id number] Score [id number] Score Response Value CHF: Yes 1 HTN: Yes 1 age between 65 and 74 yrs: Yes 1 diabetes mellitus: Yes 1 female: Yes 1 Total 5 Diagnosis, Assessment PlanConsultants: cardiology, critical/anthropometrist, electrophysiology Free Text DxA P NotesFree Text DxA P Notes:67 YO female presented with atrial fibrillation with RVR then kevan down to the 30s. The patient has PMH of CAD with recent PCI/ MARY LOU to RCA, HTN, HLD, DM. The patient had recent stent placement to RCA on 05/10/2023 complicated by complete heart block requiring temporary pacemaker. She was transferred to [facility] that time, was observed for 48 hours -72 hours, taken off BB with resolution of CHB. She was discharged home few days ago with 2 weeks cardiac event monitor. Unfortunately patient came back with with palpitation, found to be in afib RVR. She received IV cardizem and IV lopressor which made her bradycardic in the 30-40s range. # Atrial fibrillation with RVR with tachy-kevan syndrome* EP consult for PPM* Echocardiogram * Heparin gtt* keep NPO* may start Dopamine gtt for symptomatic bradycardia* UCT2XQ6-WKQs score at least 7, will put her on Xarelto or Eliquis prior to discharge # CAD with recent stent to RCA* resume Plavix, ASA, statin # Positive troponin - likely demand ischemia in the setting of Afib RVR* no indication for ischemic evaluation* resume DAPT, statin, hold BB d/t bradycardia* Heparin gtt is for afib # Hypertension* hold all BP meds for now* may use PRN IV hydralazine for SBP > 170 mmHg Appreciate the referral. MDM by Dr. Mckeon at 1412 at 1443 RPT #:[id number] OF REPORTTSZtfolvrobqjb5587-27-46S40:38:00G.PDOC2 [id number] for patient oxskRXTZADASWYSEIY5943-25-37H16:13:44 [facility] 2023-05-17 08:31:00 [id number] B0V/fn67c3FqCgsXoFqE3Bfx8v7zG oWEUwnak/t29vjESsQO2wUQ7BaP5584-51-29I01:31:00 [facility] ([facility])Critical Care Consult NoteREPORT#:[id number] REPORT STATUS: SignedREPORT INITIALIZATION DATE:05/17/23 TIME: 830 PATIENT: MARIA ESTHER CAPONE UNIT #: [id number]#: [id number] [address] [birth year] AGE: 67 SEX: F ATTEND: Sudarshan Cleaning AUTHOR: Carla Stein CNPREPT SERVICE DT/TIME: 05/17/23 0831* ALL edits or amendments must be made on the electronic/computer document * History of Present Illness HPIRequesting clinician: Dr Inman for consult:Nstemi, Bradycardia, Afib rvrChief complaint:Palpitatioins, Shortness of breathPCP:PCP: No Primary or Family Physician HPI:Patient is a 67-year-old woman, past medical history of CAD, status post PCI to the RCA, diabetes, hypertension, hyperlipidemia, recently seen at this hospital after opening of occluded RCA stent complicated by complete heart block requiring temporary pacemaker, discharged without pacemaker and recommendations to hold all beta-blockers and AV meet blockers. Patient reported to have calledEMS for palpitations, cough and shortness of breath, found to be in A-fib with RVR heart rate in the 180s, given 20 of Cardizem with EMS, transported to [facility], slowed to 100s, was given 5 mg of metoprolol in ED, which resulted in bradycardia in the 40s. Patient remains only mildly fatigued, minimal symptoms at this time. She denies any CP, fever, chills now. Patient was transferred to [facility] for further evaluation and management. History - Adult longitudinalAdditional medical history:HTN, HLD, DM, CADAdditional surgical history:tubal ligationAlcohol use: Denies EtOH useDrug use: Denies recreational drugsSmoking status for patients 13 years old or older: Former SmokerAllergies:Coded Allergies:hydrocodone (Mild, ITCHING 05/10/23) Review of Systems ROSAdditional notes:Constitutional:fatigue, generalized weakness. Allergy/Immun:Denies: anaphylaxis, itching, rhinorrhea. Respiratory:Denies: TELLO (dyspnea on exertion), parox nocturnal dyspnea, pleuritic pain, SOB,wheezing. Cardiovascular:TELLO (dyspnea on exertion), orthopnea, palpitations. GI:Denies: anorexia, diarrhea, GERD, hematemesis, hiatal hernia, melena, nausea. :Denies: flank pain, hematuria, , previous pregnancies. Musculoskeletal:Denies: extremity swelling, joint pain, lumbar pain, neck pain. Endocrine:Denies: heat intolerance, polydipsia, polyuria. Neuro:Denies: bowel dysfunction, dizziness, headache, slurred speech. Psych:Denies: anxiety, change in mental status, delusional, homicidal ideation, stress. Objective Physical ExamVS/I O:Last Documented: Result Date Time Pulse Ox 100 11/13 0745 B/P 128/61 05/17 745 B/P Mean 88 05/17 745 Pulse 50 05/17 745 Resp 19 05/17 745 O2 Delivery Room air 05/17 525 Temp 98.1 05/17 525 24 hour I O ending at 0700: 05/17 0705/16 1900 Intake Total Output Total Balance Patient 61.1 kg Weight Weight Bed scale Measurement Method Patient Weight and BMI Weight (kg): 61.100 BMI: 27.2 Medications:Active Meds + DC'd Last 24 HrsDocusate Sodium (COLACE) 100 MG BID PO Polyethylene Glycol (MIRALAX) 17 GM BID PO Insulin Human Lispro (HUMALOG) 0 AC HS SUBQ Acetaminophen (TYLENOL) 650 MG Q4H PRN PRN PO Ondansetron HCl (ZOFRAN) 4 MG Q6H PRN PRN IV Heparin Sodium (HEPARIN 5000 UNITS/ML) Dose per Heparin Cardiology Nomogram orders ASDIR PRN IV Heparin Sodium (Porcine) (HEPARIN 25,000 UNITS/ 1/2NS 500ML) 500 ML ASDIR IV (CKD) ResultsFindings/Data:Laboratory Tests 05/17/23 0552:[Embedded Image Not Available]Laboratory Tests 05/17 05/17 05/17 05/17 0755 0720 0628 0552 Chemistry POC Glucose (70 - 110 MG/DL) 122 H Troponin I High Sens (0 - 34 ng/L) 1479 *H B-Natriuretic Peptide (0 - 100 PG/ML) 286.0 H LDL Cholesterol Measurd (0 - 100 mg/dL) 110.0 H 05/17 05 Chemistry Sodium (134 - 147 mEq/L) 139 Potassium (3.4 - 5.0 mEq/L) 4.9 Chloride (100 - 108 mEq/L) 108 Carbon Dioxide (21 - 33 mEq/l) 22 Anion Gap (0 - 20) 14 BUN (7 - 25 mg/dL) 50 H Creatinine (0.6 - 1.3 mg/dL) 1.4 H Glomerular Filtr Rate (80 - 90) 40.7 L Glucose (77 - 141 mg/dL) 133 Calcium (8.0 - 10.5 mg/dL) 8.5 Phosphorus (2.5 - 4.9 MG/DL) 3.1 Magnesium (1.6 - 2.6 mg/dL) 2.08 Total Bilirubin (0.0 - 1.0 mg/dL) 0.50 AST (8 - 34 IUnit/L) 22 ALT (10 - 49 IUnit/L) 77 H Total Alk Phosphatase (20 - 125 IUnit/L) 81 Troponin I High Sens (0 - 34 ng/L) 1496 *H Total Protein (6.4 - 8.2 g/dL) 6.4 Albumin (3.4 - 5.0 g/dL) 3.10 L Laboratory Tests 05/17 0552 Coagulation INR (0.8 - 1.2) 1.0 PTT (Granite) (25.0 - 39.5 Seconds) 106.8 H PT Patient/Control Mix (9.3 - 12.9 SECONDS) 11.2 Laboratory Tests 05/17 0552 Hematology WBC (4.5 - 11.0 x10 3/uL) 10.9 RBC (3.54 - 5.02 x10 6/uL) 2.64 L Hgb (11.0 - 15.0 g/dL) 8.1 L Hct (33.0 - 45.0 %) 24.7 L MCV (81.0 - 99.0 fL) 93.6 MCH (27.0 - 33.0 pg) 30.7 MCHC (33.0 - 37.0 g/dL) 32.8 L RDW (11.5 - 14.5 %) 12.6 Plt Count (150 - 400 x10 3/uL) 330 MPV (7.0 - 9.0 fL) 10.1 H Neut % (Auto) (56.0 - 77.0 %) 62.1 Lymph % (Auto) (14.0 - 32.0 %) 27.6 [place] % (Auto) (4.8 - 9.0 %) 7.3 Eos % (Auto) (0.3 - 3.7 %) 2.1 Baso % (Auto) (0.0 - 2.0 %) 0.4 Neut # (Auto) (2.0 - 7.6 x10 3/uL) 6.76 Lymph # (Auto) (1.0 - 3.8 x10 3/uL) 3.01 [place] # (Auto) (0.1 - 0.8 x10 3/uL) 0.80 Eos # (Auto) (0.0 - 0.2 x10 3/uL) 0.23 H Baso # (Auto) (0.0 - 0.2 x10 3/uL) 0.04 Abs Immat Gran (auto) (0.00 - 0.03 x10 3/uL) 0.05 H Immature Gran % (0.0 - 2.0 %) 0.5 Nucleated RBC % (0 - 0 %) 0.0 Nucleated RBCs # (Man) (0.0 - 0.1 x10 3/uL) 0.00 Radiology data:Recent Impressions:RADIOLOGY - XR CHEST 1 V 05/17 0542 Report Impression - Status: SIGNED Entered: 05/17/2023 0559 IMPRESSION:Cardiomegaly with mild congestion.Impression By: [email or web address] - Tevin Downs M.D. Free Text Obj NotesFree Text Obj Notes:Physical ExamGeneral appearance: alert, awake, orientedHead/Eyes: atraumatic, normocephalic, PERRLACardiovascular: bradycardic, normal capillary refill, normal heart soundsRespiratory: aerating well, symmetric expansion, no distressAbdomen: non-tender, normal bowel sounds, softGenitourinary: no bladder distention, no flank painExtremities: no clubbing, no cyanosisMusculoskeletal: no muscle spasmNeuro/JUICE SCALEMAN: alert, oriented X 3, CNII-XII intact Diagnosis, Assessment Plan Diagnosis, Assessment PlanProblem list/A P: 1. HTN (hypertension) 2. Atrial fibrillation with RVR 3. NSTEMI (non-ST elevated myocardial infarction) 4. Bradycardia 5. Palpitations 6. CAD (coronary artery disease) 7. Dyslipidemia 8. Diabetes mellitus Orders: Procedure Date/time Status PHOSPHOROUS 05/22 0500 Active MAGNESIUM 05/22 0500 Active CBC W/AUTO DIFF 05/22 0500 Active CALCIUM IONIZED 05/22 0500 Active BASIC METABOLIC PANEL 05/22 0500 Active PHOSPHOROUS 05/21 0500 Active MAGNESIUM 05/21 0500 Active CBC W/AUTO DIFF 05/21 0500 Active CALCIUM IONIZED 05/21 0500 Active BASIC METABOLIC PANEL 05/21 0500 Active PHOSPHOROUS 05/20 0500 Active MAGNESIUM 05/20 0500 Active CBC W/AUTO DIFF 05/20 0500 Active CALCIUM IONIZED 05/20 0500 Active BASIC METABOLIC PANEL 05/20 0500 Active PHOSPHOROUS 05/19 0500 Active MAGNESIUM 05/19 0500 Active CBC W/AUTO DIFF 05/19 0500 Active CALCIUM IONIZED 05/19 0500 Active BASIC METABOLIC PANEL 05/19 0500 Active XR CHEST 1V 05/18 0500 Active PHOSPHOROUS 05/18 0500 Active MAGNESIUM 05/18 0500 Active CBC W/AUTO DIFF 05/18 0500 Active CALCIUM IONIZED 05/18 0500 Active BASIC METABOLIC PANEL 05/18 0500 Active HGBA1C% 05/17 0849 Active TSH REFLEX TO FT4 05/17 0831 Active Consultants: cardiology, critical/anthropometrist, electrophysiologyPlan discussed with: patient, nurse, interdisc care team, pharmacy/pharmacist Code Status/Resusc. DiscussionResuscitation discussion: Discussed with: patientCode status: full codeFree text DxA P:Patient is a 67-year-old woman, past medical history of CAD, status post PCI to the RCA, diabetes, hypertension, hyperlipidemia, recently seen at this hospital after opening of occluded RCA stent complicated by complete heart block requiring temporary pacemaker, discharged without pacemaker and recommendations to hold all beta-blockers and AV meet blockers. Patient reported to have calledEMS for palpitations and shortness of breath, found to be in A-fib with RVR heart rate in the 180s, given 20 of Cardizem with EMS, transported to outside ED, slowed to 100s, was given 5 mg of metoprolol in ED, which resulted in bradycardia in the 40s. Patient remains only mildly fatigued, minimal symptoms at this time. She denies any CP, fever, chills now. Patient seen and examined in MICU 317. Heparin gtt cardiology infusing. Patient denies shortness of breath, chest pain, palpitations. Vital signs as follows: [id number] (89), WV 46, RR 20, Afebrile, saturating 100% on room air. Plans:Vital signs per unit protocolContinuous cardiac and saturation monitoringCardio consult, pending recsEP consult, pending recsTroponin, EKG noted, trendBP stable at this timeSinus bradycardia on the monitorSupplemental O2 as needed to keep saturation >92%DATBowel careStrict I O, daily weightSCD for DVT prophylaxisMonitor CBC and transfuse as neededMonitor electrolytes and replete as neededContinue supportive careContinue home medsActivity as toleratedDispo: CCU Thank you for allowing us to participate in the care of this patient, will follow along during hospital stay. I spent 40 minutes of critical care reviewing labs, imaging and discussing plan of care with ICC team, patient, family and nurse. at 1506 RPT #:[id number] OF REPORTDPNpbnmenfzuod9837-64-76D33:31:00G.PDOC2 [id number] for patient jfbyBQUMVJYWTUVYIW1616-89-51O85:06:25 [facility] 2023-05-17 06:38:00 [id number] nozr19qrtbujJlPd1N1XiVmaNWoPH a6D2SRcJVlMdlAG9PtMxlk5IKvI3614-70-47S11:38:00 [facility] HospitalHospitalist History PhysicalREPORT#:[id number] REPORT STATUS: SignedREPORT INITIALIZATION DATE:05/17/23 TIME: 637 PATIENT: MARIA ESTHER CAPONE UNIT #: [id number]#: [id number] [address]XHZ: [address] AGE: 67 SEX: F ATTEND: Sudarshan Cleaning MDA AUTHOR: Vahe Pina NPREPT SERVICE DT/TIME: 05/17/23637* ALL edits or amendments must be made on the electronic/computer document * Vahe Pina 05/17/23 0638:History of Present Illness HPIChief complaint:BradycardiacPCP:PCP: No Primary or Family Physician HPI:67-year-old woman, past medical history of CAD, status post PCI to the RCA, diabetes, hypertension, hyperlipidemia, recently seen at this hospital after opening of occluded RCA stent complicated by complete heart block requiring temporary pacemaker, discharged without pacemaker and recommendations to hold all beta-blockers and AV meet blockers. Patient reported to have called EMS for palpitations and shortness of breath, found to be in A-fib with RVR heart rate in the 180s, given 20 of Cardizem with EMS, transported to outside ED, slowed to 100s, was given 5 mg of metoprolol in ED, which resulted in bradycardia in the 40s. Patient remains only mildly fatigued, minimal symptoms at this time. She denies any CP, fever, chills now. HistoryAdditional medical history:HTN, HLD, DM, CADAdditional surgical history:tubal ligationAlcohol use: Denies EtOH useDrug use: Denies recreational drugsSmoking status for patients 13 years old or older: Former Smoker Medication/Allergy-Vaccine HxMedications:Home Medications: Medication Dose/Rte/Freq Days Qty Entered Last Max Daily Dose Reviewed DOXAZOSIN (CARDURA) 2 MG PO DAILY 05/10/23 Strength: 2 MG TAB 1425 METOPROLOL SUCC XL 50 MG PO BID 05/10/23 (TOPROL XL) 1425 Strength: 50 MG TAB.SA metFORMIN (GLUCOPHAGE) 500 MG PO DAILY 05/10/23 Strength: 500 MG TAB 1428 CLOPIDOGREL (PLAVIX) 75 MG PO DAILY 30 30 05/13/23 Strength: 75 MG TAB 0927 ASPIRIN EC (ECOTRIN) 81 MG PO DAILY 30 30 05/13/23 Strength: 81 MG TAB.EC 0927 ATORVASTATIN (LIPITOR) 40 MG PO BEDTIME 30 30 05/13/23 Strength: 40 MG TAB 0928 CEFDINIR (OMNICEF) 300 MG PO Q12HR 14 05/13/23 Strength: 300 MG CAP 1430 Current Hospital Medications:Blood Formation,Coagulation Sig/Xavi Start time Last Medication Dose Route Stop Time Status Admin Heparin Sodium See Dose ASDIR PRN 05/17 545 AC (HEPARIN 5000 UNITS/ Insts (1) IV 05/18 0444 ML) Heparin Sodium 500 ML ASDIR 05/17 545 CKD (Porcine) IV 05/18 044 (HEPARIN 25,000 UNITS/ 1/2NS 500ML) Central Nervous System Agents Sig/Xavi Start time Last Medication Dose Route Stop Time Status Admin Acetaminophen 650 MG Q4H PRN PRN 05/17 615 AC (TYLENOL) PO 05/18 0506 Gastrointestinal Drugs Sig/Xavi Start time Last Medication Dose Route Stop Time Status Admin Ondansetron HCl 4 MG Q6H PRN PRN 05/17 615 AC (ZOFRAN) IV 05/18 0506 Dose Instructions:(1)Heparin Sodium (HEPARIN 5000 UNITS/ML): Dose per Heparin Cardiology Nomogram orders Allergies:Coded Allergies:hydrocodone (Mild, ITCHING 05/10/23) Review of SystemsConstitutional:fatigue, generalized weakness. Allergy/Immun:Denies: anaphylaxis, itching, rhinorrhea. Respiratory:Denies: TELLO (dyspnea on exertion), parox nocturnal dyspnea, pleuritic pain, SOB,wheezing. Cardiovascular:TELLO (dyspnea on exertion), orthopnea, palpitations. GI:Denies: anorexia, diarrhea, GERD, hematemesis, hiatal hernia, melena, nausea. :Denies: flank pain, hematuria, , previous pregnancies. Musculoskeletal:Denies: extremity swelling, joint pain, lumbar pain, neck pain. Endocrine:Denies: heat intolerance, polydipsia, polyuria. Neuro:Denies: bowel dysfunction, dizziness, headache, slurred speech. Psych:Denies: anxiety, change in mental status, delusional, homicidal ideation, stress. Objective GeneralVS/I O:Vital Signs: Date Time Temp Pulse Resp B/P B/P Pulse O2 O2 Flow FiO2 Mean Ox Delivery Rate 05/17 0525 36.7 49 16 153/78 103 98 Room air 24 hour I O ending at 0700: 05/17 0700 05/16 1900 Intake Total Output Total Balance Patient 61.1 kg Weight Weight Bed scale Measurement Method PATIENT WEIGHT: Weight (lb): Weight (oz): Weight (kg): 61.100 Medications:Active Meds + DC'd Last 24 HrsAcetaminophen (TYLENOL) 650 MG Q4H PRN PRN PO Ondansetron HCl (ZOFRAN) 4 MG Q6H PRN PRN IV Heparin Sodium (HEPARIN 5000 UNITS/ML) Dose per Heparin Cardiology Nomogram orders ASDIR PRN IV Heparin Sodium (Porcine) (HEPARIN 25,000 UNITS/ 1/2NS 500ML) 500 ML ASDIR IV (CKD) Physical ExamGeneral appearance: alert, awake, orientedHead/Eyes: atraumatic, normocephalic, PERRLACardiovascular: bradycardic, normal capillary refill, normal heart soundsRespiratory: aerating well, symmetric expansion, no distressAbdomen: non-tender, normal bowel sounds, softGenitourinary: no bladder distention, no flank painExtremities: no clubbing, no cyanosisMusculoskeletal: no muscle spasmNeuro/JUICE SCALEMAN: alert, oriented X 3, CNII-XII intact ResultsFindings/Data:Laboratory Tests 05/17 0552 Chemistry Sodium (134 - 147 mEq/L) 139 Potassium (3.4 - 5.0 mEq/L) 4.9 Chloride (100 - 108 mEq/L) 108 Carbon Dioxide (21 - 33 mEq/l) 22 Anion Gap (0 - 20) 14 BUN (7 - 25 mg/dL) 50 H Creatinine (0.6 - 1.3 mg/dL) 1.4 H Glomerular Filtr Rate (80 - 90) 40.7 L Glucose (77 - 141 mg/dL) 133 Calcium (8.0 - 10.5 mg/dL) 8.5 Phosphorus (2.5 - 4.9 MG/DL) 3.1 Magnesium (1.6 - 2.6 mg/dL) 2.08 Total Bilirubin (0.0 - 1.0 mg/dL) 0.50 AST (8 - 34 IUnit/L) 22 ALT (10 - 49 IUnit/L) 77 H Total Alk Phosphatase (20 - 125 IUnit/L) 81 Troponin I High Sens (0 - 34 ng/L) 1496 *H B-Natriuretic Peptide (0 - 100 PG/ML) 286.0 H Total Protein (6.4 - 8.2 g/dL) 6.4 Albumin (3.4 - 5.0 g/dL) 3.10 L Laboratory Tests 05/17 0552 Coagulation INR (0.8 - 1.2) 1.0 PTT (Granite) (25.0 - 39.5 Seconds) 106.8 H PT Patient/Control Mix (9.3 - 12.9 SECONDS) 11.2 Laboratory Tests 05/17 05 Hematology WBC (4.5 - 11.0 x10 3/uL) 10.9 RBC (3.54 - 5.02 x10 6/uL) 2.64 L Hgb (11.0 - 15.0 g/dL) 8.1 L Hct (33.0 - 45.0 %) 24.7 L MCV (81.0 - 99.0 fL) 93.6 MCH (27.0 - 33.0 pg) 30.7 MCHC (33.0 - 37.0 g/dL) 32.8 L RDW (11.5 - 14.5 %) 12.6 Plt Count (150 - 400 x10 3/uL) 330 MPV (7.0 - 9.0 fL) 10.1 H Neut % (Auto) (56.0 - 77.0 %) 62.1 Lymph % (Auto) (14.0 - 32.0 %) 27.6 [place] % (Auto) (4.8 - 9.0 %) 7.3 Eos % (Auto) (0.3 - 3.7 %) 2.1 Baso % (Auto) (0.0 - 2.0 %) 0.4 Neut # (Auto) (2.0 - 7.6 x10 3/uL) 6.76 Lymph # (Auto) (1.0 - 3.8 x10 3/uL) 3.01 [place] # (Auto) (0.1 - 0.8 x10 3/uL) 0.80 Eos # (Auto) (0.0 - 0.2 x10 3/uL) 0.23 H Baso # (Auto) (0.0 - 0.2 x10 3/uL) 0.04 Abs Immat Gran (auto) (0.00 - 0.03 x10 3/uL) 0.05 H Immature Gran % (0.0 - 2.0 %) 0.5 Nucleated RBC % (0 - 0 %) 0.0 Nucleated RBCs # (Man) (0.0 - 0.1 x10 3/uL) 0.00 Radiology data:Recent Impressions:RADIOLOGY - XR CHEST 1 V 05/17 0542 Report Impression - Status: SIGNED Entered: 05/17/2023 0559 IMPRESSION:Cardiomegaly with mild congestion.Impression By: [email or web address] - Tevin Downs M.D. Results: labs reviewed, vital signs reviewed, vital signs stable, current med profile rev'd Treatment Prophylaxis Treatment ProphylaxisOxygen: room air Diagnosis, Assessment PlanPlan discussed with: patient, admitting physician, consultants, nurse Code Status/Resusc. DiscussionCode status: full code Free Text DxA P NotesFree Text DxA P Notes:Assessment and Plan: - NSTEMI.- A-fib RVR now Bradycaridc, Possible Tachy-Kevan syndrome.- CP and SOB.- BECKIE.- HX of CAD, status post PCI to the RCA, diabetes, hypertension, hyperlipidemia. Plan: CCU.Cardiology for Bradycardia.Heparin drip for NSTEMI.Avoid any BB and CCB.Ep for Possible PPM.Pain meds.Antiemetics.Follow labs and replace as needed.Glycemic control, accu check AC HS, ISS, diabetic diet.PT and OT.Monitor. Sudarshan Cleaning 05/17/231926:Attestations Physician AttestationAgree w/findings plan:Patient seen and examined and I agree with the findings and plans as discussed with and documented by Vahe Pina NP at 0642 at 1939 RPT #:[id number] OF REPORTHPHistory and physical kpanglqkjrf8022-63-05I64:38:00G.[id number] AVAvailable for patient fsirEGDBTANDZIVKRZ3422-56-96V91:42:57 [facility] 2023-05-17 05:47:00 [id number] [id number] e7LjAybQWLQIAXOEws+7AzAkmTL0488-73-28C85:47:01581 3-[address] [place] [address] PATIENT NAME: MARIA ESTHER CAPONE ADMIT DATE: 05/17/23ACCOUNT NO: [id number] ROOM NO: [id number] AGE: 67 REPORT TYPE: eELECTROCARDIOGRAM REPORT SEX: F ADMITTING PHYSICIAN:Sudarshan Cleaning MD ATTENDING PHYSICIAN:Sudarshan Cleaning MD Order:[id number] Reason : Test Date/Time Stamp:WedMay 17 2023 05:47:03Blood Pressure : / mmHGVent. Rate : 051 BPM Atrial Rate : 051 BPM P-R Int : 116 ms QRS Dur : 082 ms QT Int : 438 ms P-R-T Axes : 043 -08 002 degrees QTc Int : 403 ms Sinus bradycardiaModerate voltage criteria for LVH, may be normal variant ( R in aVL , Cornellproduct )Inferior infarct (cited on or before 11-MAY-2023)Abnormal ECGWhen compared with ECG of 11-MAY-2023 13:47,Significant changes have occurredConfirmed by SELINA SCHREIBER MD ([id number]) on 05/17/2023 8:21:03 AM Referred By: Self Referred Confirmed by:SELINA SCHREIBER MD at 0821 PATIENT NAME: MARIA ESTHER CAPONE .[id number] AVAvailable for patient eclaRVVEUCIZDTLUML7442-44-84D90:21:41 [facility] 2023-05-17 05:35:00 [id number]+K+ [id number] E46W+JM4x28hTy7jZSx5zIkvwp97951-79-32O30:35:00 [facility]EMERGENCY PROVIDER REPORTREPORT#:[id number] REPORT STATUS: SignedDATE:05/17/23 TIME: 05 PATIENT: MARIA ESTHER CAPONE UNIT #: [id number]#: [id number] [address]GE: 67 SEX: F PCP PHYS: No Primary or Family PhysicianSERVICE AUTHOR: Ash Saleem MD * ALL edits or amendments must be made on the electronic/computer document * HPI-Palpit/Arrhyth Free Text HPI NotesFree Text HPI Gegef98-vkds-cxy woman, past medical history of CAD, status post PCI to the RCA, diabetes, hypertension, hyperlipidemia, recently seen at this hospital after opening of occluded RCA stent complicated by complete heart block requiring temporary pacemaker, discharged without pacemaker and recommendations to hold all beta-blockers and AV meet blockers. Patient reported to have called EMS for palpitations and shortness of breath, found to be in A-fib with RVR heart rate in the 180s, given 20 of Cardizem with EMS, transported to outside ED, slowed to 100s, was given 5 mg of metoprolol in ED, which resulted in bradycardia in the 40s. Patient remains only mildly fatigued, minimal symptoms at this time. GeneralInitial Greet Date/Time 05/17/23522 PresentationChief Complaint Palpitations Review of Systems Free Text ROS NotesFree Text ROS NotesReview of systems was performed, pertinent positives and negatives noted in HPI Past Medical History - AdultStated Complaint BRADYCARDIA, AFIB, NSTEMIAllergiesCoded Allergies:hydrocodone (Mild, ITCHING 05/10/23) Home MedicationsActive ScriptsCLOPIDOGREL (PLAVIX) 75 MG PO DAILY 30 Days #30 TAB Prov: 05/13/23ASPIRIN EC (ECOTRIN) 81 MG PO DAILY 30 Days #30 TAB Prov: 05/13/23ATORVASTATIN (LIPITOR) 40 MG PO BEDTIME 30 Days #30 TABS Prov: 05/13/23CEFDINIR (OMNICEF) 300 MG PO Q12HR CEFDINIR (OMNICEF) 300 MG PO Q12HR #14 CAP Prov: 05/13/23 Reported MedicationsDOXAZOSIN (CARDURA) 2 MG PO DAILY METOPROLOL SUCC XL (TOPROL XL) 50 MG PO BID metFORMIN (GLUCOPHAGE) 500 MG PO DAILY predniSONE 5 MG PO DAILY IRBESARTAN (AVAPRO) 300 MG PO DAILY Additional Medical HistoryHTN, HLD, DM, CADAdditional Surgical Historytubal ligationAlcohol Use Denies EtOH useDrug Use Denies recreational drugsSmoking status for patients 13 years old or older: Former Smoker Physical Exam Vital SignsVital SignsFirst Documented: Result Date Time Pulse Ox 98 05/17 525 B/P 153/78 05/17 0525 B/P Mean 103 05/17 525 O2 Delivery Room air 05/17 525 Temp 36.7 05/17 525 Pulse 49 05/17 05 Resp 16 05/17 525 Last Documented: Result Date Time Pulse Ox 100 05/17 0600 B/P 135/63 05/17 0600 B/P Mean 90 05/17 06 Pulse 47 05/17 0600 Resp 15 05/17 0600 O2 Delivery Room air 05/17 0525 Temp 36.7 05/17 525 Review of Vital Signs Reviewed Free Text PE NotesFree Text PE NotesGEN/CONST: awake, alertMS HEAD: normocephalicEYES: EOMI, no scleral icterusEARS/NOSE/THROAT: airway patent, mucous membranes moistMS NECK: supple, full range of motionRESPIRATORY/CHEST: breath sounds equal bilaterally, no respiratory distressCARDIOVASCULAR: normal rate and regular rhythmABDOMEN/GI: no distension, soft and nontenderMS BACK: painless range of motion, non-tenderMS UPPER EXT: inspection normal, no deformity MS LOWER EXT: inspection normal, no deformity SKIN: warm, dry, intactNEURO: normal speech, no motor deficits Interpretation Diagnostics Lab Results InterpretationResultsLaboratory Tests 05/17/23 0552:[Embedded Image Not Available]Laboratory Tests: 05/17 05/17 05/17 0552 0552 0552 Chemistry Sodium (134 - 147 mEq/L) 139 Potassium (3.4 - 5.0 mEq/L) 4.9 Chloride (100 - 108 mEq/L) 108 Carbon Dioxide (21 - 33 mEq/l) 22 Anion Gap (0 - 20) 14 BUN (7 - 25 mg/dL) 50 H Creatinine (0.6 - 1.3 mg/dL) 1.4 H Glomerular Filtr Rate (80 - 90) 40.7 L Glucose (77 - 141 mg/dL) 133 Calcium (8.0 - 10.5 mg/dL) 8.5 Phosphorus (2.5 - 4.9 MG/DL) 3.1 Magnesium (1.6 - 2.6 mg/dL) 2.08 Total Bilirubin (0.0 - 1.0 mg/dL) 0.50 AST (8 - 34 IUnit/L) 22 ALT (10 - 49 IUnit/L) 77 H Total Alk Phosphatase (20 - 125 IUnit/L) 81 Troponin I High Sens (0 - 34 ng/L) 1496 *H B-Natriuretic Peptide (0 - 100 PG/ML) 286.0 H Total Protein (6.4 - 8.2 g/dL) 6.4 Albumin (3.4 - 5.0 g/dL) 3.10 L TSH (0.42 - 5.47 IU/mL) 3.44 Coagulation INR (0.8 - 1.2) 1.0 PTT (Celia) (25.0 - 39.5 Seconds) 106.8 H PT Patient/Control Mix (9.3 - 12.9 SECONDS) 11.2 Hematology WBC (4.5 - 11.0 x10 3/uL) 10.9 RBC (3.54 - 5.02 x10 6/uL) 2.64 L Hgb (11.0 - 15.0 g/dL) 8.1 L Hct (33.0 - 45.0 %) 24.7 L MCV (81.0 - 99.0 fL) 93.6 MCH (27.0 - 33.0 pg) 30.7 MCHC (33.0 - 37.0 g/dL) 32.8 L RDW (11.5 - 14.5 %) 12.6 Plt Count (150 - 400 x10 3/uL) 330 MPV (7.0 - 9.0 fL) 10.1 H Neut % (Auto) (56.0 - 77.0 %) 62.1 Lymph % (Auto) (14.0 - 32.0 %) 27.6 [place] % (Auto) (4.8 - 9.0 %) 7.3 Eos % (Auto) (0.3 - 3.7 %) 2.1 Baso % (Auto) (0.0 - 2.0 %) 0.4 Neut # (Auto) (2.0 - 7.6 x10 3/uL) 6.76 Lymph # (Auto) (1.0 - 3.8 x10 3/uL) 3.01 [place] # (Auto) (0.1 - 0.8 x10 3/uL) 0.80 Eos # (Auto) (0.0 - 0.2 x10 3/uL) 0.23 H Baso # (Auto) (0.0 - 0.2 x10 3/uL) 0.04 Abs Immat Gran (auto) (0.00 - 0.03 x10 3/uL) 0.05 H Immature Gran % (0.0 - 2.0 %) 0.5 Nucleated RBC % (0 - 0 %) 0.0 Nucleated RBCs # (Man) (0.0 - 0.1 x10 3/uL) 0.00 Recent Impressions:RADIOLOGY - XR CHEST 1 V 05/17 0542 Report Impression - Status: SIGNED Entered: 05/17/2023 0159 IMPRESSION:Cardiomegaly with mild congestion.Impression By: [email or web address] - Tevin Downs M.D. ECG #1 InterpretationText/Dict NoteEKG from 05/17/2023 at 0547, performed for bradycardiaInterpreted by myself, ED physicianSinus rhythm, rate 51Normal axisNormal intervalsNo ST elevation or ST depression suggestive of ischemia Re-Evaluation MDM Free Text MDM NotesFree Text MDM Likir86-mdvy-zwj woman, transferred here for A-fib with RVR, now bradycardic after AVnodal blockers given before arrival here. Patient with CAD, status post PCI to RCA complicated by complete heart block requiring pacer on recent admission here, Patient likely very sensitive to beta-blockers Re-Evaluation/Progress #1Text/Dict NoteFriendElectrolytes look okay, troponin greater than 10 times upper limit on outside assay, will repeat here, continue heart rate until our labs are back Given that Dr. Rueda was called regarding this patient I discussed with him, whorecommended consulting Dr. Hall, patient's director of outpatient services she saw her recently. He very strongly recommended ICU level of care given patient's bradycardia I discussed with Dr. Baker, accepted patient to the ICU (CCU full at this time) ED CourseMedication(s) OrderedMedication(s) Ordered:Blood Formation,Coagulation Sig/Xavi Start time Last Medication Dose Route Stop Time Status Admin Heparin Sodium See Dose ASDIR PRN 05/17 545 AC Insts (1) IV 05/19 343 Heparin Sodium 500 ML ASDIR 05/17 545 CKD 05/17 (Porcine) IV 05/19 343 0716 Central Nervous System Agents Sig/Xavi Start time Last Medication Dose Route Stop Time Status Admin Acetaminophen 650 MG Q4H PRN PRN 05/17 615 AC PO 05/21 013 Gastrointestinal Drugs Sig/Xavi Start time Last Medication Dose Route Stop Time Status Admin Ondansetron HCl 4 MG Q6H PRN PRN 05/17 0615 AC IV 05/21 013 Dose Instructions:(1)Heparin Sodium: Dose per Heparin Cardiology Nomogram orders Patient Discharge Departure Vital Signs/ConditionVital SignsFirst Documented: Result Date Time Pulse Ox 98 05/17 525 B/P 153/78 05/17 525 B/P Mean 103 05/17 525 O2 Delivery Room air 05/17 525 Temp 36.7 05/17 525 Pulse 49 05/17 525 Resp 16 05/17 525 Last Documented: Result Date Time Pulse Ox 100 05/17 600 B/P 135/63 05/17 600 B/P Mean 90 05/17 600 Pulse 47 05/17 600 Resp 15 05/17 600 O2 Delivery Room air 05/17 525 Temp 36.7 05/17 525 All vital signs available at the time of this entry have been reviewed. Condition Guarded Clinical ImpressionClinical ImpressionPrimary Impression: Atrial fibrillation with RVRSecondary Impressions: NSTEMI (non-ST elevated myocardial infarction), Tachycardia-bradycardia Disposition DecisionHospitalize Hosp Physician Name SilvanaVahe NP )( Accepts Hospitalization Yes )( Reason for Hospitalizationbradycardia, nstemi )( Accepted Time 605 )( Accepted Date 05/17/23 Call Information will see patient Discharge/Care Plan Admit NoteI have spoken with the patient and/or caregivers. I have explained the patient'scondition, diagnoses and treatment plan based on the information available to meat this time. I have answered the patient's and/or caregiver's questions and addressed any concerns. The patient and/or caregivers have as good an understanding of the patient's diagnosis, condition and treatment plan as can beexpected at this point. The patient has been stabilized within the capability ofthe emergency department. The patient will be transported for further care and management or will be moved to an observation or inpatient service. I have communicated with the staff or medical practitioner taking over this patient's care. Critical CareTime Spent (minutes): 32Patient was critically ill due to:NSTEMI, A-fib with RVR, bradycardiaMy treatment and management were:Continuation of anticoagulation for NSTEMI, discussion with consultants, admission to ICU CC Note 2The high probability of sudden, clinically significant deterioration in the patient's condition required the highest level of my preparedness to intervene urgently. The services I provided to this patient were to treat and/or prevent clinically significant deterioration that could result in severe disability or . Services included the following: chart data review, reviewing nursing notes and/or old charts, documentation time, senior safety management consultant collaboration regarding findings and treatment options, medication orders and management, direct patient care, re-evaluations, vital sign assessments and ordering, interpreting and reviewing diagnostic studies/lab tests. Aggregate critical care time was 32 minutes, which includes only time during which I was engaged in work directly related to the patient's care, as describedabove, whether at the bedside or elsewhere in the Emergency Department. It did not include time spent performing other reported procedures or the services of residents, students, nurses or physician assistants. at 2043RPT #:[id number] OF REPORTEDEmergency department dvfdmo2945-12-66F58:35:00G.[id number] ilable for patient crwhKCNAHJIXAQFAPL1165-78-18M57:43:42 [facility] 2023-05-13 10:13:00 [id number]+pa Q4nC3wIlJTlBV0Ot3IM8y/riQhUqH eUxzGBAZJR3gjsRH7+5m8Jgp8625288-90-95T52:13:00 [facility] HospitalCardiology Progress NoteREPORT#:[id number] REPORT STATUS: SignedREPORT INITIALIZATION DATE:05/13/23 TIME: 1013 PATIENT: MARIA ESTHER CAPONE UNIT #: [id number]#: [id number] [address] AGE: 67 SEX: F ATTEND: Sudarshan Cleaning MDA AUTHOR: Lisa YooPREPT SERVICE DT/TIME: 05/13/23 1013* ALL edits or amendments must be made on the electronic/computer document * SubjectivePatient reports:No: complaints. Objective GeneralVS/I O:24 hour I O ending at 0700: 05/13 0700 05/12 1900 Intake Total 350 700 Output Total 550 600 Balance -200 100 Intake, Oral 350 700 Number 1 Bowel Movements Output, Urine 550 600 Patient 56.8 kg Weight Weight Bed scale Measurement Method Vital Signs: Date Time Temp Pulse Resp B/P B/P Pulse O2 O2 Flow FiO2 Mean Ox Delivery Rate 05/13 0800 37.6 05/13 0500 68 29 135/68 95 95 05/13 0400 36.7 Room air 05/13 0400 69 43 144/63 91 96 05/13 0300 66 26 135/83 102 95 05/13 0200 67 8 149/65 94 95 05/13 0100 65 27 135/61 88 94 05/13 0001 68 27 151/67 96 94 05/13 0000 36.1 Room air 05/12 2301 64 25 120/61 85 94 05/12 2201 69 47 146/66 95 96 05/12 2101 67 28 163/66 95 96 05/12 2000 36.5 Room air 05/12 1901 75 34 142/67 97 96 05/12 1800 69 29 158/65 94 96 05/12 1700 76 32 146/87 112 96 05/12 1600 36.4 73 32 141/76 98 96 05/12 1501 68 29 154/70 100 96 05/12 1400 66 30 140/68 97 97 05/12 1300 69 28 164/74 107 96 05/12 1205 36.6 66 36 176/69 109 99 05/12 1037 63 29 171/72 103 PATIENT WEIGHT: Weight (lb): 125Weight (oz): 3.56Weight (kg): 56.800 Medications:Active Meds + DC'd Last 24 HrsEnoxaparin Sodium (lovENOX) 40 MG Q24H SUBQ Tramadol HCl (ULTRAM) 50 MG Q4H PRN PRN PO Aspirin (ASPIRIN) 81 MG DAILY PO Clopidogrel Bisulfate (Plavix) 75 MG DAILY PO Pravastatin Sodium (PRAVACHOL) 20 MG BEDTIME PO Ceftriaxone Sodium (ROCEPHIN 1000MG VIAL) 1,000 MG Q24H IV Sodium Chloride (SODIUM CHLORIDE) 10 MLInsulin Human Lispro (HUMALOG) 0 AC HS SUBQ Acetaminophen (TYLENOL) 650 MG Q6H PRN PRN PO Dextrose/Water (DEXTROSE 10% IN WATER) 125 ML ASDIR PRN IV (CKD) Dextrose/Water (DEXTROSE 10% IN WATER) 250 ML ASDIR PRN IV (CKD) Docusate Sodium (COLACE) 100 MG Q12H PRN PRN PO Glucagon (GLUCAGON) 1 MG ASDIR PRN IM Ondansetron HCl (ZOFRAN) 4 MG Q6H PRN PRN IV Mupirocin (BACTROBAN 2% 22 GM OINTMENT) 1 APPLIC BID NASAL Physical ExamGeneral appearance: alert, awakeNeck: non-tender, no JVDCardiovascular: CV assessment: regular rate and rhythmRespiratory: clear to auscultation, no distressAbdomen: soft, non-tender, normal bowel sounds, no distentionLower extremity: LE assessment: normal temperature, no calf tenderness, no edemaMusculoskeletal: normal inspectionNeuro/JUICE SCALEMAN: alertSkin: dry, intact, normal color ResultsFindings/Data:Laboratory Tests 05/13 05/13 05/12 05/12 05/12 0726 0408 2110 1648 1125Chemistry Sodium (134 - 147 mEq/L) 135 Potassium (3.4 - 5.0 mEq/L) 4.3 Chloride (100 - 108 mEq/L) 102 Carbon Dioxide (21 - 33 mEq/l) 24 Anion Gap (0 - 20) 13 BUN (7 - 25 mg/dL) 21 Creatinine (0.6 - 1.3 mg/dL) 1.1 Glomerular Filtr Rate (80 - 90) 54.4 L Glucose (77 - 141 mg/dL) 150 H POC Glucose (70 - 110 MG/DL) 162 H 152 H 164 H 257 H Calcium (8.0 - 10.5 mg/dL) 8.3 Ionized Calcium William (1.09 - 1.30 1.15MMOL/L) Phosphorus (2.5 - 4.9 MG/DL) 3.9 Magnesium (1.6 - 2.6 mg/dL) 1.87 Laboratory Tests 05/13 0408 Hematology WBC (4.5 - 11.0 x10 3/uL) 11.3 H RBC (3.54 - 5.02 x10 6/uL) 3.26 L Hgb (11.0 - 15.0 g/dL) 9.9 L Hct (33.0 - 45.0 %) 29.8 L MCV (81.0 - 99.0 fL) 91.4 MCH (27.0 - 33.0 pg) 30.4 MCHC (33.0 - 37.0 g/dL) 33.2 RDW (11.5 - 14.5 %) 12.4 Plt Count (150 - 400 x10 3/uL) 225 MPV (7.0 - 9.0 fL) 10.3 H Neut % (Auto) (56.0 - 77.0 %) 63.3 Lymph % (Auto) (14.0 - 32.0 %) 24.3 [place] % (Auto) (4.8 - 9.0 %) 9.7 H Eos % (Auto) (0.3 - 3.7 %) 1.8 Baso % (Auto) (0.0 - 2.0 %) 0.4 Neut # (Auto) (2.0 - 7.6 x10 3/uL) 7.18 Lymph # (Auto) (1.0 - 3.8 x10 3/uL) 2.75 [place] # (Auto) (0.1 - 0.8 x10 3/uL) 1.10 H Eos # (Auto) (0.0 - 0.2 x10 3/uL) 0.20 Baso # (Auto) (0.0 - 0.2 x10 3/uL) 0.05 Abs Immat Gran (auto) (0.00 - 0.03 x10 3/uL) 0.06 H Immature Gran % (0.0 - 2.0 %) 0.5 Nucleated RBC % (0 - 0 %) 0.0 Nucleated RBCs # (Man) (0.0 - 0.1 x10 3/uL) 0.00 Laboratory Tests 05/13 0408 Chemistry Magnesium (1.6 - 2.6 mg/dL) 1.87 Results: labs reviewed, vital signs reviewed, rhythm personally rev'dTelemetry Interpretation:sinus rhythm Diagnosis, Assessment PlanPlan discussed with: patient, daughter, admitting physician, collaborating MD, consultants, nurse Free Text DxA P NotesFree Text DxA P Notes:67 YO female with PMHx of HTN, HLD, DM, CAD, prior PCI. She had abnormal stress test, had LHC, found to have RCA stenosis that was stented. Post procedure patient developed complete heart block requiring insertion of temporary pacemaker. The patient was transferred to [facility] for EP consulation and possiblepermanent pacemaker placement. The patient is stable so far # Complete heart block s/p temp pacer - resolved* no BB or any AVN blocking agent for now* no PPM needed, plan for event monitor outpatient # CAD s/p PCI with MARY LOU to RCA* continue DAPT, statin* no BB due to CHB # Hypertension* BP Stable stable. Can DC home from and follow outpatient with Dr. Hall and Dr. Rodrigues. at 1724 at 1439 RPT #:[id number] OF REPORTPRProgress [id number]:13:00G.[id number] able for patient ahfuDHMXNNZHAQTJFN6860-67-52O66:24:39 [facility] 2023-05-13 09:32:00 [id number]/Wj /nAB6CfKGgIAh8NXvAiNzOyLbly/X 6+rZCeKXiz+VFpt3Ko2qb1D/aTC1897-40-67R27:32:00 [facility] HospitalHospitalist Discharge SummaryREPORT#:[id number] REPORT STATUS: SignedREPORT INITIALIZATION DATE:05/13/23 TIME: 931 PATIENT: MARIA ESTHER CAPONE UNIT #: [id number]#: [id number] [address] AGE: 67 SEX: F ATTEND: Sudarshan Cleaning AUTHOR: Jesus Alberto SERVICE DT/TIME: 05/13/23 0932* ALL edits or amendments must be made on the electronic/computer document * General InformationProblem List/A P: 1. CAD (coronary artery disease) 2. Junctional bradycardia 3. Rheumatoid arthritis 4. Diabetes 5. S/P coronary artery stent placement Discharge date: 05/13/23Discharge diagnosis:S/p PCI to RCAHospital course:patient is a 67 year old female with past medical history of HTN, HLD, DM, CAD s/p PCI/stenting in 2006 who presented to ED at [facility] with chest pain. Dr. Hall, Cardiology, was seeing her at [facility]. She underwent stress test which was abnormal. She was taken to the [facility] by Dr. Hall, cardiac cath showed 99% stenosis to RCA. She underwent PCI/Stent to RCA and went into complete heart block, temporary pacemaker wire was inserted via right IJ. She was transferred to [facility] for evaluation for permanent pacemaker. EP was consulted for PPM evaluation. After evaluation by EP, EP recommended temporary pacer to be removed, temporary pacer was removed yesterday, patient is doing well this morning with no chest pain or shortness of breath. Patient will follow-up with the EP as outpatient. If cleared by director of outpatient services this morning, patient will be discharged home with outpatient follow-up with director of outpatient services and EP Med Rec Med RecDischarge meds:Continue taking these medications:DOXAZOSIN (CARDURA) 2 MG TAB 2 MILLIGRAM ORAL DAILY. METOPROLOL SUCC XL (TOPROL XL) 50 MG TAB.SA 50 MILLIGRAM ORAL TWICE DAILY. metFORMIN (GLUCOPHAGE) 500 MG TAB 500 MILLIGRAM ORAL DAILY. Start taking the following new medications:CLOPIDOGREL (PLAVIX) 75 MG TAB 75 MILLIGRAM ORAL DAILY. Days = 30 Qty = 30 No Refills ASPIRIN EC (ECOTRIN) 81 MG TAB.EC 81 MILLIGRAM ORAL DAILY. Days = 30 Qty = 30 No Refills ATORVASTATIN (LIPITOR) 40 MG TAB 40 MILLIGRAM ORAL BEDTIME. Days = 30 Qty = 30 No Refills Discharge Instructions PCPDischarge to: Home/Self CareAdditional Discharge Routines: PCP Follow-Up, Relay Telegrapher Follow-UpDiet: Diabetic, Cardiac Follow-up AppointmentsPCP follow-up: PCP: No Primary or Family Physician PCP follow up timeframe: In 2 daysConsulting provider 1: Provider 1: Sumeet Patterson MD Specialty: Cardiology-Electrophysio Quality: Discharge Advanced Care Plan 65 or OlderDiscussed with: surrogate decis. maker (patient daughter) Current MedicationsCurrent medication review:I attest that the foregoing medication list in the medical record is true, accurate, and complete to the best of my knowledge. at 0935 RPT #:[id number] OF REPORTDSDischarge odhmuil8004-23-47C69:32:00G.[id number] ailable for patient xwaxNFVYVODRWATOUY4020-79-79O59:37:24 [facility] 2023-05-12 18:15:00 [id number] fmhO/no2NPVIb1tVgaQ4B3vuAtK +UVVgQJaNL9i7YdrcTYAfIUN1V24475-92-04D99:15:00 [facility] ([facility])Cardiology Progress NoteREPORT#:[id number] REPORT STATUS: SignedREPORT INITIALIZATION DATE:05/12/23 TIME: 1814 PATIENT: MARIA ESTHER CAPONE UNIT #: [id number]#: [id number] [address] AGE: 67 SEX: F ATTEND: Sudarshan Cleaning MDADM AUTHOR: Carmen Mckeon MDREPT SERVICE DT/TIME: 05/12/231814* ALL edits or amendments must be made on the electronic/computer document * SubjectivePatient reports:No: complaints. Objective GeneralVS/I O:24 hour I O ending at 0700: 05/12 0700 05/11 1900 Intake Total 222 960 Output Total 700 400 Balance -478 560 Intake, Oral 222 960 Number 4 Incontinent Voids Output, Urine 700 400 Vital Signs: Date Time Temp Pulse Resp B/P B/P Pulse O2 O2 Flow FiO2 Mean Ox Delivery Rate 05/12 0901 68 25 148/69 99 96 05/12 0800 62 24 168/74 107 96 05/12 0701 66 24 144/63 90 96 05/12 0601 53 24 164/71 102 99 05/12 0501 54 34 156/66 95 96 05/12 0401 49 24 166/67 96 96 05/12 0400 97.8 05/12 0301 54 20 178/77 110 98 05/12 0201 49 22 128/57 82 95 05/12 0101 55 26 156/67 96 95 05/12 0000 97.8 05/12 0000 57 30 147/64 92 94 05/11 2300 57 24 159/70 100 96 05/11 2200 54 27 152/65 94 96 05/11 2100 63 28 146/67 96 98 05/11 2013 58 27 143/64 92 97 05/11 2000 97.8 05/11 1900 63 33 154/70 100 96 PATIENT WEIGHT: Weight (lb): 132Weight (oz): 4.44Weight (kg): 60.000 Medications:Active Meds + DC'd Last 24 HrsEnoxaparin Sodium (lovENOX) 40 MG Q24H SUBQ Tramadol HCl (ULTRAM) 50 MG Q4H PRN PRN PO Aspirin (ASPIRIN) 81 MG DAILY PO Clopidogrel Bisulfate (Plavix) 75 MG DAILY PO Pravastatin Sodium (PRAVACHOL) 20 MG BEDTIME PO Ceftriaxone Sodium (ROCEPHIN 1000MG VIAL) 1,000 MG Q24H IV Sodium Chloride (SODIUM CHLORIDE) 10 MLInsulin Human Lispro (HUMALOG) 0 AC HS SUBQ Acetaminophen (TYLENOL) 650 MG Q6H PRN PRN PO Dextrose/Water (DEXTROSE 10% IN WATER) 125 ML ASDIR PRN IV (CKD) Dextrose/Water (DEXTROSE 10% IN WATER) 250 ML ASDIR PRN IV (CKD) Docusate Sodium (COLACE) 100 MG Q12H PRN PRN PO Glucagon (GLUCAGON) 1 MG ASDIR PRN IM Ondansetron HCl (ZOFRAN) 4 MG Q6H PRN PRN IV Mupirocin (BACTROBAN 2% 22 GM OINTMENT) 1 APPLIC BID NASAL Physical ExamGeneral appearance: alert, awake, orientedNeck: non-tender, no JVDCardiovascular: CV assessment: regular rate and rhythmRespiratory: clear to auscultation, no distressAbdomen: soft, non-tender, normal bowel sounds, no distentionLower extremity: LE assessment: normal temperature, no calf tenderness, no edemaMusculoskeletal: normal inspectionNeuro/JUICE SCALEMAN: alertSkin: dry, intact, normal color ResultsFindings/Data:Laboratory Tests 05/12 05/12 05/12 05/11 1648 1125 0423 2105 Chemistry Sodium (134 - 147 mEq/L) 137 Potassium (3.4 - 5.0 mEq/L) 4.4 Chloride (100 - 108 mEq/L) 107 Carbon Dioxide (21 - 33 mEq/l) 21 Anion Gap (0 - 20) 13 BUN (7 - 25 mg/dL) 22 Creatinine (0.6 - 1.3 mg/dL) 1.2 Glomerular Filtr Rate (80 - 90) 49.0 L Glucose (77 - 141 mg/dL) 143 H POC Glucose (70 - 110 MG/DL) 164 H 257 H 251 H Calcium (8.0 - 10.5 mg/dL) 9.2 Ionized Calcium William (1.09 - 1.30 MMOL/L) 1.11 Phosphorus (2.5 - 4.9 MG/DL) 4.8 Magnesium (1.6 - 2.6 mg/dL) 1.99 Laboratory Tests 05/12 0423 Hematology WBC (4.5 - 11.0 x10 3/uL) 11.4 H RBC (3.54 - 5.02 x10 6/uL) 3.35 L Hgb (11.0 - 15.0 g/dL) 10.1 L Hct (33.0 - 45.0 %) 31.4 L MCV (81.0 - 99.0 fL) 93.7 MCH (27.0 - 33.0 pg) 30.1 MCHC (33.0 - 37.0 g/dL) 32.2 L RDW (11.5 - 14.5 %) 12.5 Plt Count (150 - 400 x10 3/uL) 209 MPV (7.0 - 9.0 fL) 10.3 H Neut % (Auto) (56.0 - 77.0 %) 67.6 Lymph % (Auto) (14.0 - 32.0 %) 20.1 [place] % (Auto) (4.8 - 9.0 %) 9.6 H Eos % (Auto) (0.3 - 3.7 %) 1.7 Baso % (Auto) (0.0 - 2.0 %) 0.4 Neut # (Auto) (2.0 - 7.6 x10 3/uL) 7.71 H Lymph # (Auto) (1.0 - 3.8 x10 3/uL) 2.29 [place] # (Auto) (0.1 - 0.8 x10 3/uL) 1.10 H Eos # (Auto) (0.0 - 0.2 x10 3/uL) 0.19 Baso # (Auto) (0.0 - 0.2 x10 3/uL) 0.05 Abs Immat Gran (auto) (0.00 - 0.03 x10 3/uL) 0.07 H Immature Gran % (0.0 - 2.0 %) 0.6 Nucleated RBC % (0 - 0 %) 0.0 Nucleated RBCs # (Man) (0.0 - 0.1 x10 3/uL) 0.00 Laboratory Tests 05/12 423 Chemistry Magnesium (1.6 - 2.6 mg/dL) 1.99 Telemetry Interpretation:sinus rhythm Diagnosis, Assessment Plan Free Text DxA P NotesFree Text DxA P Notes:67 YO female with PMHx of HTN, HLD, DM, CAD, prior PCI. She had abnormal stress test, had LHC, found to have RCA stenosis that was stented. Post procedure patient developed complete heart block requiring insertion of temporary pacemaker. The patient was transferred to [facility] for EP consulation and possiblepermanent pacemaker placement. # Complete heart block s/p temp pacer* no BB or any AVN blocking agent for now* remain sinus rhythm, she may not need a pacemaker. # CAD s/p PCI with MARY LOU to RCA* continue DAPT, statin* no BB due to CHB # Hypertension* BP Stable at 1519 RPT #:[id number] OF REPORTPRProgress vjfk5804-52-44W32:15:00G.[id number] able for patient ymmbDPIEDVQKTPCMUK8572-20-39E54:19:27 [facility] 2023-05-12 10:47:00 [id number] Xh03wFGM0FQWgPxK7kVQMqX9tCsnY 2BkRnF/jfjZo8eS0llbtBbUCZh42647-04-46W16:47:00 [facility] HospitalInternal Medicine Prog. NoteREPORT#:[id number] REPORT STATUS: SignedREPORT INITIALIZATION DATE:05/12/23 TIME: 1047 PATIENT: MARIA ESTHER CAPONE UNIT #: [id number]#: [id number] [address] AGE: 67 SEX: F ATTEND: Sudarshan Cleaning AUTHOR: Jesus Alberto DOREPT SERVICE DT/TIME: 05/12/23 1047* ALL edits or amendments must be made on the electronic/computer document * SubjectiveChief complaint:Patient is resting comfortably in bed this morning, denies any chest pain or shortness of breath. Resting comfortably in bed Objective GeneralVS/I O:Vital Signs Date Temp Pulse Resp B/P B/P Mean Pulse Ox FiO2 05/11-05/12 97.8-98.1 49-68 20-34 128-178/56-77 81-110 94-100 Last Documented: Result Date Time Pulse Ox 96 05/12 901 B/P 148/69 05/12 901 B/P Mean 99 05/12 901 Pulse 68 05/12 901 Resp 25 05/12 901 Temp 97.8 05/12 0400 FiO2 21 05/11 0432 O2 Delivery Room air 05/11 0432 24 hour I O ending at 0700: 05/12 0700 05/11 1900 Intake Total 222 960 Output Total 700 400 Balance -478 560 Intake, Oral 222 960 Number 4 Incontinent Voids Output, Urine 700 400 PATIENT WEIGHT: Weight (lb): 132Weight (oz): 4.44Weight (kg): 60.000 Medications:Active Meds + DC'd Last 24 HrsEnoxaparin Sodium (lovENOX) 40 MG Q24H SUBQ Aspirin (ASPIRIN) 81 MG DAILY PO Clopidogrel Bisulfate (Plavix) 75 MG DAILY PO Pravastatin Sodium (PRAVACHOL) 20 MG BEDTIME PO Ceftriaxone Sodium (ROCEPHIN 1000MG VIAL) 1,000 MG Q24H IV Sodium Chloride (SODIUM CHLORIDE) 10 MLInsulin Human Lispro (HUMALOG) 0 AC HS SUBQ Acetaminophen (TYLENOL) 650 MG Q6H PRN PRN PO Dextrose/Water (DEXTROSE 10% IN WATER) 125 ML ASDIR PRN IV (CKD) Dextrose/Water (DEXTROSE 10% IN WATER) 250 ML ASDIR PRN IV (CKD) Docusate Sodium (COLACE) 100 MG Q12H PRN PRN PO Glucagon (GLUCAGON) 1 MG ASDIR PRN IM Ondansetron HCl (ZOFRAN) 4 MG Q6H PRN PRN IV Mupirocin (BACTROBAN 2% 22 GM OINTMENT) 1 APPLIC BID NASAL Physical ExamGeneral appearance: alert, awake, orientedNeck: no JVD, no lymphadenopathy, no masses or swellingCardiovascular: normal heart soundsRespiratory: aerating well, clear to auscultationAbdomen: non-tender, normal bowel sounds, no distentionExtremities: Extremities: no clubbing, no cyanosis, no edema ResultsFindings/Data:Laboratory Tests 05/12/23422:[Embedded Image Not Available]Laboratory Tests 05/12 2105 1712 1130 Chemistry Sodium (134 - 147 mEq/L) 137 Potassium (3.4 - 5.0 mEq/L) 4.4 Chloride (100 - 108 mEq/L) 107 Carbon Dioxide (21 - 33 mEq/l) 21 Anion Gap (0 - 20) 13 BUN (7 - 25 mg/dL) 22 Creatinine (0.6 - 1.3 mg/dL) 1.2 Glomerular Filtr Rate (80 - 90) 49.0 L Glucose (77 - 141 mg/dL) 143 H POC Glucose (70 - 110 MG/DL) 251 H 160 H 168 H Calcium (8.0 - 10.5 mg/dL) 9.2 Ionized Calcium William (1.09 - 1.30 MMOL/L) 1.11 Phosphorus (2.5 - 4.9 MG/DL) 4.8 Magnesium (1.6 - 2.6 mg/dL) 1.99 Laboratory Tests 05/12 423 Hematology WBC (4.5 - 11.0 x10 3/uL) 11.4 H RBC (3.54 - 5.02 x10 6/uL) 3.35 L Hgb (11.0 - 15.0 g/dL) 10.1 L Hct (33.0 - 45.0 %) 31.4 L MCV (81.0 - 99.0 fL) 93.7 MCH (27.0 - 33.0 pg) 30.1 MCHC (33.0 - 37.0 g/dL) 32.2 L RDW (11.5 - 14.5 %) 12.5 Plt Count (150 - 400 x10 3/uL) 209 MPV (7.0 - 9.0 fL) 10.3 H Neut % (Auto) (56.0 - 77.0 %) 67.6 Lymph % (Auto) (14.0 - 32.0 %) 20.1 [place] % (Auto) (4.8 - 9.0 %) 9.6 H Eos % (Auto) (0.3 - 3.7 %) 1.7 Baso % (Auto) (0.0 - 2.0 %) 0.4 Neut # (Auto) (2.0 - 7.6 x10 3/uL) 7.71 H Lymph # (Auto) (1.0 - 3.8 x10 3/uL) 2.29 [place] # (Auto) (0.1 - 0.8 x10 3/uL) 1.10 H Eos # (Auto) (0.0 - 0.2 x10 3/uL) 0.19 Baso # (Auto) (0.0 - 0.2 x10 3/uL) 0.05 Abs Immat Gran (auto) (0.00 - 0.03 x10 3/uL) 0.07 H Immature Gran % (0.0 - 2.0 %) 0.6 Nucleated RBC % (0 - 0 %) 0.0 Nucleated RBCs # (Man) (0.0 - 0.1 x10 3/uL) 0.00 Diagnosis, Assessment PlanProblem List/A P: 1. CAD (coronary artery disease) 2. Junctional bradycardia 3. Rheumatoid arthritis 4. Diabetes 5. S/P coronary artery stent placement Free Text DxA P NotesFree text DxA P notes:67-year-old admitted with chest pain, underwent C with PCI to the RCA, developed a junctional rhythm and temporary pacemaker was placed-Appreciated input from cardiology and EP-Temporary pacemaker to be removed this morning-Continue with aspirin and Plavix-Tight glycemic control-Lovenox for DVT prophylaxis-PT/OT evaluation-Patient is awaiting downgrade from the CVICU at 1051 RPT #:[id number] OF REPORTPRProgress vsbu2998-96-03I31:47:00G.[id number] able for patient cwcwTGEOGXDABMAKRP6980-05-95Z59:51:20 [facility]ACL 2023-05-12 09:16:00 [id number]+ KjmUzjwcXYG7IAYSD30lsPcPZuyVw P4BcZI13m1hx58v9kS5IcPxUpnr8010-88-14R44:16:00 [facility] ([facility])EP Progress NoteREPORT#:[id number] REPORT STATUS: SignedREPORT INITIALIZATION DATE:05/12/23 TIME: 915 PATIENT: MARIA ESTHER CAPONE UNIT #: [id number]#: [id number] [address] AGE: 67 SEX: F ATTEND: Sudarshan Cleaning MDADM AUTHOR: Elysia Velazco NPREPT SERVICE DT/TIME: 05/12/23915* ALL edits or amendments must be made on the electronic/computer document * Lianne Velazco 05/12/23 0916:SubjectiveChief complaint:Awake and alert, feeling better todayReports chest sorenessPatient reports:No: complaints. Nursing reports:No: complaints. Objective GeneralVS/I OLaboratory Tests 05/12/23 0423:[Embedded Image Not Available]Current Medications Sig/Xavi Start time Last Medication Dose Route Stop Time Status Admin Enoxaparin Sodium 40 MG Q24H 05/12 1200 AC SUBQ 08/10 1159 Aspirin 81 MG DAILY 05/11 900 AC 05/12 PO 08/09 0859 0847 Clopidogrel Bisulfate 75 MG DAILY 05/11 900 AC 05/12 PO 08/09 0859 0847 Pravastatin Sodium 20 MG BEDTIME 05/10 211 AC 05/11 PO 08/08 211 2057 Ceftriaxone Sodium 1,000 MG Q24H 05/10 2000 AC 05/11 Sodium Chloride 10 ML IV 05/15 1959 2058 Insulin Human Lispro 0 AC HS 05/10 1630 AC 05/11 SUBQ 08/08 1629 2109 Acetaminophen 650 MG Q6H PRN PRN 05/10 1345 AC 05/12 PO 08/08 1344 0746 Dextrose/Water 125 ML ASDIR PRN 05/10 1345 CKD IV 08/08 1344 Dextrose/Water 250 ML ASDIR PRN 05/10 1345 CKD IV 08/08 1344 Docusate Sodium 100 MG Q12H PRN PRN 05/10 1345 AC PO 08/08 1344 Glucagon 1 MG ASDIR PRN 05/10 1345 AC IM 08/08 1344 Ondansetron HCl 4 MG Q6H PRN PRN 05/10 1345 AC IV 08/08 1344 Mupirocin 1 APPLIC BID 05/10 1300 AC 05/12 NASAL 05/14 2101 0847 Last Documented: Result Date Time Pulse Ox 96 05/12 901 B/P 148/69 05/12 901 B/P Mean 99 05/12 901 Pulse 68 05/12 901 Resp 25 05/12 901 Temp 36.6 05/12 400 FiO2 21 05/11 432 O2 Delivery Room air 05/11 432 24 hour I O ending at 0700: 05/12 0700 05/11 1900 Intake Total 222 960 Output Total 700 400 Balance -478 560 Intake, Oral 222 960 Number 4 Incontinent Voids Output, Urine 700 400 PATIENT WEIGHT: Weight (lb): 132Weight (oz): 4.44Weight (kg): 60.000 Physical ExamGeneral appearance: alert, awake, oriented, no acute distress, no respiratory distressHEENT: mucosal membranes moistNeck: non-tenderCardiovascular: CV assessment: regular rate and rhythmRespiratory: decreased breath sounds, no distressAbdomen: softGenitourinary: no flank painExtremities: dry, moves allMusculoskeletal: normal inspectionNeuro/JUICE SCALEMAN: alert, oriented X 3Skin: dry, intactPsychiatry: normal affectInterpretationI independently reviewed the [ ] and my interpretation is [ ] EKG Interpretation: sinus bradycardia, junctional Treatment Prophylaxis Treatment ProphylaxisOxygen: room air Diagnosis, Assessment PlanFree Text A P:Assessment:1. Complete heart block/Junctional bradycardia s/p PCI/stent to RCA, requiring temporary pacer wire/pacing via RIJ2. CAD s/p PCI/stenting to RCA . HTN4. HLD 5. Chest pain6. DM Cardiac cath report 05/10/2023: severe proximal RCA disease s/p PCI/stent, severeLcx stenois, moderate LAD disease Plan/Recommendations:- Continuous tele monitoring- Cardiology following - ECHO pending, ECHO results from [facility] - LVEF 60-65%- Carotid doppler - less than 50% ICA stenosis bilaterally - Repeat EKG - On tele Vpaced at 60 bpm via RIJ temporary pacemaker wire, underlying rhythm appears to be junctional in 50s- Patient awake and alert, hemodynamically stable, Vpaced at 60bpm- AVOID AV meet blocking agents- Reported CHB s/p PCI/stenting to RCA, requiring temporary pacing, will rlseadt24-87 hours to determine if patient will require permanent pacemaker implantation - Will follow 05/11/2023:- Continuous tele monitoring - Monitor in CCU- EKG yesterday showed junctional rhythm rate 50 bpm, QRS 80ms- Repeat EKG today- Temporary pacemaker rate lowered to 40 bpm- On tele, junctional rhythm rate 50-60s- Seems to be improving - EKG today showed Junctional, rate 58 bpm - Will monitor another 24 hours to determine if patient will need PPM - Will follow 05/12/2023:- continuous tele monitoring - Agree with cardiology, ok to remove temporary pacer wire- AVOID AV meet blocking agents- On tele, NSR/SB/junctional, rate 60s- No indication for PPM at this time, recommend cardiac event monitor after discharge - After discharge will need to go to Dr. Rodrigues's office to obtain cardiac event monitor to wear for 2 weeks- Follow up with Dr. Rodrigues/Dr. Santacruz in 3 weeks- Follow up with Dr. Hall Discussed plan with patient and her family. Consultants: cardiologyCode status: full codePlan discussed with: patient Sandor Santacruz V 05/16/232124:AttestationsAttestation needed: supervising physician Physician AttestationAgree w/findings plan:The patient was seen and examined. I agree with assessment and plan by BULMARO Santacruz [facility] at 1026 at 6408 RPT #:[id number] OF REPORTPRProgress [id number]:16:00G.[id number] able for patient odybUMMAUKFZMFZPMX9958-45-20A09:26:46 HCACL 2023-05-12 09:10:00 [id number] yxcFaUlmx6+Bpygb9y/UdDxHjqQGR uxOoknkJmxczy9kNiKQ603BxIyN0461-50-21Z99:10:86583 8-0028 [place] [id number] PATIENT NAME: MARIA ESTHER CAPONE ADMIT DATE: 05/10/23ACCOUNT NO: [id number] ROOM NO: [facility] AGE: 67 REPORT TYPE: eECHOCARDIOGRAM REPORT SEX: F ADMITTING PHYSICIAN:Sudarshan Cleaning MD ATTENDING PHYSICIAN:Sudarshan Cleaning MD *[address] [address]: [phone]: [phone] Transthoracic Echocardiogram Patient: Papa Caponeudjarvis Date: 05/10/2023 BP: 112 / 75 Location: COCCLURN: [id number] : 1955 Age: 67 Height: 59 in / 149.9 cmAccession#: [id number] Gender: F Weight: 123.7 lb / 56.2 kgBMI/BSA: 25 kg/m 2 / 1.54 m 2 *Ordering Physician: * Carmen Mckeon MD *Interpreting Physician: * Carmen Mckeon MD*Bilingual Sales Assistant: * Yanci Serrano [facility] Indications: CHB. Study data: Transthoracic echocardiogram. Procedure: Transthoracicechocardiography was performed. Images were obtained using a [employer] cardiacultrasound machine. Image quality was good. Complete 2D, completespectral Doppler, and color Doppler. Location: [facility] Patient status:Inpatient. Patient room number: 3313. Study status: Routine. Findings Left ventricle: The cavity size is normal. Wall thickness is mildlyincreased. Systolic function is normal. The estimated ejection fractionis 55-59%. Wall motion is normal; there are no regional wall motionabnormalities. Left ventricular diastolic function parameters areindeterminate.Right ventricle: The cavity size is normal. Systolic function is mildlyPATIENT NAME: MARIA ESTHER CAPONE reduced.Left atrium: The atrium is normal in size.Right atrium: The atrium is normal in size.Aorta: Aortic root: The aortic root is normal in size.Aortic valve: The valve is structurally normal. The valve istrileaflet. There is no evidence of stenosis. There is mildregurgitation.Mitral valve: The valve is structurally normal. There is noevidence of stenosis. There is trivial regurgitation.Tricuspid valve: The valve is structurally normal. There is noregurgitation.Pulmonic valve: The valve is structurally normal. There is noregurgitation.Pericardium: There is no pericardial effusion.Pulmonary arteries:The main pulmonary artery is normal-sized.Systemic veins:Inferior vena cava: The vessel is normal in size. Measurements Left ventricle Value Ref PEPE, LAX 3.1 cm 3.8 - 5.2 ESD, LAX 2.3 cm 2.2 - 3.5 ESD/bsa, LAX 1.5 cm/m 2 1.3 - 2.1 FS, LAX 25 % 27 - 45 ESD/bsa major 4.0 cm/m 2 --------- ax, A4C PEPE/bsa minor 4.0 cm/m 2 --------- ax, A4C PEPE major ax, 6.9 cm --------- A2C ESD major ax, 6.6 cm --------- A2C PEPE/bsa major 4.5 cm/m 2 --------- ax, A2C ESD/bsa major 4.3 cm/m 2 --------- ax, A2C PW, ED 1.1 cm 0.6 - 0.9 IVS/PW, ED 0.99 --------- EF 50 % 54 - 74 LVOT Value Ref Diam, S 1.90 cm --------- Area 2.8 cm 2 --------- Peak too, S 0.84 m/sec --------- Mean too, S 0.59 m/sec --------- VTI, S 16.2 cm --------- Peak grad, S 3 mm Hg --------- Mean grad, S 2 mm Hg --------- SV 46 ml --------- Qs 2.73 L/min --------- Qs/bsa 1.8 L/(min-m 2) ---------PATIENT NAME: MARIA ESTHER CAPONE SV/bsa 30 ml/m 2 --------- Ventricular septum Value Ref IVS, ED 1.1 cm 0.6 - 0.9 Right ventricle Value Ref TAPSE, MM 1.5 cm 1.7 - 3.1 Left atrium Value Ref AP dim, ES 3.01 cm 2.70 - 3.80 Vol/bsa, ES, 17 ml/m 2 11 - 40 1-p A4C Vol, ES, 2-p 33 ml --------- Vol/bsa, ES, 21 ml/m 2 16 - 34 2-p Vol/bsa, ES, 17 ml/m 2 16 - 34 A/L Aortic valve Value Ref Peak v, S 1.29 m/sec --------- Mean v, S 0.94 m/sec --------- VTI, S 24.5 cm --------- Mean grad, S 3.8 mm Hg --------- Peak grad, S 6.6 mm Hg --------- LVOT/AV, VTI 0.66 --------- ratio JENNY, VTI 1.87 cm 2 --------- LVOT/AV, Vpeak 0.65 --------- ratio JENNY, Vmax 1.85 cm 2 --------- AR peak v 3 m/sec --------- AR decel 141 cm/s 2 --------- AR decel time 2136 ms --------- AR PHT 619 ms --------- AR peak grad 36 mm Hg --------- Mitral valve Value Ref Mean v, D 0.46 m/sec --------- VTI leaflet 25.4 cm --------- coapt Mean grad, D 1.2 mm Hg --------- Peak grad, D 3.7 mm Hg --------- Pulmonic valve Value Ref WV v, ED 0.6 m/sec --------- Aortic root Value Ref Root diam 3.0 cm <3.8 Conclusions Summary:PATIENT NAME: MARIA ESTHER CAPONE 1. Left ventricle: The cavity size is normal. Wall thickness is mildly increased. Systolic function is normal. The estimated ejection fraction is 55-59%. Wall motion is normal; there are no regional wall motion abnormalities. Left ventricular diastolic function parameters are indeterminate.2. Right ventricle: Systolic function is mildly reduced. Prepared and electronically signed by Carmen Mckeon MD05/12/2023 09:10 at 0910 PATIENT NAME: MARIA ESTHER CAPONE :10:0 0G.[id number] for patient wftdGDJNITPJWVGJGD6325-13-32B56:10:59 [facility] 2023-05-11 13:47:00 [id number]/[id number] SCUyHWrLc2AxL3Oof1A7SpRhUtxK1 [facility]+IZlsKNTgQ32JL84KdVAhqO4962-47-76K20:47:59759 8-0107 [place] [id number] PATIENT NAME: MARIA ESTHER CAPONE ADMIT DATE: 05/10/23ACCOUNT NO: [id number] ROOM NO: G.3313 AGE: 67 REPORT TYPE: eELECTROCARDIOGRAM REPORT SEX: F ADMITTING PHYSICIAN:Sudarshan Cleaning MD ATTENDING PHYSICIAN:Sudarshan Cleaning MD Order:[id number] Reason : new rhythm check Test Date/Time Stamp:WedMay 11 2023 13:47:28Blood Pressure : / mmHGVent. Rate : 058 BPM Atrial Rate : 058 BPM P-R Int : 110 ms QRS Dur : 082 ms QT Int : 386 ms P-R-T Axes : 030 -09 -26 degrees QTc Int : 378 ms Sinus bradycardia with short PRMinimal voltage criteria for LVH, may be normal variant ( R in aVL )Inferior infarct (cited on or before 11-MAY-2023)Abnormal ECGWhen compared with ECG of 10-MAY-2023 15:27,No changesConfirmed by MD DANITA, BENJAMIN ([id number]) on 05/12/2023 9:31:14 PM Referred By: Joaquin Lemon Confirmed by:BENJAMIN PALAFOX MD at 2131 PATIENT NAME: MARIA ESTHER CAPONE .[id number] AVAvailable for patient infjISTXJXZPSRDDXD9350-53-30E23:33:03 [facility] 2023-05-11 11:52:00 [id number] WA7kmNhPLqOU2Tu7PwRHECIeUygLj 53GFbf+y/OxFFI6mm1Ns2n4mK0u7988-28-06Z16:52:00 [facility] HospitalCardiology Progress NoteREPORT#:[id number] REPORT STATUS: SignedREPORT INITIALIZATION DATE:05/11/23 TIME: 1151 PATIENT: MARIA ESTHER CAPONE UNIT #: [id number]#: [id number] [address] AGE: 67 SEX: F ATTEND: Sudarshan Cleaning [facility] AUTHOR: Lisa YooPREPT SERVICE DT/TIME: 05/11/23 1152* ALL edits or amendments must be made on the electronic/computer document * SubjectiveHPI:67 YO female with PMHx of HTN, HLD, DM, CAD, prior PCI. She had abnormal stress test, had LHC, found to have RCA stenosis that was stented. Post procedure patient developed complete heart block requiring insertion of temporary pacemaker. The patient was transferred to [facility] for EP consulation and possiblepermanent pacemaker placement. The patient is stable so farPatient reports:No: complaints. Review of SystemsRespiratory:Denies: SOB. Cardiovascular:Denies: chest pain, edema, orthopnea. Neuro:Denies: confusion, dizziness, syncope, weakness. Objective GeneralVS/I O:24 hour I O ending at 0700: 05/11 0700 05/10 1900 Intake Total 444 480 Output Total 600 400 Balance -156 80 Intake, Oral 444 480 Output, Urine 600 400 Patient 60 kg Weight Weight Bed scale Measurement Method Vital Signs: Date Time Temp Pulse Resp B/P B/P Pulse O2 O2 Flow FiO2 Mean Ox Delivery Rate 05/11 1100 63 25 154/70 100 98 11 1030 62 22 137/58 84 98 11/ 1000 60 21 116/55 79 97 05/11 0931 60 21 122/59 85 97 05/11 0900 62 27 164/69 87 97 05/11 0830 59 23 137/65 93 96 11 0800 36.6 11 0800 60 23 130/61 88 96 05/11 0730 59 24 126/59 84 97 05/11 0700 60 21 136/64 92 97 05/11 0601 60 29 108/54 78 99 05/11 0532 60 30 113/55 77 98 05/11 0503 60 18 92/55 66 98 05/11 0432 98 Room air 21 05/11 0431 59 19 132/62 89 97 05/11 0401 60 27 97/45 65 98 05/11 0400 36.6 05/11 0330 60 17 107/53 76 97 05/11 0301 60 23 98/47 68 99 05/11 0231 60 28 110/53 77 99 05/11 0201 60 30 123/58 83 98 05/11 0131 60 22 144/69 99 100 05/11 0100 60 17 121/59 85 98 11 0031 60 24 130/60 87 98 05/11 0000 36.6 05/11 0000 60 21 105/56 75 98 05/10 2330 60 20 108/50 72 97 05/10 2301 60 22 100/48 69 98 05/10 2231 60 23 105/49 71 97 05/10 2201 60 30 114/53 77 97 05/10 2131 60 26 125/60 86 96 05/10 2100 60 27 129/59 85 98 05/10 2031 60 29 128/59 85 98 05/10 2001 60 27 153/63 90 97 11 2000 36.6 11 1930 60 22 128/60 86 98 11 1900 59 33 126/58 84 97 05/10 1700 36.7 11 1300 37.1 PATIENT WEIGHT: Weight (lb): 132Weight (oz): 4.44Weight (kg): 60.000 Medications:Active Meds + DC'd Last 24 HrsAspirin (ASPIRIN) 81 MG DAILY PO Clopidogrel Bisulfate (Plavix) 75 MG DAILY PO Pravastatin Sodium (PRAVACHOL) 20 MG BEDTIME PO Ceftriaxone Sodium (ROCEPHIN 1000MG VIAL) 1,000 MG Q24H IV Sodium Chloride (SODIUM CHLORIDE) 10 MLInsulin Human Lispro (HUMALOG) 0 AC HS SUBQ Acetaminophen (TYLENOL) 650 MG Q6H PRN PRN PO Dextrose/Water (DEXTROSE 10% IN WATER) 125 ML ASDIR PRN IV (CKD) Dextrose/Water (DEXTROSE 10% IN WATER) 250 ML ASDIR PRN IV (CKD) Docusate Sodium (COLACE) 100 MG Q12H PRN PRN PO Glucagon (GLUCAGON) 1 MG ASDIR PRN IM Ondansetron HCl (ZOFRAN) 4 MG Q6H PRN PRN IV Mupirocin (BACTROBAN 2% 22 GM OINTMENT) 1 APPLIC BID NASAL Pacemaker: external Physical ExamGeneral appearance: alert, awakeNeck: non-tender, no JVDCardiovascular: CV assessment: regular rate and rhythmRespiratory: clear to auscultation, no distressAbdomen: soft, non-tender, normal bowel sounds, no distentionLower extremity: LE assessment: normal temperature, no calf tenderness, no edemaMusculoskeletal: normal inspectionNeuro/JUICE SCALEMAN: alertSkin: dry, intact, normal color ResultsFindings/Data:Laboratory Tests 05/11 0432 Blood Gas Puncture Site R Radial O2 Saturation (90 - 100 %) 95.9 ABG pH (7.35 - 7.45) 7.457 H ABG pCO2 (35.0 - 45 mmHg) 30.7 L ABG pO2 (80 - 100.0 mmHg) 75.5 L ABG PO2/FiO2 Ratio (mm/Hg) 359.50 ABG HCO3 (22.0 - 26.0 MMOL/L) 21.7 L ABG Total CO2 22.6 ABG Base Excess (-4.0 - 4.0 MMOL/L) -2.2 ABG Hematocrit (33.0 - 45.0 %) 32 L ABG Hemoglobin (11.0 - 15.0 G/DL) 10.9 L Jamison Test Positive Sodium (134 - 147 mmol/L) 139 Potassium (3.4 - 5.0 mmol/L) 4.1 Chloride (100 - 108 mmol/L) 109 H Ionized Calcium (1.12 - 1.32 MMOL/L) 1.20 Lactic Acid (0.9 - 1.7 mmol/l) 0.7 L O2 Delivery Device room air FiO2 (%) 21.0 Laboratory Tests 05/11 05/11 05/11 05/11 05/11 1130 0811 0432 0316 0316Chemistry Sodium (134 - 147 mEq/L) 140 Potassium (3.4 - 5.0 mEq/L) 4.1 Chloride (100 - 108 mEq/L) 107 Carbon Dioxide (21 - 33 mEq/l) 23 Anion Gap (0 - 20) 14 BUN (7 - 25 mg/dL) 25 Creatinine (0.6 - 1.3 mg/dL) 1.2 POC Creatinine (0.6 - 1.0 mg/dL) 1.2 H Glomerular Filtr Rate (80 - 90) 49.0 L Glucose (77 - 141 mg/dL) 124 POC Glucose (70 - 110 MG/DL) 168 H 143 H POC Glucose (mg/dL) (70 - 110 MG/DL) 134 H Hemoglobin A1c (4.8 - 6.0 %A1C) 6.2 H Calcium (8.0 - 10.5 mg/dL) 8.2 TSH (0.42 - 5.47) 1.43 05/10 05/10 05/10 05/10 2025 1950 1426 1347 Chemistry Sodium (134 - 147 mEq/L) 138 Potassium (3.4 - 5.0 mEq/L) 4.4 Chloride (100 - 108 mEq/L) 106 Carbon Dioxide (21 - 33 mEq/l) 25 Anion Gap (0 - 20) 11 BUN (7 - 25 mg/dL) 26 H Creatinine (0.6 - 1.3 mg/dL) 1.1 Glomerular Filtr Rate (80 - 90) 54.4 L Glucose (77 - 141 mg/dL) 140 POC Glucose (70 - 110 MG/DL) 170 H Calcium (8.0 - 10.5 mg/dL) 9.0 Total Bilirubin (0.0 - 1.0 mg/dL) 1.00 AST (8 - 34 IUnit/L) 54 H ALT (10 - 49 IUnit/L) 120 H Total Alk Phosphatase (20 - 125 IUnit/L) 57 Ammonia (11 - 35 umol/L) < 10 L Troponin I High Sens (0 - 34 ng/L) 250 *H Total Protein (6.4 - 8.2 g/dL) 6.6 Albumin (3.4 - 5.0 g/dL) 3.70 LDL Cholesterol Measurd (0 - 100 mg/dL) 123.0 H Laboratory Tests 05/10 1347 Coagulation INR (0.8 - 1.2) 1.0 PT Patient/Control Mix (9.3 - 12.9 SECONDS) 10.9 Laboratory Tests 05/11 05/10 0316 1347 Hematology WBC (4.5 - 11.0 x10 3/uL) 11.8 H 12.1 H RBC (3.54 - 5.02 x10 6/uL) 3.27 L 3.51 L Hgb (11.0 - 15.0 g/dL) 9.8 L 10.7 L Hct (33.0 - 45.0 %) 30.4 L 32.5 L MCV (81.0 - 99.0 fL) 93.0 92.6 MCH (27.0 - 33.0 pg) 30.0 30.5 MCHC (33.0 - 37.0 g/dL) 32.2 L 32.9 L RDW (11.5 - 14.5 %) 12.5 12.5 Plt Count (150 - 400 x10 3/uL) 198 218 MPV (7.0 - 9.0 fL) 10.2 H 10.3 H Neut % (Auto) (56.0 - 77.0 %) 65.6 77.4 H Lymph % (Auto) (14.0 - 32.0 %) 23.2 14.1 [place] % (Auto) (4.8 - 9.0 %) 8.6 7.3 Eos % (Auto) (0.3 - 3.7 %) 1.7 0.3 Baso % (Auto) (0.0 - 2.0 %) 0.5 0.3 Neut # (Auto) (2.0 - 7.6 x10 3/uL) 7.76 H 9.35 H Lymph # (Auto) (1.0 - 3.8 x10 3/uL) 2.74 1.70 [place] # (Auto) (0.1 - 0.8 x10 3/uL) 1.02 H 0.88 H Eos # (Auto) (0.0 - 0.2 x10 3/uL) 0.20 0.04 Baso # (Auto) (0.0 - 0.2 x10 3/uL) 0.06 0.04 Abs Immat Gran (auto) (0.00 - 0.03 x10 3/uL) 0.05 H 0.07 H Immature Gran % (0.0 - 2.0 %) 0.4 0.6 Nucleated RBC % (0 - 0 %) 0.0 0.0 Nucleated RBCs # (Man) (0.0 - 0.1 x10 3/uL) 0.00 0.00 Laboratory Tests 05/10 1950 Urines Urine Color (YEL/STRAW) YELLOW Urine Appearance (CLEAR) CLEAR Urine pH (5.0 - 7.0) 5.0 Ur Specific [place] (1.005 - 1.030) 1.049 H Urine Protein (NEGATIVE) NEGATIVE Urine Glucose (UA) (NEGATIVE) 1+ H Urine Ketones (NEGATIVE) NEGATIVE Urine Blood (NEGATIVE) 3+ H Urine Nitrite (NEGATIVE) POSITIVE H Urine Bilirubin (NEGATIVE) NEGATIVE Urine Urobilinogen (0.2 - 1.0 mg/dL) 0.2 Ur Leukocyte Esterase (NEGATIVE) 2+ H Urine RBC (0 - 3 RBC/HPF) 4-10 Urine WBC (0 - 3 WBC/HPF) 10-20 H Ur Squamous Epith Cells (NONE SEEN /HPF) 0-5 Urine Bacteria (NONE SEEN /HPF) TRACE Urine Mucus (NONE SEEN /LPF) TRACE Microbiology Date/Time Procedure - Status Source Growth 05/10 1347 MRSA DNA Surveillance Screen - COMP NASAL Radiology data:Recent Impressions:RADIOLOGY - XR CHEST 1 V 05/10 1526 Report Impression - Status: SIGNED Entered: 05/10/2023 1601 IMPRESSION:No acute cardiopulmonary disease.Impression By: Pushpa Knight M.D.CAT SCAN - CT HEAD/BRAIN W/O CONT 05/10 1741 Report Impression - Status: SIGNED Entered: 05/10/2023 1805 IMPRESSION: 1. No CT evidence of intracranial hemorrhage or acute corticalinfarct.2. Nonspecific white matter changes which may represent chronic smallvessel ischemia. 3. Generalized parenchymal volume loss.Impression By: Vannessa Chairez M.D. Results: labs reviewed, vital signs reviewed, EKG personally reviewed, rhythm personally rev'dEKG Interpretation: sinus bradycardiaTelemetry Interpretation:sinus bradycardia with short [place] interval. Diagnosis, Assessment PlanHospital course to date:67 YO female with PMHx of HTN, HLD, DM, CAD, prior PCI. She had abnormal stress test, had LHC, found to have RCA stenosis that was stented. Post procedure patient developed complete heart block requiring insertion of temporary pacemaker. The patient was transferred to [facility] for EP consulation and possiblepermanent pacemaker placement. The patient is stable so far # Complete heart block s/p temp pacer* no BB or any AVN blocking agent for now* I paused the pacer temporarily and patient has her own rhythm - sinus bradycardia* EP following , hopefully CHB is transient that she may end up not needing PPM* repeat EKG - sinus bradycardia with short [place] interval. # CAD s/p PCI with MARY LOU to RCA* continue DAPT, statin* no BB due to CHB # Hypertension* BP Stable MDM by Dr. Mckeon. Plan discussed with: patient, collaborating MD, nurse at 1750 at 1427 RPT #:[id number] OF REPORTPRProgress ihry4085-25-99K70:52:00G.[id number] able for patient tvesFFNTUGLKTAGWMO1617-74-12S16:50:42 [facility] 2023-05-11 11:12:00 [id number] og6VEDY88rFTwie/qi13zBPimNm0c 4A9VTq0edMEov9Mh49b219Rq5Qb6607-17-98A87:12:00 [facility] HospitalHospitalist Progress NoteREPORT#:[id number] REPORT STATUS: SignedREPORT INITIALIZATION DATE:05/11/23 TIME: 1112 PATIENT: MARIA ESTHER CAPONE UNIT #: [id number]#: [id number] [address] AGE: 67 SEX: F ATTEND: Sudarshan Cleaning MDADM AUTHOR: SilvanaErnie coxit NPREPT SERVICE DT/TIME: 05/11/23 111* ALL edits or amendments must be made on the electronic/computer document * Vahe Pina 05/11/23 1112:SubjectiveChief complaint:She is stable.Breathing is stable.On RA.No CP, fever, chills.No N/v/d.Temp. Pacemaker noted. Review of SystemsConstitutional:Reports: fatigue, generalized weakness. Eyes:Denies: redness, visual loss/blurred, diplopia, swelling. ENT:Denies: ear drainage, hearing loss, sinus problem, throat pain, tongue pain. Respiratory:Denies: TELLO (dyspnea on exertion), parox nocturnal dyspnea, pleurisy, pneumonia,productive cough (sputum). Cardiovascular:Denies: chest pain, TELLO (dyspnea on exertion), edema, palpitations, parox nocturnal dyspnea. GI:Denies: anorexia, diarrhea, dysphagia, GERD, hematemesis, hiatal hernia. :Denies: flank pain, hematuria, pelvic pain, , urgency. Heme:Denies: bleeding, bruising. Neuro:Denies: bowel dysfunction, focal weakness, headache, seizure, spinning sensation. Objective GeneralVS/I O:Vital Signs: Date Time Temp Pulse Resp B/P B/P Pulse O2 O2 Flow FiO2 Mean Ox Delivery Rate 05/11 1000 60 21 116/55 79 97 05/11 0931 60 21 122/59 85 97 05/11 0900 62 27 164/69 87 97 05/11 0830 59 23 137/65 93 96 05/11 800 36.6 05/11 800 60 23 130/61 88 96 05/11 0730 59 24 126/59 84 97 05/11 700 60 21 136/64 92 97 05/11 0601 60 29 108/54 78 99 05/11 0532 60 30 113/55 77 98 05/11 0503 60 18 92/55 66 98 05/11 0432 98 Room air 21 05/11 0431 59 19 132/62 89 97 05/11 0401 60 27 97/45 65 98 05/11 0400 36.6 05/11 0330 60 17 107/53 76 97 05/11 0301 60 23 98/47 68 99 05/11 0231 60 28 110/53 77 99 05/11 0201 60 30 123/58 83 98 05/11 0131 60 22 144/69 99 100 05/11 0100 60 17 121/59 85 98 05/11 0031 60 24 130/60 87 98 11 0000 36.6 11 0000 60 21 105/56 75 98 05/10 2330 60 20 108/50 72 97 05/10 2301 60 22 100/48 69 98 05/10 2231 60 23 105/49 71 97 05/10 2201 60 30 114/53 77 97 05/10 2131 60 26 125/60 86 96 05/10 2100 60 27 129/59 85 98 05/10 2031 60 29 128/59 85 98 05/10 2001 60 27 153/63 90 97 05/10 2000 36.6 05/10 1930 60 22 128/60 86 98 05/10 1900 59 33 126/58 84 97 05/10 1700 36.7 05/10 1300 37.1 24 hour I O ending at 0700: 05/11 0700 05/10 1900 Intake Total 444 480 Output Total 600 400 Balance -156 80 Intake, Oral 444 480 Output, Urine 600 400 Patient 60 kg Weight Weight Bed scale Measurement Method PATIENT WEIGHT: Weight (lb): 132Weight (oz): 4.44Weight (kg): 60.000 Medications:Active Meds + DC'd Last 24 HrsAspirin (ASPIRIN) 81 MG DAILY PO Clopidogrel Bisulfate (Plavix) 75 MG DAILY PO Pravastatin Sodium (PRAVACHOL) 20 MG BEDTIME PO Ceftriaxone Sodium (ROCEPHIN 1000MG VIAL) 1,000 MG Q24H IV Sodium Chloride (SODIUM CHLORIDE) 10 MLInsulin Human Lispro (HUMALOG) 0 AC HS SUBQ Acetaminophen (TYLENOL) 650 MG Q6H PRN PRN PO Dextrose/Water (DEXTROSE 10% IN WATER) 125 ML ASDIR PRN IV (CKD) Dextrose/Water (DEXTROSE 10% IN WATER) 250 ML ASDIR PRN IV (CKD) Docusate Sodium (COLACE) 100 MG Q12H PRN PRN PO Glucagon (GLUCAGON) 1 MG ASDIR PRN IM Ondansetron HCl (ZOFRAN) 4 MG Q6H PRN PRN IV Mupirocin (BACTROBAN 2% 22 GM OINTMENT) 1 APPLIC BID NASAL Dietitian nutrition assessmentThe data set between the solid lines has been imported from the dietitian's assessment. BMI Calculated: 26.7Nutrition related diagnosis: Nutrition diagnosis details: Nutrition problem: Nutrition etiology: Nutrition signs and symptoms: Nutrition prescription: Dietitian name: Assessment completed: Physical ExamGeneral appearance: alert, awake, orientedHead/Eyes: atraumatic, EOMI, normal conjunctiva/sclera, normocephalic, PERRLAENT: moist mucosal membranesNeck: full range of motion, no bruit/NL carotids, no JVDCardiovascular: normal heart sounds, regular rate rhythmRespiratory: aerating well, clear to auscultation, symmetric expansion, no distressAbdomen: non-tender, normal bowel sounds, soft, no distention, no guarding, no reboundExtremities: moves all, no cyanosis, no edemaMusculoskeletal: normal inspectionNeuro/JUICE SCALEMAN: alert, oriented X 3, CNII-XII intact, normal speech ResultsFindings/Data:Laboratory Tests 05/11 043 Blood Gas Puncture Site R Radial O2 Saturation (90 - 100 %) 95.9 ABG pH (7.35 - 7.45) 7.457 H ABG pCO2 (35.0 - 45 mmHg) 30.7 L ABG pO2 (80 - 100.0 mmHg) 75.5 L ABG PO2/FiO2 Ratio (mm/Hg) 359.50 ABG HCO3 (22.0 - 26.0 MMOL/L) 21.7 L ABG Total CO2 22.6 ABG Base Excess (-4.0 - 4.0 MMOL/L) -2.2 ABG Hematocrit (33.0 - 45.0 %) 32 L ABG Hemoglobin (11.0 - 15.0 G/DL) 10.9 L Jamison Test Positive Sodium (134 - 147 mmol/L) 139 Potassium (3.4 - 5.0 mmol/L) 4.1 Chloride (100 - 108 mmol/L) 109 H Ionized Calcium (1.12 - 1.32 MMOL/L) 1.20 Lactic Acid (0.9 - 1.7 mmol/l) 0.7 L O2 Delivery Device room air FiO2 (%) 21.0 Laboratory Tests 05/11 05/11 05/11 05/11 05/10 0811 0432 0316 0316 2025Chemistry Sodium (134 - 147 mEq/L) 140 Potassium (3.4 - 5.0 mEq/L) 4.1 Chloride (100 - 108 mEq/L) 107 Carbon Dioxide (21 - 33 mEq/l) 23 Anion Gap (0 - 20) 14 BUN (7 - 25 mg/dL) 25 Creatinine (0.6 - 1.3 mg/dL) 1.2 POC Creatinine (0.6 - 1.0 mg/dL) 1.2 H Glomerular Filtr Rate (80 - 90) 49.0 L Glucose (77 - 141 mg/dL) 124 POC Glucose (70 - 110 MG/DL) 143 H 170 H POC Glucose (mg/dL) (70 - 110 MG/DL) 134 H Hemoglobin A1c (4.8 - 6.0 %A1C) 6.2 H Calcium (8.0 - 10.5 mg/dL) 8.2 TSH (0.42 - 5.47) 1.43 05/10 05/10 05/10 1950 1426 1347 Chemistry Sodium (134 - 147 mEq/L) 138 Potassium (3.4 - 5.0 mEq/L) 4.4 Chloride (100 - 108 mEq/L) 106 Carbon Dioxide (21 - 33 mEq/l) 25 Anion Gap (0 - 20) 11 BUN (7 - 25 mg/dL) 26 H Creatinine (0.6 - 1.3 mg/dL) 1.1 Glomerular Filtr Rate (80 - 90) 54.4 L Glucose (77 - 141 mg/dL) 140 Calcium (8.0 - 10.5 mg/dL) 9.0 Total Bilirubin (0.0 - 1.0 mg/dL) 1.00 AST (8 - 34 IUnit/L) 54 H ALT (10 - 49 IUnit/L) 120 H Total Alk Phosphatase (20 - 125 IUnit/L) 57 Ammonia (11 - 35 umol/L) < 10 L Troponin I High Sens (0 - 34 ng/L) 250 *H Total Protein (6.4 - 8.2 g/dL) 6.6 Albumin (3.4 - 5.0 g/dL) 3.70 LDL Cholesterol Measurd (0 - 100 mg/dL) 123.0 H Laboratory Tests 05/10 1347 Coagulation INR (0.8 - 1.2) 1.0 PT Patient/Control Mix (9.3 - 12.9 SECONDS) 10.9 Laboratory Tests 05/11 05/10 0316 1347 Hematology WBC (4.5 - 11.0 x10 3/uL) 11.8 H 12.1 H RBC (3.54 - 5.02 x10 6/uL) 3.27 L 3.51 L Hgb (11.0 - 15.0 g/dL) 9.8 L 10.7 L Hct (33.0 - 45.0 %) 30.4 L 32.5 L MCV (81.0 - 99.0 fL) 93.0 92.6 MCH (27.0 - 33.0 pg) 30.0 30.5 MCHC (33.0 - 37.0 g/dL) 32.2 L 32.9 L RDW (11.5 - 14.5 %) 12.5 12.5 Plt Count (150 - 400 x10 3/uL) 198 218 MPV (7.0 - 9.0 fL) 10.2 H 10.3 H Neut % (Auto) (56.0 - 77.0 %) 65.6 77.4 H Lymph % (Auto) (14.0 - 32.0 %) 23.2 14.1 [place] % (Auto) (4.8 - 9.0 %) 8.6 7.3 Eos % (Auto) (0.3 - 3.7 %) 1.7 0.3 Baso % (Auto) (0.0 - 2.0 %) 0.5 0.3 Neut # (Auto) (2.0 - 7.6 x10 3/uL) 7.76 H 9.35 H Lymph # (Auto) (1.0 - 3.8 x10 3/uL) 2.74 1.70 [place] # (Auto) (0.1 - 0.8 x10 3/uL) 1.02 H 0.88 H Eos # (Auto) (0.0 - 0.2 x10 3/uL) 0.20 0.04 Baso # (Auto) (0.0 - 0.2 x10 3/uL) 0.06 0.04 Abs Immat Gran (auto) (0.00 - 0.03 x10 3/uL) 0.05 H 0.07 H Immature Gran % (0.0 - 2.0 %) 0.4 0.6 Nucleated RBC % (0 - 0 %) 0.0 0.0 Nucleated RBCs # (Man) (0.0 - 0.1 x10 3/uL) 0.00 0.00 Laboratory Tests 05/10 1950 Urines Urine Color (YEL/STRAW) YELLOW Urine Appearance (CLEAR) CLEAR Urine pH (5.0 - 7.0) 5.0 Ur Specific [place] (1.005 - 1.030) 1.049 H Urine Protein (NEGATIVE) NEGATIVE Urine Glucose (UA) (NEGATIVE) 1+ H Urine Ketones (NEGATIVE) NEGATIVE Urine Blood (NEGATIVE) 3+ H Urine Nitrite (NEGATIVE) POSITIVE H Urine Bilirubin (NEGATIVE) NEGATIVE Urine Urobilinogen (0.2 - 1.0 mg/dL) 0.2 Ur Leukocyte Esterase (NEGATIVE) 2+ H Urine RBC (0 - 3 RBC/HPF) 4-10 Urine WBC (0 - 3 WBC/HPF) 10-20 H Ur Squamous Epith Cells (NONE SEEN /HPF) 0-5 Urine Bacteria (NONE SEEN /HPF) TRACE Urine Mucus (NONE SEEN /LPF) TRACE Microbiology Date/Time Procedure - Status Source Growth 05/10 1347 MRSA DNA Surveillance Screen - COMP NASAL Radiology data:Recent Impressions:RADIOLOGY - XR CHEST 1 V 05/10 1526 Report Impression - Status: SIGNED Entered: 05/10/2023 1601 IMPRESSION:No acute cardiopulmonary disease.Impression By: [email or web address] - Armando Knight M.D.CAT SCAN - CT HEAD/BRAIN W/O CONT 05/10 1741 Report Impression - Status: SIGNED Entered: 05/10/2023 1805 IMPRESSION: 1. No CT evidence of intracranial hemorrhage or acute corticalinfarct.2. Nonspecific white matter changes which may represent chronic smallvessel ischemia. 3. Generalized parenchymal volume loss.Impression By: [email or web address] - Jorgito Chairez M.D. Results: labs reviewed, vital signs reviewed, vital signs stable, current med profile rev'd Treatment Prophylaxis Treatment ProphylaxisOxygen: nasal cannula Diagnosis, Assessment PlanHospital course to date:Assessment and Plan: - CAD (coronary artery disease), Status post PCI to the RCA.- Junctional bradycardia s/p Temp. Pacemaker.- Acute Cystitis.- Acute metabolic Enecephalopathy due to UTI.- Dm type II.- HLD.- HX of HTN.- Plan: CCU.EP for PPM.Monitor BP and HR.Continue Plavix and aspirin.Pain meds.Antiemetics.Follow labs and repalce as needed.Glycemic control, accu check ac and HS, diabetic diet.PT and OT.Monitor. Consultants: cardiologyCode status: full codePlan discussed with: patient, admitting physician, consultants, nurse Quality: Gen Med Crit Care VTE ProphylaxisVTE prophylaxis initiated: yes Current MedicationsCurrent medication review:I attest that the foregoing medication list in the medical record is true, accurate, and complete to the best of my knowledge. Advanced Care Plan 65 or OlderDiscussed with: surrogate decis. maker (patient daughter)Discussion included: living will (none), power of insurance attorney (none), code status (full code) Sudarshan Cleaning 05/11/23 2309:Attestations Physician AttestationAgree w/findings plan:Patient seen and examined and I agree with the findings and plans as discussed with and documented by Vahe Pina NP at 1233 at 5392 RPT #:[id number] OF REPORTPRProgress [id number]:12:00G.[id number] able for patient xdrjRNUDHHAQJVXOIE4474-34-26Z76:35:59 [facility] 2023-05-11 11:04:00 [id number] [id number] Q4ziGXwVDQas0nZo5ppbW/OxEON5449-94-86K23:04:00 [facility] ([facility])Clinical NoteREPORT#:[id number] REPORT STATUS: SignedREPORT INITIALIZATION DATE:05/11/23 TIME: 1104 PATIENT: MARIA ESTHER CAPONE UNIT #: [id number]#: [id number] [address] AGE: 67 SEX: F ATTEND: Joaquin Lemon MDADM AUTHOR: Joaquin Lemon MDREPT SERVICE DT/TIME: 05/11/23 1104* ALL edits or amendments must be made on the electronic/computer document * Clinical NoteNote:Attending change to Dr. Cleaning due to insurance contract. at 1104 RPT #:[id number] OF REPORTCLClinical [id number]:04:00G.[id number] able for patient inhxXAWSYGMAYQFLUO9046-19-80A95:05:06 [facility] 2023-05-11 10:24:00 [id number] eijBrkEQwDlD9aIjKMIsXIVAn4Q7e wR1a1+bPHWF5flCVImXDbFH7gaA1184-95-06N07:24:00 [facility] ([facility])EP Progress NoteREPORT#:[id number] REPORT STATUS: SignedREPORT INITIALIZATION DATE:05/11/23 TIME: 1024 PATIENT: MARIA ESTHER CAPONE UNIT #: [id number]#: [id number] ROOM[facility]BED: [facility]DOB: [birth year] AGE: 67 SEX: F ATTEND: Sudarshan Cleaning MDADM AUTHOR: Elysia Velazco NPREPT SERVICE DT/TIME: 05/11/23 1024* ALL edits or amendments must be made on the electronic/computer document * Lianne Velazco 05/11/23 1024:SubjectiveChief complaint:Awake and alert, feeling better today Reports chest soreness Patient reports:No: complaints. Nursing reports:No: complaints. Objective GeneralVS/I OLaboratory Tests 05/11/23 0316:[Embedded Image Not Available] 05/10/23 1347:[Embedded Image Not Available]Current Medications Sig/Xavi Start time Last Medication Dose Route Stop Time Status Admin Aspirin 81 MG DAILY 05/11 900 AC 05/11 PO 08/09 0859 0852 Clopidogrel Bisulfate 75 MG DAILY 05/11 900 AC 05/11 PO 08/09 0859 0852 Pravastatin Sodium 20 MG BEDTIME 05/10 211 AC 05/10 PO 08/08 2114 2206 Ceftriaxone Sodium 1,000 MG Q24H 05/10 2000 AC 05/10 Sodium Chloride 10 ML IV 05/159 2024 Insulin Human Lispro 0 AC HS 05/10 1630 AC SUBQ 08/08 1629 Acetaminophen 650 MG Q6H PRN PRN 05/10 1345 AC 05/11 PO 08/08 1344 0858 Dextrose/Water 125 ML ASDIR PRN 05/10 1345 CKD IV 08/08 1344 Dextrose/Water 250 ML ASDIR PRN 05/10 1345 CKD IV 08/08 1344 Docusate Sodium 100 MG Q12H PRN PRN 05/10 1345 AC PO 08/08 1344 Glucagon 1 MG ASDIR PRN 05/10 1345 AC IM 08/08 1344 Ondansetron HCl 4 MG Q6H PRN PRN 05/10 1345 AC IV 08/08 1344 Mupirocin 1 APPLIC BID 05/10 1300 AC 05/11 NASAL 05/14 2101 0851 Last Documented: Result Date Time Pulse Ox 97 05/11 1000 B/P 116/55 05/11 1000 B/P Mean 79 05/11 1000 Pulse 60 05/11 1000 Resp 21 05/11 1000 Temp 36.6 05/11 08 FiO2 21 05/11 432 O2 Delivery Room air 05/11 432 24 hour I O ending at 0700: 05/11 0700 05/10 1900 Intake Total 444 480 Output Total 600 400 Balance -156 80 Intake, Oral 444 480 Output, Urine 600 400 Patient 60 kg Weight Weight Bed scale Measurement Method PATIENT WEIGHT: Weight (lb): 132Weight (oz): 4.44Weight (kg): 60.000 Physical ExamGeneral appearance: alert, awake, oriented, no acute distress, no respiratory distressHEENT: mucosal membranes moistNeck: non-tenderCardiovascular: CV assessment: bradycardia, irregular rhythmRespiratory: decreased breath sounds, no distressAbdomen: softGenitourinary: no flank painExtremities: dry, moves allMusculoskeletal: normal inspectionNeuro/JUICE SCALEMAN: alert, oriented X 3Skin: dry, intactPsychiatry: normal affectEKG Interpretation: sinus bradycardia, junctional Treatment Prophylaxis Treatment ProphylaxisOxygen: room air Diagnosis, Assessment PlanFree Text A P:Assessment:1. Complete heart block/Junctional bradycardia s/p PCI/stent to RCA, requiring temporary pacer wire/pacing via RIJ2. CAD s/p PCI/stenting to RCA . HTN4. HLD 5. Chest pain6. DM Cardiac cath report 05/10/2023: severe proximal RCA disease s/p PCI/stent, severeLcx stenois, moderate LAD disease Plan/Recommendations:- Continuous tele monitoring- Cardiology following - ECHO pending, ECHO results from [facility] - LVEF 60-65%- Carotid doppler - less than 50% ICA stenosis bilaterally - Repeat EKG - On tele Vpaced at 60 bpm via RIJ temporary pacemaker wire, underlying rhythm appears to be junctional in 50s- Patient awake and alert, hemodynamically stable, Vpaced at 60bpm- AVOID AV meet blocking agents- Reported CHB s/p PCI/stenting to RCA, requiring temporary pacing, will rdwfadt17-33 hours to determine if patient will require permanent pacemaker implantation - Will follow 05/11/2023:- Continuous tele monitoring - Monitor in CCU- EKG yesterday showed junctional rhythm rate 50 bpm, QRS 80ms- Repeat EKG today- Temporary pacemaker rate lowered to 40 bpm- On tele, junctional rhythm rate 50-60s- Seems to be improving - EKG today showed Junctional, rate 58 bpm - Will monitor another 24 hours to determine if patient will need PPM - Will follow Discussed plan with patient and her family. Consultants: cardiologyCode status: full codePlan discussed with: patient Rodrigues Sumeet marcum 05/13/23 1103:AttestationsAttestation needed: supervising physician Physician AttestationAgree w/findings plan:The patient seen and examined on 05/11/2023. I agree with the findings and plan as documented by Elysia Velazco NP. at 1941 at 1103 RPT #:[id number] OF REPORTPRProgress rgjy0341-57-06S66:24:00G.[id number] able for patient oogzQIEAVIUJISMWOO9225-59-56Z90:42:03 [facility] 2023-05-11 08:27:00 [id number] /WCqQYqnKofut87T68xYOs0KMvhEg KvydwNH1TcjyMMqoftlvKQt/swY9473-37-41K82:27:00 [facility])Critical Care Progress NoteREPORT#:[id number] REPORT STATUS: SignedREPORT INITIALIZATION DATE:05/11/23 TIME: 826 PATIENT: MARIA ESTHER CAPONE UNIT #: [id number]#: [id number] [address] [birth year] AGE: 67 SEX: F ATTEND: Joaquin Lemon MDADM AUTHOR: Tammy Chamberlain NPREPT SERVICE DT/TIME: 05/11/23826* ALL edits or amendments must be made on the electronic/computer document * SubjectiveChief complaint:hallucinationsHPI:Maria Esther Capone is a 67 y/o F PMH of HTN, HLD, DM, CAD s/p PCI. Pt had abnormal stress test req an elective heart cath at OSH req PCI to the RCA. Pt then went into complete HB and a temporary PM was placed in the RIJ. [facility] PT arrived to the unit paced, hemodynamically stable, on RA, awake but encephalopathic and hallucinating. ICU consultation was requested. Review of SystemsGU:Reports: dysuria. Objective GeneralVS/I OVital Signs Date Temp Pulse Resp B/P B/P Mean Pulse Ox FiO2 05/10-05/11 97.8-98.7 59-60 17-33 92-153/45-69 65-99 96-100 21 24 hour I O ending at 0700: 05/11 0700 05/10 1900 Intake Total 444 480 Output Total 600 400 Balance -156 80 Intake, Oral 444 480 Output, Urine 600 400 Patient 60 kg Weight Weight Bed scale Measurement Method PATIENT WEIGHT: Weight (lb): 132Weight (oz): 4.44Weight (kg): 60.000 Temperature maximum: 98.7 Physical ExamGeneral appearance: alert, awake, orientedHead/eyes: atraumatic, clear cornea, normocephalicENT: moist mucosal membranes, normal dentitionCardiovascular: normal capillary refill, normal heart sounds, regular rate and rhythm (paced)Respiratory: aerating well, clear to auscultation, symmetric expansionAbdomen: soft, non-tender, normal bowel soundsExtremities: moves all, no cyanosis, no edemaNeuro/JUICE SCALEMAN: alert, oriented X 3, normal speechSkin: dry, intactPsychiatry: normal affect ResultsFindings/data:Laboratory Tests 05/11 0432 Blood Gas Puncture Site R Radial O2 Saturation (90 - 100 %) 95.9 ABG pH (7.35 - 7.45) 7.457 H ABG pCO2 (35.0 - 45 mmHg) 30.7 L ABG pO2 (80 - 100.0 mmHg) 75.5 L ABG PO2/FiO2 Ratio (mm/Hg) 359.50 ABG HCO3 (22.0 - 26.0 MMOL/L) 21.7 L ABG Total CO2 22.6 ABG Base Excess (-4.0 - 4.0 MMOL/L) -2.2 ABG Hematocrit (33.0 - 45.0 %) 32 L ABG Hemoglobin (11.0 - 15.0 G/DL) 10.9 L Jamison Test Positive Sodium (134 - 147 mmol/L) 139 Potassium (3.4 - 5.0 mmol/L) 4.1 Chloride (100 - 108 mmol/L) 109 H Ionized Calcium (1.12 - 1.32 MMOL/L) 1.20 Lactic Acid (0.9 - 1.7 mmol/l) 0.7 L O2 Delivery Device room air FiO2 (%) 21.0 Laboratory Tests 05/10 1950 Urines Urine Color (YEL/STRAW) YELLOW Urine Appearance (CLEAR) CLEAR Urine pH (5.0 - 7.0) 5.0 Ur Specific [place] (1.005 - 1.030) 1.049 H Urine Protein (NEGATIVE) NEGATIVE Urine Glucose (UA) (NEGATIVE) 1+ H Urine Ketones (NEGATIVE) NEGATIVE Urine Blood (NEGATIVE) 3+ H Urine Nitrite (NEGATIVE) POSITIVE H Urine Bilirubin (NEGATIVE) NEGATIVE Urine Urobilinogen (0.2 - 1.0 mg/dL) 0.2 Ur Leukocyte Esterase (NEGATIVE) 2+ H Urine RBC (0 - 3 RBC/HPF) 4-10 Urine WBC (0 - 3 WBC/HPF) 10-20 H Ur Squamous Epith Cells (NONE SEEN /HPF) 0-5 Urine Bacteria (NONE SEEN /HPF) TRACE Urine Mucus (NONE SEEN /LPF) TRACE Laboratory Tests 05/11/23 0316:[Embedded Image Not Available] 05/10/23 1347:[Embedded Image Not Available]Microbiology:05/10 1950 URINE: Urine Culture - WKST05/10 1347 NASAL: MRSA DNA Surveillance Screen - RECD Radiology dataRecent Impressions:RADIOLOGY - XR CHEST 1 V 05/10 1526 Report Impression - Status: SIGNED Entered: 05/10/2023 1601 IMPRESSION:No acute cardiopulmonary disease.Impression By: [email or web address] - Armando Knight M.D.CAT SCAN - CT HEAD/BRAIN W/O CONT 05/10 1741 Report Impression - Status: SIGNED Entered: 05/10/2023 1805 IMPRESSION: 1. No CT evidence of intracranial hemorrhage or acute corticalinfarct.2. Nonspecific white matter changes which may represent chronic smallvessel ischemia. 3. Generalized parenchymal volume loss.Impression By: [email or web address] Latrice Chairez M.D. Diagnosis, Assessment PlanFree text A P: problem list: acute metabolic encephalopathy -- resolvedCADcomplete HBHTNleukocytosis - UTI 05/11/23: pt became altered yesterday evening. ordered CTH, abg, ammonial level per encephalopathy work up. Family denied any ETOH use. UA with CX sent given leukocytosis. Patient was started on rocephin empirically. This AM mental statusis back to baseline, she is no longer hallucinating. Notified Neuro that consultis no longer needed. Otherwise pt will stay in the unit while req temporary PM managed by cardiology. ICC will sign off today. Neuro: Neuro check every 2 hour- CTH negative-ammonia level negative-abg unremarkable-neuro consult --- no longer needed i notified Anita CHAMBERLAIN Cardiovascular: SBP 100-140. cont ASA/plavix. -echocardiogram pendingRespiratory: Keep saturation >94%. O2 as neededRenal: Monitor intake/output. Replace electrolytes. GI: Diet as tolerated. bowel regimenID: trend WBC, monitor for fever -- check UA with culture to r/o UTI Hem: Hemoglobin> 7Endo: Blood sugar 140-180 Prophylaxis: SCDDispo: CCU until cleared by cardiology. ICC will sign off today I have spent 30 minutes critical care time assessing, reviewing labs and imagingand discussing plan of care with the critical care anthropometrist.Consultants: cardiology Quality: Gen Med Crit Care VTE ProphylaxisVTE prophylaxis initiated: yes Current MedicationsCurrent medication review:I attest that the foregoing medication list in the medical record is true, accurate, and complete to the best of my knowledge. Advanced Care Plan 65 or OlderDiscussed with: surrogate decis. maker (patient daughter)Discussion included: living will (none), power of insurance attorney (none), code status (full code) at 0846 [facility] [[email or web address]] #:[phone] OF REPORTPRProgress [id number]:27:00G.[id number] able for patient roqmJOOAGCWBGFQITN6396-85-19O24:47:05 [facility] 2023-05-10 17:37:00 [id number] kQQH9zld/XH/inH5t77wGBH2Zonmg AQJm7NjCx0Sv3Z3YMUuJBWkVPyR2584-13-06A48:37:00 [facility])Critical Care Consult NoteREPORT#:[id number] REPORT STATUS: SignedREPORT INITIALIZATION DATE:05/10/23 TIME: 1736 PATIENT: MARIA ESTHER CAPONE UNIT #: [id number]#: [id number] [address] [birth year] AGE: 67 SEX: F ATTEND: Joaquin Lemon MDADM AUTHOR: Tammy Chamberlain NPREPT SERVICE DT/TIME: 05/10/231736* ALL edits or amendments must be made on the electronic/computer document * History of Present Illness HPIRequesting clinician: Dr. Galeano for consult:encephalopathyChief complaint:hallucinationsPCP:PCP: No Primary or Family Physician HPI:Maria Esther Capone is a 67 y/o F PMH of HTN, HLD, DM, CAD s/p PCI. Pt had abnormal stress test req an elective heart cath at OSH req PCI to the RCA. Pt then went into complete HB and a temporary PM was placed in the RIJ. PT was tx to [facility] for EP eval for PPM. PT arrived to the unit paced, hemodynamically stable, on RA, awake but encephalopathic and hallucinating. ICU consultation was requested. History - Adult longitudinalAdditional medical history:HTN, HLD, DM, CADAdditional surgical history:tubal ligationAlcohol use: Denies EtOH useDrug use: Denies recreational drugsSmoking status for patients 13 years old or older: Former Smoker Review of Systems ROSRespiratory:Denies: SOB. Cardiovascular:Denies: chest pain. GI:Denies: abdominal pain. Neuro:Denies: focal weakness, headache. Psych:Reports: visual hallucination. Objective Physical ExamVS/I O:Last Documented: Result Date Time Temp 98.7 05/10 1300 Patient Weight and BMI Weight (kg): 60.000 BMI: 26.7 General appearance: alert, awake, pleasant, conversationalHead/Eyes: atraumatic, clear cornea, normocephalicENT: moist mucosal membranes, normal dentitionCardiovascular: normal capillary refill, normal heart sounds, regular rate and rhythm (paced)Respiratory: aerating well, clear to auscultation, symmetric expansionAbdomen: soft, non-tender, normal bowel soundsExtremities: moves all, no cyanosis, no edemaNeuro/JUICE SCALEMAN: altered mental status, alertSkin: dry, intactPsychiatry: normal affect ResultsFindings/Data:Laboratory Tests 05/10/23 1347:[Embedded Image Not Available]Laboratory Tests 05/10 05/10 1426 1347 Chemistry Sodium (134 - 147 mEq/L) 138 Potassium (3.4 - 5.0 mEq/L) 4.4 Chloride (100 - 108 mEq/L) 106 Carbon Dioxide (21 - 33 mEq/l) 25 Anion Gap (0 - 20) 11 BUN (7 - 25 mg/dL) 26 H Creatinine (0.6 - 1.3 mg/dL) 1.1 Glomerular Filtr Rate (80 - 90) 54.4 L Glucose (77 - 141 mg/dL) 140 Calcium (8.0 - 10.5 mg/dL) 9.0 Total Bilirubin (0.0 - 1.0 mg/dL) 1.00 AST (8 - 34 IUnit/L) 54 H ALT (10 - 49 IUnit/L) 120 H Total Alk Phosphatase (20 - 125 IUnit/L) 57 Troponin I High Sens (0 - 34 ng/L) 250 *H Total Protein (6.4 - 8.2 g/dL) 6.6 Albumin (3.4 - 5.0 g/dL) 3.70 LDL Cholesterol Measurd (0 - 100 mg/dL) 123.0 H Laboratory Tests 05/10 1347 Coagulation INR (0.8 - 1.2) 1.0 PT Patient/Control Mix (9.3 - 12.9 SECONDS) 10.9 Laboratory Tests 05/10 1347 Hematology WBC (4.5 - 11.0 x10 3/uL) 12.1 H RBC (3.54 - 5.02 x10 6/uL) 3.51 L Hgb (11.0 - 15.0 g/dL) 10.7 L Hct (33.0 - 45.0 %) 32.5 L MCV (81.0 - 99.0 fL) 92.6 MCH (27.0 - 33.0 pg) 30.5 MCHC (33.0 - 37.0 g/dL) 32.9 L RDW (11.5 - 14.5 %) 12.5 Plt Count (150 - 400 x10 3/uL) 218 MPV (7.0 - 9.0 fL) 10.3 H Neut % (Auto) (56.0 - 77.0 %) 77.4 H Lymph % (Auto) (14.0 - 32.0 %) 14.1 [place] % (Auto) (4.8 - 9.0 %) 7.3 Eos % (Auto) (0.3 - 3.7 %) 0.3 Baso % (Auto) (0.0 - 2.0 %) 0.3 Neut # (Auto) (2.0 - 7.6 x10 3/uL) 9.35 H Lymph # (Auto) (1.0 - 3.8 x10 3/uL) 1.70 [place] # (Auto) (0.1 - 0.8 x10 3/uL) 0.88 H Eos # (Auto) (0.0 - 0.2 x10 3/uL) 0.04 Baso # (Auto) (0.0 - 0.2 x10 3/uL) 0.04 Abs Immat Gran (auto) (0.00 - 0.03 x10 3/uL) 0.07 H Immature Gran % (0.0 - 2.0 %) 0.6 Nucleated RBC % (0 - 0 %) 0.0 Nucleated RBCs # (Man) (0.0 - 0.1 x10 3/uL) 0.00 Microbiology:05/10 1347 NASAL: MRSA DNA Surveillance Screen - RECD Radiology data:Recent Impressions:RADIOLOGY - XR CHEST 1 V 05/10 1526 Report Impression - Status: SIGNED Entered: 05/10/2023 1601 IMPRESSION:No acute cardiopulmonary disease.Impression By: AnthonyVBGénesis Knight M.D. Diagnosis, Assessment Plan Diagnosis, Assessment PlanConsultants: cardiologyFree text DxA P: problem list: acute metabolic encephalopathyCADcomplete HBHTNleukocytosis Neuro: Neuro check every 2 hour-obtain CTH-ammonia kazal-qvq-fadwf consultCardiovascular: SBP 100-140. cont ASA/plavix. -echocardiogram pendingRespiratory: Keep saturation >94%. O2 as neededRenal: Monitor intake/output. Replace electrolytes. GI: Diet as tolerated. bowel regimenID: trend WBC, monitor for fever -- check UA with culture to r/o UTI Hem: Hemoglobin> 7Endo: Blood sugar 140-180 Prophylaxis: SCDDispo: CCU I have spent 50 minutes critical care time assessing, reviewing labs and imagingand discussing plan of care with the critical care anthropometrist. at 1756 RPT #:[id number] OF REPORTHCLjytcpcxxfkp0766-13-99I22:37:00G.PDOC2 [id number] for patient ivzpZXCUUTFGVSWFUK3505-66-70A58:56:54 [facility] 2023-05-10 15:27:00 [id number]/bt3 VFyVnDDsXGvebY2Kc+pGpoZV6PolR 0P+qitC+QoiE+eCb06uq9fplRkA1119-38-48L52:27:58583 7-0001 [place] [address] PATIENT NAME: MARIA ESTHER CAPONE ADMIT DATE: 05/10/23ACCOUNT NO: [id number] ROOM NO: [facility] AGE: 67 REPORT TYPE: eELECTROCARDIOGRAM REPORT SEX: F ADMITTING PHYSICIAN:Joaquin Lemon MD ATTENDING PHYSICIAN:Joaquin Lemon MD Order:[id number] Reason : PRE OP Test Date/Time Stamp:WedMay 10 2023 15:27:30Blood Pressure : / mmHGVent. Rate : 050 BPM Atrial Rate : 050 BPM P-R Int : 102 ms QRS Dur : 080 ms QT Int : 408 ms P-R-T Axes : 029 -07 013 degrees QTc Int : 371 ms Sinus bradycardia with short PRMinimal voltage criteria for LVH, may be normal variant ( R in aVL )Otherwise normal ECGNo previous ECGs availableConfirmed by MD PALAFOX GERARD ([id number]) on 05/11/2023 6:45:30 AM Referred By: Joaquin Lemon Confirmed by:BENJAMIN PALAFOX MD at 0645 PATIENT NAME: MARIA ESTHER CAPNOE .[id number] AVAvailable for patient ggzxUDTRJQYINDHJNJ6276-18-04J71:45:56 [facility] 2023-05-10 14:25:00 [id number] iEvApzSv5eo7srbsjl14xy4fOX/By 8Vs5fxwmFxsqmqPUxILdrNTutwx8742-71-43V53:25:00 [facility])EP Consultation NoteREPORT#:[id number] REPORT STATUS: SignedREPORT INITIALIZATION DATE:05/10/23 TIME: 1424 PATIENT: MARIA ESTHER CAPONE UNIT #: [id number]#: [id number] [address] [birth year] AGE: 67 SEX: F ATTEND: Sudarshan Cleaning MDA AUTHOR: Elysia Velazco NPREPT SERVICE DT/TIME: 05/10/231424* ALL edits or amendments must be made on the electronic/computer document * Lianne Velazco 05/10/23 1425:History of Present IllnessRequesting clinician: Dr. Flower for consult:complete heart block s/p PCI to RCAChief complaint:abnormal stress testPCP:PCP: No Primary or Family Physician HPI:The patient is a 67 year old female with past medical history of HTN, HLD, DM, CAD s/p PCI/stenting in 2006 who presented to ED at [facility] with chest pain. Dr. Hall, Cardiology, was seeing her at [facility]. She underwent stress test which was abnormal. She was taken for cardiac catheterization this morning with Dr. Hall, cardiac cath showed 99% stenosis to RCA. She underwent PCI/Stent to RCA and went into complete heart block, temporary pacemaker wire was inserted via right IJ. She was transferred to [facility] for evaluation for permanent pacemaker. EP was consulted for PPM evaluation. Thank you kindly for [facility] consultation and the opportunity to participate in the patient's plan of care. History - Adult longitudinalAdditional medical history:HTN, HLD, DM, CAD Additional surgical history:tubal ligation Alcohol use: Denies EtOH useDrug use: Denies recreational drugsSmoking status for patients 13 years old or older: Former Smoker Review of SystemsConstitutional:Reports: generalized weakness. Skin:Denies: abrasion. Allergy/Immun:Denies: allergic reaction. Eyes:Denies: visual loss/blurred. ENT:Denies: nasal congestion. Respiratory:Denies: TELLO (dyspnea on exertion), SOB. Cardiovascular:Reports: chest pain. GI:Denies: abdominal pain. :Denies: dysuria. Musculoskeletal:Denies: arthritis. Heme:Denies: adenopathy. Endocrine:Denies: weight gain, weight loss. Neuro:Denies: bowel dysfunction, change in LOC. Psych:Denies: agitation, anxiety. All systems rev neg: except as marked ObjectiveVS/I OLaboratory Tests 05/10/23 1347:[Embedded Image Not Available]Current Medications Sig/Xavi Start time Last Medication Dose Route Stop Time Status Admin Aspirin 81 MG DAILY 05/11 900 PEND PO 08/09 0859 Clopidogrel Bisulfate 75 MG DAILY 05/11 900 UNV PO 08/09 0859 Insulin Human Lispro 0 AC HS 05/10 1630 UNV SUBQ 08/08 1629 Acetaminophen 650 MG Q6H PRN PRN 05/10 1345 UNV PO 08/08 1344 Dextrose/Water 125 ML ASDIR PRN 05/10 1345 UNV IV 08/08 1344 Dextrose/Water 250 ML ASDIR PRN 05/10 1345 UNV IV 08/08 1344 Docusate Sodium 100 MG Q12H PRN PRN 05/10 1345 UNV PO 08/08 1344 Glucagon 1 MG ASDIR PRN 05/10 1345 UNV IM 08/08 1344 Ondansetron HCl 4 MG Q6H PRN PRN 05/10 1345 UNV IV 08/08 1344 Mupirocin 1 APPLIC BID 05/10 1300 AC NASAL 05/14 2101 PATIENT WEIGHT: Weight (lb): Weight (oz): Weight (kg): General appearance: alert, awake, oriented, no acute distress, no respiratory distressHEENT: mucosal membranes moistNeck: non-tenderCardiovascular: CV assessment: bradycardia, irregular rhythmRespiratory: decreased breath sounds, no distressAbdomen: softGenitourinary: no flank painExtremities: dry, moves allMusculoskeletal: normal inspectionNeuro/JUICE SCALEMAN: alert, oriented X 3Skin: dry, intactPsychiatry: normal affectEKG Interpretation: ventricular pacing, junctional bradycardia Treatment Prophylaxis Treatment ProphylaxisOxygen: room air Diagnosis, Assessment PlanFree Text A P:Assessment:1. Complete heart block/Junctional bradycardia s/p PCI/stent to RCA, requiring temporary pacer wire/pacing via RIJ2. CAD s/p PCI/stenting to RCA . HTN4. HLD 5. Chest pain6. DM Cardiac cath report 05/10/2023: severe proximal RCA disease s/p PCI/stent, severeLcx stenois, moderate LAD disease Plan/Recommendations:- Continuous tele monitoring- Cardiology following - ECHO pending, ECHO results from [facility] - LVEF 60-65%- Carotid doppler - less than 50% ICA stenosis bilaterally - Repeat EKG - On tele Vpaced at 60 bpm via RIJ temporary pacemaker wire, underlying rhythm appears to be junctional in 50s- Patient awake and alert, hemodynamically stable, Vpaced at 60bpm- AVOID AV meet blocking agents- Reported CHB s/p PCI/stenting to RCA, requiring temporary pacing, will lapgbxt87-64 hours to determine if patient will require permanent pacemaker implantation - Will follow Discussed plan with patient and her family. Consultants: cardiologyPlan discussed with: patient, familyCode status: full code NoamAurelioa Chad 05/16/232131:History - Adult longitudinalAllergies:Coded Allergies:hydrocodone (Mild, ITCHING 05/10/23) AttestationsAttestation needed: supervising physician Physician AttestationAgree w/findings plan:The patient was seen and examined. I agree with assessment and plan by BULMARO Santacruz MDCardiac Rhythm Center at 1613 at 2133 RPT #:[id number] OF REPORTLTPhmttfdppcfa7528-81-98S27:25:00G.PDOC2 [id number] for patient gkamAKRZUXKBOEIOPG0573-31-45V25:13:36 [facility] 2023-05-10 14:01:00 [id number] V+OEHH2CcFgmplVkr6SbzEEhqnTlg LvE1OzDW+ggn0qXP0Fg2Ssg0TYl3160-96-59X65:01:00 [facility] HospitalHospital[facility] History PhysicalREPORT#:[id number] REPORT STATUS: SignedREPORT INITIALIZATION DATE:05/10/23 TIME: 140 PATIENT: MARIA ESTHER CAPONE UNIT #: [id number]#: [id number] [address] [birth year] AGE: 67 SEX: F ATTEND: Joaquin Lemon MDADM AUTHOR: Joaquin Lemon MDREPT SERVICE DT/TIME: 05/10/23 1401* ALL edits or amendments must be made on the electronic/computer document * History of Present Illness HPIChief complaint:Junctional rhythm requiring temporary pacemaker after PCI of the RCA this morning.PCP:PCP: No Primary or Family Physician HPI:67-year-old woman with past medical history significant for diabetes mellitus, hypertension, dyslipidemia and rheumatoid arthritis. Underwent cardiac work-up for chest pain that had a significant abnormal stress test as an outpatient and was scheduled for cardiac cath this morning. Patient was found to have multiplevessel CAD with significant stenosis of the RCA. Stented this morning. Shortly after this patient developed junctional rhythm that required replacement from a temporary intravenous pacemaker. Patient was transferred here for higher level of care for possible permanent pacemaker insertion if required. Currently patient without complaints and hemodynamically stable. History Past Medical Surgical HxPatient History: 1. HTN (hypertension) 2. Dyslipidemia 3. Rheumatoid arthritis 4. Diabetes 5. CAD (coronary artery disease) 6. S/P coronary artery stent placement Social HistoryAlcohol use: Denies EtOH useDrug use: Denies recreational drugsSmoking status for patients 13 years old or older: Never Smoker Medication/Allergy-Vaccine HxMedications:Home Medications:DOXAZOSIN (CARDURA) 2 MG PO DAILY METOPROLOL SUCC XL (TOPROL XL) 50 MG PO BID PRAVASTATIN (PRAVACHOL) 20 MG PO BEDTIME metFORMIN (GLUCOPHAGE) 500 MG PO DAILY Allergies:Coded Allergies:hydrocodone (Mild, ITCHING 05/10/23) Pt reports no significant: family history Review of SystemsConstitutional:Denies: chills, fatigue, fever, generalized weakness, lethargy, malaise, recent wt loss, other. Cardiovascular:Reports: chest pain. Denies: TELLO (dyspnea on exertion), edema, orthopnea, palpitations, parox nocturnal dyspnea, other. Neuro:Reports: confusion. Denies: bladder dysfunction, bowel dysfunction, change in LOC, dizziness, focal weakness, gait problem, headache, lightheaded, numbness, seizure, slurred speech, spinning sensation, syncope, unable to speak, vision change, weakness. OBJECTIVEVS/I O:Patient Weight and BMI Weight (kg): BMI: General appearance: confused, awakeHead/Eyes: atraumatic, EOMI, normal conjunctiva/sclera, normocephalic, PERRLAENT: moist mucosal membranesNeck: full range of motion, no bruit/NL carotids, no JVDCardiovascular: normal heart sounds, regular rate rhythmRespiratory: aerating well, clear to auscultation, symmetric expansion, no distressAbdomen: non-tender, normal bowel sounds, soft, no distention, no guarding, no reboundExtremities: moves all, no cyanosis, no edemaMusculoskeletal: normal inspectionNeuro/JUICE SCALEMAN: disoriented, alert, normal speech, no motor deficits, no sensory deficits ResultsFindings/Data:Laboratory Tests: 05/10 1950 1426 1347Chemistry Sodium (134 - 147 mEq/L) 138 Potassium (3.4 - 5.0 mEq/L) 4.4 Chloride (100 - 108 mEq/L) 106 Carbon Dioxide (21 - 33 mEq/l) 25 Anion Gap (0 - 20) 11 BUN (7 - 25 mg/dL) 26 H Creatinine (0.6 - 1.3 mg/dL) 1.1 Glomerular Filtr Rate (80 - 90) 54.4 L Glucose (77 - 141 mg/dL) 140 POC Glucose (70 - 110 MG/DL) 170 H Calcium (8.0 - 10.5 mg/dL) 9.0 Total Bilirubin (0.0 - 1.0 mg/dL) 1.00 AST (8 - 34 IUnit/L) 54 H ALT (10 - 49 IUnit/L) 120 H Total Alk Phosphatase (20 - 125 IUnit/L) 57 Ammonia (11 - 35 umol/L) < 10 L Troponin I High Sens (0 - 34 ng/L) 250 *H Total Protein (6.4 - 8.2 g/dL) 6.6 Albumin (3.4 - 5.0 g/dL) 3.70 LDL Cholesterol Measurd (0 - 100 mg/dL) 123.0 HCoagulation INR (0.8 - 1.2) 1.0 PT Patient/Control Mix (9.3 - 12.9 10.9SECONDS)Hematology WBC (4.5 - 11.0 x10 3/uL) 12.1 H RBC (3.54 - 5.02 x10 6/uL) 3.51 L Hgb (11.0 - 15.0 g/dL) 10.7 L Hct (33.0 - 45.0 %) 32.5 L MCV (81.0 - 99.0 fL) 92.6 MCH (27.0 - 33.0 pg) 30.5 MCHC (33.0 - 37.0 g/dL) 32.9 L RDW (11.5 - 14.5 %) 12.5 Plt Count (150 - 400 x10 3/uL) 218 MPV (7.0 - 9.0 fL) 10.3 H Neut % (Auto) (56.0 - 77.0 %) 77.4 H Lymph % (Auto) (14.0 - 32.0 %) 14.1 [place] % (Auto) (4.8 - 9.0 %) 7.3 Eos % (Auto) (0.3 - 3.7 %) 0.3 Baso % (Auto) (0.0 - 2.0 %) 0.3 Neut # (Auto) (2.0 - 7.6 x10 3/uL) 9.35 H Lymph # (Auto) (1.0 - 3.8 x10 3/uL) 1.70 [place] # (Auto) (0.1 - 0.8 x10 3/uL) 0.88 H Eos # (Auto) (0.0 - 0.2 x10 3/uL) 0.04 Baso # (Auto) (0.0 - 0.2 x10 3/uL) 0.04 Abs Immat Gran (auto) (0.00 - 0.03 0.07 Hx10 3/uL) Immature Gran % (0.0 - 2.0 %) 0.6 Nucleated RBC % (0 - 0 %) 0.0 Nucleated RBCs # (Man) (0.0 - 0.1 0.00x10 3/uL)Urines Urine Color (YEL/STRAW) YELLOW Urine Appearance (CLEAR) CLEAR Urine pH (5.0 - 7.0) 5.0 Ur Specific [place] (1.005 - 1.030) 1.049 H Urine Protein (NEGATIVE) NEGATIVE Urine Glucose (UA) (NEGATIVE) 1+ H Urine Ketones (NEGATIVE) NEGATIVE Urine Blood (NEGATIVE) 3+ H Urine Nitrite (NEGATIVE) POSITIVE H Urine Bilirubin (NEGATIVE) NEGATIVE Urine Urobilinogen (0.2 - 1.0 mg/dL) 0.2 Ur Leukocyte Esterase (NEGATIVE) 2+ H Urine RBC (0 - 3 RBC/HPF) 4-10 Urine WBC (0 - 3 WBC/HPF) 10-20 H Ur Squamous Epith Cells (NONE SEEN /HPF) 0-5 Urine Bacteria (NONE SEEN /HPF) TRACE Urine Mucus (NONE SEEN /LPF) TRACE Radiology data:Recent Impressions:RADIOLOGY - XR CHEST 1 V 05/10 1526 Report Impression - Status: SIGNED Entered: 05/10/2023 1601 IMPRESSION:No acute cardiopulmonary disease.Impression By: Pushpa Knight M.D.CAT SCAN - CT HEAD/BRAIN W/O CONT 05/10 1741 Report Impression - Status: SIGNED Entered: 05/10/2023 1805 IMPRESSION: 1. No CT evidence of intracranial hemorrhage or acute corticalinfarct.2. Nonspecific white matter changes which may represent chronic smallvessel ischemia. 3. Generalized parenchymal volume loss.Impression By: Vannessa Chairez M.D. Diagnosis, Assessment PlanProblem List/A P: 1. Junctional bradycardia Temporary pacemaker has been placed. Previous hospital. Admit to ICU with telemetry monitoring - Cardiology and EP consult May need permanent pacemaker placement. 2. CAD (coronary artery disease) Status post PCI to the RCA. Start Plavix and aspirin 3. Diabetes Hold metformin. Check hemoglobin A1c Insulin sliding scale 4. Dyslipidemia Resume home medication 5. HTN (hypertension) As needed hydralazine Hold home medication. 6. Confusion Probably multifactorial. Probably combination of Mild dementia in addition to UTI. Patient will be started on antibiotics. 7. UTI (urinary tract infection) Patient to be started on Rocephin pending urine culture. Plan discussed with: patient, familyResuscitation discussion: Discussed with: patientCode status: full code Quality: Gen Med Crit Care VTE ProphylaxisVTE prophylaxis initiated: yes Current MedicationsCurrent medication review:I attest that the foregoing medication list in the medical record is true, accurate, and complete to the best of my knowledge. Advanced Care Plan 65 or OlderDiscussed with: surrogate decis. maker (patient daughter)Discussion included: living will (none), power of insurance attorney (none), code status (full code) at 2111 RPT #:[id number] OF REPORTHPHistory and physical vsnifbfipno1084-17-77H70:01:00G.[id number] AVAvailable for patient rtjkYADXTLMBZBEUIT4512-62-64W20:12:02 [facility] 2023-05-10 13:31:00 [id number] eTccMNVUkZ+JXjv0/xuaVyVDIIh1u 3U9AuwmVZrQC9s9FfzPFt89BMXG1409-21-70Q72:31:00 [facility] ([facility])Cardiology ConsultationREPORT#:[id number] REPORT STATUS: SignedREPORT INITIALIZATION DATE:05/10/23 TIME: 1331 PATIENT: MARIA ESTHER CAPONE UNIT #: [id number]#: [id number] ROOM[facility]BED: [facility]-1DOB: [birth year] AGE: 67 SEX: F ATTEND: Sudarshan Cleaning MDADM AUTHOR: Carmen Mckeon MDREPT SERVICE DT/TIME: 05/10/23 1331* ALL edits or amendments must be made on the electronic/computer document * History of Present Illness HPIRequesting Clinician: Dr. Butler for consult:Complete heart blockChief complaint:DizzinessHPI:67 year old female with PMH of HTN, DM, HLD, CAD. Dr. Hall did PCI and stent placement to RCA. The patient went into complete heart block post procedure. She is transferred to [facility] for possible pacemaker placement. 67 YO female with PMHx of HTN, HLD, DM, CAD, prior PCI. She had abnormal stress test, had LHC, found to have RCA stenosis that was stented. Post procedure patient developed complete heart block requiring insertion of temporary pacemaker. The patient was transferred to [facility] for EP consulation and possiblepermanent pacemaker placement. The patient is stable so far # Complete heart block s/p temp pacer* no BB or any AVN blocking agent for now* I paused the pacer temporarily and patient has her own rhythm - sinus bradycardia* EP following , hopefully CHB is transient that she may end up not needing PPM* repeat EKG - sinus bradycardia with short WV interval. # CAD s/p PCI with MARY LOU to RCA* continue DAPT, statin* no BB due to CHB # Hypertension* BP StableHx Obtained From Patient, Prior medical records History - Adult longitudinalAdditional medical history:HTN, HLD, CADAdditional surgical history:PCI/MARY LOU to RCAHome medications:Home Medications:DOXAZOSIN (CARDURA) 2 MG PO DAILY METOPROLOL SUCC XL (TOPROL XL) 50 MG PO BID metFORMIN (GLUCOPHAGE) 500 MG PO DAILY IRBESARTAN (AVAPRO) 300 MG PO DAILY APIXABAN (ELIQUIS) 2.5 MG PO Q12H DOXYCYCLINE MONOHYDRATE (MONODOX) 100 MG PO Q12HR CLOPIDOGREL (PLAVIX) 75 MG PO DAILY ATORVASTATIN (LIPITOR) 40 MG PO BEDTIME Allergies:Coded Allergies:hydrocodone (Mild, ITCHING 05/10/23) Ambulatory status: Independent Review of SystemsConstitutional:generalized weakness. Respiratory:Denies: SOB. Cardiovascular:Denies: chest pain, edema, palpitations. GI:Denies: abdominal pain, nausea, vomiting. Neuro:dizziness. Objective GeneralVS/I O:PATIENT WEIGHT: Weight (lb): Weight (oz): Weight (kg): Medications:Active Meds + DC'd Last 24 HrsMupirocin (BACTROBAN 2% 22 GM OINTMENT) 1 APPLIC BID NASAL Physical ExamGeneral appearance: alert, awake, orientedNeck: non-tender, no JVDCardiovascular: CV assessment: bradycardiaRespiratory: clear to auscultation, no distressAbdomen: soft, non-tender, normal bowel soundsLower extremity: LE assessment: no edemaMusculoskeletal: normal inspectionNeuro/JUICE SCALEMAN: alert, oriented X 3, normal speechPsychiatry: normal affect, normal judgment/insight, normal mood, no hallucinations ResultsResults: labs reviewed Diagnosis, Assessment PlanPlan discussed with: patient, daughter, nurse Free Text DxA P NotesFree Text DxA P Notes:1. Complete heart block: s/p temp pacer. EP consult. hold betablocker. 2. CAD s/p stent placement to RCA: resume DAPT, statin 3. Hypertension: monitor off BP meds. Appreciate the referral. at 1412 RPT #:[id number] OF REPORTFWZjknrzpusgke6951-08-76Z06:31:00G.PDOC2 [id number] for patient edksZYQOYHDROOLQAY3020-04-24D44:13:19 [facility]
[2023-12-22] MEDS ORDERED: ONDANSETRON 4 MG/2 ML VIAL ONE (08:00)
[2023-12-22] MEDS ORDERED: METHYLPREDNISOLONE 125 MG INJ ONE (08:00)
[2023-12-22] MEDS ORDERED: NA CHLORIDE 0.9% 1,000 ML ONE (08:01)
[2023-12-22] MEDS ORDERED: NA CHLORIDE 0.9% 500 ML ONE (08:01)
[2023-12-22] MEDS ORDERED: FENTANYL CITR 100 MCG/2 ML ONE (08:01)
[2023-12-22 08:09] LABS: Specific Gravity 1.027 (1.005-1.030); Sqamous Epithelial None Seen /HPF (None Seen); Urine Bacteria None Seen /HPF (<20); Urine Bilirubin NEGATIVE (Negative); Urine Blood Trace (Negative); Urine Clarity Clear (Clear); Urine Color Colorless (Yellow); Urine Culture Reflex Order NOT NEEDED; Urine Glucose 4+ (Over) (Negative); Urine Ketones NEGATIVE (Negative); Urine Microscopic Reflex YN ORDER UMIC; Urine Nitrite NEGATIVE (Negative); Urine Protein TRACE (Negative); Urine RBC <5 /HPF (None Seen); Urine Urobilinogen Normal (Normal); Urine WBC <5 /HPF (<5)
[2023-12-22 08:12] LABS: Absolute Eosinophils 0.2 K/uL (0-0.5); Absolute Lymphocytes (CBC) 1.5 K/uL (0.7-4.9); Absolute Monocytes 0.5 K/uL (0.1-1.3); Absolute Neutrophil 7.5 K/uL (1.8-8.0); Basophils % 0.4 % (0-1.3); Eosinophils % 1.6 % (0-4.4); Hematocrit 34.7 % (36.0-45.0); Hemoglobin 11.8 g/dL (12.0-15.0); Lymphocytes % 15.9 % (15.3-44.8); MCH 30.2 pg (27.0-35.0); MCV 88.8 fL (80-100); MPV 7.8 fL (7.6-11.3); Monocytes % 4.9 % (3.3-12.3); Neutrophils % 77.2 % (41.7-73.7); Platelets 344 thou/uL (152-406); RBC Red Blood Cell Count 3.91 M/uL (3.86-4.86); Red Cell Distribution Width 13.7 % (12.1-15.2)
--- NOTE | 2023-12-22 08:21 | RAD REPORT ---
EXAM DESCRIPTION: RAD - Chest Single View - 12/22/2023 8:16 am CLINICAL HISTORY: COUGH Chest pain. COMPARISON: Chest Single View dated 05/17/2023; Chest Single View dated 05/04/2023; Chest Single Vie w dated 10/13/2021; Chest Single View dated 02/06/2019 FINDINGS: Portable technique limits examination quality. The lungs are grossly clear. The heart is normal in size. No displaced fractures.Dual lead pacer yasmeen ce. IMPRESSION: No acute intrathoracic process suspected.
[2023-12-22 08:26] LABS: Albumin/Globulin Ratio 1.2 (1.1-1.8); Anion Gap 7.8 mEq/L (5.0-15.0); Globulin 3.4 g/dL (2.3-3.5); Potassium 3.8 mEq/L (3.5-5.1); Protein, Total 7.4 g/dL (6.4-8.2); Troponin High Sensitivity 9.2 pg/mL (<58.9)
[2023-12-22] MEDS ORDERED: predniSONE 20 MG TAB ONE (09:45)
[2023-12-22 10:23] VITALS: TEMP 98.4; O2SAT 99
[2023-12-22 10:41] VITALS: BP 150/63
--- NOTE | 2023-12-22 15:04 | EDPHYS ---
Physician Documentation [facility] Name: Maria Esther Capone Age: 68 yrs Sex: Female : 1955 Arrival Date: 12/22/2023 Time: 07:40 Bed 8 Private MD: ED Physician Jeffrey Orona HPI: 12/21 09:30 This 68 yrs old Female presents to ER via EMS with complaints of Pain All Over.jamie 09:30 The patient or guardian reports decreased range of motion, pain. The complaints affect jamie the left hand diffusely, right hand diffusely. hx of RA. Onset: The symptoms/episode began/occurred yesterday, last night. Modifying factors: The symptoms are alleviated by elevation, holding still, the symptoms are aggravated by movement, dependent position. Severity of symptoms: At their worst the symptoms were moderate, in the emergency department the symptoms are unchanged. Severity of symptoms: At their worst the symptoms were moderate in the emergency department the symptoms are unchanged. Historical: - Allergies: 07:52 Codeine; ss - PMHx: 07:52 Diabetes - NIDDM; Heart attack in 2006; Hyperlipidemia; Hypertension; Rheumatoid ss Arthritis; - Immunization history:: Client reports having NOT received the Covid vaccine. - Infectious Disease History:: Denies. - Social history:: Smoking status: Patient denies any tobacco usage or history of. - Family history:: not pertinent. ROS: 09:30 Constitutional: Negative for fever, chills, and weight loss, Eyes: Negative for injury, jamie pain, redness, and discharge, ENT: Negative for injury, pain, and discharge, Neck: Negative for injury, pain, and swelling, Cardiovascular: Negative for chest pain, palpitations, and edema, Respiratory: Negative for shortness of breath, cough, wheezing, and pleuritic chest pain, Abdomen/GI: Negative for abdominal pain, nausea, vomiting, diarrhea, and constipation, Back: Negative for injury and pain, : Negative for injury, bleeding, discharge, and swelling, Skin: Negative for injury, rash, and discoloration, Neuro: Negative for headache, weakness, numbness, tingling, and seizure, Psych: Negative for depression, anxiety, suicide ideation, homicidal ideation, and hallucinations, Allergy/Immunology: Negative for hives, rash, and allergies, Endocrine: Negative for neck swelling, polydipsia, polyuria, polyphagia, and marked weight changes, Hematologic/Lymphatic: Negative for swollen nodes, abnormal bleeding, and unusual bruising, 09:30 MS/extremity: Positive for decreased range of motion, pain, Exam: 09:30 Constitutional: This is a well developed, well nourished patient who is awake, alert, jamie and in no acute distress. Head/Face: Normocephalic, atraumatic. Eyes: Pupils equal round and reactive to light, extra-ocular motions intact. Lids and lashes normal. Conjunctiva and sclera are non-icteric and not injected. Cornea within normal limits. Periorbital areas with no swelling, redness, or edema. ENT: Nares patent. No nasal discharge, no septal abnormalities noted. Tympanic membranes are normal and external auditory canals are clear. Oropharynx with no redness, swelling, or masses, exudates, or evidence of obstruction, uvula midline. Mucous membranes moist. Neck: Trachea midline, no thyromegaly or masses palpated, and no cervical lymphadenopathy. Supple, full range of motion without nuchal rigidity, or vertebral point tenderness. No Meningismus. Chest/axilla: Normal chest wall appearance and motion. Nontender with no deformity. No lesions are appreciated. Cardiovascular: Regular rate and rhythm with a normal S1 and S2. No gallops, murmurs, or rubs. Normal PMI, no JVD. No pulse deficits. Respiratory: Lungs have equal breath sounds bilaterally, clear to auscultation and percussion. No rales, rhonchi or wheezes noted. No increased work of breathing, no retractions or nasal flaring. Abdomen/GI: Soft, non-tender, with normal bowel sounds. No distension or tympany. No guarding or rebound. No evidence of tenderness throughout. Back: No spinal tenderness. No costovertebral tenderness. Full range of motion. Skin: Warm, dry with normal turgor. Normal color with no rashes, no lesions, and no evidence of cellulitis. Neuro: Awake and alert, GCS 15, oriented to person, place, time, and situation. Cranial nerves II-XII grossly intact. Motor strength 5/5 in all extremities. Sensory grossly intact. Cerebellar exam normal. Normal gait. Psych: Awake, alert, with orientation to person, place and time. Behavior, mood, and affect are within normal limits. 09:30 Musculoskeletal/extremity: Extremities: grossly normal except: decreased ROM, pain, ROM: limited active range of motion, limited passive range of motion, in the right hand and left hand, DVT Exam: negative Homans' sign noted on exam, no appreciated bluish discoloration, no erythema, no increased warmth, pain, swelling, tenderness, 10:39 ECG was reviewed by the Attending Physician. [facility] Vital Signs: 07:50 BP 187 / 52; Pulse 60; Resp 16; Temp 98.4(O); Pulse Ox 99% on R/A; Weight 53.52 kg; ss Height 4 ft. 11 in. ; Pain 8/10; 09:38 BP 150 / 63; Pulse 64; Resp 17; Pulse Ox 99% ; rs5 10:15 BP 147 / 66; Pulse 68; Resp 17; Pulse Ox 99% on R/A; rs5 07:50 Body Mass Index 23.83 (53.52 kg, 149.86 cm) ss 07:50 Pain Scale: Adult ss MDM: 07:43 Patient medically screened. [facility] 09:34 Differential diagnosis: closed fracture, contusion, tendonitis. Differential Diagnosis jamie altered mental status, sepsis, flu. Data reviewed: vital signs, nurses notes, lab test result(s). Consideration of Admission/Observation Escalation of care including admission/observation considered. I considered the following discharge prescriptions or medication management in the emergency department Medications were administered in the Emergency Department. See MAR. Independent interpretation of the following test(s) in the Emergency Department X-Ray: My interpretation is CXR NEG. Test considered but Not performed: Ultrasound NO ABD USG. Historians other than the Patient: PT WELL INFORMED. Care significantly affected by the following chronic conditions: Diabetes, Hypertension, HYPERLIPIDS, RA. 12/21 07:44 Order name: CBC with Diff; Complete Time: : [facility] 12/21 07:44 Order name: Comprehensive Metabolic Panel; Complete Time: : [facility] 12/21 07:44 Order name: Urinalysis w/ reflexes; Complete Time: : [facility] 12/21 07:45 Order name: Troponin High Sensitivity; Complete Time: : [facility] 12/21 07:45 Order name: Chest Single View XRAY; Complete Time: : [facility] 12/21 07:45 Order name: EKG; Complete Time: 07:45 [facility] 12/21 07:45 Order name: EKG - Nurse/Tech; Complete Time: 08:16 jamie EC:39 Rate is 60 beats/min. Rhythm is regular. QRS [place] is Normal. MD interval is normal. QRS jamie interval is normal. QT interval is normal. No Q waves. T waves are Normal. No ST changes noted. Clinical impression: Abnormal EKG without significant change and No evidence of ischemia. Interpreted by me. Reviewed by me. Administered Medications: 08:04 Drug: NS 0.9% IV 1000 ml IV at 125 ml/hr continuous Route: IV; Rate: 125 ml/hr; Site: rs5 right forearm; 08:20 Follow up: Response: No adverse reaction rs5 10:10 Follow up: IV Status: IV converted to saline lock; IV Intake: 1000ml rs5 08:05 Drug: NS 0.9% IV 500 ml IV at bolus once Route: IV; Rate: bolus; Site: right forearm; rs5 08:20 Follow up: Response: No adverse reaction rs5 08:40 Follow up: IV Status: Completed infusion; IV Intake: 500ml rs5 08:05 Drug: MethylPrednisoLONE IVP 125 mg IVP once Route: IVP; Site: right forearm; rs5 08:20 Follow up: Response: No adverse reaction rs5 08:05 Drug: fentaNYL (PF) IVP 50 mcg IVP once Route: IVP; Site: right antecubital; rs5 08:20 Follow up: Response: No adverse reaction; Pain is decreased rs5 08:05 Drug: Ondansetron IVP 4 mg IVP once; over 2 minutes Route: IVP; Site: right forearm; rs5 08:20 Follow up: Response: No adverse reaction rs5 08:20 Follow up: Response: No adverse reaction rs5 09:40 Drug: predniSONE PO 40 mg PO once Route: PO; rs5 10:15 Follow up: Response: No adverse reaction rs5 Disposition Summary: 12/22/23 09:37 Discharge Ordered Notes: Location: Home jamie Problem: new jamie Symptoms: have improved jamie Condition: Stable jamie Diagnosis - Rheumatoid arthritis, unspecified jamie - Unspecified symptoms and signs involving the musculoskeletal system jamie - Unspecified kidney failure jamie - Presence of cardiac pacemaker jamie Followup: jamie - With: Private Physician - When: 2 - 3 days - Reason: Recheck today's complaints, Continuance of care, Re-evaluation by your physician Discharge Instructions: - Discharge Summary Sheet jamie - Arthritis jamie - Musculoskeletal Pain jamie - Rheumatoid Arthritis jamie - Arthritis, [id number] jamie - Chronic Kidney Disease, Adult, [id number] [facility] Forms: - Medication Reconciliation Form jamie - Antibiotic Education jamie - Prescription Opioid Use jamie - Patient Portal Instructions [facility] - Leadership Thank You Letter [facility] Prescriptions: - acetaminophen-codeine 300-30 mg Oral tablet - take 1 tablet ORAL route every 6 hours as needed for pain; 20 tablet; Refills: jamie 0, Product Selection Permitted - diclofenac sodium 25 mg Oral tablet, delayed release (enteric coated) - take 1 tablet ORAL route 3 times per day; 30 tablet; Refills: 0, Product jamie Selection Permitted Signatures: Dispatcher [employer] EDJeffrey Whiteside MD MD cha Blanchard, Shelby RN RN Marcos Bailey RN RN rs5 Corrections: (The following items were deleted from the chart) 07:53 07:52 PMHx: diabetes mellitus; [facility]
--- NOTE | 2023-12-22 15:04 | ER ---
Nurse's Notes [facility] Name: Maria Esther Capone Age: 68 yrs Sex: Female : 1955 Arrival Date: 12/22/2023 Time: 07:40 Bed 8 Private MD: Diagnosis: Rheumatoid arthritis, unspecified;Unspecified symptoms and signs involving the musculoskeletal system;Unspecified kidney failure;Presence of cardiac pacemaker Presentation: 12/21 07:50 Chief complaint: Patient states: Pain all over, especially back and joints that began ss last week and has been getting worse. HX of RA. Coronavirus screen: Client denies travel out of the [place] in the last 14 days. Ebola Screen: Patient denies exposure to infectious person. Patient denies travel to an Ebola-affected area in the 21 days before illness onset. Initial Sepsis Screen: Does the patient meet any 2 criteria? No. Patient's initial sepsis screen is negative. Does the patient have a suspected source of infection? No. Patient's initial sepsis screen is negative. Risk Assessment: Do you want to hurt yourself or someone else? Patient reports no desire to harm self or others. Onset of symptoms was December 15, 2023. 07:50 Method Of Arrival: EMS: [facility] ss 07:50 Acuity: ALTA 3 ss 07:53 Care prior to arrival: Medication(s) given: Toradol, 15 mg IVP. Pt reports pain has ss improved after medication administration from 10/10 to 8/10 IV initiated. 20 GA, in the right forearm. Triage Assessment: 07:52 General: Appears uncomfortable, Behavior is calm, cooperative. Respiratory: Airway is ss patent Respiratory effort is even, unlabored, Respiratory pattern is regular, symmetrical. Historical: - Allergies: 07:52 Codeine; ss - PMHx: 07:52 Diabetes - NIDDM; Heart attack in 2006; Hyperlipidemia; Hypertension; Rheumatoid ss Arthritis; - Immunization history:: Client reports having NOT received the Covid vaccine. - Infectious Disease History:: Denies. - Social history:: Smoking status: Patient denies any tobacco usage or history of. - Family history:: not pertinent. Screenin:45 [facility] ED Fall Risk Assessment (Adult) History of falling in the last 3 months, rs5 including since admission No falls in past 3 months (0 pts) Confusion or Disorientation No (0 pts) Intoxicated or Sedated No (0 pts) Impaired Gait No (0 pts) Mobility Assist Device Used No (0 pt) Altered Elimination No (0 pt) Score/Fall Risk Level 0 - 2 = Low Risk Oriented to surroundings, Maintained a safe environment. 07:45 Abuse screen: Denies threats or abuse. Nutritional screening: No deficits noted. rs5 Tuberculosis screening: No symptoms or risk factors identified. Assessment: 07:45 General: Appears in no apparent distress. uncomfortable, Behavior is calm, cooperative. rs5 Pain: Complains of pain in generalized body aches Pain currently is 10 out of 10 on a pain scale. Quality of pain is described as aching, Is continuous. Neuro: Level of Consciousness is awake, alert, obeys commands, Oriented to person, place, time, situation. Cardiovascular: Patient's skin is warm and dry. Rhythm is regular. Respiratory: Airway is patent Respiratory effort is even, unlabored, Respiratory pattern is regular, symmetrical. GI: Abdomen is round non-distended, Abd is soft and non tender X 4 quads. : No signs and/or symptoms were reported regarding the genitourinary system. EENT: No signs and/or symptoms were reported regarding the EENT system. Derm: Skin is intact, Skin is pink, warm \T\ dry. Musculoskeletal: Range of motion: intact in all extremities. 07:54 Reassessment: assisted patient onto bedpan per request. Voided x 1. ss 08:50 Reassessment: Patient and/or family updated on plan of care and expected duration. Pain rs5 level reassessed. Patient is alert, oriented x 3, equal unlabored respirations, skin warm/dry/pink. Patient states feeling better. 09:38 Reassessment: No changes from previously documented assessment. rs5 10:15 Reassessment: No changes from previously documented assessment. rs5 Vital Signs: 07:50 BP 187 / 52; Pulse 60; Resp 16; Temp 98.4(O); Pulse Ox 99% on R/A; Weight 53.52 kg; ss Height 4 ft. 11 in. ; Pain 8/10; 09:38 BP 150 / 63; Pulse 64; Resp 17; Pulse Ox 99% ; rs5 10:15 BP 147 / 66; Pulse 68; Resp 17; Pulse Ox 99% on R/A; rs5 07:50 Body Mass Index 23.83 (53.52 kg, 149.86 cm) ss 07:50 Pain Scale: Adult ss ED Course: 07:43 Patient arrived in ED. jamie 07:43 Jeffrey Orona MD is Attending Physician. jamie 07:45 Patient has correct armband on for positive identification. Placed in gown. Bed in low rs5 position. Call light in reach. Side rails up X2. 07:45 No provider procedures requiring assistance completed. rs5 07:52 Triage completed. ss 08:15 Marcos Bailey, RN is Primary Nurse. rs5 08:17 Chest Single View XRAY In Process Unspecified. EDMS 10:16 IV discontinued, intact, bleeding controlled, No redness/swelling at site. Pressure rs5 dressing applied. 10:39 Primary Nurse role handed off by Marcos Bailey RN bd Administered Medications: 08:04 Drug: NS 0.9% IV 1000 ml IV at 125 ml/hr continuous Route: IV; Rate: 125 ml/hr; Site: rs5 right forearm; 08:20 Follow up: Response: No adverse reaction rs5 10:10 Follow up: IV Status: IV converted to saline lock; IV Intake: 1000ml rs5 08:05 Drug: NS 0.9% IV 500 ml IV at bolus once Route: IV; Rate: bolus; Site: right forearm; rs5 08:20 Follow up: Response: No adverse reaction rs5 08:40 Follow up: IV Status: Completed infusion; IV Intake: 500ml rs5 08:05 Drug: MethylPrednisoLONE IVP 125 mg IVP once Route: IVP; Site: right forearm; rs5 08:20 Follow up: Response: No adverse reaction rs5 08:05 Drug: fentaNYL (PF) IVP 50 mcg IVP once Route: IVP; Site: right antecubital; rs5 08:20 Follow up: Response: No adverse reaction; Pain is decreased rs5 08:05 Drug: Ondansetron IVP 4 mg IVP once; over 2 minutes Route: IVP; Site: right forearm; rs5 08:20 Follow up: Response: No adverse reaction rs5 08:20 Follow up: Response: No adverse reaction rs5 09:40 Drug: predniSONE PO 40 mg PO once Route: PO; rs5 10:15 Follow up: Response: No adverse reaction rs5 Medication: 09:39 VIS not applicable for this client. rs5 Intake: 08:40 IV: 500ml; Total: 500ml. rs5 10:10 IV: 1000ml; Total: 1500ml. rs5 Outcome: 09:37 Discharge ordered by . jamie 10:16 Discharged to home via wheelchair, with family, rs5 10:16 Condition: stable rs5 10:16 Discharge instructions given to patient, family, Instructed on discharge instructions, follow up and referral plans. medication usage, Demonstrated understanding of instructions, follow-up care, medications, Prescriptions given X 2, 10:17 Patient left the ED. rs5 Signatures: Dispatcher [employer] EDMS Arlenemarcie KseniaJeffrey Rucker MD MD cha Blanchard, Shelby, RN RN Marcos Eve[place], MIGUEL A RN rs5 Corrections: (The following items were deleted from the chart) 07:53 07:52 PMHx: diabetes mellitus; ss ss 14:18 10:41 Patient left the ED. rs5 14:18 10:16 Condition: stable rs5 rs5
--- NOTE | 2023-12-23 16:18 | EKG ---
Test Date: 2023-12-22 Test Time: 08:04:44 Fabrication Lead: [place] MEASUREMENT RESULTS: Intervals: Rate: 60 ND: 118 QRSD: 88 QT: 424 QTc: 424 [place]: P: 24 ND: 118 QRS: -10 T: -4 INTERPRETIVE STATEMENTS: Electronic atrial pacemaker Inferior infarct, age undetermined Abnormal ECG Compared to ECG 05/17/2023 03:18:27 Sinus bradycardia no longer present Left ventricular hypertrophy no longer present Myocardial infarct finding still present Electronically Signed On 12-23-23 16:16:32 CDT by Tony Hall
== END 2023-12-22 10:41 | disposition home or self-care (01) ==
LOC: ER 07:40
DX: M06.9 Rheumatoid arthritis, unspecified (principal); R29.91 Unspecified symptoms and signs involving the musculoskeletal system; N19 Unspecified kidney failure; Z95.0 Presence of cardiac pacemaker
CPT/HCPCS: 93005; 85025; 81001; 36415; 84484; 80053; 71045; J7512; J3010; J2919; J2405; J7040; J7030